=== PATIENT | male | born 1965 | race Caucasian/White ===

== ENCOUNTER → 2017-05-22 11:40 | Outpatient (CLI) | payer OTHER, SELFPAY ==
[2017-05-22 13:34] LABS: Albumin, Serum 3.9 g/dL (3.2-5.0); BUN 11 mg/dL (7-18); BUN/Creat Ratio 10.7 RATIO (10-20); Calcium,Total 9.1 mg/dL (8.5-10.1); Chloride 103 mmol/L (98-107); Creatinine, Serum 1.03 mg/dL (0.70-1.30); EST Glomerular Filtration Rate 81 mL/min (>60); Est Glom Filt Rate - Afr Amer 98 mL/min (>60); Glucose 98 mg/dL (74-106); Phosphorus 2.7 mg/dL (2.5-4.9); Potassium 4.3 mmol/L (3.5-5.1); Sodium Level 139 mmol/L (136-145)
== END ==
PROVIDERS: Family Provider Family Medicine; PCP Family Medicine; Visit Provider Internal Medicine Nephrology
DX: R80.9 Proteinuria, unspecified (principal)
CPT/HCPCS: 36415; 80069

== ENCOUNTER → 2017-05-28 09:01 | Outpatient (CLI) | payer OTHER, SELFPAY ==
--- NOTE | 2017-05-28 09:26 | US_ITS ---
STUDY: RENAL ULTRASOUND - COMPLETE REASON FOR EXAM: Male, 51 years old. Proteinuria. TECHNIQUE: Ultrasound evaluation of the kidneys was performed with real-time and static mays-scale imaging. COMPARISON: None. FINDINGS: RIGHT KIDNEY: Normal location of the right kidney, which is normal in size. The right kidney measures 11.4 x 5.6 x 6.0 cm. There is a normal cortex of the right kidney. The renal cortex measures 1.8 cm. There is no right renal mass or cyst. There are no right renal calculi. There is no right hydronephrosis. DISTAL RIGHT URETER: There is non-visualization of the distal right ureter. There is no demonstrated right ureterovesical junction calculus. There is no demonstrated right ureteral jet. LEFT KIDNEY: Normal location of the left kidney, which is normal in size. The left kidney measures 12.4 x 5.2 x 6.2 cm. There is a normal cortex of the left kidney. The renal cortex measures 1.9 cm. There is no left renal mass or cyst. There are no left renal calculi. There is no left hydronephrosis. DISTAL LEFT URETER: There is non-visualization of the distal left ureter. There is no demonstrated left ureterovesical junction calculus. There is no demonstrated left ureteral jet. BLADDER: The urinary bladder is incompletely distended, measuring 5.7 x 3.6 x 3.3 cm (35 mL). There is a 7.35 mm wall thickness of the distended urinary bladder. There is no demonstrated mass within the urinary bladder. There are no demonstrated bladder calculi. US/Kidney and Bladder IMPRESSION: 1. Normal ultrasound of the kidneys. No hydronephrosis. 2. Incomplete distention of the urinary bladder, which limits evaluation. No urinary bladder mass or stone. Electronically Signed: Jono Pereira MD at 18:04 EST , Service support ,
== END ==
PROVIDERS: Family Provider Family Medicine; PCP Family Medicine; Visit Provider Internal Medicine Nephrology
DX: R80.9 Proteinuria, unspecified (principal)
CPT/HCPCS: 76770

== ENCOUNTER 2017-06-18 07:30 | Outpatient (RCR) | payer OTHER, SELFPAY ==
--- NOTE | 2017-05-09 15:58 | HP.PTEVAL ---
Patient's Visit Information DINORAH SANTOS is a 51 year old M referred to Physical Therapy by DO MERVAT Monge with a diagnosis of Straiin of muscle and tendon of the RTC. Date of Evaluation: 05/09/17 Physical Therapist: Dhiraj Lopez PT, - Visit Plan Frequency: 2x /Week Duration: 2 Months Plan: * SEE PROTOCAL* FOR PROGRESSION WITH ROM AND STRENGTH. PATIENT HAD FULL THICKNESSTEAR OF INFRASPISNATOUS/SUPRASPINATOUS 3-5 CM. S/P RTC REPAIR 01/08/17. INTIALLY STARTED ON PROM INSTRUCTED TO SPOUSE AND SUPINE AAROM CANE - Subjective Subjective: This 51 y/o male presents to physical therapy with shoulder strain of muscles and tendon. of left side. Patient RTC repair 01/08/17 patient has sling until Mar 2017.Then In Mar recommended PT but patient waited . Patient intially injuried shoulders tractor fell onto patient causing shoulders pain last in October 01 2016. Tried conservative treatment.Then had MRI showed full thickness tear. Patient has pain and limited with all ADL'S and housework tasks ,self hygine. Difficulty sleeping at night . C/O parathesia/tingling left hand. Patient had [place] last year had stent [facility].Patient was to start PT in Mar but thought it would get better on own. From the injury he also has right shoulder pain.Patient also had [place] lat year thus had stent. SOCIAL: . VOCATION: unemployed - Pain Left Shoulder Pain Intensity (Out of 10): 9 Pain Intensity Range: 10 - Objective POSTURE: mild foward posture. PALAPTION: tender grossly shoulder. NEURO: inact reflexes C5-6-7 2/3,c/o parathesia hand. PROM: flexion shoulder flexion 85 degrees,abduction 80 degrees ,ER 45 degrres. MMT: infraspinatous 4-/5,subs 4/5,supraspinatous 3+/5,bicep/tricep 4/5,wrist 4/5. SKIN : inact - Goals Goal 1:: Independant with HEP Goal Time Frame: 8-12 Weeks Goal 2:: Decrease pain in left shoulder by 50 % or greater to improve function. Goal Time Frame: 8-12 Weeks Goal 3:: Patient increase AROM shoulder flexion 140 degrees,abduction 130 in scapation,ER 80 degrees to improve function and ADLS' above 90 degrees. Goal Time Frame: 8-12 Weeks Goal 4:: Patient to increase strength of RTC 4/5 AND DELTOID 4-/5 to improve function with ADL'S and activities above 90 degrees. Goal Time Frame: 8-12 Weeks Goal 5:: Patient able to perform ADL'S,self hygine and housework tasks with min limiations Goal Time Frame: 8-12 Weeks - Rehabilitation Potential Physical Therapy Diagnosis: This 51 y/o male presents with left supraspinatous /infraspinatousfull thickness tear thus underwent s/p RTC repair on 01/08/17 with impairs ROM,STRENGTH ,pain which impairs ADLS' and function. Patient had sling on until seen DR in Mar Rehabilitation Potential: Good - Anticipated Interventions Patient/Client Instruction: Educate patient on: Condition, Plan of Care For the Purpose of:: To decrease pain, To increase ROM, To improve muscle performance and motor function, To improve ability to perform ADL's, To increase tolerance to activity/condition/position, To improve performance and independence with ADL's, To improve ability of physical actions for home/community/work/leisure, To improve health of tissue, To decrease soft tissue restriction, To increase flexibility/ROM, To improve ability to perform tasks related to life management Therapeutic Exercise to Include: Strength training, Postural training, Passive ROM, Active ROM Comment: SEE PROTOCAL FOR PROGRESSION For the Purpose of:: To decrease pain, To increase ROM, To improve muscle performance and motor function, To improve ability to perform ADL's, To increase tolerance to activity/condition/position, To improve performance and independence with ADL's, To improve ability of physical actions for home/community/work/leisure, To improve health of tissue, To decrease soft tissue restriction, To increase flexibility/ROM, To assume or resume ADL's, To improve health and function, To improve ability to perform tasks related to life management Manual Therapy Techniques to Include: Passive ROM For the Purpose of:: To decrease pain, To increase ROM, To improve health of tissue, To decrease soft tissue restriction, To increase flexibility/ROM Cryotherapy (ice pack, ice massage): Yes Thermo therapy (hot pack): Yes For the Purpose of:: To decrease pain, To increase ROM, To increase oxygenation perfusion, To improve health of tissue, To decrease soft tissue restriction Thank you for the opportunity to evaluate your patient. For Medicare and Medicare HMO plans, please review the plan of care and approve it. It will need to be FAXED BACK to us at [phone] for Medicare purposes. Please let me know if there are questions or concerns regarding this plan of care. Physician Signature: Date:
--- NOTE | 2017-06-18 08:14 | HP.PTEVAL ---
Patient's Visit Information DINORAH SANTOS is a 52 year old M referred to Physical Therapy by DO MERVAT Monge with a diagnosis of Strain of muscle and tendon of the RTC. Date of Evaluation: 05/09/17 Physical Therapist: Dhiraj Lopez PT, - Visit Plan Frequency: 2x /Week Duration: 2 Months Plan: DC/ TO HEP - Subjective Subjective: This 51 y/o male presents to physical therapy with shoulder strain of muscles and tendon. of left side. Patient RTC repair 01/08/17 patient has sling until Mar 2017.Then In Mar recommended PT but patient waited . Patient intially injuried shoulders tractor fell onto patient causing shoulders pain last in October 01 2016. Tried conservative treatment.Then had MRI showed full thickness tear. Patient has pain and limited with all ADL'S and housework tasks ,self hygine. Difficulty sleeping at night . C/O parathesia/tingling left hand. Patient had [place] last year had stent [facility].Patient was to start PT in Mar but thought it would get better on own. From the injury he also has right shoulder pain.Patient also had [place] lat year thus had stent. SOCIAL: . VOCATION: unemployed - Pain Left Shoulder Pain Intensity (Out of 10): 0 Pain Intensity Range: 10 - Objective POSTURE: mild foward posture. PALAPTION: tender grossly shoulder. NEURO: inact reflexes C5-6-7 2/3,c/o parathesia hand. PROM: flexion shoulder flexion 85 degrees,abduction 80 degrees ,ER 45 degrres. MMT: infraspinatous 4-/5,subs 4/5,supraspinatous 3+/5,bicep/tricep 4/5,wrist 4/5. SKIN : inact - Goals Goal 1:: Independant with HEP Goal Time Frame: 8-12 Weeks Goal 2:: Decrease pain in left shoulder by 50 % or greater to improve function. Goal Time Frame: 8-12 Weeks Goal 3:: Patient increase AROM shoulder flexion 140 degrees,abduction 130 in scapation,ER 80 degrees to improve function and ADLS' above 90 degrees. Goal Time Frame: 8-12 Weeks Goal 4:: Patient to increase strength of RTC 4/5 AND DELTOID 4-/5 to improve function with ADL'S and activities above 90 degrees. Goal Time Frame: 8-12 Weeks Goal 5:: Patient able to perform ADL'S,self hygine and housework tasks with min limiations Goal Time Frame: 8-12 Weeks - Rehabilitation Potential Physical Therapy Diagnosis: This 51 y/o male presents with left supraspinatous /infraspinatousfull thickness tear thus underwent s/p RTC repair on 01/08/17 with impairs ROM,STRENGTH ,pain which impairs ADLS' and function. Patient had sling on until seen in [place] Rehabilitation Potential: Good - Anticipated Interventions Patient/Client Instruction: Educate patient on: Condition, Plan of Care For the Purpose of:: To decrease pain, To increase ROM, To improve muscle performance and motor function, To improve ability to perform ADL's, To increase tolerance to activity/condition/position, To improve performance and independence with ADL's, To improve ability of physical actions for home/community/work/leisure, To improve health of tissue, To decrease soft tissue restriction, To increase flexibility/ROM, To improve ability to perform tasks related to life management Therapeutic Exercise to Include: Strength training, Postural training, Passive ROM, Active ROM Comment: SEE PROTOCAL FOR PROGRESSION For the Purpose of:: To decrease pain, To increase ROM, To improve muscle performance and motor function, To improve ability to perform ADL's, To increase tolerance to activity/condition/position, To improve performance and independence with ADL's, To improve ability of physical actions for home/community/work/leisure, To improve health of tissue, To decrease soft tissue restriction, To increase flexibility/ROM, To assume or resume ADL's, To improve health and function, To improve ability to perform tasks related to life management Manual Therapy Techniques to Include: Passive ROM For the Purpose of:: To decrease pain, To increase ROM, To improve health of tissue, To decrease soft tissue restriction, To increase flexibility/ROM Cryotherapy (ice pack, ice massage): Yes Thermo therapy (hot pack): Yes For the Purpose of:: To decrease pain, To increase ROM, To increase oxygenation perfusion, To improve health of tissue, To decrease soft tissue restriction Thank you for the opportunity to evaluate your patient. For Medicare and Medicare HMO plans, please review the plan of care and approve it. It will need to be FAXED BACK to us at [phone] for Medicare purposes. Please let me know if there are questions or concerns regarding this plan of care. Physician Signature: Date:
--- NOTE | 2017-06-18 08:14 | HP.PTDCSUM ---
HP - PT D/C Summary It has been my pleasure to treat DINORAH SANTOS under orders from Edward Coburn DO, for the diagnosis of Strain of muscle and tendon of the RTC for a total of 9 visit(s). Discharge Date: 06/18/17 Please see the following information for a summary of their discharge status. - Subjective Subjective: Doing well.feeling good. Able to do ADL's and housework tasks. job demands - Pain Left Shoulder Pain Intensity (Out of 10): 0 - Overall Improvement % Improvement: 90 - Objective Objective/Function: AROM: flexion /abb 150 degrees,ER 75degress,L2 IR. MMT: RTC 4/5 DELTOID 4-/5. FUNCTION: WNL - Goals Goal 1:: Independant with HEP Goal Progress: Goal Met Goal 2:: Decrease pain in left shoulder by 50 % or greater to improve function. Goal Progress: Goal Met Goal 3:: Patient increase AROM shoulder flexion 140 degrees,abduction 130 in scapation,ER 80 degrees to improve function and ADLS' above 90 degrees. Goal Progress: Goal Met Goal 4:: Patient to increase strength of RTC 4/5 AND DELTOID 4-/5 to improve function with ADL'S and activities above 90 degrees. Goal Progress: Goal Met Goal 5:: Patient able to perform ADL'S,self hygine and housework tasks with min limiations Goal Progress: Goal Met - Plan Plan: DC/ TO HEP - D/C Information Discharge Comments: HEP If there are questions or concerns regarding this patient's physical therapy, please feel free to call me at [phone]. Thank you for the referral of this patient. Sincerely, Dhiraj Lopez, PT,
== END 2017-06-18 19:00 | disposition home or self-care (01) ==
LOC: PT 07:30
PROVIDERS: Family Provider Family Medicine; PCP Family Medicine; Visit Provider Orthopaedic Surgery
DX: S46.012D Strain of muscle(s) and tendon(s) of the rotator cuff of left shoulder, subsequent encounter (principal)
CPT/HCPCS: 97110; 97140; 97162

== ENCOUNTER → 2017-06-19 09:49 | Outpatient (CLI) | payer OTHER, SELFPAY ==
[2017-06-19 12:41] LABS: Protein, Urine (Random) 6.8 mg/dL (<11.9); Protein:Creat Ratio 145 mg/g CRE (0-200)
[2017-06-19 12:44] LABS: Albumin, Serum 3.9 g/dL (3.2-5.0); BUN 13 mg/dL (7-18); BUN/Creat Ratio 12.4 RATIO (10-20); Chloride 104 mmol/L (98-107); Creatinine, Serum 1.05 mg/dL (0.70-1.30); EST Glomerular Filtration Rate 79 mL/min (>60); Est Glom Filt Rate - Afr Amer 95 mL/min (>60); Glucose 105 mg/dL (74-106); Phosphorus 2.8 mg/dL (2.5-4.9); Potassium 4.3 mmol/L (3.5-5.1); Sodium Level 137 mmol/L (136-145)
== END ==
PROVIDERS: Family Provider Family Medicine; PCP Family Medicine; Visit Provider Internal Medicine Nephrology
DX: R80.9 Proteinuria, unspecified (principal)
CPT/HCPCS: 36415; 80069; 82570; 84156

== ENCOUNTER → 2017-09-16 10:52 | Outpatient (CLI) | payer OTHER, SELFPAY ==
[2017-09-16 11:38] LABS: BNP,B-Type NATRIURETIC PEPTIDE 3.2 pg/mL (0-100)
== END ==
PROVIDERS: Family Provider Family Medicine; PCP Family Medicine; Visit Provider Nurse Practitioner Family
DX: R06.09 Other forms of dyspnea (principal); R42 Dizziness and giddiness; Z72.0 Tobacco use; I25.118 Atherosclerotic heart disease of native coronary artery with other forms of angina pectoris; R60.1 Generalized edema
CPT/HCPCS: 36415; 83880

== ENCOUNTER → 2017-09-23 08:37 | Outpatient (CLI) | payer OTHER, SELFPAY ==
--- NOTE | 2017-09-23 08:39 | CDU_ITS ---
Reason For Study: dizziness, chronic Rt. Velocities/BP Lt. Velocities/BP Prox CCA 90.9/19.9 cm/sec. Prox CCA 99.1/24.6 cm/sec. Mid CCA 79.2/15.2 cm/sec. Mid CCA 82.1/28.7 cm/sec. Dist CCA 92.6/26.4 cm/sec. Dist CCA 101.0/28.7 cm/sec. Prox ICA 91.9/17.3 cm/sec. Prox ICA 88.5/34.0 cm/sec. Mid ICA 67.4/25.2 cm/sec. Mid ICA 90.7/40.9 cm/sec. Dist ICA 82.7/36.9 cm/sec. Dist ICA 142.0/46.2 cm/sec. Rt. ICA/CCA = 91.9/79.2=1.2. Lt. ICA/CCA = 142.0/82.1=1.7. Prox ECA 137.0/33.0 cm/sec. Prox ECA 119.0/20.4 cm/sec. Rt. Vert. 49.9/21.6 cm/sec. Lt. Vert. 32.2/11.0 cm/sec. Right Extracranial There is no significant atherosclerotic plaque noted in the right common carotid artery. There is homogeneous, smooth atherosclerotic plaque noted in the right internal carotid artery. There is no significant atherosclerotic plaque noted in the right external carotid artery. Antegrade flow is noted in the right vertebral artery. Left Extracranial There is intimal thickening but no significant atherosclerotic plaque noted in the left common carotid artery. There is heterogeneous, smooth atherosclerotic plaque noted in the left internal carotid artery. The tortuous nature of the left internal carotid artery may result in flow velocities overestimating the degree of stenosis. There is intimal thickening but no significant atherosclerotic plaque noted in the left external carotid artery. Antegrade flow is noted in the left vertebral artery. Interpretation Summary Minimal smooth plague within the right internal carotid with <50% stenosis. Normal flow right external carotid Minimal smooth plague within the proximal left internal carotid with tortuosity noted distally. Velocities correlate with 50-69% stenosis but likely closer to the lower limits of this range and artificially elevated secondary to tortuous vessel. Normal flow left external carotid Patent and antegrade vertebrals bilaterally Ordering Physician: Amor Peters Referring Physician: Amor Honeycutt Performed By: Denita Ahumada RDCS, RVT
== END ==
PROVIDERS: Family Provider Family Medicine; PCP Family Medicine; Visit Provider Nurse Practitioner Family
DX: R06.09 Other forms of dyspnea (principal); R42 Dizziness and giddiness; Z72.0 Tobacco use; I25.118 Atherosclerotic heart disease of native coronary artery with other forms of angina pectoris; R60.1 Generalized edema
CPT/HCPCS: 93880

== ENCOUNTER → 2017-12-17 14:01 | Outpatient (CLI) | payer OTHER, SELFPAY ==
[2017-12-17 15:20] LABS: Protein, Urine (Random) 16.1 mg/dL (<11.9); Protein:Creat Ratio 69 mg/g CRE (0-200)
[2017-12-17 15:32] LABS: Albumin, Serum 3.7 g/dL (3.2-5.0); BUN 14 mg/dL (7-18); BUN/Creat Ratio 12.8 RATIO (10-20); Calcium,Total 8.6 mg/dL (8.5-10.1); Chloride 104 mmol/L (98-107); Creatinine, Serum 1.09 mg/dL (0.70-1.30); EST Glomerular Filtration Rate 75 mL/min (>60); Est Glom Filt Rate - Afr Amer 91 mL/min (>60); Glucose 124 mg/dL (74-106); Phosphorus 2.3 mg/dL (2.5-4.9); Potassium 3.8 mmol/L (3.5-5.1); Sodium Level 138 mmol/L (136-145)
== END ==
PROVIDERS: Family Provider Family Medicine; PCP Family Medicine; Referring Provider Internal Medicine Nephrology; Visit Provider Internal Medicine Nephrology
DX: R80.9 Proteinuria, unspecified (principal); I10 Essential (primary) hypertension
CPT/HCPCS: 36415; 80069; 82570; 84156

== ENCOUNTER → 2017-12-18 15:13 | Outpatient (CLI) | payer OTHER, SELFPAY ==
--- NOTE | 2017-12-18 15:15 | RAD_ITS ---
STUDY: X-RAY CHEST REASON FOR EXAM: Male, 52 years old. Short of breath. COPD. TECHNIQUE: Frontal and lateral views of the chest. COMPARISON: 01/12/2017. FINDINGS: The lungs are clear and expanded. There is no demonstrated pleural abnormality. Normal size heart. Normal mediastinum and jesu. Normal visualized pulmonary arteries. Normal visualized aortic arch and descending thoracic aorta. Normal visualized thoracic spine. Normal visualized ribs, clavicles, and shoulders. There is no demonstrated abnormality of the visualized soft tissue structures of the upper abdomen. RAD/Chest PA and Lateral IMPRESSION: Normal x-ray examination of the chest. Electronically Signed: Henry Gamble MD at 17:56 EDT , Service support ,
[2017-12-18 17:06] LABS: Anion Gap 9 (5-15); BUN 16 mg/dL (7-18); BUN/Creat Ratio 13.2 RATIO (10-20); Calcium,Total 9.3 mg/dL (8.5-10.1); Chloride 106 mmol/L (98-107); Creatinine, Serum 1.21 mg/dL (0.70-1.30); EST Glomerular Filtration Rate 67 mL/min (>60); Est Glom Filt Rate - Afr Amer 81 mL/min (>60); Glucose 115 mg/dL (74-106); Potassium 3.8 mmol/L (3.5-5.1); Sodium Level 141 mmol/L (136-145)
[2017-12-18 17:09] LABS: BNP,B-Type NATRIURETIC PEPTIDE 8.1 pg/mL (0-100)
== END ==
PROVIDERS: Family Provider Family Medicine; PCP Family Medicine; Referring Provider Nurse Practitioner Acute Care; Visit Provider Nurse Practitioner Acute Care
DX: J44.9 Chronic obstructive pulmonary disease, unspecified (principal); R06.02 Shortness of breath
CPT/HCPCS: 36415; 71046; 80048; 83880

== ENCOUNTER → 2017-12-30 09:02 | Outpatient (CLI) | payer OTHER, SELFPAY ==
[2017-12-30 09:35] VITALS: PULSE 102; PULSE 105; PULSE 78; PULSE 90; PULSE 96; PULSE 98; O2SAT 95; O2SAT 96; O2SAT 97; O2SAT 98
--- NOTE | 2017-12-30 13:39 | PCM.PSN.6M ---
PSN 6 Minute Walk Test - 6 Minute Walk Test 6 Minute Walk Test: 6 Minute Walk Test PSN:6-Minute Walk Test Start: 12/30/17 09:35 Freq: Status: Active Protocol: RESP.6MINW Document 12/30/17 09:35 RONNY (Rec: 12/30/17 09:38 RONNY [id number]) 6 Minute Walk Test Date Performed 12/30/17 Time Performed 09:00 Height 5 ft 8 in Weight: 255 lb Weight in Pounds 255.[address]: Rafi Berumen Assistive device used: None Pre-test Oxygen Delivery Method Room Air Pulse Ox (%) 97 Pulse Rate (60-100 beats/min) 78 Dyspnea Belkys Scale (0-10) 1 Exertion Belkys Scale (6-20) 6 1st minute Oxygen Delivery Method Room Air Pulse Ox (%) 95 Pulse Rate (60-100 beats/min) 90 2nd minute Oxygen Delivery Method Room Air Pulse Ox (%) 97 Pulse Rate (60-100 beats/min) 102 H 3rd minute Oxygen Delivery Method Room Air Pulse Ox (%) 95 Pulse Rate (60-100 beats/min) 96 4th minute Oxygen Delivery Method Room Air Pulse Ox (%) 96 Pulse Rate (60-100 beats/min) 105 H 5th minute Oxygen Delivery Method Room Air Pulse Ox (%) 97 Pulse Rate (60-100 beats/min) 98 6th minute Oxygen Delivery Method Room Air Pulse Ox (%) 98 Pulse Rate (60-100 beats/min) 98 Dyspnea Belkys Scale (0-10) 5 Exertion Belkys Scale (6-20) 13 Post-test Oxygen Delivery Method Room Air Pulse Ox (%) 95 Pulse Rate (60-100 beats/min) 78 Full Laps Walked 19 Partial Lap, Number of Tiles Walked 32 Total Distance Walked (ft) 1153 - Interpretation Interpretation: The patient ambulated 1153 feet over the course of 6 minutes beginning on room air without assistive devices or breaks. Pretesting oxygen saturation was noted to be 97% on room air. With ambulation, the lior oxygen saturation was 95%. There was no significant exertional oxygen desaturation. - Recommendations Recommendations: There is no indication for the use of supplemental oxygen at this time.
== END ==
PROVIDERS: Family Provider Family Medicine; PCP Family Medicine; Referring Provider Nurse Practitioner Acute Care; Visit Provider Nurse Practitioner Acute Care
DX: J44.9 Chronic obstructive pulmonary disease, unspecified (principal)
CPT/HCPCS: 94618

== ENCOUNTER → 2018-01-02 08:08 | Outpatient (CLI) | payer OTHER, SELFPAY ==
--- NOTE | 2018-01-02 13:11 | PFT ---
INTRODUCTION: The patient is a 52-year-old male that presents for pulmonary function studies secondary to a diagnosis of COPD. Respiratory therapy reports good patient effort. Bronchodilators were used during testing. INTERPRETATION: Forced expiration spirometry demonstrates the presence of a very severe large airways obstructive ventilatory defect. There was a significant response to aerosolized bronchodilators noted. Spirograms are of good quality and do not plateau indicating slow emptying of the lungs. Body plethysmography was performed and reveals a decreased TLC to 4.16 L, 66% of predicted, indicative of a moderate restrictive ventilatory defect. The remainder of the lung volumes are symmetrically reduced. Diffusing capacity by single breath CO is mildly reduced at 62% of predicted. When compared to previous pulmonary function studies dated December 2015, there has been significant reductions in the patient's FEV1 and TLC. IMPRESSION: These pulmonary function studies demonstrate the presence of a reversible very severe mixed ventilatory defect with an associated mild reduction in diffusing capacity. There has been worsening in the patient's PFTs since they were last completed in 2015, as noted above.
== END ==
PROVIDERS: Family Provider Family Medicine; PCP Family Medicine; Referring Provider Nurse Practitioner Acute Care; Visit Provider Nurse Practitioner Acute Care
DX: J44.9 Chronic obstructive pulmonary disease, unspecified (principal)
CPT/HCPCS: 94060; 94726; 94729

== ENCOUNTER → 2018-01-15 07:40 | Outpatient (CLI) | payer OTHER, SELFPAY ==
--- NOTE | 2018-01-15 07:41 | CT_ITS ---
STUDY: CT CHEST WITHOUT CONTRAST REASON FOR EXAM: Male, 52 years old. COPD. Heart disease. RADIATION DOSAGE (If Supplied By Facility): CTDIvol = ( 20.14 ) mGy, DLP = ( 749.89 ) mGycm TECHNIQUE: Transaxial imaging was performed without the administration of intravenous contrast material. Individualized dose optimization techniques were used for this CT. COMPARISON: None. FINDINGS: The lungs are normal. There is no demonstrated pleural abnormality. Normal heart and pericardium. Normal mediastinum. Normal hilar regions. Normal unenhanced pulmonary arteries. Normal aorta arch and descending thoracic aorta. There are multi-level degenerative changes of the thoracic spine. There is no demonstrated acute abnormality of the visualized upper abdomen. There is fatty liver. CT/Chest without Contrast IMPRESSION: No definite abnormality. Electronically Signed: Henry Gamble MD at 16:57 EDT , Service support ,
== END ==
PROVIDERS: Family Provider Family Medicine; PCP Family Medicine; Referring Provider Internal Medicine Critical Care Medicine; Visit Provider Internal Medicine Critical Care Medicine
DX: J98.4 Other disorders of lung (principal)
CPT/HCPCS: 71250

== ENCOUNTER → 2018-05-26 06:34 | Outpatient (CLI) | payer OTHER, SELFPAY ==
[2018-04-24 09:15] VITALS: BMI 41.3
--- NOTE | 2018-05-26 06:44 | MRI_ITS ---
STUDY: MRI LUMBAR SPINE WITHOUT CONTRAST REASON FOR EXAM: Male, 52 years old. Chronic low back pain and upper legs TECHNIQUE: Standardized fat and water weighted pulse sequences were obtained in the sagittal and axial planes. COMPARISON: None FINDINGS: T12-L1: Normal endplates. Normal disc height, hydration and morphology. Normal bilateral facet joints. Normal central canal and bilateral lateral recesses. Normal bilateral intervertebral neural foramina. Normal lumbar lordosis. There is no substantial scoliosis. Normal conus medullaris that terminates at L1 L1-2: Minor endplate spurring. Normal disc height, hydration and morphology. Normal bilateral facet joints. Normal central canal and bilateral lateral recesses. Normal bilateral intervertebral neural foramina. L2-3: Normal endplates. Normal disc height, hydration and morphology. Normal bilateral facet joints. Normal central canal and bilateral lateral recesses. Normal bilateral intervertebral neural foramina. L3-4: Minor endplate spurring.. Normal disc height, desiccation and minor bulging disc osteophyte complex. Mild facet arthropathy. Normal central canal and bilateral lateral recesses. Mild to moderate bilateral neuroforaminal stenosis L4-5: Normal endplates. Normal disc height, desiccation and minimal bulging disc osteophyte complex.. Bilateral facet arthropathy and mild thickening of ligamenta flava.. Normal central canal and bilateral lateral recesses. Moderate bilateral neuroforaminal stenosis exaggerated by shortened pedicles. L5-S1: Degenerative endplate changes.. Normal disc height, desiccation and bulging disc osteophyte complex. Bilateral facet arthropathy.. Normal central canal and mild bilateral recess stenosis. Severe neural foraminal stenosis.. Normal visualized sacral ala. Normal visualized paraspinous soft tissue structures. MRI/Spine Lumbar (Routine) IMPRESSION: No evidence for acute fracture or other significant bony pathology. Spinal stenosis at L3-4, L4-5 and most severe at L5-S1 secondary to disc disease and bony hypertrophy Findings as above Electronically Signed: Morales Umanzor MD at 17:46 EST , Service support ,
== END ==
PROVIDERS: Family Provider Family Medicine; PCP Family Medicine; Referring Provider Family Medicine; Visit Provider Family Medicine
DX: M54.5 Low back pain (principal)
CPT/HCPCS: 72148

== ENCOUNTER → 2018-12-01 11:05 | Outpatient (CLI) | payer OTHER, SELFPAY ==
[2018-04-24 09:15] VITALS: BMI 41.3
[2018-12-01 12:25] LABS: Absolute Lymphocyte Count 2.82 X10^3/uL (0.83-4.51); Basophil# 0.06 X10^3/uL; Basophil% 0.7 % (0-1); Eosinophil# 0.21 X10^3/uL; Eosinophils% 2.4 % (0-5); Hematocrit 46.2 % (40-54); Hemoglobin 14.7 g/dL (13.0-16.5); Lymphocyte # 2.82 X10^3/ul (4.0); Lymphocyte % 31.6 % (19-41); Mean Corp Hgb Conc 31.8 g/dL (32-36); Mean Corpuscular Hgb 29.1 pg (27.0-32.0); Mean Corpuscular Volume 91.3 fL (80-94); Mean Platelet Vol. 9.7 fl (6.2-12.0); Monocyte# 0.78 X10^3/uL; Monocyte% 8.7 % (0-10); NRBC Flagged by Analyzer 0 % (0-5); Neutrophil # 4.98 X10^3/uL (2.7-7.7); Neutrophil % 55.8 % (47-70); Platelet Count 345 K/mm3 (150-450); RBC Distribution Width CV 14.6 % (11.6-14.6); Red Blood Count 5.06 M/mm3 (4.6-6.2); White Blood Count 8.9 K/mm3 (4.4-11.0)
[2018-12-01 13:34] LABS: Anion Gap 8 (5-15); BUN 14 mg/dL (7-18); BUN/Creat Ratio 13.1 RATIO (10-20); Calcium,Total 9.2 mg/dL (8.5-10.1); Chloride 104 mmol/L (98-107); Cholesterol 180 mg/dL (200); Creatinine, Serum 1.07 mg/dL (0.70-1.30); EST Glomerular Filtration Rate 77 mL/min (>60); Est Glom Filt Rate - Afr Amer 93 mL/min (>60); Glucose 114 mg/dL (74-106); High Density Lipoprotein 41 mg/dL; PSA,Total - Annual Screen 0.48 ng/mL (0.00-4.00); Sodium Level 137 mmol/L (136-145); Triglycerides 380 mg/dL; Very Low Density Lipoprotein 76 mg/dL (5-40)
== END ==
PROVIDERS: Family Provider Family Medicine; PCP Family Medicine; Referring Provider Family Medicine; Visit Provider Family Medicine
DX: I25.10 Atherosclerotic heart disease of native coronary artery without angina pectoris (principal); Z12.5 Encounter for screening for malignant neoplasm of prostate; I10 Essential (primary) hypertension
CPT/HCPCS: 36415; 80048; 80061; 84153; 85025; G0103

== ENCOUNTER → 2019-02-02 11:57 | Outpatient (CLI) | payer OTHER, SELFPAY ==
[2018-04-24 09:15] VITALS: BMI 41.3
--- NOTE | 2019-02-02 12:01 | RAD_ITS ---
STUDY: X-RAY - RIGHT KNEE REASON FOR EXAM: Male, 53 years old. Pain TECHNIQUE: 2 view(s) of the knee. COMPARISON: None. FINDINGS: Normal visualized distal femur. Normal visualized proximal tibia and fibula. Normal proximal tibiofibular articulation. Normal medial femorotibial compartment. Normal lateral femorotibial compartment. Normal patellofemoral articulation. The soft tissue structures are unremarkable. RAD/Knee 1 or 2 Views IMPRESSION: Normal x-ray examination of the knee. Electronically Signed: Abram Britton, at 18:35 EST Tel , Service support ,
--- NOTE | 2019-02-02 12:02 | RAD_ITS ---
STUDY: X-RAY - LEFT KNEE REASON FOR EXAM: Male, 53 years old. Knee pain TECHNIQUE: 2 view(s) of the knee. COMPARISON: None. FINDINGS: Normal visualized distal femur. Normal visualized proximal tibia and fibula. Normal proximal tibiofibular articulation. Normal medial femorotibial compartment. Normal lateral femorotibial compartment. Normal patellofemoral articulation. The soft tissue structures are unremarkable. RAD/Knee 1 or 2 Views IMPRESSION: Normal x-ray examination of the knee. Electronically Signed: Abram Britton, at 19:59 EST Tel , Service support ,
== END ==
PROVIDERS: Family Provider Family Medicine; PCP Family Medicine; Referring Provider Anesthesiology Pain Medicine; Visit Provider Anesthesiology Pain Medicine
DX: M25.561 Pain in right knee (principal); M25.562 Pain in left knee
CPT/HCPCS: 73560

== ENCOUNTER → 2019-04-07 09:09 | Outpatient (CLI) | payer OTHER, SELFPAY ==
[2019-03-30 09:04] VITALS: BMI 44.1
[2019-04-07 10:31] LABS: Absolute Lymphocyte Count 2.82 X10^3/uL (0.83-4.51); Absolute Neutrophil Count 5.7 X10^3/uL (2.0-7.7); Basophil# 0.05 X10^3/uL; Basophil% 0.5 % (0-1); Eosinophil# 0.21 X10^3/uL; Eosinophils% 2.1 % (0-5); Hematocrit 47.4 % (40-54); Hemoglobin 14.9 g/dL (13.0-16.5); Lymphocyte # 2.82 X10^3/ul (4.0); Lymphocyte % 28.8 % (19-41); Mean Corp Hgb Conc 31.4 g/dL (32-36); Mean Corpuscular Hgb 28.4 pg (27.0-32.0); Mean Corpuscular Volume 90.5 fL (80-94); Mean Platelet Vol. 9.8 fl (6.2-12.0); Monocyte# 0.95 X10^3/uL; Monocyte% 9.7 % (0-10); NRBC Flagged by Analyzer 0 % (0-5); Neutrophil # 5.69 X10^3/uL (2.7-7.7); Neutrophil % 58.1 % (47-70); Platelet Count 363 K/mm3 (150-450); RBC Distribution Width CV 14.3 % (11.6-14.6); RBC Distribution Width SD 47.5 fl (35.1-43.9); Red Blood Count 5.24 M/mm3 (4.6-6.2); White Blood Count 9.8 K/mm3 (4.4-11.0)
[2019-04-07 11:02] LABS: ALB/GLOB Ratio 0.9 RATIO (0.9-2.4); AST(SGOT) 25 U/L (15-37); Alanine Aminotransfer ALT/SGPT 51 U/L (16-61); Albumin, Serum 3.7 g/dL (3.2-5.0); Alkaline Phosphatase 124 U/L (45-117); Anion Gap 6 (5-15); BUN 13 mg/dL (7-18); BUN/Creat Ratio 12.5 RATIO (10-20); Calcium,Total 9.3 mg/dL (8.5-10.1); Chloride 101 mmol/L (98-107); Cholesterol 190 mg/dL (200); Creatinine, Serum 1.04 mg/dL (0.70-1.30); EST Glomerular Filtration Rate 79 mL/min (>60); Est Glom Filt Rate - Afr Amer 96 mL/min (>60); Globulin 4.1 g/dL (2.2-4.2); Glucose 142 mg/dL (74-106); Hemoglobin A1c 7.2 % (4.2-6.3); High Density Lipoprotein 37 mg/dL; Magnesium 2.1 mg/dL (1.6-2.6); Protein, Total 7.8 g/dL (6.4-8.2); Sodium Level 135 mmol/L (136-145); Thyroid Stim Hormone (TSH) 2.51 uIU/mL (0.358-3.74); Triglycerides 377 mg/dL; Very Low Density Lipoprotein 75 mg/dL (5-40)
== END ==
PROVIDERS: Family Provider Family Medicine; PCP Family Medicine; Referring Provider Family Medicine; Visit Provider Family Medicine
DX: I10 Essential (primary) hypertension (principal); R73.09 Other abnormal glucose; E78.00 Pure hypercholesterolemia, unspecified
CPT/HCPCS: 36415; 80053; 80061; 83036; 83735; 84443; 85025

== ENCOUNTER → 2019-05-11 10:14 | Outpatient (CLI) | payer OTHER, SELFPAY ==
[2019-04-28 09:24] VITALS: BMI 42.0
[2019-05-11 12:45] LABS: Anion Gap 6 (5-15); BUN 16 mg/dL (7-18); BUN/Creat Ratio 14.3 RATIO (10-20); Calcium,Total 9.3 mg/dL (8.5-10.1); Chloride 106 mmol/L (98-107); Creatinine, Serum 1.12 mg/dL (0.70-1.30); EST Glomerular Filtration Rate 73 mL/min (>60); Est Glom Filt Rate - Afr Amer 88 mL/min (>60); Glucose 221 mg/dL (74-106); Sodium Level 137 mmol/L (136-145)
[2019-05-11 16:00] LABS: Microalbumin:Creatinine Ratio 82.2 mg/g CRE (<30 mg/g CRE)
== END ==
PROVIDERS: PCP Family Medicine; Referring Provider Family Medicine; Visit Provider Family Medicine
DX: I10 Essential (primary) hypertension (principal); E11.9 Type 2 diabetes mellitus without complications
CPT/HCPCS: 36415; 80048; 82043; 82570

== ENCOUNTER → 2019-05-28 08:27 | Outpatient (CLI) | payer OTHER, SELFPAY ==
[2019-04-28 09:24] VITALS: BMI 42.0
[2019-05-28 08:53] LABS: Amphetamine Urine VISTA NEGATIVE (<1000 ng/mL); Barbiturate Urine VISTA NEGATIVE (< 200 ng/mL); Benzodiazepine Urine VISTA NEGATIVE (< 200 ng/mL); Cocaine Urine VISTA NEGATIVE (< 300 ng/mL); Ecstacy Urine VISTA NEGATIVE (< 500 ng/mL); Methadone Urine VISTA NEGATIVE (< 300 ng/mL); PCP Urine VISTA NEGATIVE (< 25 ng/mL); THC Urine VISTA NEGATIVE (< 50 ng/mL); Vista UDS pH Range 7
== END ==
PROVIDERS: PCP Family Medicine; Referring Provider Anesthesiology Pain Medicine; Visit Provider Anesthesiology Pain Medicine
DX: F11.20 Opioid dependence, uncomplicated (principal)
CPT/HCPCS: 80307

== ENCOUNTER → 2019-09-02 09:26 | Outpatient (CLI) | payer OTHER, SELFPAY ==
[2019-04-28 09:24] VITALS: BMI 42.0
[2019-09-02 10:18] LABS: Absolute Lymphocyte Count 1.33 X10^3/uL (0.83-4.51); Absolute Neutrophil Count 21.5 X10^3/uL (2.0-7.7); Basophil# 0.03 X10^3/uL; Basophil% 0.1 % (0-1); Hematocrit 45.9 % (40-54); Hemoglobin 14.6 g/dL (13.0-16.5); Lymphocyte # 1.33 X10^3/ul (4.0); Lymphocyte % 5.5 % (19-41); Mean Corp Hgb Conc 31.8 g/dL (32-36); Mean Corpuscular Hgb 29.3 pg (27.0-32.0); Mean Platelet Vol. 9.6 fl (6.2-12.0); Monocyte# 1.05 X10^3/uL; Monocyte% 4.4 % (0-10); NRBC Flagged by Analyzer 0 % (0-5); Neutrophil % 89.1 % (47-70); POSITIVE DIFFERENTIAL YES; POSITIVE MORPHOLOGY YES; Platelet Count 404 K/mm3 (150-450); RBC Distribution Width CV 14.8 % (11.6-14.6); RBC Distribution Width SD 50.1 fl (35.1-43.9); Red Blood Count 4.99 M/mm3 (4.6-6.2); White Blood Count 24.1 K/mm3 (4.4-11.0)
[2019-09-02 10:50] LABS: Differential Indicated SCAN CRITERIA MET; Hemoglobin A1c 6.4 % (3.8-5.6)
[2019-09-02 11:05] LABS: AST(SGOT) 30 U/L (15-37); Alanine Aminotransfer ALT/SGPT 54 U/L (16-61); Albumin, Serum 3.9 g/dL (3.2-5.0); Alkaline Phosphatase 108 U/L (45-117); Anion Gap 10 (5-15); BUN 19 mg/dL (7-18); BUN/Creat Ratio 16.1 RATIO (10-20); Calcium,Total 9.4 mg/dL (8.5-10.1); Chloride 104 mmol/L (98-107); Cholesterol 197 mg/dL (200); Creatinine, Serum 1.18 mg/dL (0.70-1.30); EST Glomerular Filtration Rate 68 mL/min (>60); Est Glom Filt Rate - Afr Amer 83 mL/min (>60); Glucose 242 mg/dL (74-106); High Density Lipoprotein 51 mg/dL; Potassium 4.6 mmol/L (3.5-5.1); Protein, Total 7.9 g/dL (6.4-8.2); Sodium Level 137 mmol/L (136-145); Triglycerides 159 mg/dL; Very Low Density Lipoprotein 32 mg/dL (5-40)
[2019-09-02 12:13] LABS: Microalbumin:Creatinine Ratio 166.2 mg/g CRE (<30 mg/g CRE)
== END ==
PROVIDERS: PCP Family Medicine; Referring Provider Family Medicine; Visit Provider Family Medicine
DX: I10 Essential (primary) hypertension (principal); E11.9 Type 2 diabetes mellitus without complications
CPT/HCPCS: 36415; 80053; 80061; 82043; 82570; 83036; 85025

== ENCOUNTER → 2019-09-14 12:17 | Outpatient (CLI) | payer OTHER, SELFPAY ==
[2019-04-28 09:24] VITALS: BMI 42.0
[2019-09-14 13:38] LABS: Absolute Lymphocyte Count 3.62 X10^3/uL (0.83-4.51); Absolute Neutrophil Count 9.2 X10^3/uL (2.0-7.7); Basophil# 0.06 X10^3/uL; Basophil% 0.4 % (0-1); Eosinophil# 0.12 X10^3/uL; Eosinophils% 0.8 % (0-5); Hematocrit 45.8 % (40-54); Hemoglobin 14.6 g/dL (13.0-16.5); Lymphocyte # 3.62 X10^3/ul (4.0); Lymphocyte % 25.2 % (19-41); Mean Corp Hgb Conc 31.9 g/dL (32-36); Mean Corpuscular Hgb 29.5 pg (27.0-32.0); Mean Corpuscular Volume 92.5 fL (80-94); Mean Platelet Vol. 9.1 fl (6.2-12.0); Monocyte% 8.4 % (0-10); NRBC Flagged by Analyzer 0 % (0-5); Neutrophil # 9.23 X10^3/uL (2.7-7.7); Neutrophil % 64.4 % (47-70); Platelet Count 318 K/mm3 (150-450); RBC Distribution Width CV 14.9 % (11.6-14.6); RBC Distribution Width SD 50.4 fl (35.1-43.9); Red Blood Count 4.95 M/mm3 (4.6-6.2); White Blood Count 14.3 K/mm3 (4.4-11.0)
[2019-09-14 13:47] LABS: Amphetamine Urine VISTA NEGATIVE (<1000 ng/mL); Barbiturate Urine VISTA NEGATIVE (< 200 ng/mL); Benzodiazepine Urine VISTA NEGATIVE (< 200 ng/mL); Cocaine Urine VISTA NEGATIVE (< 300 ng/mL); Ecstacy Urine VISTA NEGATIVE (< 500 ng/mL); Methadone Urine VISTA NEGATIVE (< 300 ng/mL); OXY Internal Control LINE = VALID (VALID); Oxycodone Drug Screen Positive (<100 ng/mL); PCP Urine VISTA NEGATIVE (< 25 ng/mL); THC Urine VISTA NEGATIVE (< 50 ng/mL); Vista UDS pH Range 5
== END ==
PROVIDERS: Anesthesiology Pain Medicine; PCP Family Medicine; Referring Provider Family Medicine; Visit Provider Family Medicine
DX: D72.829 Elevated white blood cell count, unspecified (principal); F11.20 Opioid dependence, uncomplicated
CPT/HCPCS: 36415; 80307; 80365; 85025; G0480

== ENCOUNTER → 2019-10-19 11:28 | Outpatient (CLI) | payer OTHER, SELFPAY ==
[2019-04-28 09:24] VITALS: BMI 42.0
--- NOTE | 2019-10-19 11:03 | RAD_ITS ---
STUDY: X-RAY - LEFT KNEE REASON FOR EXAM: Male, 54 years old. left knee pain TECHNIQUE: 4 view(s) of the knee. COMPARISON: 02-02-19 FINDINGS: Normal visualized distal femur. Normal visualized proximal tibia and fibula. Normal proximal tibiofibular articulation. Normal medial femorotibial compartment. Normal lateral femorotibial compartment. Normal patellofemoral articulation. Prepatellar soft tissue swelling. RAD/Knee 4 or More Views IMPRESSION: Possible prepatellar bursitis Electronically Signed: Imtiaz Moreno MD at 21:25 EDT , Service support ,
--- NOTE | 2019-10-19 11:29 | VDLE_ITS ---
Reason For Study: LLE pain Procedure LEFT Exam performed in department. GSV is normal. The exam was diagnostic. CFV is compressible, spontaneous, phasic, A preliminary report was called and/or faxed competent, and demonstrates normal to Dr. Serrano @ [phone] @ 12:05 pm. augmentation. FV is compressible, spontaneous, phasic, competent and demonstrates normal augmentation. POP V is compressible, spontaneous, phasic, competent and demonstrates normal augmentation. T/P Trunk is compressible. PTV is compressible. LT PerV is compressible. NON-vascular structure noted in the left pop fossa area measuring 3.99cm x 1.54cm. Interpretation Summary Deep veins of the left lower extremity are patent and compressible segmentally. There is no evidence of left lower extremity deep vein thrombosis. Valvular competence appears intact within the proximal deep venous system on the left . The left great saphenous vein appears patent and compressible segmentally. A non-vascular, hypoechoic structure is noted in the left popliteal space, measuring 3.99 cm x 1.54 cm. This probably represents a popliteal cyst. Clinical correlation is advised. Ordering Physician: Italia Serrano Referring Physician: Amor Bishop Performed By: Denita Ahumada RVT, RDCS and Student
== END ==
PROVIDERS: PCP Family Medicine; Referring Provider Family Medicine; Visit Provider Family Medicine
DX: M79.605 Pain in left leg (principal); M25.562 Pain in left knee
CPT/HCPCS: 73564; 93971

== ENCOUNTER → 2019-12-17 16:57 | Outpatient (CLI) | payer OTHER, SELFPAY ==
[2019-10-29 08:11] VITALS: BMI 45.6
--- NOTE | 2019-12-17 16:59 | CT_ITS ---
STUDY: LOW DOSE CT LUNG CANCER SCREENING REASON FOR EXAM: Male, 54 years old. 72 pack-year history. 3 years ago. RADIATION DOSAGE (If Supplied By Facility): CTDIvol = ( 4.02 ) mGy, DLP = ( 135.92 ) mGycm TECHNIQUE: No contrast was administered. Low dose technique was utilized (average mAS-38 and kVp 120). 1.25 mm axial source images with a slice interval of 1.25-mm were reconstructed in lung windows. 2.5 mm axial source images with a slice interval of 2.5-mm were reconstructed in lung windows. 5.0 mm axial source images with a slice interval of 5.0-mm were reconstructed in soft tissue windows. Nodule measured using lung windows on PACS and/or independent workstation with automated measurement of minimum and maximum diameter. Nodule measurement reported as average diameter rounded to the nearest whole number. Growth is defined as an increase ins size of greater than 1.5 mm. COMPARISON: CT of the chest, 01/15/2018. NODULES: Total lung nodules (excluding granulomas): 0 Emphysema: None Endobronchial lesion: None Aorta: Coronary arteries: Minimal coronary artery calcifications. Heart: Normal in size Pulmonary artery: Normal Mediastinal nodes: None Other chest and abdominal findings: Degenerative changes of the thoracic spine. Splenomegaly. CT/Low Dose CT Lung Screening IMPRESSION: Lung-RADS category 1 - Continue annual screening with LDCT in 12 months. IMPORTANT NOTES FOR USE: ACR Lung-RADS Version 1.0 Assessment Categories Release Date: July 20, 2013 Category: Coded 0-4 bases on nodule(s) with highest degree of suspicion. Negative screen is defined as categories 1 and 2; a positive screen is defined as categories 3 and 4. Category 3 and 4A nodules that are unchanged on interval CT should be coded as category 2, and individuals returned to screening in 12 months. Category 4X: Category 3 or 4 nodules with additional imaging findings that increase the suspicion of lung cancer, such as spiculation, GGN that doubles in size in 1 year, enlarged lymph notes, etc. Category Modifiers: S (significant finding unrelated to lung cancer) and C (prior history of treated lung cancer) may be added to the 0-4 Lung-RADS Electronically Signed: Robb Masterson DO at 23:29 EDT Tel [phone], Service support ,
== END ==
PROVIDERS: PCP Family Medicine; Referring Provider Family Medicine; Visit Provider Family Medicine
DX: Z12.2 Encounter for screening for malignant neoplasm of respiratory organs (principal)
CPT/HCPCS: G0297

== ENCOUNTER 2020-01-22 07:37 | Day surgery (SDC) | payer OTHER, SELFPAY ==
[2019-12-31 08:55] VITALS: BMI 45.6
[2020-01-22 07:50] VITALS: BP 137/97; PULSE 90; RESP 16; TEMP 36.3; O2SAT 95; BMI 44.6
--- NOTE | 2020-01-22 07:50 | PCM.HP.BLA ---
Problem List (1) Screening for malignant neoplasm of intestine Status: Acute History and Physical Date of Admission: 01/22/20 Intake Visit Reasons: CSCOPE Chief Complaint: c-scope Mixer And Scaler Required: No Is patient in pain?: No Allergies atorvastatin Allergy (Mild, Verified 12/31/19 08:54) itching lisinopril Allergy (Verified 12/31/19 08:54) Other Medications Aspirin E.C. [Ecotrin] 81 mg PO DAILY@0800 12/02/15 [History Confirmed 12/31/19] Furosemide [Lasix] 40 mg PO BID #60 tab 01/15/17 [Rx Confirmed 12/31/19] albuterol sulfate 90 mcg/actuation aerosol inhaler 2 puff INHALATION Q4H g 03/13/17 [History Confirmed 12/31/19] montelukast 10 mg tablet 10 mg PO QHS #30 tab 03/21/17 [Rx Confirmed 12/31/19] omeprazole 40 mg capsule,delayed release 40 mg PO QDAY 09/16/17 [History Confirmed 12/31/19] umeclidinium 62.5 mcg/actuation blister powder for inhalation 1 inh INHALATION Q24H #30 ea 09/30/17 [Rx Confirmed 12/31/19] pitavastatin calcium 2 mg tablet 2 mg PO DAILY #30 tab 12/04/17 [Rx Confirmed 12/31/19] diltiazem HCl 180 mg capsule,extended release 24 hr 180 mg PO QDAY #90 cap 02/15/18 [Rx Confirmed 12/31/19] albuterol sulfate 90 mcg/actuation aerosol inhaler 1 puff INHALATION Q6H PRN 04/24/18 [History Confirmed 12/31/19] clopidogrel 75 mg tablet 75 mg PO DAILY #90 tab 04/15/19 [Rx Confirmed 12/31/19] losartan 50 mg tablet 50 mg PO DAILY #90 tab 04/28/19 [Rx Confirmed 12/31/19] oxycodone-acetaminophen 5 mg-325 mg tablet 1 tab PO Q8H PRN 04/28/19 [History Confirmed 12/31/19] fluticasone furoate 200 mcg-vilanterol 25 mcg/dose inhalation powder 1 inh INHALATION Q24H #60 ea 06/12/19 [Rx Confirmed 12/31/19] metformin 500 mg tablet 500 mg PO BID 10/29/19 [History Confirmed 12/31/19] prednisone 20 mg tablet 20 mg PO DAILY 10/29/19 [History Confirmed 12/31/19] [facility] Medical History 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 (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) Essential (primary) hypertension (Chronic) Hyperlipidemia (Chronic) COPD (chronic obstructive pulmonary disease) (Chronic) HAWA (obstructive sleep apnea) (Chronic) Body mass index (BMI) of 40.0-44.9 in adult (Chronic) Impingement syndrome of left shoulder (Chronic) Strain of muscle(s) and tendon(s) of the rotator cuff of left shoulder, subsequent encounter (Chronic) Tobacco abuse (Chronic) Acute respiratory failure, unspecified whether with hypoxia or hypercapnia (Resolved) Allergic rhinitis (Resolved) Proteinuria (Resolved) intermediate designer use of antihyperlipidemic (Resolved) Breathing-related sleep disorder (Inactive) Surgical History History of coronary artery stent placement (Resolved 11/06/15) History of repair of rotator cuff (Resolved) S/P left rotator cuff repair (Inactive) Family History (Updated 12/31/19 @ 08:53 by Paloma Hearn) Grandmother CAD (coronary artery disease) Hypertension Father Hypertension CAD (coronary artery disease) Hyperlipidemia Heart disease Myocardial infarction Brother CAD (coronary artery disease) Heart disease Myocardial infarction Social History (Updated 12/31/19 @ 09:[address] Albert Barnes MD) Smoking Status: Former smoker how long ago did patient quit smokin11/06/15 second hand exposure: Yes alcohol intake: never substance use type: does not use caffeine: No what type of physical activity do you participate in: none HPI HPI HPI: DINORAH SANTOS, is a 54 M who presents to the office today for surgical consultation regarding a screening colonoscopy. He presents with his Roselyn. He has never had a screening colonoscopy. He is 54 years of age. There is no personal or family history of colon polyps or colon cancer. He does have medical comorbidities. He had had an acute myocardial infarction. Since that time he is gained 80 pounds in weight. He is still active but not as active. He states that from a cardiac standpoint however he feels like he is stable. HPI HPI HPI: DINORAH SANTOS, is a 54 M who presents to the office today for ROS General General: Yes weight change and fatigue; no appetite, colon cancer, breast cancer or weakness HEENT HEENT: No difficulty swallowing, eye injury, eye surgery, swollen glands or hoarseness Endo Endocrine: Yes diabetes mellitus; no thyroid disease, thyroid cancer, Hair loss, heat intolerance or cold intolerance Musc Musculoskeletal: Yes back problems and arthritis; no rheumatoid arthritis, gout or joint pain Cardio Cardiovascular: Yes heart disease, high blood pressure, heart attack and heart stent; no murmur, pacemaker, atrial fibrillation, palpitations, shortness of breat with exertion or chest pain Psych Psychiatric: Yes anxiety; no depression or hearing voices Resp Respiratory: Yes shortness of breath, Yes sleep apnea, No cough, Yes COPD, No asthma, Yes emphysema, No wheezing Gastro Gastrointestinal: No abdominal pain, No nausea or vomiting, No diarrhea, No constipation, No blood in stool, Yes acid reflux, No hemorrhoids, No ulcers, No gallbladder problem, No black,tarry stools Thomas Hematologic: Yes blood thinners, No blood disorders, No bleeding, No anemia, No blood clots Neuro Neurologic: No weakness Exam Const General: cooperative, comfortable, no acute distress Nutritional Appearance: obese morbidly obese [facility] Head: normal to inspection Chest Other: Increased anterior posterior diameter Resp Effort & Inspection: normal respiratory effort Auscultation: clear to auscultation bilaterally Cardio Rate: regular rate Rhythm: regular rhythm Heart Sounds: no murmurs GI Other: Notably overweight, I am not able detect any internal organs. Normal bowel sounds. Skin Other: Diffuse punctate self excoriated rashes bilateral upper extremities. Neuro Cognition: normal cognition Extrem General: no calf tenderness Other: Thick calves mild nonpitting edema Psych Affect: normal affect Assessment & Plan Problems 1. Screening for malignant neoplasm of intestine Z12.10 Plan The patient is on aspirin and Plavix. Intermittently he will have some blood on the tissue but relates that to his anticoagulation. He has been newly diagnosed with diabetes which might explain the slight skin sores bilateral upper extremities. I propose for him a colonoscopy with possible biopsy or polypectomy as indicated. He is aware of the technique, benefit, risk and alternatives. Because of his increased risk secondary to BMI of 45.6 and cardiac history we will proceed with monitored anesthesia care. He has had an opportunity ask and have questions answered and we will schedule and proceed as noted. Copy: Dr mAor Barnes M.D., F.A.C.S. Orders Orders: Colonoscopy Today Coding Level of Care Code Off vis,new,level 2 Diagnoses Screening for malignant neoplasm of intestine Z12.10 I have re-examined the patient. There are no clinical changes since date of exam. Procedure Criteria Procedure Type: Elective COVID Risk Discussion: The surgeon/proceduralist and patient have discussed in detail the risk of exposure to and/or potential harm posed by the COVID-19 virus with having a surgery/procedure at this time versus the risk of delaying the surgery/procedure. It is not possible to know either the risk of delaying the surgery or procedure or chance of getting an infection with perfect accuracy, but a joint decision was made between the patient and the surgeon/proceduralist to proceed at this time with the scheduled surgery/procedure as indicated on the consent form.
[2020-01-22 08:16] LABS: Bedside Glucose 122 mg/dL (70-110)
[2020-01-22] MEDS: Lactated Ringers 1,000 ML 100 ML IV (08:26)
[2020-01-22 09:15] VITALS: BP 137/97; BP 146/98; PULSE 85; RESP 20; TEMP 36.2; O2SAT 96
--- NOTE | 2020-01-22 09:16 | OP.CCLET_ITS ---
01/22/2020 Amor Bishop [address] [place] [address] Re : Colonoscopy procedure for Mitchel Paz Dear Dr. Bishop This procedure was performed on Wednesday, January 22, 2020. My impressions and recommendations are as follows: Impressions : - Non-thrombosed external hemorrhoids, non-thrombosed internal hemorrhoids and internal hemorrhoids that prolapse with straining, but spontaneously regress to the resting position (Grade II) found on digital rectal exam. - Diverticulosis in the entire examined colon. - The examination was otherwise normal. - No specimens collected. Recommendations : - Discharge patient to home. - Resume previous diet. - Continue present medications. - Repeat colonoscopy in 10 years for screening purposes. Over the counter suppositories or cream as needed for local irritation. If bleeding continues then consider anoscopy to re-examine the anus. Mild irriation today but felt to be inpart secondary to the bowel prep My findings are described in the full procedure note, which is enclosed. If I can be of further assistance, please feel free to contact me at Doctor phone number(s): Work: . Sincerely, Albert Barnes MD 01/22/2020 9:15:55 AM This report has been signed electronically.
--- NOTE | 2020-01-22 09:16 | OP.COLON_ITS ---
Patient Name: Mitchel Paz Procedure Date: 01/22/2020 8:50 AM Date of : 1965 Age: 54 Procedure: Colonoscopy Indications: Screening for colorectal malignant neoplasm Providers: Albert Barnes MD Referring MD: Amor Bishop Medicines: See the Anesthesia note for documentation of the administered medications Patient Profile: Last Colonoscopy: none. The patient's first colonoscopy is today. Complications: No immediate complications. Procedure: Pre-Anesthesia Assessment: - Prior to the procedure, a History and Physical was performed, and patient medications and allergies were reviewed. The patient's tolerance of previous anesthesia was also reviewed. The risks and benefits of the procedure and the sedation options and risks were discussed with the patient. All questions were answered, and informed consent was obtained. Prior Anticoagulants: The patient has taken no previous anticoagulant or antiplatelet agents. ASA Grade Assessment: II - A patient with mild systemic disease. After reviewing the risks and benefits, the patient was deemed in satisfactory condition to undergo the procedure. After I obtained informed consent, the scope was passed under direct vision. Throughout the procedure, the patient's blood pressure, pulse, and oxygen saturations were monitored continuously. The adult colonoscope was introduced through the anus and advanced to the cecum, identified by appendiceal orifice and ileocecal valve. The colonoscopy was performed without difficulty. The patient tolerated the procedure well. The quality of the bowel preparation was good. The ileocecal valve and the appendiceal orifice were photographed. Scope In: 8:58:46 AM Scope Withdrawal Time 0 hours 6 minutes 55 seconds Scope Out: 9:09:46 AM Total Procedure Duration Time 0 hours 11 minutes 0 seconds Findings: The digital rectal exam findings include non-thrombosed external hemorrhoids, non-thrombosed internal hemorrhoids and internal hemorrhoids that prolapse with straining, but spontaneously regress to the resting position (Grade II). Pertinent negatives include normal prostate (size, shape, and consistency). Multiple diverticula were found in the entire colon. The exam was otherwise without abnormality. Impression: - Non-thrombosed external hemorrhoids, non-thrombosed internal hemorrhoids and internal hemorrhoids that prolapse with straining, but spontaneously regress to the resting position (Grade II) found on digital rectal exam. - Diverticulosis in the entire examined colon. - The examination was otherwise normal. - No specimens collected. Recommendation: - Discharge patient to home. - Resume previous diet. - Continue present medications. - Repeat colonoscopy in 10 years for screening purposes. Over the counter suppositories or cream as needed for local irritation. If bleeding continues then consider anoscopy to re-examine the anus. Mild irriation today but felt to be inpart secondary to the bowel prep Procedure Code(s): --- Professional --- 03800, Colonoscopy, flexible; diagnostic, including collection of specimen(s) by brushing or washing, when performed (separate procedure) Diagnosis Code(s): --- Professional --- Z12.11, Encounter for screening for malignant neoplasm of colon K64.1, Second degree hemorrhoids K64.4, Residual hemorrhoidal skin tags K57.30, Diverticulosis of large intestine without perforation or abscess without bleeding CPT copyright 2017 [employer]. All rights reserved. The codes documented in this report are preliminary and upon employment agency manager review may be revised to meet current compliance requirements. Albert Barnes MD 01/22/2020 9:15:55 AM This report has been signed electronically. Number of Addenda: 0 Note Initiated On: 01/22/2020 8:50 AM
[2020-01-22 09:20] VITALS: BP 137/97; BP 189/92; PULSE 83; RESP 20; O2SAT 97
[2020-01-22 09:25] VITALS: BP 137/97; BP 146/97; PULSE 76; RESP 20; O2SAT 97
[2020-01-22 09:30] VITALS: BP 135/89; BP 137/97; PULSE 68; RESP 18; TEMP 36.3; O2SAT 95
[2020-01-22 09:50] VITALS: BP 137/97
== END 2020-01-22 09:58 | disposition home or self-care (01) ==
LOC: EN 07:38 → AC 07:38
PROVIDERS: Anesthesiology; PCP Family Medicine; Referring Provider Family Medicine; Visit Provider Surgery
PROC: 0DJD8ZZ Inspection of Lower Intestinal Tract, Via Natural or Artificial Opening Endoscopic (ICD-10-PCS; CPT 45378; principal; 2020-01-22 08:25)
DX: Z12.11 Encounter for screening for malignant neoplasm of colon (principal); K64.1 Second degree hemorrhoids; K64.4 Residual hemorrhoidal skin tags; K57.30 Diverticulosis of large intestine without perforation or abscess without bleeding; Z11.59 Encounter for screening for other viral diseases; I25.2 Old myocardial infarction; E11.9 Type 2 diabetes mellitus without complications; J44.9 Chronic obstructive pulmonary disease, unspecified; G47.33 Obstructive sleep apnea (adult) (pediatric); K21.9 Gastro-esophageal reflux disease without esophagitis; E78.00 Pure hypercholesterolemia, unspecified; G25.81 Restless legs syndrome; I25.118 Atherosclerotic heart disease of native coronary artery with other forms of angina pectoris; Z87.09 Personal history of other diseases of the respiratory system; Z79.82 Long term (current) use of aspirin; Z79.84 Long term (current) use of oral hypoglycemic drugs; Z79.02 Long term (current) use of antithrombotics/antiplatelets; Z79.899 Other long term (current) drug therapy; Z87.891 Personal history of nicotine dependence
CPT/HCPCS: 45378; 82962; 87635; C9803; J7120; J2405; U0003

== ENCOUNTER → 2020-03-29 08:09 | Outpatient (CLI) | payer OTHER, SELFPAY ==
[2019-04-28 09:24] VITALS: BMI 42.0
[2020-03-29 08:15] VITALS: PULSE 101; PULSE 108; PULSE 109; PULSE 111; PULSE 97; O2SAT 90; O2SAT 91; O2SAT 92; O2SAT 93
--- NOTE | 2020-03-29 16:19 | PCM.PSN.6M ---
PSN 6 Minute Walk Test - 6 Minute Walk Test 6 Minute Walk Test: 6 Minute Walk Test PSN:6-Minute Walk Test Start: 03/29/20 08:32 Freq: Status: Active Protocol: [id number].6MINW Document 03/29/20 08:15 [facility] (Rec: 03/29/20 08:39 [facility] [id number]) 6 Minute Walk Test Date Performed 03/29/20 Time Performed 08:15 Height 5 ft 8 in Weight: 127.006 kg Weight in Pounds 280.[address]: MAIRA Assistive device used: None Pre-test Oxygen Delivery Method Room Air Pulse Ox (%) 93 Pulse Rate (60-100 beats/min) 97 Dyspnea Belkys Scale (0-10) 2 Exertion Belkys Scale (6-20) 6 1st minute Oxygen Delivery Method Room Air Pulse Ox (%) 90 Pulse Rate (60-100 beats/min) 108 H 2nd minute Oxygen Delivery Method Room Air Pulse Ox (%) 92 Pulse Rate (60-100 beats/min) 108 H 3rd minute Oxygen Delivery Method Room Air Pulse Ox (%) 91 Pulse Rate (60-100 beats/min) 109 H 4th minute Oxygen Delivery Method Room Air Pulse Ox (%) 90 Pulse Rate (60-100 beats/min) 109 H 5th minute Oxygen Delivery Method Room Air Pulse Ox (%) 91 Pulse Rate (60-100 beats/min) 111 H 6th minute Oxygen Delivery Method Room Air Pulse Ox (%) 90 Pulse Rate (60-100 beats/min) 111 H Dyspnea Belkys Scale (0-10) 3 Exertion Belkys Scale (6-20) 14 Post-test Oxygen Delivery Method Room Air Pulse Ox (%) 93 Pulse Rate (60-100 beats/min) 101 H Full Laps Walked 17 Partial Lap, Number of Tiles Walked 19 Total Distance Walked (ft) 1022 - Interpretation Interpretation: The patient was able to ambulate 1022 feet over the course of 6 minutes on room air with no assistive devices or breaks. The patient did have significant desaturation as low as 90% with a peak heart rate of 111 bpm. These findings are consistent with a respiratory limitation exercise tolerance. - Recommendations Recommendations: No supplemental oxygen is indicated at this time. However, patient will need to be followed closely given level of desaturation.
== END ==
PROVIDERS: PCP Family Medicine; Referring Provider Nurse Practitioner Acute Care; Visit Provider Nurse Practitioner Acute Care
DX: J44.9 Chronic obstructive pulmonary disease, unspecified (principal)
CPT/HCPCS: 94618

== ENCOUNTER → 2020-04-01 09:40 | Outpatient (CLI) | payer OTHER, SELFPAY ==
[2019-04-28 09:24] VITALS: BMI 42.0
--- NOTE | 2020-04-02 05:53 | PFTCOMP_ITS ---
COMPLETE PULMONARY FUNCTION TEST INTERPRETATION Brief HPI: Patient is a 54 year old male, currently under the care of Dr. Berumen, who presents to [facility] for complete pulmonary function tests secondary to diagnosis of COPD. Respiratory therapist reports good effort and reproducible results. Interpretation: Forced expiration spirometry shows a mild large airways obstructive ventilatory defect with an FEV1 of 73% predicted. There is a significant bronchodilator response in FVC and FEV1 by strict ATS criteria. Spirograms are of good quality and plateau slowly, indicating slowly emptying areas of the lungs. The respiratory flow volume loop shows decreased expiratory flow rates at all lung volumes consistent with airway obstruction. Lung volumes by body plethysmography show a decreased total lung capacity at 4.36 L, 69% predicted. All other lung volumes are reduced symmetrically. Diffusion capacity by carbon monoxide is decreased at 70% predicted. The airway resistance is normal. Compared to previous pulmonary function tests from 01/02/2018, there has been a significant improvement. Impression: Partially reversible mild mixed ventilatory defect with some improvement compared to previous testing.
== END ==
PROVIDERS: PCP Family Medicine; Referring Provider Nurse Practitioner Acute Care; Visit Provider Nurse Practitioner Acute Care
DX: J44.9 Chronic obstructive pulmonary disease, unspecified (principal)
CPT/HCPCS: 94060; 94726; 94729

== ENCOUNTER → 2020-04-14 09:00 | Outpatient (CLI) | payer OTHER, SELFPAY ==
[2020-04-05 10:49] VITALS: BMI 44.2
[2020-04-14 10:14] LABS: Absolute Lymphocyte Count 3.11 X10^3/uL (0.83-4.51); Basophil# 0.06 X10^3/uL; Basophil% 0.5 % (0-1); Eosinophils% 0.8 % (0-5); Hematocrit 47.4 % (40-54); Hemoglobin 15.5 g/dL (13.0-16.5); Lymphocyte # 3.11 X10^3/ul (4.0); Lymphocyte % 25.1 % (19-41); Mean Corp Hgb Conc 32.7 g/dL (32-36); Mean Corpuscular Hgb 29.9 pg (27.0-32.0); Mean Corpuscular Volume 91.3 fL (80-94); Mean Platelet Vol. 9.4 fl (6.2-12.0); Monocyte# 0.97 X10^3/uL; Monocyte% 7.8 % (0-10); NRBC Flagged by Analyzer 0 % (0-5); Neutrophil # 8.03 X10^3/uL (2.7-7.7); Neutrophil % 64.9 % (47-70); Platelet Count 397 K/mm3 (150-450); RBC Distribution Width CV 13.9 % (11.6-14.6); Red Blood Count 5.19 M/mm3 (4.6-6.2); White Blood Count 12.4 K/mm3 (4.4-11.0)
[2020-04-14 10:41] LABS: Hemoglobin A1c 7.9 % (3.8-5.6)
[2020-04-14 10:55] LABS: ALB/GLOB Ratio 0.9 RATIO (0.9-2.4); AST(SGOT) 38 U/L (15-37); Alanine Aminotransfer ALT/SGPT 53 U/L (16-61); Albumin, Serum 3.9 g/dL (3.2-5.0); Alkaline Phosphatase 123 U/L (45-117); Anion Gap 5 (5-15); BUN 18 mg/dL (7-18); BUN/Creat Ratio 17.8 RATIO (10-20); Calcium,Total 9.1 mg/dL (8.5-10.1); Chloride 105 mmol/L (98-107); Cholesterol 163 mg/dL (200); Creatinine, Serum 1.01 mg/dL (0.70-1.30); EST Glomerular Filtration Rate 82 mL/min (>60); Est Glom Filt Rate - Afr Amer 99 mL/min (>60); Globulin 4.2 g/dL (2.2-4.2); Glucose 148 mg/dL (74-106); High Density Lipoprotein 50 mg/dL; Protein, Total 8.1 g/dL (6.4-8.2); Sodium Level 137 mmol/L (136-145); Triglycerides 174 mg/dL; Very Low Density Lipoprotein 35 mg/dL (5-40)
[2020-04-14 11:02] LABS: Microalbumin:Creatinine Ratio 143.7 mg/g CRE (<30 mg/g CRE)
== END ==
PROVIDERS: PCP Family Medicine; Referring Provider Family Medicine; Visit Provider Family Medicine
DX: E11.9 Type 2 diabetes mellitus without complications (principal); G47.33 Obstructive sleep apnea (adult) (pediatric); E78.00 Pure hypercholesterolemia, unspecified
CPT/HCPCS: 36415; 80053; 80061; 82043; 82570; 83036; 85025

== ENCOUNTER → 2020-04-27 09:28 | Outpatient (CLI) | payer OTHER, SELFPAY ==
[2020-04-05 10:49] VITALS: BMI 44.2
[2020-04-27 11:44] LABS: Amphetamine Urine VISTA NEGATIVE (<1000 ng/mL); Barbiturate Urine VISTA NEGATIVE (< 200 ng/mL); Benzodiazepine Urine VISTA NEGATIVE (< 200 ng/mL); Cocaine Urine VISTA NEGATIVE (< 300 ng/mL); Ecstacy Urine VISTA NEGATIVE (< 500 ng/mL); Methadone Urine VISTA NEGATIVE (< 300 ng/mL); PCP Urine VISTA NEGATIVE (< 25 ng/mL); THC Urine VISTA NEGATIVE (< 50 ng/mL); Vista UDS pH Range 5
== END ==
PROVIDERS: PCP Family Medicine; Referring Provider Anesthesiology Pain Medicine; Visit Provider Anesthesiology Pain Medicine
DX: F11.20 Opioid dependence, uncomplicated (principal)
CPT/HCPCS: 80307

== ENCOUNTER → 2020-07-14 10:09 | Outpatient (CLI) | payer OTHER, SELFPAY ==
[2020-04-05 10:49] VITALS: BMI 44.2
[2020-07-14 10:19] LABS: Bacteria 0 SEEN /hpf (None Seen); Red Blood Cells-Urine 0 SEEN /hpf (0-5); Squamous Epithelial Cells - UA 0 SEEN /hpf (0-5)
[2020-07-14 12:58] LABS: Absolute Lymphocyte Count 3.01 X10^3/uL (0.83-4.51); Absolute Neutrophil Count 7.5 X10^3/uL (2.0-7.7); Basophil# 0.07 X10^3/uL; Basophil% 0.6 % (0-1); Eosinophil# 0.13 X10^3/uL; Eosinophils% 1.1 % (0-5); Hemoglobin 15.5 g/dL (13.0-16.5); Lymphocyte # 3.01 X10^3/ul (0.83-4.51); Lymphocyte % 25.7 % (19-41); Mean Corp Hgb Conc 31.6 g/dL (32-36); Mean Corpuscular Hgb 29.5 pg (27.0-32.0); Mean Corpuscular Volume 93.3 fL (80-94); Mean Platelet Vol. 9.5 fl (6.2-12.0); Monocyte# 0.91 X10^3/uL; Monocyte% 7.8 % (0-10); NRBC Flagged by Analyzer 0 % (0-5); Neutrophil # 7.54 X10^3/uL (2.7-7.7); Neutrophil % 64.2 % (47-70); Platelet Count 382 K/mm3 (150-450); RBC Distribution Width CV 14.5 % (11.6-14.6); Red Blood Count 5.25 M/mm3 (4.6-6.2); White Blood Count 11.7 K/mm3 (4.4-11.0)
[2020-07-14 12:59] LABS: Color, Urine Yellow (Yellow); Glucose, Dipstick Normal (Normal); Ketone-Dipstick Negative (Negative); Leukocyte Esterase-Dipstick Negative /ul (Negative); Nitrite-Dipstick Negative (Negative); Occult Blood-Urine Negative /ul (Negative); Protein-Dipstick 30 mg/dl (Negative); Specific Gravity, Urine 1.015 (1.002-1.030); Urine Bilirubin Dipstick Negative (Negative); Urine Clarity Clear (Clear); Urine Urobilinogen Normal (Normal)
[2020-07-14 13:17] LABS: Hemoglobin A1c 6.9 % (3.8-5.6)
[2020-07-14 13:20] LABS: Microalbumin:Creatinine Ratio 78.9 mg/g CRE (<30 mg/g CRE)
[2020-07-14 13:26] LABS: AST(SGOT) 44 U/L (15-37); Alanine Aminotransfer ALT/SGPT 63 U/L (16-61); Albumin, Serum 3.9 g/dL (3.2-5.0); Alkaline Phosphatase 103 U/L (45-117); Anion Gap 5 (5-15); BUN 18 mg/dL (7-18); BUN/Creat Ratio 16.1 RATIO (10-20); Chloride 103 mmol/L (98-107); Creatinine, Serum 1.12 mg/dL (0.70-1.30); EST Glomerular Filtration Rate 72 mL/min (>60); Est Glom Filt Rate - Afr Amer 88 mL/min (>60); Globulin 4.1 g/dL (2.2-4.2); Glucose 122 mg/dL (74-106); Potassium 4.1 mmol/L (3.5-5.1); Sodium Level 136 mmol/L (136-145); Thyroid Stim Hormone (TSH) 2.66 uIU/mL (0.358-3.74)
[2020-07-14 13:28] LABS: AST(SGOT) 47 U/L (15-37); Alanine Aminotransfer ALT/SGPT 62 U/L (16-61); Alkaline Phosphatase 107 U/L (45-117); Cholesterol 172 mg/dL (200); Globulin 3.6 g/dL (2.2-4.2); High Density Lipoprotein 55 mg/dL; Protein, Total 7.6 g/dL (6.4-8.2); Triglycerides 175 mg/dL; Very Low Density Lipoprotein 35 mg/dL (5-40)
[2020-07-14 13:39] LABS: Mucous, Urine 1+ /hpf (<or=2+); White Blood Cells 0-5 SEEN /hpf (0-5)
== END ==
PROVIDERS: Internal Medicine Cardiovascular Disease; PCP Family Medicine; Visit Provider Family Medicine
DX: I10 Essential (primary) hypertension (principal); E78.00 Pure hypercholesterolemia, unspecified; E11.9 Type 2 diabetes mellitus without complications
CPT/HCPCS: 36415; 80053; 80061; 80076; 81001; 82043; 82570; 83036; 84443; 85025

== ENCOUNTER → 2020-09-09 09:41 | Outpatient (CLI) | payer OTHER, SELFPAY ==
[2020-09-09 08:22] VITALS: BMI 44.4
--- NOTE | 2020-09-09 09:45 | RAD_ITS ---
STUDY: X-RAY CHEST REASON FOR EXAM: Male, 55 years old. Coronary artery disease. TECHNIQUE: PA and lateral views of the chest. COMPARISON: Comparison is made with prior study dated 12/18/2017. FINDINGS: Hyperinflation. The lungs are clear. There is no demonstrated pleural abnormality. Normal size heart. Normal mediastinum and jesu. There is prominence of the pulmonary hilar arteries without peripheral pulmonary vascular congestion, suggesting pulmonary hypertension. Normal visualized aortic arch and descending thoracic aorta. There are diffuse degenerative changes of the visualized thoracic spine. Minimal loss of height of the lower dorsal vertebrae. Normal visualized ribs, clavicles, and shoulders. There is no demonstrated abnormality of the visualized soft tissue structures of the upper abdomen. RAD/Chest PA and Lateral IMPRESSION: Hyperinflation. No acute abnormality is seen. Electronically Signed: Yasir Caceres MD at 12:43 EDT , Service support ,
[2020-09-09 11:15] LABS: Absolute Lymphocyte Count 2.99 X10^3/uL (0.83-4.51); Absolute Neutrophil Count 6.5 X10^3/uL (2.0-7.7); Basophil# 0.05 X10^3/uL; Basophil% 0.5 % (0-1); Eosinophil# 0.14 X10^3/uL; Eosinophils% 1.3 % (0-5); Hematocrit 46.7 % (40-54); Hemoglobin 14.8 g/dL (13.0-16.5); Lymphocyte # 2.99 X10^3/ul (0.83-4.51); Lymphocyte % 27.7 % (19-41); Mean Corp Hgb Conc 31.7 g/dL (32-36); Mean Corpuscular Volume 91.6 fL (80-94); Mean Platelet Vol. 9.6 fl (6.2-12.0); Monocyte# 1.08 X10^3/uL; NRBC Flagged by Analyzer 0 % (0-5); Neutrophil # 6.47 X10^3/uL (2.7-7.7); Neutrophil % 59.9 % (47-70); Platelet Count 379 K/mm3 (150-450); RBC Distribution Width CV 14.6 % (11.6-14.6); RBC Distribution Width SD 49.4 fl (35.1-43.9); White Blood Count 10.8 K/mm3 (4.4-11.0)
[2020-09-09 11:59] LABS: Anion Gap 6 (5-15); BUN 14 mg/dL (7-18); BUN/Creat Ratio 14.5 RATIO (10-20); Chloride 105 mmol/L (98-107); Creatinine, Serum 0.97 mg/dL (0.70-1.30); EST Glomerular Filtration Rate 86 mL/min (>60); Est Glom Filt Rate - Afr Amer 104 mL/min (>60); Glucose 101 mg/dL (74-106); Potassium 4.4 mmol/L (3.5-5.1); Sodium Level 138 mmol/L (136-145)
== END ==
PROVIDERS: PCP Family Medicine; Referring Provider Internal Medicine Cardiovascular Disease; Visit Provider Internal Medicine Cardiovascular Disease
DX: I25.2 Old myocardial infarction (principal); Z95.5 Presence of coronary angioplasty implant and graft
CPT/HCPCS: 36415; 71046; 80048; 85025

== ENCOUNTER 2020-09-13 07:09 | Day surgery (SDC) | payer OTHER, SELFPAY ==
[2020-09-09 08:22] VITALS: BMI 44.4
[2020-09-12 08:34] VITALS: BMI 44.9
--- NOTE | 2020-09-15 12:31 | CL.D_ITS ---
Patient Name: DINORAH SANTOS Study Date: 09/13/2020 Performing: Ascencion Devlin MD Ht: 66.92 inches 170 cm : 1965 Wt: 286.6 lbs 130 kg Age: 55 Gender: male BSA: 2.35 PROCEDURE(S) PERFORMED [id number]/LV CLINICAL PROFILE AND INDICATIONS Indications: Worsening Angina Heart Failure: None Stress/Imaging Stress/Image Study Performed: No CAD Presentations: Unstable angina. CONCLUSIONS Non obstructive coronary arteries Previously placed stent in the right coronary artery is patent with preserved ejection fraction. RECOMMENDATIONS Medical therapy DESCRIPTION OF PROCEDURE The patient arrived to the procedure lab. The risks and benefits of the procedure as well as a full d escription of our services here and current unavailability of surgical backup were fully explained to the patient and/or their significant other prior to the catheterization. The Timeout was completed, verifying the correct patient and procedure. The patient's procedural site was prepped and draped in the usual fashion. Local anesthetic was given subcutaneously to right radial region with Lidocaine 2% . Using a modified Seldinger technique, arterial access was obtained via the right radial artery, a 6 Fr sheath was inserted. Left Coronary Artery selective angiography was performed in multiple views u sing a 5 Fr. 4.0 Amenia catheter. Right Coronary Artery selective angiography was then performed in mu ltiple views using a 5 Fr. JR 5 catheter. Left Ventriculography was performed in GÓMEZ projection using a 5 Fr. Pigtail catheter. LV to AO pullback pressures were then recorded.The arterial sheath was pulled and a TR Band was applied for hemostasis CORONARY ANGIOGRAPHY DOMINANCE: Right Dominant LEFT HEART ASSESSMENT Left Ventricular Ejection Fraction: by LV Gram 60 % Normal LV wall motion Normal Left Ventricular systolic function LEFT MAIN: 20 distal % Stenosis LEFT ANTERIOR DESCENDING ARTERY: Mild luminal irregularities CIRCUMFLEX ARTERY: Mild luminal irregularities RIGHT CORONARY ARTERY: MID RCA: Previously placed stent is patent COMPLICATIONS No Complications PROCEDURE MEDICATIONS Fentanyl 50 mcg IV Versed 1 mg IV Versed 1 mg IV Oxygen: 2 L/min via nasal cannula Heparin given IA 09/13/2020 07:59:56 Verapamil 2.5mg, Ntg 100mcgs, 3000 units of Heparin given IA 09/13/2020 07:59:56 SUMMARY OF HEMODYNAMIC DATA Time AIR REST ECG 07:29:41 AO 137/90 (107) SA 08:01:41 LV 110/12, 17 08:12:01 LV 114/9, 13 08:12:06 LV 119/15, 22 08:12:41 LVp 123/18, 25 08:12:45 Signed By Ascencion Devlin MD On 09/13/2020 8:17:45 AM Ascencion Devlin MD
== END 2020-09-13 09:45 | disposition home or self-care (01) ==
LOC: CLSP 07:10
PROVIDERS: PCP Family Medicine; Referring Provider Internal Medicine Cardiovascular Disease; Visit Provider Internal Medicine Cardiovascular Disease
DX: I25.118 Atherosclerotic heart disease of native coronary artery with other forms of angina pectoris (principal); I25.2 Old myocardial infarction; I10 Essential (primary) hypertension; E66.9 Obesity, unspecified; Z68.41 Body mass index [BMI] 40.0-44.9, adult; E11.9 Type 2 diabetes mellitus without complications; G47.33 Obstructive sleep apnea (adult) (pediatric); E78.5 Hyperlipidemia, unspecified; J44.9 Chronic obstructive pulmonary disease, unspecified; Z95.5 Presence of coronary angioplasty implant and graft; Z79.82 Long term (current) use of aspirin; Z79.899 Other long term (current) drug therapy; Z87.891 Personal history of nicotine dependence
CPT/HCPCS: 93458; 99152; 99153; J7040; Q9967; C1769; C1894

== ENCOUNTER → 2020-10-18 08:47 | Outpatient (CLI) | payer OTHER, SELFPAY ==
[2020-10-04 07:50] VITALS: BMI 44.3
[2020-10-18 10:20] LABS: Basophil# 0.06 X10^3/uL; Basophil% 0.5 % (0-1); Eosinophil# 0.23 X10^3/uL; Eosinophils% 1.9 % (0-5); Hematocrit 47.6 % (40-54); Hemoglobin 15.4 g/dL (13.0-16.5); Lymphocyte % 21.2 % (19-41); Mean Corp Hgb Conc 32.4 g/dL (32-36); Mean Corpuscular Hgb 29.7 pg (27.0-32.0); Mean Corpuscular Volume 91.9 fL (80-94); Mean Platelet Vol. 9.2 fl (6.2-12.0); Monocyte# 0.96 X10^3/uL; Monocyte% 8.1 % (0-10); NRBC Flagged by Analyzer 0 % (0-5); Neutrophil # 7.97 X10^3/uL (2.7-7.7); Neutrophil % 67.6 % (47-70); Platelet Count 372 K/mm3 (150-450); RBC Distribution Width CV 14.5 % (11.6-14.6); RBC Distribution Width SD 48.9 fl (35.1-43.9); Red Blood Count 5.18 M/mm3 (4.6-6.2); White Blood Count 11.8 K/mm3 (4.4-11.0)
[2020-10-18 10:42] LABS: Hemoglobin A1c 6.3 % (3.8-5.6)
[2020-10-18 10:51] LABS: ALB/GLOB Ratio 0.9 RATIO (0.9-2.4); AST(SGOT) 39 U/L (15-37); Alanine Aminotransfer ALT/SGPT 57 U/L (16-61); Albumin, Serum 3.7 g/dL (3.2-5.0); Alkaline Phosphatase 94 U/L (45-117); Anion Gap 6 (5-15); BUN 20 mg/dL (7-18); BUN/Creat Ratio 19.8 RATIO (10-20); Calcium,Total 8.9 mg/dL (8.5-10.1); Chloride 102 mmol/L (98-107); Cholesterol 157 mg/dL (200); Creatinine, Serum 1.01 mg/dL (0.70-1.30); EST Glomerular Filtration Rate 81 mL/min (>60); Est Glom Filt Rate - Afr Amer 99 mL/min (>60); Glucose 131 mg/dL (74-106); High Density Lipoprotein 45 mg/dL; Potassium 4.3 mmol/L (3.5-5.1); Protein, Total 7.7 g/dL (6.4-8.2); Sodium Level 135 mmol/L (136-145); Triglycerides 258 mg/dL; Very Low Density Lipoprotein 52 mg/dL (5-40)
[2020-10-18 15:37] LABS: Microalbumin:Creatinine Ratio 80.1 mg/g CRE (<30 mg/g CRE)
== END ==
PROVIDERS: PCP Family Medicine; Visit Provider Family Medicine
DX: E11.69 Type 2 diabetes mellitus with other specified complication (principal); E11.29 Type 2 diabetes mellitus with other diabetic kidney complication
CPT/HCPCS: 36415; 80053; 80061; 82043; 82570; 83036; 85025

== ENCOUNTER → 2020-10-28 09:54 | Outpatient (CLI) | payer OTHER, SELFPAY ==
[2020-10-04 07:50] VITALS: BMI 44.3
--- NOTE | 2020-10-28 09:56 | CDU_ITS ---
Reason For Study: Carotid Stenosis Rt. Velocities/BP Lt. Velocities/BP Prox CCA 84/20 cm/sec. Prox CCA 134/29 cm/sec. Mid CCA 78/23 cm/sec. Mid CCA 97/23 cm/sec. Dist CCA 79/23 cm/sec. Dist CCA 81/20 cm/sec. Prox ICA 106/24 cm/sec. Prox ICA 81/20 cm/sec. Mid ICA 67/24 cm/sec. Mid ICA 66/23 cm/sec. Dist ICA 95/41 cm/sec. Dist ICA 75/26 cm/sec. Rt. ICA/CCA = 1.4. Lt. ICA/CCA = 0.8. Prox ECA 192/23 cm/sec. Prox ECA 122/18 cm/sec. Rt. Vert. 93/30 cm/sec. Lt. Vert. 88/17 cm/sec. Right Extracranial There is intimal thickening but no significant atherosclerotic plaque noted in the right common carotid artery. There is heterogeneous, smooth atherosclerotic plaque noted in the right internal carotid artery. There is intimal thickening but no significant atherosclerotic plaque noted in the right external carotid artery. Antegrade flow is noted in the right vertebral artery. Left Extracranial There is intimal thickening but no significant atherosclerotic plaque noted in the left common carotid artery. There is heterogeneous, smooth atherosclerotic plaque noted in the left internal carotid artery. There is intimal thickening but no significant atherosclerotic plaque noted in the left external carotid artery. Antegrade flow is noted in the left vertebral artery. Procedure Carotid Duplex 44351. This is a Carotid Duplex examination using B-mode, color flow and specral Doppler. Exam performed in department. VL/Carotid Duplex Ultrasound Interpretation Summary Smooth plaque at the proximal right internal carotid artery with less than 50% stenosis Less than 50% stenosis right external carotid artery Smooth plaque at the proximal left internal carotid artery with less than 50% s tenosis Less than 50% stenosis left external carotid artery Patent and antegrade vertebral arteries bilaterally Findings from the previous examination of January 14, 2017 suggesting some incr eased velocity in the distal left internal carotid artery the site of tortuosity are not duplicated t mae. Ordering Physician: Amor Bishop Referring Physician: Amor Bishop Performed By: Airam Peters RDCS, RVT
[2020-10-28 16:35] VITALS: PULSE 96; RESP 20
== END ==
PROVIDERS: PCP Family Medicine; Referring Provider Family Medicine; Visit Provider Family Medicine
DX: I65.23 Occlusion and stenosis of bilateral carotid arteries (principal)
CPT/HCPCS: 93880; 94640

== ENCOUNTER → 2020-11-25 09:23 | Outpatient (CLI) | payer OTHER, SELFPAY ==
--- NOTE | 2020-11-25 09:25 | RAD_ITS ---
STUDY: X-RAY - RIGHT KNEE REASON FOR EXAM: Male, 55 years old. Knee pain. TECHNIQUE: 4 view(s) of the knee. COMPARISON: 02/02/2019. FINDINGS: Normal visualized distal femur. Normal visualized proximal tibia and fibula. Normal proximal tibiofibular articulation. Normal medial femorotibial compartment. Normal lateral femorotibial compartment. Mild arthrosis of the patellofemoral compartment. The soft tissue structures are unremarkable. RAD/Knee 4 or More Views IMPRESSION: Mild arthrosis of the patellofemoral compartment. No acute abnormality, erosive changes or periostitis. Electronically Signed: Rigo Galvan MD at 9:55 EDT , Service support ,
== END ==
PROVIDERS: PCP Family Medicine; Referring Provider Family Medicine; Visit Provider Family Medicine
DX: M25.561 Pain in right knee (principal)
CPT/HCPCS: 73564

== ENCOUNTER 2020-12-10 03:50 | Emergency (ER) | payer OTHER, SELFPAY ==
[2020-12-10 03:51] VITALS: BP 157/94; PULSE 85; RESP 18; TEMP 36.3; O2SAT 94; BMI 43.3
--- NOTE | 2020-12-10 04:41 | RAD_ITS ---
STUDY: X-RAY - RIGHT KNEE REASON FOR EXAM: Male, 55 years old. Injury/Pain TECHNIQUE: 2 view(s) of the knee. COMPARISON: None. FINDINGS: Normal visualized distal femur. Normal visualized proximal tibia and fibula. Normal proximal tibiofibular articulation. Normal medial femorotibial compartment. Normal lateral femorotibial compartment. There is mild degenerative arthrosis of the patellofemoral articulation. The soft tissue structures are unremarkable. RAD/Knee 1 or 2 Views IMPRESSION: Degenerative arthrosis. Electronically Signed: Sher Mckeon MD at 5:41 EDT Tel , Service support ,
[2020-12-10] MEDS: HYDROmorphone 0.5 MG/0.5 ML SYRINGE IM (04:46)
--- NOTE | 2020-12-10 05:08 | RAD_ITS ---
STUDY: X-RAY - PELVIS AND RIGHT HIP REASON FOR EXAM: Male, 55 years old. Injury/Pain TECHNIQUE: 3 views of the pelvis and hip. COMPARISON: None. FINDINGS: There is a non-specific bowel gas pattern. Normal visualized soft tissue structures. Normal bilateral iliac wings, sacroiliac joints and visualized sacrum. Normal bilateral superior and inferior pubic rami. Normal pubic symphysis. Normal bilateral ischial tuberosities. There are osteoarthritic changes of the femoral head with marginal osteophyte formation. Normal acetabulum. Normal hip joint. There is bony bump at the lateral aspect of the junction femoral heads suggesting CAM impingement. RAD/HIP, UNI W/ Pelvis 2-3 Views IMPRESSION: There is no acute traumatic injury of the pelvis and hip. Electronically Signed: Sher Mckeon MD at 5:44 EDT Tel , Service support ,
--- NOTE | 2020-12-10 06:29 | CT_ITS ---
EXAM: CT ANGIOGRAPHY ABDOMEN AND PELVIS WITH RUNOFF TO THE LOWER EXTREMITIES WITH INTRAVENOUS CONTRAST : 1965 CLINICAL INDICATION: Back and leg pain -- Rule out dissection TECHNIQUE: Helically acquired angiography images were obtained of the abdomen, pelvis and lower extremities with intravenous contrast using CTA runoff protocol. This CT exam was performed using one or more of the following dose reduction techniques: automated exposure control, adjustment of the mA and/or kV according to patient size, and/or use of iterative reconstruction technique. This report was created using [employer] report generation technology. MIP reconstructed images were created and reviewed. CONTRAST: IV 100mL Isovue-370 COMPARISON: None. FINDINGS: VASCULATURE: AORTA: No acute findings. Normal caliber abdominal aorta. No occlusion or significant stenosis. No dissection. CELIAC TRUNK AND MESENTERIC ARTERIES: No acute findings. No occlusion or significant stenosis. No dissection. RENAL ARTERIES: 2 left renal arteries are noted. No occlusion or significant stenosis. No dissection. RIGHT ILIAC ARTERIES: No acute findings. No occlusion or significant stenosis. No dissection. RIGHT FEMORAL/POPLITEAL ARTERIES: No acute findings. No occlusion or significant stenosis. No dissection. RIGHT CALF/FOOT ARTERIES: No acute findings. No occlusion or significant stenosis. LEFT ILIAC ARTERIES: No acute findings. No occlusion or significant stenosis. No dissection. LEFT FEMORAL/POPLITEAL ARTERIES: No acute findings. No occlusion or significant stenosis. No dissection. LEFT CALF/FOOT ARTERIES: No acute findings. No occlusion or significant stenosis. LOWER THORAX: Unremarkable. Lung bases are clear. No cardiomegaly. No significant pericardial effusion. ABDOMEN: LIVER: Mild to moderate hepatic steatosis. GALLBLADDER AND BILE DUCTS: Unremarkable. No calcified gallstones. No gallbladder distention or wall edema. No intra- or extrahepatic biliary ductal dilation. PANCREAS: Unremarkable. No focal cystic or solid mass. SPLEEN: Unremarkable. Normal size without focal cystic or solid mass. ADRENALS: Unremarkable. No nodules. KIDNEYS AND URETERS: Unremarkable. Normal renal size and position. No hydronephrosis. STOMACH AND BOWEL: Colon diverticulosis noted without evidence of acute diverticulitis. No stomach or bowel distention. PELVIS: APPENDIX: Appendix is visualised and normal in appearance. BLADDER: Unremarkable. REPRODUCTIVE: Unremarkable as visualized. No mass. ABDOMEN, PELVIS and LOWER EXTREMITIES: INTRAPERITONEAL SPACE: Unremarkable. No ascites or other fluid collection. No free air. BONES/JOINTS: Unremarkable. No suspicious lytic or blastic abnormality. SOFT TISSUES: Small bilateral fat-containing inguinal hernias are noted. LYMPH NODES: Unremarkable. No enlarged lymph nodes. CT/CTA Abd w/Runoff W/WO Contrast IMPRESSION: 1. No evidence of aortic aneurysm or dissection. 2. Satisfactory distal runoff. 3. Hepatic steatosis. 4. Diverticulosis coli. Individualized dose optimization techniques were used for this CT. at 0920 Reported and signed by: Iggy Smith MD Electronically Signed: Iggy Smith MD at 9:19 EDT Tel , Service support ,
[2020-12-10] MEDS: Morphine 4 MG/ML Syringe IV (06:35)
[2020-12-10 06:46] LABS: Absolute Lymphocyte Count 0.96 X10^3/uL (0.83-4.51); Absolute Neutrophil Count 25.3 X10^3/uL (2.0-7.7); Basophil# 0.04 X10^3/uL; Basophil% 0.1 % (0-1); Hematocrit 43.5 % (40-54); Hemoglobin 14.3 g/dL (13.0-16.5); Lymphocyte # 0.96 X10^3/ul (0.83-4.51); Lymphocyte % 3.4 % (19-41); Mean Corp Hgb Conc 32.9 g/dL (32-36); Mean Corpuscular Hgb 29.8 pg (27.0-32.0); Mean Corpuscular Volume 90.6 fL (80-94); Monocyte# 1.98 X10^3/uL; Monocyte% 6.9 % (0-10); NRBC Flagged by Analyzer 0 % (0-5); Neutrophil # 25.27 X10^3/uL (2.7-7.7); Neutrophil % 88.7 % (47-70); POSITIVE DIFFERENTIAL YES; Platelet Count 339 K/mm3 (150-450); RBC Distribution Width CV 14.6 % (11.6-14.6); RBC Distribution Width SD 48.8 fl (35.1-43.9); White Blood Count 28.5 K/mm3 (4.4-11.0)
[2020-12-10 06:49] LABS: Differential Indicated SCAN CRITERIA MET
[2020-12-10 06:56] LABS: Anion Gap 8 (5-15); BUN 28 mg/dL (7-18); BUN/Creat Ratio 21.2 RATIO (10-20); Calcium,Total 9.4 mg/dL (8.5-10.1); Chloride 98 mmol/L (98-107); Creatinine, Serum 1.32 mg/dL (0.70-1.30); EST Glomerular Filtration Rate 60 mL/min (>60); Est Glom Filt Rate - Afr Amer 72 mL/min (>60); Estimated Creatinine Clearance 61.17 ml/min; Glucose 259 mg/dL (74-106); Potassium 4.5 mmol/L (3.5-5.1); Sodium Level 131 mmol/L (136-145)
[2020-12-10 07:07] LABS: Differential Comment SCANNED; Platelet Estimate ADEQUATE (ADEQ)
--- NOTE | 2020-12-10 07:41 | EDS_ITS ---
HPI History of Present Illness HPI Narrative: Patient presents with right leg pain that began today. Patient states it is gradually getting worse. Patient describes the pain as sharp and stabbing. Patient states the pain is been constant. Patient denies any paresthesias or weakness. Patient states nothing makes the pain worse and nothing makes it better. Patient states it feels like his hip is out of place were there is something wrong with his knee. Patient also admits to some low back pain. Patient denies any fevers or chills. Chief Complaint: Lower Extremity Injury Informant: patient Onset/Context/Timing Onset: Today Context: Gradual Onset Timing: Continuous Quality of Pain: Stabbing Location: Right hip and right knee Worsened by: Nothing Relieved by: Nothing Associated Symptoms Associated Symptoms: Negative for Parasthesia, Weakness and Loss of Funtion PFSH [facility] Medical History Acute respiratory failure, unspecified whether with hypoxia or hypercapnia Allergic rhinitis Atherosclerotic heart disease of [place] coronary artery with other forms of angina pectoris Body mass index (BMI) of 40.0-44.9 in adult Breathing-related sleep disorder COPD (chronic obstructive pulmonary disease) Essential (primary) hypertension History of ST elevation myocardial infarction (STEMI) (11/06/15) Hyperlipidemia Impingement syndrome of left shoulder 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) HAWA (obstructive sleep apnea) Proteinuria Screening for malignant neoplasm of intestine Strain of muscle(s) and tendon(s) of the rotator cuff of left shoulder, subsequent encounter Tobacco abuse Home Medications aspirin 81 mg PO DAILY@0800 12/02/15 [History Last Taken 09/13/20] oxycodone-acetaminophen 5 mg-325 mg tablet 1 tab PO Q8H PRN 04/28/19 [History Last Taken Unknown] albuterol sulfate 1 puff INHALATION DAILY 01/14/20 [History Last Taken Unknown] clopidogrel 75 mg tablet 75 mg PO DAILY #90 tab 09/09/20 [Rx Last Taken 09/13/20] diltiazem HCl 180 mg capsule,extended release 24 hr 180 mg PO QDAY #90 cap 09/09/20 [Rx Last Taken 09/13/20] fluticasone furoate 200 mcg-vilanterol 25 mcg/dose inhalation powder 1 inh INHALATION DAILY ea 09/09/20 [History Last Taken Unknown] furosemide 40 mg tablet 40 mg PO DAILY #90 tab 09/09/20 [Rx Last Taken Unknown] gabapentin 300 mg capsule 300 mg PO BID 09/09/20 [History Last Taken Unknown] losartan 100 mg tablet 100 mg PO DAILY #90 tab 09/09/20 [Rx Last Taken 09/13/20] omeprazole 40 mg capsule,delayed release 40 mg PO QHS #90 cap 09/09/20 [Rx Last Taken Unknown] rosuvastatin 40 mg tablet 40 mg PO DAILY #90 tab 09/09/20 [Rx Last Taken Unknown] semaglutide 0.5 mg SUBCUT QWEEK 09/09/20 [History Last Taken Unknown] cyclobenzaprine 10 mg PO TID PRN #20 tablet 12/10/20 [Rx Last Taken Unknown] Allergy/AdvReac Type Severity Reaction Status Date / Time atorvastatin Allergy Mild itching Verified 12/10/20 03:54 lisinopril Allergy Other Verified 12/10/20 03:54 Family History (Reviewed 10/04/20 @ 09:02 by Christiana Morelos OUTER DIAMETER GRINDER TOOL, OUTER DIAMETER GRINDER TOOL-C) Grandmother CAD (coronary artery disease) Hypertension Father Hypertension CAD (coronary artery disease) Hyperlipidemia Heart disease Myocardial infarction Brother CAD (coronary artery disease) Heart disease Myocardial infarction Surgical History History of coronary artery stent placement (11/06/15) History of left heart catheterization (09/15/20) History of repair of rotator cuff Social History Smoking Status: Former smoker how long ago did patient quit smokin11/06/15 second hand exposure: Yes alcohol intake: never substance use type: does not use caffeine: No what type of physical activity do you participate in: none ROS ROS ED Constitutional Constitutional ED: Denies chills or fever(s) Eyes Eyes: Denies blurry vision or change in vision ENT ENT ED: Denies rhinorrhea or sore throat Cardiovascular Cardiovascular: Denies chest pain or palpitations Respiratory/Chest Respiratory/Chest: Denies cough or dyspnea Gastrointestinal Gastrointestinal: Denies nausea or vomiting Genitourinary Genitourinary ED: Denies dysuria or hematuria Musculoskeletal Musculoskeletal: Reports back pain; Denies neck pain Integumentary Denies abscess or rash Neurologic Neurologic: Denies headache(s) or weakness Allergic/Immunologic Allergic/Immunologic ED: Denies mouth swelling or urticaria EXAM Physical Exam Const Vital Signs: 12/10/20 03:51 12/10/20 09:13 Temperature 97.4 F L Temperature Source Temporal Pulse Rate 85 Respiratory Rate 18 18 Blood Pressure 157/94 H Blood Pressure Mean 115 Pulse Ox 94 Oxygen Delivery Method Room Air Room Air Positive well nourished, well developed and obese General Appearance ED: well developed Nutritional Appearance: obese HEENT Reports moist mucous membranes Neck supple and no JVD Resp normal respiratory effort and clear to auscultation bilaterally Cardio regular rate, regular rhythm and no murmurs GI normal to inspection, nondistended, normoactive bowel sounds and non-tender Auscultation: normoactive bowel sounds Palpation: soft Extremity normal to inspection Extremity Narrative: There is no deformity noted of the right lower extremity. There is pain with internal and external rotation of the right hip and with flexion of the right knee. There is no edema or ecchymosis. There is no bony crepitance or step-off. General Extremety ED: Negative for edema or tenderness General Extremity: Negative for edema Neuro oriented x3, CN's II-XII intact bilaterally, moves all extremities and no sensory deficits noted Sensorium / Orientation: alert Motor Exam: strength 5/5 throughout Psych mental status grossly normal Skin no rashes or lesions noted MDM MDM MDM Narrative Medical decision making narrative: X-rays of the right hip were obtained. There are 3 views. On my interpretation, there are some degenerative changes noted. There is no acute process noted. Radiologist also interpreted the x-rays and agrees. X-rays of the right knee were obtained. There are 2 views. On my interpretation, there is no acute fracture. There is no dislocation. There is mild soft tissue swelling. Radiologist also interpreted these x-rays and agrees. Patient was having persistent pain. Patient states that he was told at one time he may have something vascular causing his pain into his back and leg. Because of this, CTA of the abdomen with with runoff to lower extremity was ordered. There is diverticulosis but no diverticulitis. There is no aortic dissection or aneurysm noted. There is satisfactory distal runoff noted. This was interpreted by the radiologist and reviewed by myself. CBC shows a leukocytosis of 28.5. However, patient recently completed a course of prednisone. Patient was restarted on another course of prednisone yesterday. Basic metabolic profile showed a slightly elevated creatinine of 1.32. Patient was given a repeat dose of Dilaudid. Patient was given a prescription for Flexeril. Patient was instructed to follow-up with Dr. Mckeon in 3 to 5 days. Patient was instructed return if worse in any way. Patient understood and was agreeable with the plan. All questions were answered. Lab Data Attestation: I reviewed the patient's lab results. Labs: Laboratory Results - last 24 hr 12/10/20 12/10/20 06:36 06:40 WBC 28.5 H RBC 4.80 Hgb 14.3 Hct 43.5 MCV 90.6 MCH 29.8 MCHC 32.9 RDW Std Deviation 48.8 H RDW Coeff of Sophy 14.6 Plt Count 339 MPV 9.0 Immature Gran % (Auto) 0.900 Neut % (Auto) 88.7 H Lymph % (Auto) 3.4 L [place] % (Auto) 6.9 Eos % (Auto) 0.0 Baso % (Auto) 0.1 Absolute Neuts (auto) 25.3 H Absolute Lymphs (auto) 0.96 Nucleated RBC % 0 Differential Comment SCANNED Diff Path Review May foll Platelet Estimate ADEQUATE Sodium 131 L Potassium 4.5 Chloride 98 Carbon Dioxide 25.0 Anion Gap 8 BUN 28 H Creatinine 1.32 H Estim Creat Clear Calc 61.17 Est GFR (MDRD) Af Amer 72 Est GFR (MDRD) Non-Af 60 BUN/Creatinine Ratio 21.2 H Glucose 259 H Calcium 9.4 Radiography Diagnostic Testing: Radiology Impression Knee X-Ray 12/10/20 04:41 IMPRESSION: Degenerative arthrosis. Electronically Signed: Sher Mckeon MD at 5:41 EDT Tel , Service support , Hip/Pelvis X-Ray 12/10/20 05:08 IMPRESSION: There is no acute traumatic injury of the pelvis and hip. Electronically Signed: Sher Mckeon MD at 5:44 EDT Tel , Service support , Abdomen/Pelvis CTA 12/10/20 06:29 IMPRESSION: 1. No evidence of aortic aneurysm or dissection. 2. Satisfactory distal runoff. 3. Hepatic steatosis. 4. Diverticulosis coli. Individualized dose optimization techniques were used for this CT. at 0920 Reported and signed by: Iggy Smith MD Electronically Signed: Iggy Smith MD at 9:19 EDT Tel , Service support , Discharge Plan Triage Chief Complaint: Lower Extremity Injury ED Provider: Bebeto Arita Dx/Rx/DC Orders Clinical Impression: Acute exacerbation of chronic low back pain, Sciatica of right side Instructions: ED Sciatica Prescriptions: New cyclobenzaprine [cyclobenzaprine] 10 MG tablet 10 mg PO TID PRN (Reason: Muscle Spasm) Qty: 20 RF: 0 No Action oxycodone-acetaminophen [Percocet] 5-325 mg tablet 1 tab PO Q8H PRN (Reason: Pain 1-10 Or Fever) RF: 0 fluticasone furoate-vilanterol 200-25 mcg/dose blister with device 1 inh inhalation DAILY RF: 0 gabapentin 300 mg capsule 300 mg PO BID RF: 0 Ozempic 0.25 mg or 0.5 mg(2 mg/1.5 mL) pen injector 0.5 mg subcut QWEEK RF: 0 clopidogrel 75 mg tablet 75 mg PO DAILY Qty: 90 RF: 3 diltiazem HCl 180 mg capsule,extended release 24hr 180 mg PO QDAY Qty: 90 RF: 3 furosemide 40 mg tablet 40 mg PO DAILY Qty: 90 RF: 3 losartan 100 mg tablet 100 mg PO DAILY Qty: 90 RF: 3 rosuvastatin 40 mg tablet 40 mg PO DAILY Qty: 90 RF: 3 omeprazole 40 mg capsule,delayed release(DR/EC) 40 mg PO QHS Qty: 90 RF: 3 aspirin 81 MG tablet 81 mg PO DAILY@0800 RF: 0 albuterol sulfate 1 PUFF inhaler 1 puff INHALATION DAILY RF: 0 Primary Care Provider: Amor Bishop Referrals: Kannan Mckeon MD [STAFF PHYSICIAN] - 3-5 Days Amor Bishop MD [Primary Care Provider] - 3-5 Days Disposition Disposition: Home, Self Care
--- NOTE | 2020-12-10 09:12 | ED.RN ---
called radiology about ct results.
[2020-12-10 09:13] VITALS: RESP 18
[2020-12-10] MEDS: HYDROmorphone 1 MG/ML Syringe 0.5 MG IV (09:59)
[2020-12-10 10:03] VITALS: RESP 19
[2020-12-12 12:47] LABS: Pathologist Review Reviewed
== END 2020-12-10 10:52 | disposition home or self-care (01) ==
PROVIDERS: Emergency Provider Emergency Medicine; PCP Family Medicine
DX: M54.41 Lumbago with sciatica, right side (principal); G89.29 Other chronic pain; K57.30 Diverticulosis of large intestine without perforation or abscess without bleeding; E66.9 Obesity, unspecified; Z68.41 Body mass index [BMI] 40.0-44.9, adult; I10 Essential (primary) hypertension; J44.9 Chronic obstructive pulmonary disease, unspecified; I25.2 Old myocardial infarction; E78.5 Hyperlipidemia, unspecified; G47.33 Obstructive sleep apnea (adult) (pediatric); Z95.5 Presence of coronary angioplasty implant and graft; Z79.82 Long term (current) use of aspirin; Z79.899 Other long term (current) drug therapy; Z87.891 Personal history of nicotine dependence
CPT/HCPCS: 73502; 73560; 75635; 80048; 85025; 96372; 96374; 96375; 99285; Q9967; A4216

== ENCOUNTER → 2020-12-16 16:59 | Outpatient (CLI) | payer OTHER, SELFPAY ==
[2020-12-16 17:32] LABS: Absolute Lymphocyte Count 2.29 X10^3/uL (0.83-4.51); Absolute Neutrophil Count 16.3 X10^3/uL (2.0-7.7); Basophil# 0.06 X10^3/uL; Basophil% 0.3 % (0-1); Eosinophils% 0.5 % (0-5); Hematocrit 44.3 % (40-54); Hemoglobin 14.1 g/dL (13.0-16.5); Lymphocyte # 2.29 X10^3/ul (0.83-4.51); Lymphocyte % 11.3 % (19-41); Mean Corp Hgb Conc 31.8 g/dL (32-36); Mean Corpuscular Hgb 29.2 pg (27.0-32.0); Mean Corpuscular Volume 91.7 fL (80-94); Mean Platelet Vol. 8.9 fl (6.2-12.0); Monocyte# 1.19 X10^3/uL; Monocyte% 5.9 % (0-10); NRBC Flagged by Analyzer 0 % (0-5); Neutrophil # 16.32 X10^3/uL (2.7-7.7); Neutrophil % 80.4 % (47-70); Platelet Count 505 K/mm3 (150-450); RBC Distribution Width CV 14.6 % (11.6-14.6); RBC Distribution Width SD 49.2 fl (35.1-43.9); Red Blood Count 4.83 M/mm3 (4.6-6.2); White Blood Count 20.3 K/mm3 (4.4-11.0)
[2020-12-16 17:44] LABS: Erythrocyte Sedimentation Rate 129 mm/hr (0-20)
[2020-12-16 18:55] LABS: ALB/GLOB Ratio 0.5 RATIO (0.9-2.4); AST(SGOT) 30 U/L (15-37); Alanine Aminotransfer ALT/SGPT 59 U/L (16-61); Albumin, Serum 2.8 g/dL (3.2-5.0); Alkaline Phosphatase 90 U/L (45-117); Anion Gap 7 (5-15); BUN 22 mg/dL (7-18); BUN/Creat Ratio 21.2 RATIO (10-20); Calcium,Total 9.4 mg/dL (8.5-10.1); Chloride 101 mmol/L (98-107); Creatinine, Serum 1.04 mg/dL (0.70-1.30); EST Glomerular Filtration Rate 79 mL/min (>60); Est Glom Filt Rate - Afr Amer 95 mL/min (>60); Globulin 5.3 g/dL (2.2-4.2); Glucose 209 mg/dL (74-106); Protein, Total 8.1 g/dL (6.4-8.2); Sodium Level 133 mmol/L (136-145)
[2020-12-19 18:46] LABS: ANTINUCLEAR ANTIBODIES DIRECT Negative (Negative)
== END ==
PROVIDERS: PCP Family Medicine; Referring Provider Family Medicine; Visit Provider Registered Nurse
DX: M19.90 Unspecified osteoarthritis, unspecified site (principal)
CPT/HCPCS: 36415; 80053; 85025; 85652; 86038; 86141

== ENCOUNTER 2020-12-18 22:01 | Inpatient (IN) | payer OTHER, SELFPAY ==
[2020-12-18 22:03] VITALS: BP 156/102; PULSE 112; RESP 18; TEMP 36.1; O2SAT 96; BMI 41.5
--- NOTE | 2020-12-18 23:03 | RAD_ITS ---
EXAM: XR Right Foot Complete, 3 or More Views CLINICAL INDICATION: 55 years old, Male; INFECTION TECHNIQUE: Frontal, lateral and oblique views of the right foot. This report was created using [employer] report generation technology. COMPARISON: None. FINDINGS: Bones/joints: Heel spurs. No acute fracture. No subluxation. Normal alignment. Preservation of the joint space. No sclerotic or destructive changes observed. Soft tissues: Unremarkable. No soft tissue swelling or gas. No radiopaque foreign body. RAD/Foot min 3 Views IMPRESSION: No acute findings in the right foot. ASSESSMENT: INCIDENTAL report - The findings in this report are either known or are not significant. Electronically Signed: Amor Eason MD at 5:10 EDT Tel , Service support ,
--- NOTE | 2020-12-18 23:05 | EDS_ITS ---
HPI History of Present Illness Chief Complaint: Edema Informant: patient and spouse/S.O. Narrative Narrative: 55-year-old male presents to the emergency department after being referred here by primary care. Patient states that last [place] he [place] the [place] when he came home he is having pain in his right hip. He went to the emergency room and then later to Dr. Mckeon's office. While in the emergency department he underwent a CT scan to see if there is a vascular cause for his hip pain and had basic blood work performed. There is a white blood cell count noted of 28,000. He had previously been on prednisone. At 's office he states he was given a shot and it made the pain better but he continues to have migratory pain in most of his joints. He states that his hands have been swollen for the past 3 days to the point where he is having pain with any type of movement. He has been taking prednisone for about a week. Today he noticed some redness on the bottom of his foot with increased warmth. He is a diabetic. He called the on-call physician and they reviewed some blood work from the office which showed a CRP that was elevated at 45 and a sed rate of 129. 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 Body mass index (BMI) of 40.0-44.9 in adult Breathing-related sleep disorder COPD (chronic obstructive pulmonary disease) Essential (primary) hypertension History of ST elevation myocardial infarction (STEMI) (11/06/15) Hyperlipidemia Impingement syndrome of left shoulder 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) HAWA (obstructive sleep apnea) Proteinuria Screening for malignant neoplasm of intestine Strain of muscle(s) and tendon(s) of the rotator cuff of left shoulder, subsequent encounter Tobacco abuse Home Medications aspirin 81 mg PO DAILY@0800 12/02/15 [History Last Taken 09/13/20] oxycodone-acetaminophen 5 mg-325 mg tablet 1 tab PO Q8H PRN 04/28/19 [History Last Taken Unknown] albuterol sulfate 1 puff INHALATION DAILY PRN 01/14/20 [History Last Taken Unknown] clopidogrel 75 mg tablet 75 mg PO DAILY #90 tab 09/09/20 [Rx Last Taken 09/13/20] diltiazem HCl 180 mg capsule,extended release 24 hr 180 mg PO QDAY #90 cap 09/09/20 [Rx Last Taken 09/13/20] fluticasone furoate 200 mcg-vilanterol 25 mcg/dose inhalation powder 1 inh INHALATION DAILY ea 09/09/20 [History Last Taken Unknown] furosemide 40 mg tablet 40 mg PO DAILY #90 tab 09/09/20 [Rx Last Taken Unknown] losartan 100 mg tablet 100 mg PO DAILY #90 tab 09/09/20 [Rx Last Taken 09/13/20] omeprazole 40 mg capsule,delayed release 40 mg PO QHS #90 cap 09/09/20 [Rx Last Taken Unknown] rosuvastatin 40 mg tablet 40 mg PO DAILY #90 tab 09/09/20 [Rx Last Taken Unknown] semaglutide 0.5 mg SUBCUT QWEEK 09/09/20 [History Last Taken Unknown] cyclobenzaprine 10 mg PO TID PRN #20 tablet 12/10/20 [Rx Last Taken Unknown] prednisone 40 mg PO DAILY 12/18/20 [History Last Taken Unknown] Allergy/AdvReac Type Severity Reaction Status Date / Time atorvastatin Allergy Mild itching Verified 12/10/20 03:54 lisinopril Allergy Other Verified 12/10/20 03:54 Family History Grandmother CAD (coronary artery disease) Hypertension Father Hypertension CAD (coronary artery disease) Hyperlipidemia Heart disease Myocardial infarction Brother CAD (coronary artery disease) Heart disease Myocardial infarction Surgical History History of coronary artery stent placement (11/06/15) History of left heart catheterization (09/15/20) History of repair of rotator cuff Social History Smoking Status: Former smoker how long ago did patient quit smokin11/06/15 second hand exposure: Yes alcohol intake: never substance use type: does not use caffeine: No what type of physical activity do you participate in: none ROS ROS ED Constitutional Constitutional ED: Denies chills or weight loss Eyes Eyes: Denies change in vision or diplopia ENT ENT ED: Denies ear pain, rhinorrhea or sore throat Cardiovascular Cardiovascular: Denies chest pain, orthopnea, palpitations or racing heartbeat Respiratory/Chest Respiratory/Chest: Denies cough, dyspnea or orthopnea Gastrointestinal Gastrointestinal: Denies abdominal pain, diarrhea, nausea or vomiting Genitourinary Genitourinary ED: Denies dysuria, hematuria or urinary frequency Musculoskeletal Musculoskeletal: Reports arthralgias and other Details: Bilateral hand swelling and pain right plantar foot pain ; Denies myalgias Integumentary Reports rash; Denies abscess Neurologic Neurologic: Denies headache(s) or weakness Psychiatric Psychiatric: Denies anxiety, depression, suicidal ideation or suicidal thoughts Endocrine Endocrinology: Denies polydipsia, polyphagia or polyuria Allergic/Immunologic Allergic/Immunologic ED: Denies mouth swelling, tongue swelling or urticaria EXAM Physical Exam Const Vital Signs: 12/18/20 22:03 12/18/20 22:54 12/19/20 00:36 Temperature 97 F L Temperature Source Temporal Pulse Rate 112 H 88 Respiratory Rate 18 18 Respiratory Effort Normal Respiratory Pattern Normal Blood Pressure 156/102 H 151/90 H Blood Pressure Mean 120 110 Pulse Ox 96 94 Oxygen Delivery Method Room Air Positive well nourished and well developed General Appearance ED: well developed HEENT Reports normocephalic, head/scalp atraumatic and moist mucous membranes Eyes PERRL and EOMs intact bilaterally Neck no lymphadenopathy, supple and no JVD Resp normal respiratory effort and clear to auscultation bilaterally Cardio regular rate, regular rhythm and no murmurs GI normal to inspection, nondistended, normoactive bowel sounds and non-tender Palpation: soft Back/Spine no CVA tenderness and normal ROM Extremity normal to inspection General Extremety ED: Negative for edema General Extremity: Negative for edema Neuro oriented x3 and CN's II-XII intact bilaterally Sensorium / Orientation: alert Motor Exam: strength 5/5 throughout Psych mental status grossly normal Mood & Affect: Negative for depressed or tearful Skin no wounds Skin Narrative: There is an area of erythema and increased warmth on the plantar surface of the right foot in the arch region. There is a small streak extending over the medial aspect of the foot. There is no lymphangitic streaking of the leg. MDM MDM MDM Narrative Medical decision making narrative: Patient's white count is 24.7. He has been on prednisone several courses recently. Low it does seem a bit higher than expected for just prednisone. His CRP is 72.7 today. Sed rate is 120. Lactic acid is normal at 1.6. He has evidence of cellulitis on the plantar surface of the right foot. The hand swelling could be from the prednisone could be from a rheumatologic condition that has not yet been identified. Lab Data Attestation: I reviewed the patient's lab results. Labs: Laboratory Results - last 24 hr 12/18/20 12/18/20 12/18/20 23:25 23:25 23:25 WBC 24.7 H RBC 4.68 Hgb 13.8 Hct 42.1 MCV 90.0 MCH 29.5 MCHC 32.8 RDW Std Deviation 46.9 H RDW Coeff of Sophy 14.2 Plt Count 547 H MPV 8.7 Immature Gran % (Auto) 3.800 H Neut % (Auto) 77.2 H Lymph % (Auto) 11.3 L Bowie % (Auto) 7.2 Eos % (Auto) 0.1 Baso % (Auto) 0.4 Absolute Neuts (auto) 19.0 H Absolute Lymphs (auto) 2.80 Nucleated RBC % 0 Diff Path Review July foll ESR 120 H PT 13.3 INR 1.1 APTT 36.0 Sodium 133 L Potassium 4.3 Chloride 99 Carbon Dioxide 28.0 Anion Gap 6 BUN 26 H Creatinine 0.93 Estim Creat Clear Calc 86.83 Est GFR (MDRD) Af Amer 109 Est GFR (MDRD) Non-Af 90 BUN/Creatinine Ratio 28.1 H Glucose 137 H Lactic Acid Calcium 9.6 Total Bilirubin 0.50 AST 33 ALT 55 Alkaline Phosphatase 87 C-React Prot Ext Range 72.70 H Total Protein 8.0 Albumin 2.7 L Globulin 5.3 H Albumin/Globulin Ratio 0.5 L Urine Color Urine Clarity Urine pH Ur Specific [place] Urine Protein Urine Glucose (UA) Urine Ketones Urine Occult Blood Urine Nitrite Urine Bilirubin Urine Urobilinogen Ur Leukocyte Esterase Urine RBC Urine WBC Ur Squamous Epith Cells Urine Bacteria Hyaline Casts Urine Mucus 12/18/20 12/18/20 23:25 23:56 WBC RBC Hgb Hct MCV MCH MCHC RDW Std Deviation RDW Coeff of Sophy Plt Count MPV Immature Gran % (Auto) Neut % (Auto) Lymph % (Auto) [place] % (Auto) Eos % (Auto) Baso % (Auto) Absolute Neuts (auto) Absolute Lymphs (auto) Nucleated RBC % Diff Path Review ESR PT INR APTT Sodium Potassium Chloride Carbon Dioxide Anion Gap BUN Creatinine Estim Creat Clear Calc Est GFR (MDRD) Af Amer Est GFR (MDRD) Non-Af BUN/Creatinine Ratio Glucose Lactic Acid 1.6 Calcium Total Bilirubin AST ALT Alkaline Phosphatase C-React Prot Ext Range Total Protein Albumin Globulin Albumin/Globulin Ratio Urine Color Yellow Urine Clarity Clear Urine pH 5.0 Ur Specific [place] 1.020 Urine Protein 30 H Urine Glucose (UA) Normal Urine Ketones Negative Urine Occult Blood Negative Urine Nitrite Negative Urine Bilirubin Negative Urine Urobilinogen Normal Ur Leukocyte Esterase Negative Urine RBC 0 SEEN Urine WBC 0 SEEN Ur Squamous Epith Cells 0 SEEN Urine Bacteria 1+ Hyaline Casts 5-10 SEEN Urine Mucus RARE Discharge Plan Dx/Rx/DC Orders Clinical Impression: Diabetic foot infection, Bilateral hand swelling, Sepsis Disposition Disposition: Acute Care Hospital [facility]
[2020-12-18] MEDS: Ketorolac 30 MG/ML Syringe IV (23:40)
[2020-12-18 23:41] LABS: Erythrocyte Sedimentation Rate 120 mm/hr (0-20)
[2020-12-18 23:43] LABS: Basophil# 0.09 X10^3/uL; Basophil% 0.4 % (0-1); Eosinophil# 0.03 X10^3/uL; Eosinophils% 0.1 % (0-5); Hematocrit 42.1 % (40-54); Hemoglobin 13.8 g/dL (13.0-16.5); Lymphocyte % 11.3 % (19-41); Mean Corp Hgb Conc 32.8 g/dL (32-36); Mean Corpuscular Hgb 29.5 pg (27.0-32.0); Mean Platelet Vol. 8.7 fl (6.2-12.0); Monocyte# 1.79 X10^3/uL; Monocyte% 7.2 % (0-10); NRBC Flagged by Analyzer 0 % (0-5); Neutrophil # 19.03 X10^3/uL (2.7-7.7); Neutrophil % 77.2 % (47-70); POSITIVE DIFFERENTIAL YES; Platelet Count 547 K/mm3 (150-450); RBC Distribution Width CV 14.2 % (11.6-14.6); RBC Distribution Width SD 46.9 fl (35.1-43.9); Red Blood Count 4.68 M/mm3 (4.6-6.2); White Blood Count 24.7 K/mm3 (4.4-11.0)
[2020-12-18 23:49] LABS: International Normalized Ratio 1.1; Prothrombin Time (Protime)PT. 13.3 SECONDS (11.7-14.9)
[2020-12-18 23:52] LABS: Differential Indicated SCAN CRITERIA MET
[2020-12-18 23:58] LABS: ALB/GLOB Ratio 0.5 RATIO (0.9-2.4); AST(SGOT) 33 U/L (15-37); Alanine Aminotransfer ALT/SGPT 55 U/L (16-61); Albumin, Serum 2.7 g/dL (3.2-5.0); Alkaline Phosphatase 87 U/L (45-117); Anion Gap 6 (5-15); BUN 26 mg/dL (7-18); BUN/Creat Ratio 28.1 RATIO (10-20); Calcium,Total 9.6 mg/dL (8.5-10.1); Chloride 99 mmol/L (98-107); Creatinine, Serum 0.93 mg/dL (0.70-1.30); EST Glomerular Filtration Rate 90 mL/min (>60); Est Glom Filt Rate - Afr Amer 109 mL/min (>60); Estimated Creatinine Clearance 86.83 ml/min; Globulin 5.3 g/dL (2.2-4.2); Glucose 137 mg/dL (74-106); Potassium 4.3 mmol/L (3.5-5.1); Sodium Level 133 mmol/L (136-145)
[2020-12-19] VITALS (10 sets, daily range): BP systolic 134–166; BP diastolic 90–99; PULSE 78–116; RESP 18–20; TEMP 36.1–36.8; O2SAT 93–98; BMI 40.6
[2020-12-19 00:04] LABS: Red Blood Cells-Urine 0 SEEN /hpf (0-5); Squamous Epithelial Cells - UA 0 SEEN /hpf (0-5); White Blood Cells 0 SEEN /hpf (0-5)
[2020-12-19 00:09] LABS: Lactic Acid 1.6 mmol/L (0.4-1.9)
[2020-12-19 00:13] LABS: Color, Urine Yellow (Yellow); Glucose, Dipstick Normal (Normal); Ketone-Dipstick Negative (Negative); Leukocyte Esterase-Dipstick Negative /ul (Negative); Nitrite-Dipstick Negative (Negative); Occult Blood-Urine Negative /ul (Negative); Protein-Dipstick 30 mg/dl (Negative); Urine Bilirubin Dipstick Negative (Negative); Urine Clarity Clear (Clear); Urine Urobilinogen Normal (Normal)
[2020-12-19 00:25] LABS: Bacteria 1+ /hpf (None Seen); Hyaline Cast 5-10 SEEN /lpf (0-5); Mucous, Urine RARE /hpf (<or=2+)
[2020-12-19] MEDS: Ceftriaxone 1 GM/50 ML BAG IV (00:49)
--- NOTE | 2020-12-19 01:07 | HP.PCM.HOS_ITS ---
HPI - General General Date of Admission: 12/19/20 Date of Service: 12/19/20 Chief Complaint: R foot redness/pain, migratory joint pain, BL Hand edema/pain. HPI Narrative The patient is a 55 y/o M w/ PMHx: Morbid Obesity, CAD s/p PCI w/ Hx STEMI, HTN, HLD, HAWA not using CPAP, Former Tobacco use, Chronic COPD, Allergic Rhinitis, GERD who presents to the [facility] ED on 12/19/20 with history of recent significant right hip pain with the ED evaluation as well as follow-up with patient PCP and Dr. Mckeon with CT with no acute traumatic and unremarkable CTA of the abdomen pelvis; however patient did have elevated WBC 28.5 with left shift at that time however patient had been on prednisone therapy with improvement of his discomfort with injection however he continued to have diffuse migratory pain to several of his joints and noted recent bilateral hand swelling x3 days with associated discomfort, worse with movement in addition to recent right plantar foot redness with streaks up the sides toward his ankle with no recent injury but cracked feel with increased warmth prompting ED evaluation. Patient's PCP had obtain CRP and ESR both noted to be elevated. Patient of note has been on prednisone over the last 3 weeks. Work-up in the ED included T 97, heart rate 112, BP 156/102, respiratory rate 18, 94 to 97% on room air, CBC with WBC 24.7, hemoglobin 13.8, platelets 547 with left shift, ESR 120, unremarkable coags, CMP with sodium 133, BUN/creatinine 26/0.93, glucose 137, lactic acid 1.6, CRP 72.7, urinalysis not marked appearing, blood culture x2 pending per ED, plain film of the right foot with no obvious acute abnormalities with final read pending. In the ED patient ministered vancomycin, Rocephin and Toradol. [facility] Medical History Acute respiratory failure, unspecified whether with hypoxia or hypercapnia Allergic rhinitis Atherosclerotic heart disease of [place] coronary artery with other forms of angina pectoris Body mass index (BMI) of 40.0-44.9 in adult Breathing-related sleep disorder COPD (chronic obstructive pulmonary disease) Essential (primary) hypertension History of ST elevation myocardial infarction (STEMI) (11/06/15) Hyperlipidemia Impingement syndrome of left shoulder 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) HAWA (obstructive sleep apnea) Proteinuria Screening for malignant neoplasm of intestine Strain of muscle(s) and tendon(s) of the rotator cuff of left shoulder, subsequent encounter Tobacco abuse Home Medications aspirin 81 mg PO DAILY@0800 12/02/15 [History Last Taken 09/13/20] oxycodone-acetaminophen 5 mg-325 mg tablet 1 tab PO Q8H PRN 04/28/19 [History Last Taken Unknown] albuterol sulfate 1 puff INHALATION DAILY PRN 01/14/20 [History Last Taken Unknown] clopidogrel 75 mg tablet 75 mg PO DAILY #90 tab 09/09/20 [Rx Last Taken 09/13/20] diltiazem HCl 180 mg capsule,extended release 24 hr 180 mg PO QDAY #90 cap 08/23 11/12 [Rx Last Taken 09/13/20] fluticasone furoate 200 mcg-vilanterol 25 mcg/dose inhalation powder 1 inh INHALATION DAILY ea 09/09/20 [History Last Taken Unknown] furosemide 40 mg tablet 40 mg PO DAILY #90 tab 09/09/20 [Rx Last Taken Unknown] losartan 100 mg tablet 100 mg PO DAILY #90 tab 09/09/20 [Rx Last Taken 09/13/20] omeprazole 40 mg capsule,delayed release 40 mg PO QHS #90 cap 09/09/20 [Rx Last Taken Unknown] rosuvastatin 40 mg tablet 40 mg PO DAILY #90 tab 09/09/20 [Rx Last Taken Unknown ] semaglutide 0.5 mg SUBCUT QWEEK 09/09/20 [History Last Taken Unknown] cyclobenzaprine 10 mg PO TID PRN #20 tablet 12/10/20 [Rx Last Taken Unknown] prednisone 40 mg PO DAILY 12/18/20 [History Last Taken Unknown] Allergy/AdvReac Type Severity Reaction Status Date / Time atorvastatin Allergy Mild itching Verified 12/10/20 03:54 lisinopril Allergy Other Verified 12/10/20 03:54 Family History Grandmother CAD (coronary artery disease) Hypertension Father Hypertension CAD (coronary artery disease) Hyperlipidemia Heart disease Myocardial infarction Brother CAD (coronary artery disease) Heart disease Myocardial infarction other (No marked maternal family history including HD, DM, CA.) Surgical History History of coronary artery stent placement (11/06/15) History of left heart catheterization (09/15/20) History of repair of rotator cuff Social History (Updated 12/19/20 @ 02:[address] Kavitha Zeng MD) household members: spouse Smoking Status: Former smoker how long ago did patient quit smokin11/06/15 second hand exposure: Yes alcohol intake: never substance use type: does not use caffeine: No what type of physical activity do you participate in: none ROS ROS Narrative Physical Examination: General: Awake, alert, oriented x 3 and cooperative, laying in the ED bed, notes diffuse generalized joint pain, bilateral hand pain and swelling. Skin: Normal color, normal turgor, no icterus, no cyanosis except noted right plantar foot erythema, warmth, extending in the midfoot region with streaking up the sides, extremely painful to palpation. HEENT: AT/NC, EOMI, PERRLA, MMM, no carotid bruits or JVD noted; however, thickened neck makes examination difficult. Lungs: CTA bilaterally, moderate effort, mild decrease BL bases, no rales, ronchi or wheezing. Heart: Regular rate and rhythm; no gallop, rub audible. Abdomen: Soft, morbidly obese, NTTP, ND, distant normal BS, no obvious evidence of HSM; however, habitus makes examination difficult. Extremities: No cyanosis, no clubbing, see skin with right foot plantar erythema is noted, significant discomfort to bilateral hands, right greater than left, swelling to the digits with difficulty opening his hands fully secondary to pain elicited. Neurological: Patient awake, alert, oriented as noted, cognitive function intact; pupils equally reactive to light and accommodation, cranial nerves II- XII grossly normal, moving all 4 extremities, no focal deficits, strength severely global decreased secondary to generalized discomfort complaints. Psychiatric: Affect appears mildly fatigued, mildly uncomfortable otherwise normal, no acute evidence of depressive or anxiety feelings. Vital Signs Vital Signs Vital Signs: 12/18/20 22:03 12/18/20 22:54 12/19/20 00:36 Temperature 97 F L Temperature Source Temporal Pulse Rate 112 H 88 Respiratory Rate 18 18 Respiratory Effort Normal Respiratory Pattern Normal Blood Pressure 156/102 H 151/90 H Blood Pressure Mean 120 110 Pulse Ox 96 94 Oxygen Delivery Method Room Air 12/19/20 00:50 12/19/20 00:52 Temperature 97.0 F L 97.0 F L Temperature Source Temporal Temporal Pulse Rate 80 80 Respiratory Rate 18 18 Respiratory Effort Respiratory Pattern Blood Pressure 151/90 H 151/90 H Blood Pressure Mean 110 110 Pulse Ox 97 97 Oxygen Delivery Method Room Air Room Air Weight Weight: 273 lb Body Mass Index (BMI) 41.5 Results Lab / Micro Data Result Diagrams: 12/18/20 23:25 12/18/20 23:25 Labs: Laboratory Results - last 24 hr 12/18/20 23:25: WBC 24.7 H, RBC 4.68, Hgb 13.8, Hct 42.1, MCV 90.0, MCH 29.5, MCHC 32.8, RDW Std Deviation 46.9 H, RDW Coeff of Sophy 14.2, Plt Count 547 H, MPV 8.7, Immature Gran % (Auto) 3.800 H, Neut % (Auto) 77.2 H, Lymph % (Auto) 11.3 L , [place] % (Auto) 7.2, Eos % (Auto) 0.1, Baso % (Auto) 0.4, Absolute Neuts (auto) 19.0 H, Absolute Lymphs (auto) 2.80, Nucleated RBC % 0, Diff Path Review July, ESR 120 H 12/18/20 23:25: PT 13.3, INR 1.1, APTT 36.0 12/18/20 23:25: Sodium 133 L, Potassium 4.3, Chloride 99, Carbon Dioxide 28.0, Anion Gap 6, BUN 26 H, Creatinine 0.93, Estim Creat Clear Calc 86.83, Est GFR (MDRD) Af Amer 109, Est GFR (MDRD) Non-Af 90, BUN/Creatinine Ratio 28.1 H, Glucose 137 H, Calcium 9.6, Total Bilirubin 0.50, AST 33, ALT 55, Alkaline Phosphatase 87, C-React Prot Ext Range 72.70 H, Total Protein 8.0, Albumin 2.7 L , Globulin 5.3 H, Albumin/Globulin Ratio 0.5 L 12/18/20 23:25: Lactic Acid 1.6 12/18/20 23:56: Urine Color Yellow, Urine Clarity Clear, Urine pH 5.0, Ur Specific [place] 1.020, Urine Protein 30 H, Urine Glucose (UA) Normal, Urine Ketones Negative, Urine Occult Blood Negative, Urine Nitrite Negative, Urine Bilirubin Negative, Urine Urobilinogen Normal, Ur Leukocyte Esterase Negative, Urine RBC 0 SEEN, Urine WBC 0 SEEN, Ur Squamous Epith Cells 0 SEEN, Urine Bacteria 1+, Hyaline Casts 5-10 SEEN, Urine Mucus RARE Assessment & Plan Assessment/Plan (1) Diabetic foot infection: PLAN: The patient is a 55 y/o M w/ PMHx: Morbid Obesity, CAD s/p PCI w/ Hx STEMI, HTN, HLD, HAWA not using CPAP, Former Tobacco use, Chronic COPD, Allergic Rhinitis, GERD who presents to the [facility] ED on 12/19/20 with history of recent significant initially R hip pain with CT with no acute traumatic and unremarkable CTA of the abdomen pelvis; however patient did have elevated WBC 28.5 with left shift at that time with improvement with injection and oral steroids; however, he then had onset migratory joint pain and notable BL hand swelling w/ concurrently noted onset right plantar foot redness with streaks up the sides toward his ankle. 1. RLE Diabetic Foot Infection, Plantar Cellulitis: Will admit to [facility], maintain on IV vanc and zosyn, plan repeat CBC in AM, continue affected extremity elevation above heart when seated and in bed, monitor erythema outline with VS checks, ESR and CRP elevated, may consider Podiatric involvement. 2. Generalized Join Pain, BL Hand Pain/Edema, Unclear Specific etiology: Patient with elevated inflammatory markers in the setting of #1, unclear specifi c etiology, maintained on steroids recently for a prolonged period without marked benefit to his migratory joint pain, now discontinued, will continue to monitor given treatment #1 planned, may trend inflammatory markers and if ongoing join concerns likely will need rheumatological work-up. 3. Hyperglycemia: Admission glucose 137, likely stress response and steroids recently, will obtain hemoglobin A1c to be cautious. 4. Chronic COPD: Patient not on routine inhalers, will maintain on PRN alb uterol, HOB, IS parameters. 5. CAD: Status post PCI with history of STEMI, continue aspirin, Plavix, statin, losartan, not on beta-claudia therapy as a patient on diltiazem. 6. Hypertension: Continue home regimen including diltiazem, Lasix, losartan with hold parameters, PRN hydralazine. 7. Hyperlipidemia: Continue home statin regimen. 8. Morbid Obesity: Weight loss and lifestyle changes encouraged. 9. HAWA: Patient reports no longer using CPAP, stating that since he had shoulder surgery and is unable to lay on his side he sleeps on his back and has not had gasping for air although he has not seen a paid search marketing strategist or had any follow-up sleep studies to assure that it is no longer needed. 10. Chronic back pain: Patient reports that with recent prolonged steroid usage he does not have any back pain which is abnormal baseline for him 11. Former tobacco use: Encourage continued tobacco cessation. 12. DVT prophylaxis: SCDs, Lovenox. Charges/Coding Visit Charges Inpatient E&M: 29484 Init Hosp L3
[2020-12-19] MEDS: Morphine 2 MG/ML Syringe IV ×3 (03:19→12:56)
--- NOTE | 2020-12-19 03:34 | PCM.RX.CS ---
Consult Pharmacy has been consulted to manage selected antiobiotic: Vancomycin Type of Consult: New start Labs: Sodium 133 mmol/L (136-145) L 12/18/20 23:25 Potassium 4.3 mmol/L (3.5-5.1) 12/18/20 23:25 Chloride 99 mmol/L (98-107) 12/18/20 23:25 Carbon Dioxide 28.0 mmol/L (21.0-32.0) 12/18/20 23:25 Anion Gap 6 (5-15) 12/18/20 23:25 BUN 26 mg/dL (7-18) H 12/18/20 23:25 Creatinine 0.93 mg/dL (0.70-1.30) 12/18/20 23:25 Est GFR (MDRD) Af Amer 109 mL/min (>60) 12/18/20 23:25 Est GFR (MDRD) Non-Af 90 mL/min (>60) 12/18/20 23:25 BUN/Creatinine Ratio 28.1 RATIO (10-20) H 12/18/20 23:25 Glucose 137 mg/dL (74-106) H 12/18/20 23:25 Goal Trough: 15-20 mcg/mL Pharmacy Plan for Drug Dosing: Pharmacy Service will continue to monitor and adjust dosing as required. Medications Vancomycin HCl 1,500 mg/ (Sodium Chloride) 530 mls @ 250 mls/hr IV Q8H SREEDHAR Discontinued Medications Vancomycin HCl 2,000 mg/ (Sodium Chloride) 540 mls @ 250 mls/hr IV X1 ONE Stop: 12/19/20 02:26 Last Admin: 12/19/20 01:28 Dose: 250 mls/hr Documented by: Follow-Up Labs: Trough Vancomycin Labs to be done on [date and time ordered]: 12/20 @ 0100
[2020-12-19] MEDS: 0.9% Normal Saline 1,000 ML 100 ML IV ×2 (04:17→15:28)
[2020-12-19 07:10] LABS: Erythrocyte Sedimentation Rate 105 mm/hr (0-20)
[2020-12-19 07:11] LABS: Absolute Lymphocyte Count 3.32 X10^3/uL (0.83-4.51); Absolute Neutrophil Count 14.3 X10^3/uL (2.0-7.7); Basophil# 0.08 X10^3/uL; Basophil% 0.4 % (0-1); Eosinophil# 0.06 X10^3/uL; Eosinophils% 0.3 % (0-5); Hematocrit 40.8 % (40-54); Hemoglobin 13.1 g/dL (13.0-16.5); Lymphocyte # 3.32 X10^3/ul (0.83-4.51); Lymphocyte % 16.9 % (19-41); Mean Corp Hgb Conc 32.1 g/dL (32-36); Mean Corpuscular Hgb 29.4 pg (27.0-32.0); Mean Corpuscular Volume 91.5 fL (80-94); Mean Platelet Vol. 8.7 fl (6.2-12.0); Monocyte# 1.42 X10^3/uL; Monocyte% 7.2 % (0-10); NRBC Flagged by Analyzer 0 % (0-5); Neutrophil # 14.34 X10^3/uL (2.7-7.7); Neutrophil % 73.3 % (47-70); Platelet Count 504 K/mm3 (150-450); RBC Distribution Width CV 14.3 % (11.6-14.6); Red Blood Count 4.46 M/mm3 (4.6-6.2); White Blood Count 19.6 K/mm3 (4.4-11.0)
[2020-12-19] MEDS: 0.9% Saline Lock 10 ML Syringe IV ×2 (07:48→12:56)
[2020-12-19 08:01] LABS: ALB/GLOB Ratio 0.5 RATIO (0.9-2.4); AST(SGOT) 19 U/L (15-37); Alanine Aminotransfer ALT/SGPT 45 U/L (16-61); Albumin, Serum 2.3 g/dL (3.2-5.0); Alkaline Phosphatase 79 U/L (45-117); Anion Gap 8 (5-15); BUN 27 mg/dL (7-18); BUN/Creat Ratio 30.5 RATIO (10-20); Chloride 100 mmol/L (98-107); Creatinine, Serum 0.88 mg/dL (0.70-1.30); EST Glomerular Filtration Rate 95 mL/min (>60); Est Glom Filt Rate - Afr Amer 115 mL/min (>60); Estimated Creatinine Clearance 91.76 ml/min; Globulin 4.9 g/dL (2.2-4.2); Glucose 127 mg/dL (74-106); Protein, Total 7.2 g/dL (6.4-8.2); Sodium Level 135 mmol/L (136-145)
[2020-12-19] MEDS: Aspirin E.C. 81 MG Tablet PO (08:37)
[2020-12-19] MEDS: Acetaminophen 325 MG Tablet 650 MG PO ×2 (08:37→19:36)
[2020-12-19] MEDS: oxyCODONE 5 MG Tablet PO (08:37)
[2020-12-19] MEDS: Glucerna Shake 120 ML LIQUID PO ×2 (08:37→12:51)
[2020-12-19 08:43] LABS: Hemoglobin A1c 6.9 % (3.8-5.6)
[2020-12-19] MEDS: dilTIAZem CD 180 MG Capsule PO (10:22)
[2020-12-19] MEDS: Clopidogrel Bisulfate 75 MG Tablet PO (10:22)
[2020-12-19] MEDS: Enoxaparin 40 MG/0.4 ML Syringe SC ×2 (10:22→22:35)
[2020-12-19] MEDS: Furosemide 40 MG Tablet PO (10:22)
--- NOTE | 2020-12-19 10:38 | CASEMGMT ---
MACKENZIE PATEL Assessment: Face to Face with pt for initial transition planning/care coordination assessment. MACKENZIE PATEL introduced self and role at [facility], pt voices understanding and consents to assessment. Pt is A/O x4 and answers all questions appropriately at this time. Pt sitting up in chair with in room in no distress. Care providers, pharmacy, and demographics verified/updated. Admitting Dx: Diabetic R foot infection/cellulitis PCP:Edna Specialists:Claus, cardio; Ata, pulm; Mike, pain mgmt Preferred Pharmacy: [facility] Retail Insurance: [facility] Prescription Benefit: yes LW/HPOA: Pt reports having a LW/DPOA and states his DPOA is his Roselyn Paz. LNOK: Roselyn Paz, Living Arrangements: Pt lives with , two kids (one is 18 and the other is over 18) in a single story house with 4 steps to enter with a rail. Pt states he is mostly I in ADL's but his has been needing to help. Pt reports having locked hands with pain in them. Transportation: Pt drives self and denies concerns with transportation. DME/HHC/SNF: Pt has a cane but does not normally use. He has a BGM. Denies hx of HHC or SNF stays. Pt is disabled. Denies use of alcohol, cigarettes, street drugs or illegal drug use. Pt reports checking his blood sugars on Mondays and as needed for symptoms. He receives his supplies through [employer]. Pt denies having any open wound at this time. Denies need for HHC or further education regarding diabetes. Pt states no concerns with going home at time of dc. Pt states no further concerns/needs. CM to follow. Advised pt to ask CM if any further question/concerns/needs arise, voices understanding. Pt Goal: Home with support Plan: Home with support
[2020-12-19] MEDS: oxyCODONE 5 MG Tablet 10 MG PO ×3 (11:19→19:29)
[2020-12-19] MEDS: Losartan Potassium 50 MG Tablet PO (11:19)
[2020-12-19 12:29] LABS: Lyme Ab Screen Interpretation REF LAB
--- NOTE | 2020-12-19 13:20 | PCM.HOSP.N ---
Hospitalist Note Mr. Paz is a 55-year-old male who was admitted early this morning secondary to bilateral hand swelling that started approximately 3 days prior to presentation. The patient indicates that he started having migratory joint pain that started a few weeks back. He reports that he had pain that started in his knee that has since resolved and progressed to bilateral shoulder pain that resolved and progressed to bilateral arm pain which has resolved and approximately 3 days ago he started having hand pain that started predominantly in his left hand and his right third digit and has progressed to both of his hands which are now swollen and sore with decreased mobility. He was placed on prednisone previously for his knee pain. He had been seeing Dr. Mckeon for his chronic low back pain and was treated with a steroid injection into his sacrum which has resolved pain that was attributed to this. On presentation he had right midfoot erythema with no lesion noted and this has since resolved. He has received only 1 dose of IV antibiotics. I highly doubt that this was an infectious lesion. After extensive discussion with the patient he does note that he does feed the deer in his backyard but denies any known tick bites or rashes. He has no family history of autoimmune disease. His foot erythema has since resolved but his hand symptoms remain his dominant complaint at this time. Autoimmune studies were ordered. Lyme titers were ordered. Patient was placed on Solu-Medrol IV push twice daily and I discussed with him the plan will be to control his pain and have him follow-up as an outpatient unless his Lyme titers are positive. He is currently on ceftriaxone and I will continue this at this time. Consider ID consult if Lyme titers positive,
[2020-12-19 14:21] LABS: Pathologist Review Reviewed
[2020-12-19] MEDS: Pantoprazole Sodium 40 MG Tablet PO (22:35)
[2020-12-19] MEDS: ROSUVASTATIN CALCIUM 40 MG TABLET PO (22:35)
[2020-12-19 22:51] LABS: Bedside Glucose 320 mg/dL (70-110)
[2020-12-20 02:35] VITALS: BP 152/96; PULSE 80; RESP 18; TEMP 36.3; O2SAT 96
[2020-12-20] MEDS: 0.9% Normal Saline 1,000 ML 100 ML IV (04:49)
[2020-12-20 06:38] LABS: Absolute Lymphocyte Count 0.96 X10^3/uL (0.83-4.51); Absolute Neutrophil Count 20.1 X10^3/uL (2.0-7.7); Basophil# 0.03 X10^3/uL; Basophil% 0.1 % (0-1); Hematocrit 40.2 % (40-54); Hemoglobin 13.1 g/dL (13.0-16.5); Lymphocyte # 0.96 X10^3/ul (0.83-4.51); Lymphocyte % 4.3 % (19-41); Mean Corp Hgb Conc 32.6 g/dL (32-36); Mean Corpuscular Hgb 29.7 pg (27.0-32.0); Mean Corpuscular Volume 91.2 fL (80-94); Mean Platelet Vol. 8.6 fl (6.2-12.0); Monocyte# 0.64 X10^3/uL; Monocyte% 2.9 % (0-10); NRBC Flagged by Analyzer 0 % (0-5); Neutrophil # 20.09 X10^3/uL (2.7-7.7); Neutrophil % 90.9 % (47-70); POSITIVE DIFFERENTIAL YES; Platelet Count 509 K/mm3 (150-450); RBC Distribution Width CV 14.2 % (11.6-14.6); RBC Distribution Width SD 47.8 fl (35.1-43.9); Red Blood Count 4.41 M/mm3 (4.6-6.2); White Blood Count 22.1 K/mm3 (4.4-11.0)
[2020-12-20] MEDS: oxyCODONE 5 MG Tablet 10 MG PO ×2 (06:41→11:49)
[2020-12-20] MEDS: Acetaminophen 325 MG Tablet 650 MG PO (06:41)
[2020-12-20 06:50] VITALS: PULSE 77; RESP 18; O2SAT 96
[2020-12-20 06:50] LABS: Bedside Glucose 221 mg/dL (70-110)
[2020-12-20] MEDS: Ipratropium/Albuterol Sulfate 3 ML AMPUL.NEB INHALATION (06:50)
[2020-12-20 06:59] LABS: Differential Indicated SCAN CRITERIA MET
[2020-12-20 07:02] LABS: Anion Gap 8 (5-15); BUN 18 mg/dL (7-18); BUN/Creat Ratio 22.1 RATIO (10-20); Calcium,Total 9.1 mg/dL (8.5-10.1); Chloride 102 mmol/L (98-107); Creatinine, Serum 0.82 mg/dL (0.70-1.30); EST Glomerular Filtration Rate 104 mL/min (>60); Est Glom Filt Rate - Afr Amer 126 mL/min (>60); Estimated Creatinine Clearance 98.48 ml/min; Glucose 239 mg/dL (74-106); Potassium 4.3 mmol/L (3.5-5.1); Sodium Level 136 mmol/L (136-145)
[2020-12-20 07:25] VITALS: BP 149/88; PULSE 82; RESP 18; TEMP 36.6; O2SAT 94
[2020-12-20 07:40] LABS: Differential Comment SCANNED; Platelet Estimate MOD INC (ADEQ)
[2020-12-20] MEDS: dilTIAZem CD 180 MG Capsule PO (07:41)
[2020-12-20] MEDS: Losartan Potassium 50 MG Tablet PO (07:41)
[2020-12-20] MEDS: Clopidogrel Bisulfate 75 MG Tablet PO (07:41)
[2020-12-20] MEDS: Aspirin E.C. 81 MG Tablet PO (07:41)
[2020-12-20] MEDS: Furosemide 40 MG Tablet PO (07:41)
[2020-12-20] MEDS: Glucerna Shake 120 ML LIQUID PO (07:42)
[2020-12-20] MEDS: Enoxaparin 40 MG/0.4 ML Syringe SC (07:42)
--- NOTE | 2020-12-20 07:59 | PCS.PANDOC ---
PANDEMIC DOCUMENTATION INITIATED: Date: 12/18/20 Time: 2200
--- NOTE | 2020-12-20 08:58 | PCM.RX.CS ---
Consult Pharmacy has been consulted to manage selected antiobiotic: Vancomycin Type of Consult: Follow-up Labs: Sodium 136 mmol/L (136-145) 12/20/20 Unknown Potassium 4.3 mmol/L (3.5-5.1) 12/20/20 Unknown Chloride 102 mmol/L (98-107) 12/20/20 Unknown Carbon Dioxide 26.0 mmol/L (21.0-32.0) 12/20/20 Unknown Anion Gap 8 (5-15) 12/20/20 Unknown BUN 18 mg/dL (7-18) 12/20/20 Unknown Creatinine 0.82 mg/dL (0.70-1.30) 12/20/20 Unknown Est GFR (MDRD) Af Amer 126 mL/min (>60) 12/20/20 Unknown Est GFR (MDRD) Non-Af 104 mL/min (>60) 12/20/20 Unknown BUN/Creatinine Ratio 22.1 RATIO (10-20) H 12/20/20 Unknown Glucose 239 mg/dL (74-106) H 12/20/20 Unknown Goal Trough: 15-20 mcg/mL Pharmacy Plan for Drug Dosing: VANCOMYCIN LEVEL RECEIVED Current Vancomycin Dose: 1500mg q8h (0130,0930,1730) Number of Doses Received: Vancomycin Level: 14.2 Hours Since Last Dose: 8 Renal Function: SrCr 0.82 Renal Function Trend: currently improving Lab/Micro: Vancomycin Plan/Comments: 8 hour trough level is slightly below ordered goal trough level of 15-20. pt may not be at steady state yet. recommend continuing current dose of 1500mg q8h and checking trough in 4 more doses. Pending Level: 12/21/20 at 0900 Pharmacy Service will continue to monitor and adjust dosing as required. Follow-Up Labs: Trough Vancomycin - 12/21/20 at 0900
[2020-12-20 09:02] LABS: Vancomycin, Trough Level 14.2 ug/mL (5.0-15.0)
--- NOTE | 2020-12-20 11:14 | DS.PCM_ITS ---
Providers Date of Admission: 12/19/20 Primary Care Physician: Dr. Amor Bishop MD Reason For Visit: DIABETIC R FOOT INFECTION/CELLULITIS Diagnosis Discharge Diagnosis (1) Diabetic foot infection: Status: Acute Code(s): E11.628 - Type 2 diabetes mellitus with other skin complications; L08.9 - Local infection of the skin and subcutaneous tissue, unspecified Medications at Discharge Home Medications aspirin 81 mg PO DAILY@0800 12/02/15 oxycodone-acetaminophen 5 mg-325 mg tablet 1 tab PO Q8H PRN 04/28/19 albuterol sulfate 1 puff INHALATION DAILY PRN 01/14/20 clopidogrel 75 mg tablet 75 mg PO DAILY #90 tab 09/09/20 diltiazem HCl 180 mg capsule,extended release 24 hr 180 mg PO QDAY #90 cap 09/09/20 fluticasone furoate 200 mcg-vilanterol 25 mcg/dose inhalation powder 1 inh INHALATION DAILY ea 09/09/20 furosemide 40 mg tablet 40 mg PO DAILY #90 tab 09/09/20 omeprazole 40 mg capsule,delayed release 40 mg PO QHS #90 cap 09/09/20 rosuvastatin 40 mg tablet 40 mg PO DAILY #90 tab 09/09/20 semaglutide 0.5 mg SUBCUT QWEEK 09/09/20 cyclobenzaprine 10 mg PO TID PRN #20 tablet 12/10/20 prednisone 40 mg PO DAILY 12/18/20 losartan 50 mg PO DAILY 12/19/20 cephalexin [Keflex] 750 mg PO BID #8 cap 12/20/20 prednisone 10 mg PO DAILY #30 tab 12/20/20 Hospital Course Operations None Procedures None Summary of Care Provided Minutes Spent on Discharge: 40 Hospital Course: Mr. Paz is a 55-year-old white male who presented to emergency department at [facility] on 12/18/2020 in the evening complaining of right foot redness and pain, migratory joint pain, and bilateral hand edema and pain. On admission he had a significant leukocytosis of 28.5 with a left shift and complained of migratory joint pain that had been occurring for approximately 1 to 2 weeks. The patient indicated that he started having migratory joint pain that started a few weeks back. He reported that he had pain that started in his knee that has since resolved and progressed to bilateral shoulder pain that resolved and progressed to bilateral arm pain which has resolved and approximately 3 days ago he started having hand pain that started predominantly in his left hand and his right third digit and has progressed to both of his hands which were swollen and sore with decreased mobility. He was placed on prednisone previously for his knee pain. He had been seeing Dr. Mckeno for his chronic low back pain and was treated with a steroid injection into his sacrum which has resolved pain that was attributed to this. On presentation he had right midfoot erythema with no lesion noted and this has since resolved. He had received only 1 dose of IV antibiotics prior to resolution so therefore I highly doubt that this was an infectious process. The patient was found however to have markedly elevated inflammatory markers. After extensive discussion with the patient he did note that he does feed the deer in his backyard regularly but denied any known tick bites or rashes consistent with erythema migrans. He has no family history of autoimmune disease. Autoimmune studies were ordered and pending upon discharge. Lyme titers were ordered as well and were pending upon discharge. Patient was placed on Solu-Medrol IV push twice daily and antibiotics were continued. As noted above with the rapidity of his symptom resolution I doubt that this was diabetic foot infection and suspect either autoimmune disease or potentially Lyme's disease. He was discharged on a prednisone taper given his pending lab work and improvement in his symptoms and was continued on Keflex for his foot in case this was infectious to complete a course of antibiotics. I have instructed him to follow-up diligently with his primary care physician. I did discuss the case with infectious disease and if his Lyme titers are positive he recommended starting doxycycline as an outpatient. He did say he would be happy to see the patient in outpatient follow-up as well. The patient was discharged in stable condition however I did discuss with the patient that we are unclear at this time what his exact etiology was and that outpatient follow-up was extremely important. Discharge diagnosis: Migratory arthralgias Bilateral hand pain and swelling Markedly elevated inflammatory markers CAD Hypertension Asthma GERD Hyperlipidemia DM-2 Physical Exam Narrative Patient states that his hands are feeling much better today. He indicates his left hand is almost back to baseline and his right hand is much improved. He states that the medications we gave him helped. He had 2 sweating episodes overnight with no documented fever and reports this morning he feels great. Const alert, oriented x3 and no apparent distress Constitutional Narrative: Morbidly obese white male lying in bed, appears comfortable, nontoxic, nursing at bedside General Appearance: cooperative, comfortable, well kempt and well developed Orientation / Consciousness: awake Exam Limitations: no limitations Nutritional Appearance: morbidly obese HEENT normocephalic, head/scalp atraumatic, hearing grossly normal bilaterally and moist oral mucous membranes Eyes PERRL, EOMs intact bilaterally and conjunctivae normal Neck no lymphadenopathy, supple and no JVD Neck Narrative: Mallampati 3-4 Resp normal respiratory effort, no retractions, no use of accessory muscles and clear to auscultation bilaterally Auscultation: Negative for crackles, rales, rhonchi or wheezes Cardio regular rate, regular rhythm, S1 normal heart sound, S2 normal heart sound, no murmurs, no rub, no gallops, no clicks and no JVD GI normal to inspection, nondistended, normoactive bowel sounds, soft to palpation, non-tender and non-distended Extremity Extremity Narrative: Bilateral hands with mild swelling, slight decreased range of motion with extension and complete flexion on the left, right hand with index finger swelling more notable than all other fingers and decreased range of motion in that digit but the rest of the digits move normally at this point Skin no rashes or lesions noted, no wounds, skin turgor normal and no jaundice Skin Narrative: Erythema on the plantar surface of the right foot has resolved Neuro oriented x3, CN's II-XII intact bilaterally, moves all extremities, no focal mot or deficits and no sensory deficits noted Sensorium / Orientation: awake, alert, oriented to person, oriented to place and oriented to time Speech: speech normal Psych affect normal Weight / BMI Weight Weight: 122 kg Body Mass Index (BMI) 40.6 ABG / Lab / Microbiology Data Result Diagrams: 12/20/20 Unknown 12/20/20 Unknown Laboratory: Laboratory Results - last 24 hr 12/18/20 23:25: Diff Path Review Reviewed 12/19/20 22:39: POC Glucose 320 H 12/20/20 01:00: Vancomycin Trough 14.2 12/20/20 06:40: POC Glucose 221 H 12/20/20 : WBC 22.1 H, RBC 4.41 L, Hgb 13.1, Hct 40.2, MCV 91.2, MCH 29.7, MCHC 32.6, RDW Std Deviation 47.8 H, RDW Coeff of Sophy 14.2, Plt Count 509 H, MPV 8.6, Immature Gran % (Auto) 1.800 H, Neut % (Auto) 90.9 H, Lymph % (Auto) 4.3 L, [place] % (Auto) 2.9, Eos % (Auto) 0.0, Baso % (Auto) 0.1, Absolute Neuts (auto) 20.1 H, Absolute Lymphs (auto) 0.96, Nucleated RBC % 0, Differential Comment SCANNED, Platelet Estimate MOD INC 12/20/20 : Sodium 136, Potassium 4.3, Chloride 102, Carbon Dioxide 26.0, Anion Gap 8, BUN 18, Creatinine 0.82, Estim Creat Clear Calc 98.48, Est GFR (MDRD) Af Amer 126, Est GFR (MDRD) Non-Af 104, BUN/Creatinine Ratio 22.1 H, Glucose 239 H, Calcium 9.1 D/C Instructions Discharge Diet: Low fat / Low cholesterol and 1800 Calorie Control Diet Return to work on: 12/22/20 May resume sexual activity in: No Restrictions Meaningful Use Info Meaningful Use Diagnoses (Choose all that apply): None applicable Discharge Plan Admission Admit Date/Time: 12/19/20 01:19 Primary Reason for Your Visit: Migratory Arthralgias/B Hand pain and swelling/Foot erythema Attending Provider: Kinjal Fisher Primary Care Provider: Amor Bishop Discharge Orders/Prescriptions Prescriptions: New cephalexin [Keflex] 750 mg capsule 750 mg PO BID Qty: 8 RF: 0 prednisone 10 mg tablet 10 mg PO DAILY Qty: 30 RF: 0 Continued oxycodone-acetaminophen [Percocet] 5-325 mg tablet 1 tab PO Q8H PRN (Reason: Pain 1-10 Or Fever) RF: 0 fluticasone furoate-vilanterol 200-25 mcg/dose blister with device 1 inh inhalation DAILY RF: 0 Ozempic 0.25 mg or 0.5 mg(2 mg/1.5 mL) pen injector 0.5 mg subcut QWEEK RF: 0 clopidogrel 75 mg tablet 75 mg PO DAILY Qty: 90 RF: 3 diltiazem HCl 180 mg capsule,extended release 24hr 180 mg PO QDAY Qty: 90 RF: 3 furosemide 40 mg tablet 40 mg PO DAILY Qty: 90 RF: 3 rosuvastatin 40 mg tablet 40 mg PO DAILY Qty: 90 RF: 3 omeprazole 40 mg capsule,delayed release(DR/EC) 40 mg PO QHS Qty: 90 RF: 3 aspirin 81 MG tablet 81 mg PO DAILY@0800 RF: 0 albuterol sulfate 1 PUFF inhaler 1 puff INHALATION DAILY PRN (Reason: Wheezing) RF: 0 cyclobenzaprine 10 MG tablet 10 mg PO TID PRN (Reason: Muscle Spasm) Qty: 20 RF: 0 prednisone 20 mg Tablet 40 mg PO DAILY RF: 0 losartan 50 mg Tablet 50 mg PO DAILY RF: 0 Referrals / Follow Up: Amor Bishop MD [Primary Care Provider] - In 1 Week (will need inpatient labs followed up) Disposition Disposition (needs filled in before D/C Order can be placed): Home, Self Care Charges/Coding Visit Charges Inpatient E&M: 48268 Disch Hosp
--- NOTE | 2020-12-20 11:36 | PCM.DC ---
Discharge Instructions Diet Discharge Diet: Low fat / Low cholesterol and 1800 Calorie Control Diet Activity Return to work on:: 12/22/20 May resume sexual activity in: No Restrictions Follow Up Care Test Results: Test results from this visit will be discussed in further detail at your follow-up appointment, if applicable. Discharge Plan Admission Admit Date/Time: 12/19/20 01:19 Primary Reason for Your Visit: Migratory Arthralgias/B Hand pain and swelling/Foot erythema Attending Provider: Kinjal Fisher Primary Care Provider: Amor Bishop Discharge Orders/Prescriptions Prescriptions: New cephalexin [Keflex] 750 mg capsule 750 mg PO BID Qty: 8 RF: 0 prednisone 10 mg tablet 10 mg PO DAILY Qty: 30 RF: 0 Continued oxycodone-acetaminophen [Percocet] 5-325 mg tablet 1 tab PO Q8H PRN (Reason: Pain 1-10 Or Fever) RF: 0 fluticasone furoate-vilanterol 200-25 mcg/dose blister with device 1 inh inhalation DAILY RF: 0 Ozempic 0.25 mg or 0.5 mg(2 mg/1.5 mL) pen injector 0.5 mg subcut QWEEK RF: 0 clopidogrel 75 mg tablet 75 mg PO DAILY Qty: 90 RF: 3 diltiazem HCl 180 mg capsule,extended release 24hr 180 mg PO QDAY Qty: 90 RF: 3 furosemide 40 mg tablet 40 mg PO DAILY Qty: 90 RF: 3 rosuvastatin 40 mg tablet 40 mg PO DAILY Qty: 90 RF: 3 omeprazole 40 mg capsule,delayed release(DR/EC) 40 mg PO QHS Qty: 90 RF: 3 aspirin 81 MG tablet 81 mg PO DAILY@0800 RF: 0 albuterol sulfate 1 PUFF inhaler 1 puff INHALATION DAILY PRN (Reason: Wheezing) RF: 0 cyclobenzaprine 10 MG tablet 10 mg PO TID PRN (Reason: Muscle Spasm) Qty: 20 RF: 0 prednisone 20 mg Tablet 40 mg PO DAILY RF: 0 losartan 50 mg Tablet 50 mg PO DAILY RF: 0 Referrals / Follow Up: Amor Bishop MD [Primary Care Provider] - In 1 Week (will need inpatient labs followed up) Disposition Disposition (needs filled in before D/C Order can be placed): Home, Self Care
[2020-12-20 11:52] VITALS: BP 142/80; PULSE 68; RESP 18; TEMP 36.6; O2SAT 97
[2020-12-20 14:36] LABS: ANTINUCLEAR ANTIBODIES DIRECT Negative (Negative)
[2020-12-20 16:20] LABS: Lyme Scn Total Ab w/Rflx <0.91 ISR (0.00-0.90)
--- NOTE | 2020-12-21 16:47 | CASEMGMT ---
MACKENZIE PATEL Discharge Follow Up Phone Call: DEONTEAnmol: Catherine Strata:3 Call Date: 12/21/20 Discharge Date: 12/20/20 Time of Call:1647 Duration:4 min Admitting Dx:diabetic foot infection/cellulitis MACKENZIE PATEL completed follow up phone call after recent hospitalization. Pt answered phone and states pt woke up with a swollen face and it was painful. She states she has made his PCP follow up appt for Saturday. She did also let them know about the swelling. She is aware if this worsens to notify PCP again. She states pt has all of his medications and she denies questions regarding his medications or dc instructions.
== END 2020-12-20 14:04 | disposition home or self-care (01) | DRG 638 ==
LOC: ED 12-19 00:43 → MS3 12-19 02:20
PROVIDERS: Admitting Provider Family Medicine; Emergency Provider Emergency Medicine; PCP Family Medicine; Visit Provider Internal Medicine
DX: E11.628 Type 2 diabetes mellitus with other skin complications (principal); Z68.41 Body mass index [BMI] 40.0-44.9, adult; L03.115 Cellulitis of right lower limb; M79.641 Pain in right hand; M79.642 Pain in left hand; R79.82 Elevated C-reactive protein (CRP); M79.89 Other specified soft tissue disorders; E11.65 Type 2 diabetes mellitus with hyperglycemia; T38.0X5A Adverse effect of glucocorticoids and synthetic analogues, initial encounter; Y92.9 Unspecified place or not applicable; E78.5 Hyperlipidemia, unspecified; I10 Essential (primary) hypertension; I25.2 Old myocardial infarction; E66.01 Morbid (severe) obesity due to excess calories; J44.9 Chronic obstructive pulmonary disease, unspecified; G47.33 Obstructive sleep apnea (adult) (pediatric); I25.10 Atherosclerotic heart disease of native coronary artery without angina pectoris; G89.29 Other chronic pain; M54.5 Low back pain; K21.9 Gastro-esophageal reflux disease without esophagitis; Z95.5 Presence of coronary angioplasty implant and graft; Z79.82 Long term (current) use of aspirin; Z79.02 Long term (current) use of antithrombotics/antiplatelets; Z79.899 Other long term (current) drug therapy; Z87.891 Personal history of nicotine dependence
CPT/HCPCS: 36415; 73630; 80048; 80053; 80202; 81001; 82962; 83036; 83605; 85025; 85610; 85652; 85730; 86038; 86140; 86225; 86235; 86618; 87040; 94640; 97802; 99251; 99284; J7030; J7040; J7050; A4216; G0463

== ENCOUNTER 2020-12-26 09:24 | Observation (INO) | payer OTHER, SELFPAY ==
[2020-12-26] VITALS (7 sets, daily range): BP systolic 115–170; BP diastolic 86–95; PULSE 78–110; RESP 16–20; TEMP 36.2–36.7; O2SAT 91–98; BMI 40.7; BMI 41.1
--- NOTE | 2020-12-26 09:58 | RAD_ITS ---
EXAM: XR CHEST, 1 VIEW : 1965 CLINICAL INDICATION: Weakness TECHNIQUE: Frontal view of the chest. This report was created using [employer] report generation technology. COMPARISON: 09/09/2020 FINDINGS: LUNGS AND PLEURAL SPACES: Unremarkable. No consolidation or edema. No pneumothorax. No effusion. HEART: Unremarkable. Cardiac silhouette not enlarged. MEDIASTINUM: Central airways and mediastinal contour are unremarkable. BONES/JOINTS: Unremarkable. SOFT TISSUES: Unremarkable. RAD/Chest 1 View (Portable) IMPRESSION: No radiographic evidence of acute cardiopulmonary disease. at 1111 Reported and signed by: Gregory Walden MD Electronically Signed: Gregory Walden MD at 11:10 EDT Tel , Service support ,
--- NOTE | 2020-12-26 09:59 | EKG12_ITS ---
Test Reason : WEAKNESS Blood Pressure : / mmHG Vent. Rate : 083 BPM Atrial Rate : 083 BPM P-R Int : 146 ms QRS Dur : 082 ms QT Int : 342 ms P-R-T Axes : 037 010 044 degrees QTc Int : 401 ms Normal sinus rhythm Normal ECG Confirmed by CELESTINA WEBB, RAHUL ([id number]), society editor ELI JIMENEZ ([id number]) on 12/27/2020 7:39:07 AM Referred By: YULIANA Confirmed By:RAHUL OSCAR MD
--- NOTE | 2020-12-26 10:03 | EX.ED.DYSGE1 ---
HPI History of Present Illness Chief Complaint: Other, Pain/Inj Informant: patient Onset/Context/Timing Onset: Yesterday Context: Gradual Onset Timing: Continuous Quality: Sharp, stabbing Location: Hands, elbows, shoulders, knees, ankles, and feet Current Severity: Severe Maximum Severity: Severe Worsened by: Movement Relieved by: Nothing Narrative Narrative: Patient presents with increasing pain and weakness since yesterday. Patient states he has pain in all of his joints. Patient states this has gotten worse. Patient states he was hospitalized for something similar recently. Patient states he was placed on steroids and antibiotics at that time. Patient states he has completed the steroids and antibiotics. Patient states he has trouble moving and standing due to the weakness and pain. Patient describes his pain as sharp and stabbing. Patient states his pain is worse with any movement. Patient states he was at his pain management physician's office this morning for this. Patient states that he was referred to the emergency department because his blood pressure was 115 systolic which is low for him. Patient states he feels like he may be dehydrated. 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) HAWA (obstructive sleep apnea) Proteinuria Screening for malignant neoplasm of intestine Sleep apnea Strain of muscle(s) and tendon(s) of the rotator cuff of left shoulder, subsequent encounter Tobacco abuse Home Medications aspirin 81 mg PO DAILY@0800 12/02/15 [History Last Taken 12/25/20 09:00] oxycodone-acetaminophen 5 mg-325 mg tablet 1 tab PO Q8H PRN 04/28/19 [History Last Taken 12/26/20 05:30] albuterol sulfate 1 puff INHALATION DAILY PRN 01/14/20 [History Last Taken 12/22/20] clopidogrel 75 mg tablet 75 mg PO DAILY #90 tab 09/09/20 [Rx Last Taken 12/25/20 09:00] diltiazem HCl 180 mg capsule,extended release 24 hr 180 mg PO QDAY #90 cap 09/09/20 [Rx Last Taken 12/25/20 09:00] fluticasone furoate 200 mcg-vilanterol 25 mcg/dose inhalation powder 1 inh INHALATION DAILY ea 09/09/20 [History Last Taken Unknown] furosemide 40 mg tablet 40 mg PO DAILY #90 tab 09/09/20 [Rx Last Taken 12/25/20 09:00] omeprazole 40 mg capsule,delayed release 40 mg PO QHS #90 cap 09/09/20 [Rx Last Taken 12/25/20 20:00] rosuvastatin 40 mg tablet 40 mg PO DAILY #90 tab 09/09/20 [Rx Last Taken 12/25/20 09:00] semaglutide 0.5 mg SUBCUT QWEEK 09/09/20 [History Last Taken 12/20/20] prednisone 40 mg PO DAILY 12/18/20 [History Last Taken Unknown] losartan 50 mg PO DAILY 12/19/20 [History Last Taken 12/25/20 09:00] prednisone 10 mg PO DAILY #30 tab 12/20/20 [Rx Last Taken 12/25/20 3 tabs] cyclobenzaprine 5 mg PO TID PRN PRN 12/26/20 [History Last Taken 12/26/20] Allergy/AdvReac Type Severity Reaction Status Date / Time atorvastatin Allergy Mild itching Verified 12/26/20 13:57 lisinopril Allergy Other Verified 12/26/20 13:57 Family History Grandmother CAD (coronary artery disease) Hypertension Father Hypertension CAD (coronary artery disease) Hyperlipidemia Heart disease Myocardial infarction Brother CAD (coronary artery disease) Heart disease Myocardial infarction Surgical History History of coronary artery stent placement (11/06/15) History of left heart catheterization (09/15/20) History of repair of rotator cuff Social History household members: spouse Smoking Status: Former smoker how long ago did patient quit smokin11/06/15 second hand exposure: Yes alcohol intake: never substance use type: does not use caffeine: No what type of physical activity do you participate in: none ROS ROS ED Constitutional Constitutional ED: Reports sweats; Denies chills or fever(s) Eyes Eyes: Denies blurry vision or change in vision ENT ENT ED: Reports sore throat; Denies rhinorrhea Cardiovascular Cardiovascular: Denies chest pain or palpitations Respiratory/Chest Respiratory/Chest: Denies cough or dyspnea Gastrointestinal Gastrointestinal: Denies nausea or vomiting Genitourinary Genitourinary ED: Denies dysuria or hematuria Musculoskeletal Musculoskeletal: Reports arthralgias and back pain; Denies neck pain Integumentary Denies abscess or rash Neurologic Neurologic: Reports paresthesias and weakness; Denies headache(s) Allergic/Immunologic Allergic/Immunologic ED: Denies mouth swelling or urticaria EXAM Physical Exam Const Vital Signs: 12/26/20 09:25 Temperature 97.2 F L Temperature Source Temporal Pulse Rate 97 Respiratory Rate 16 Blood Pressure 115/86 H Blood Pressure Mean 95 Pulse Ox 97 Oxygen Delivery Method Room Air Positive well nourished and well developed General Appearance ED: well developed HEENT Reports moist mucous membranes Neck supple and no JVD Resp normal respiratory effort and clear to auscultation bilaterally Cardio regular rate, regular rhythm and no murmurs GI normal to inspection, nondistended, normoactive bowel sounds and non-tender Palpation: soft Extremity normal to inspection Extremity Narrative: There is tenderness over the hands, elbows, shoulders, knees (right greater than left), ankles (left greater than right). There is no deformity noted. There is no bony crepitance or step-off. Range of motion was limited secondary to pain. General Extremety ED: Yes tenderness Neuro oriented x3, CN's II-XII intact bilaterally and no sensory deficits noted Sensorium / Orientation: alert Motor Exam: strength 5/5 throughout Psych mental status grossly normal Skin no rashes or lesions noted MDM MDM MDM Narrative Medical decision making narrative: Patient on IV fluids and morphine here. Patient was given a dose of Solu-Medrol here. EKG was obtained. On my interpretation, it showed a normal sinus rhythm with a rate of 83. [place] interval, QRS interval, and QTc intervals were all normal. [place] was normal. There are no acute ST or T wave changes. CBC shows a leukocytosis of 22.0. There is a left shift with 81.9% neutrophils and 1.7% immature granulocytes. Platelets were elevated at 518. Sed rate was greater than 130. CRP was 418. Comprehensive metabolic profile showed a sodium of 130 and chloride of 95. Creatinine was 1.58 and BUN was 29. Lactate was normal at 1.7. Portable 1 view chest x-ray was obtained. On my interpretation, lung phipps are clear. There is normal cardiac silhouette. Bony thorax is normal. There is no acute process noted. Radiologist also interpreted the x-ray and agrees. Patient was still having significant pain and difficulty ambulating. Case was discussed with the hospitalist. He recommended obtaining a Covid rapid antigen. This was ordered. He will admit the patient to his service. Patient understood and was agreeable with the plan. All questions were answered. Lab Data Attestation: I reviewed the patient's lab results. Labs: Laboratory Results - last 24 hr 12/26/20 12/26/20 12/26/20 10:15 10:15 10:15 WBC 22.0 H RBC 4.36 L Hgb 12.8 L Hct 39.9 L MCV 91.5 MCH 29.4 MCHC 32.1 RDW Std Deviation 49.4 H RDW Coeff of Sophy 14.6 Plt Count 518 H MPV 8.6 Immature Gran % (Auto) 1.700 H Neut % (Auto) 81.9 H Lymph % (Auto) 10.3 L [place] % (Auto) 5.7 Eos % (Auto) 0.0 Baso % (Auto) 0.4 Absolute Neuts (auto) 18.0 H Absolute Lymphs (auto) 2.27 Nucleated RBC % 0 ESR > 130 H Sodium 130 L Potassium 4.8 Chloride 95 L Carbon Dioxide 27.0 Anion Gap 8 BUN 29 H Creatinine 1.58 H Estim Creat Clear Calc 49.39 Est GFR (MDRD) Af Amer 59 L Est GFR (MDRD) Non-Af 49 L BUN/Creatinine Ratio 18.4 Glucose 242 H Lactic Acid 1.7 Calcium 9.7 Total Bilirubin 0.40 AST 18 ALT 29 Alkaline Phosphatase 92 Troponin I High Sens 10 C-React Prot Ext Range 418.00 H Total Protein 8.3 H Albumin 1.8 L Globulin 6.5 H Albumin/Globulin Ratio 0.3 L Radiography Chest X-Ray - ED: 1 View, Read by ED Physician, Read by Radiologist and Normal Diagnostic Testing: Radiology Impression Chest X-Ray 12/26/20 09:58 IMPRESSION: No radiographic evidence of acute cardiopulmonary disease. at 1111 Reported and signed by: Gregory Walden MD Electronically Signed: Gregory Walden MD at 11:10 EDT Tel , Service support , EKG Initial EKG: Attestation: I personally reviewed and interpreted this EKG as follows: Interpretation: Sinus Rhythm (83) and No Acute Injury Pattern Treatment and Re-Evaluation Vital Sign Attestation:: Vital signs were reviewed prior to admission. They are stable. Discharge Plan Dx/Rx/DC Orders Clinical Impression: Arthralgia, Inability to walk, Acute kidney injury Disposition Disposition: Acute Care Hospital [facility] Discharge Date/Time: 12/26/20 13:18
[2020-12-26] MEDS: MethylPREDNISolone 125 MG/2 ML Vial 60 MG IV ×3 (10:14→22:58)
[2020-12-26] MEDS: 0.9% Normal Saline 1,000 ML 1000 ML IV (10:14)
[2020-12-26] MEDS: Morphine 4 MG/ML Syringe IV ×2 (10:14→11:29)
[2020-12-26 10:29] LABS: Absolute Lymphocyte Count 2.27 X10^3/uL (0.83-4.51); Basophil# 0.08 X10^3/uL; Basophil% 0.4 % (0-1); Eosinophil# 0.01 X10^3/uL; Hematocrit 39.9 % (40-54); Hemoglobin 12.8 g/dL (13.0-16.5); Lymphocyte # 2.27 X10^3/ul (0.83-4.51); Lymphocyte % 10.3 % (19-41); Mean Corp Hgb Conc 32.1 g/dL (32-36); Mean Corpuscular Hgb 29.4 pg (27.0-32.0); Mean Corpuscular Volume 91.5 fL (80-94); Mean Platelet Vol. 8.6 fl (6.2-12.0); Monocyte# 1.26 X10^3/uL; Monocyte% 5.7 % (0-10); NRBC Flagged by Analyzer 0 % (0-5); Neutrophil % 81.9 % (47-70); Platelet Count 518 K/mm3 (150-450); RBC Distribution Width CV 14.6 % (11.6-14.6); RBC Distribution Width SD 49.4 fl (35.1-43.9); Red Blood Count 4.36 M/mm3 (4.6-6.2)
[2020-12-26 10:34] LABS: Erythrocyte Sedimentation Rate > 130 mm/hr (0-20)
[2020-12-26 11:05] LABS: Lactic Acid 1.7 mmol/L (0.4-1.9)
[2020-12-26 11:14] LABS: ALB/GLOB Ratio 0.3 RATIO (0.9-2.4); AST(SGOT) 18 U/L (15-37); Alanine Aminotransfer ALT/SGPT 29 U/L (16-61); Albumin, Serum 1.8 g/dL (3.2-5.0); Alkaline Phosphatase 92 U/L (45-117); Anion Gap 8 (5-15); BUN 29 mg/dL (7-18); BUN/Creat Ratio 18.4 RATIO (10-20); Calcium,Total 9.7 mg/dL (8.5-10.1); Chloride 95 mmol/L (98-107); Creatinine, Serum 1.58 mg/dL (0.70-1.30); EST Glomerular Filtration Rate 49 mL/min (>60); Est Glom Filt Rate - Afr Amer 59 mL/min (>60); Estimated Creatinine Clearance 49.39 ml/min; Globulin 6.5 g/dL (2.2-4.2); Glucose 242 mg/dL (74-106); Potassium 4.8 mmol/L (3.5-5.1); Protein, Total 8.3 g/dL (6.4-8.2); Sodium Level 130 mmol/L (136-145); Troponin-I HS 10 pg/mL (3.0-78.0)
--- NOTE | 2020-12-26 12:29 | PCM.HP.STD ---
HPI - General General Date of Admission: 12/26/20 Date of Service: 12/26/20 Chief Complaint: Generalized aches HPI Narrative DINORAH SANTOS, is a 55 M who presents with generalized muscle and joint aches. Patient had been seen in the hospital and discharged home almost a week prior to his readmission with similar complaints. He underwent extensive rheumatological work-up which was nondiagnostic. He was discharged home on tapering dose of steroid his symptoms initially improved however once he completed his steroids symptoms recurred. Patient as stated above complains of pain in most joints including ankles knees and shoulders. Also has difficulty making a fist. Was seen at his pain specialist office patient was found to be relatively hypotensive sent to the ED from where patient was admitted to regular nursing floor for further manner [facility] Medical History Acute respiratory failure, unspecified whether with hypoxia or hypercapnia Allergic rhinitis Atherosclerotic heart disease of [place] coronary artery with other forms of angina pectoris Body mass index (BMI) of 40.0-44.9 in adult Breathing-related sleep disorder Chronic pain COPD (chronic obstructive pulmonary disease) Diabetes Essential (primary) hypertension Former smoker History of ST elevation myocardial infarction (STEMI) (11/06/15) History of stress test Hyperlipidemia Impingement syndrome of left shoulder 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) HAWA (obstructive sleep apnea) Proteinuria Screening for malignant neoplasm of intestine Sleep apnea Strain of muscle(s) and tendon(s) of the rotator cuff of left shoulder, subsequent encounter Tobacco abuse Home Medications aspirin 81 mg PO DAILY@0800 12/02/15 [History Last Taken 12/18/20 09:00] oxycodone-acetaminophen 5 mg-325 mg tablet 1 tab PO Q8H PRN 04/28/19 [History Last Taken Unknown] albuterol sulfate 1 puff INHALATION DAILY PRN 01/14/20 [History Last Taken Unknown] clopidogrel 75 mg tablet 75 mg PO DAILY #90 tab 09/09/20 [Rx Last Taken 12/18/20 09:00] diltiazem HCl 180 mg capsule,extended release 24 hr 180 mg PO QDAY #90 cap 09/09/20 [Rx Last Taken 12/18/20 09:00] fluticasone furoate 200 mcg-vilanterol 25 mcg/dose inhalation powder 1 inh INHALATION DAILY ea 09/09/20 [History Last Taken Unknown] furosemide 40 mg tablet 40 mg PO DAILY #90 tab 09/09/20 [Rx Last Taken Unknown] omeprazole 40 mg capsule,delayed release 40 mg PO QHS #90 cap 09/09/20 [Rx Last Taken Unknown] rosuvastatin 40 mg tablet 40 mg PO DAILY #90 tab 09/09/20 [Rx Last Taken 12/18/20 09:00] semaglutide 0.5 mg SUBCUT QWEEK 09/09/20 [History Last Taken Unknown] prednisone 40 mg PO DAILY 12/18/20 [History Last Taken Unknown] losartan 50 mg PO DAILY 12/19/20 [History Last Taken 12/18/20 09:00] prednisone 10 mg PO DAILY #30 tab 12/20/20 [Rx Last Taken Unknown] cyclobenzaprine 5 mg PO TID PRN PRN 12/26/20 [History Last Taken 12/26/20] Allergy/AdvReac Type Severity Reaction Status Date / Time atorvastatin Allergy Mild itching Verified 12/26/20 13:57 lisinopril Allergy Other Verified 12/26/20 13:57 Family History Grandmother CAD (coronary artery disease) Hypertension Father Hypertension CAD (coronary artery disease) Hyperlipidemia Heart disease Myocardial infarction Brother CAD (coronary artery disease) Heart disease Myocardial infarction Surgical History History of coronary artery stent placement (11/06/15) History of left heart catheterization (09/15/20) History of repair of rotator cuff Social History household members: spouse Smoking Status: Former smoker how long ago did patient quit smokin11/06/15 second hand exposure: Yes alcohol intake: never substance use type: does not use caffeine: No what type of physical activity do you participate in: none ROS ROS Narrative GENERAL: denies fever, chills, night sweats, weight loss, anorexia HEENT: denies headache, sinus congestion, or drainage, dysphagia RESPIRATORY: denies cough, sputum production, CARDIAC: denies chest pain, palpitations, orthopnea, PND GASTROINTESTINAL: denies abdominal pain, nausea, vomiting, melena, GENITOURINARY: denies dysuria, urgency, frequency, heamaturia EXTREMITY: denies swelling MUSCULOSKELETAL: Neurolysed muscle and joint aches NEUROLOGIC: denies focal numbness, weakness, tingling HEMATOLOGIC: denies easy bruising and/or hemorrhage INTEGUMENT: denies rashes PSYCHIATRIC: denies suicidal or homicidal ideation Vital Signs Vital Signs Vital Signs: 12/26/20 09:25 Temperature 97.2 F L Temperature Source Temporal Pulse Rate 97 Respiratory Rate 16 Blood Pressure 115/86 H Blood Pressure Mean 95 Pulse Ox 97 Oxygen Delivery Method Room Air Weight Weight: 117.934 kg Body Mass Index (BMI) 40.7 Physical Exam Narrative GENERAL: Appears to be in some discomfort HEENT: Atraumatic; EYES; Anicteric, Normal Conjunctiva NECK; supple, normal thyroid, RESPIRATORY: Diminished to auscultation CARDIOVASCULAR: Regular S1 S2, GI: soft, normoactive bowel sounds, : No Renal angle tenderness; EXTREMITIES: No edema, no clubbing, MUSCULOSKELETAL: Tenderness in most joints with swelling in the right knee NEURO: Awake; no lateralizing signs. SKIN: No Rash PSYCH; Flat affect Results Lab / Micro Data Result Diagrams: 12/26/20 10:15 12/26/20 10:15 Labs: Laboratory Results - last 24 hr 12/26/20 10:15: WBC 22.0 H, RBC 4.36 L, Hgb 12.8 L, Hct 39.9 L, MCV 91.5, MCH 29.4, MCHC 32.1, RDW Std Deviation 49.4 H, RDW Coeff of [place]ophy 14.6, Plt Count 518 H, MPV 8.6, Immature Gran % (Auto) 1.700 H, Neut % (Auto) 81.9 H, Lymph % (Auto) 10.3 L, [place] % (Auto) 5.7, Eos % (Auto) 0.0, Baso % (Auto) 0.4, Absolute Neuts (auto) 18.0 H, Absolute Lymphs (auto) 2.27, Nucleated RBC % 0, ESR > 130 H 12/26/20 10:15: Sodium 130 L, Potassium 4.8, Chloride 95 L, Carbon Dioxide 27.0, Anion Gap 8, BUN 29 H, Creatinine 1.58 H, Estim Creat Clear Calc 49.39, Est GFR (MDRD) Af Amer 59 L, Est GFR (MDRD) Non-Af 49 L, BUN/Creatinine Ratio 18.4, Glucose 242 H, Calcium 9.7, Total Bilirubin 0.40, AST 18, ALT 29, Alkaline Phosphatase 92, Troponin I High Sens 10, C-React Prot Ext Range 418.00 H, Total Protein 8.3 H, Albumin 1.8 L, Globulin 6.5 H, Albumin/Globulin Ratio 0.3 L 12/26/20 10:15: Lactic Acid 1.7 Radiology Impression Chest X-Ray 12/26/20 09:58 IMPRESSION: No radiographic evidence of acute cardiopulmonary disease. at 1111 Reported and signed by: Gregory Walden MD Electronically Signed: Gregory Walden MD at 11:10 EDT Tel , Service support , Assessment & Plan Assessment/Plan (1) Arthralgia: PLAN: Patient is a 55-year-old gentleman presenting with generalized muscle and joint aches Polyarticular arthritis ?Etiology so far not clear. Patient has undergone extensive rheumatological work-up without any identifiable cause. Do suspect patient symptoms may be side effect of his medications. He is on rosuvastatin this has been held. Had also recently been started on semaglutide this was also held. Patient started on steroid for symptomatic treatment 2. Dyslipidemia ?Patient is on rosuvastatin this is being held in view of above symptoms 3. Diabetes mellitus type 2 ?Patient is on semaglutide which is being held. Placed on Accu-Cheks before meals and at bedtime with sliding scale coverage. Patient was also started on long-acting insulin in view of patient receiving high-dose steroids 4. Obesity with BMI of 41.2 ?Weight loss advised 5. GERD ?Patient is on PPI did continue 6. Coronary artery disease ?With previous [place] and subsequent stent placement. Patient is on recommended medications did continue except for rosuvastatin in view of his symptoms 7. COPD ?Currently not in exacerbation aerosol treatment as needed 8. Obstructive sleep apnea ?CPAP at night 9. Remote history of tobacco use ?Patient has greater than [id number] history of smoking currently remains in remission 10. DVT prophylaxis ?Lovenox Charges/Coding Visit Charges OBSV E&M: 43931 Initial observation care L3
[2020-12-26] MEDS: Albuterol 2.5 MG/3 ML VIAL.NEB. INHALATION ×2 (14:16→20:45)
--- NOTE | 2020-12-26 14:16 | CPS ---
Pt is noncompliant with CPAP at home per self & . pt is not interested in wearing a [facility] PAP machine.
[2020-12-26] MEDS: 0.9% Normal Saline 1,000 ML 125 ML IV ×2 (14:58→22:58)
[2020-12-26] MEDS: Acetaminophen 325 MG Tablet 650 MG PO (14:58)
[2020-12-26] MEDS: 0.9% Saline Lock 10 ML Syringe IV (14:58)
[2020-12-26] MEDS: oxyCODONE 5 MG Tablet 10 MG PO ×2 (14:59→20:14)
[2020-12-26] MEDS: cycloBENZAPRine HCl 10 MG Tablet PO (16:19)
[2020-12-26] MEDS: Pantoprazole Sodium 40 MG Tablet PO (20:13)
[2020-12-26] MEDS: Budesonide Respules 0.5 MG/2 ML AMPUL.NEB. INHALATION (20:46)
[2020-12-27] MEDS: oxyCODONE 5 MG Tablet 10 MG PO ×4 (01:04→20:15)
[2020-12-27 02:00] VITALS: BP 130/115; PULSE 106; RESP 18; TEMP 36.6; O2SAT 95
[2020-12-27 05:45] LABS: Absolute Lymphocyte Count 0.71 X10^3/uL (0.83-4.51); Absolute Neutrophil Count 21.2 X10^3/uL (2.0-7.7); Basophil# 0.05 X10^3/uL; Basophil% 0.2 % (0-1); Hematocrit 37.3 % (40-54); Hemoglobin 11.9 g/dL (13.0-16.5); Lymphocyte # 0.71 X10^3/ul (0.83-4.51); Lymphocyte % 3.1 % (19-41); Mean Corp Hgb Conc 31.9 g/dL (32-36); Mean Corpuscular Volume 90.8 fL (80-94); Mean Platelet Vol. 8.6 fl (6.2-12.0); Monocyte# 0.68 X10^3/uL; NRBC Flagged by Analyzer 0 % (0-5); Neutrophil # 21.21 X10^3/uL (2.7-7.7); Neutrophil % 92.2 % (47-70); POSITIVE DIFFERENTIAL YES; Platelet Count 447 K/mm3 (150-450); RBC Distribution Width CV 14.6 % (11.6-14.6); RBC Distribution Width SD 48.7 fl (35.1-43.9); Red Blood Count 4.11 M/mm3 (4.6-6.2)
[2020-12-27 06:10] LABS: Differential Indicated SCAN CRITERIA MET
[2020-12-27] MEDS: Insulin Lispro 100 UNIT/ML INSULN.PEN SC ×4 (06:13→21:36)
[2020-12-27] MEDS: 0.9% Saline Lock 10 ML Syringe IV (06:14)
[2020-12-27 06:15] LABS: Anion Gap 7 (5-15); BUN 20 mg/dL (7-18); BUN/Creat Ratio 22.4 RATIO (10-20); Calcium,Total 9.2 mg/dL (8.5-10.1); Chloride 101 mmol/L (98-107); Creatinine, Serum 0.89 mg/dL (0.70-1.30); EST Glomerular Filtration Rate 94 mL/min (>60); Est Glom Filt Rate - Afr Amer 114 mL/min (>60); Estimated Creatinine Clearance 87.68 ml/min; Glucose 315 mg/dL (74-106); Magnesium 2.3 mg/dL (1.6-2.6); Potassium 4.7 mmol/L (3.5-5.1); Sodium Level 133 mmol/L (136-145); Thyroid Stim Hormone (TSH) 0.22 uIU/mL (0.358-3.74)
[2020-12-27] MEDS: MethylPREDNISolone 125 MG/2 ML Vial 60 MG IV (06:16)
[2020-12-27] MEDS: 0.9% Normal Saline 1,000 ML 125 ML IV ×3 (06:21→21:40)
[2020-12-27 06:31] LABS: Differential Comment SCANNED
[2020-12-27 06:40] LABS: Bedside Glucose 283 mg/dL (70-110)
[2020-12-27 07:21] VITALS: BP 155/87; PULSE 96; RESP 18; TEMP 36.6; O2SAT 93
--- NOTE | 2020-12-27 07:25 | PN.HOSP_ITS ---
Subjective Subjective Patient seen still complains of generalized joint aches however is able to move fingers Objective Data Objective Data Vital Signs: Vital Signs Temp Pulse Resp BP Pulse Ox 97.8 F 106 H 18 130/115 H 95 12/27/20 02:00 12/27/20 02:00 12/27/20 02:00 12/27/20 02:00 12/27/20 02:00 Oxygen Delivery Method Room Air Weight: 119.2 kg Body Mass Index (BMI) 41.1 Intake & Output: Intake and Output for Last 24 Hours 12/25/20 12/26/20 12/27/20 23:59 23:59 23:59 Intake Total 2200 / 2200 922.92 / 922.92 Balance 2200 / 0 922.92 / 922.92 Medical Nutrition Assessment Dietitian: Malnutrition Criteria Met Start: 12/26/20 16:22 Freq: Status: Active Protocol: Document 12/26/20 16:25 RMA (Rec: 12/26/20 16:26 RMA [id number]) Nutrition Malnutrition Evidence of Malnutrition Exists Yes Malnutrition (severe): Acute Illness/Injury,Chronic Evidenced By Suboptimal Energy Intake ( Severe),Weight Loss (Severe) Clinical Problem Acute Disease or Injury Related Malnutrition Etiology Severe protein/calorie malnutrition in the context of acute on chronic conditions related to ongoing decreased appetite and failure to thrive Signs/Symptoms as evidenced by ~8% wt loss x past 3-4 weeks and oral intake meeting less than 50% estimated nutriiton needs x past 1 month or so. Status Active Problem Recommendation Dietitian Recommendations/Changes Will change diet to 2000 calorie; consistent carbohydrate; cardiac. D/C glucerna shake w/ medpass and will offer TID w/ meals instead. D/C ONS if PO established adequate at meals. Trend weights closely given recent unintentional wt loss in past month. Lab / Micro Data Result Diagrams: 12/27/20 05:28 12/27/20 05:28 Labs: Laboratory Results - last 24 hr 12/26/20 10:15: WBC 22.0 H, RBC 4.36 L, Hgb 12.8 L, Hct 39.9 L, MCV 91.5, MCH 29.4, MCHC 32.1, RDW Std Deviation 49.4 H, RDW Coeff of [place] 14.6, Plt Count 518 H, MPV 8.6, Immature Gran % (Auto) 1.700 H, Neut % (Auto) 81.9 H, Lymph % (Auto) 10.3 L, [place] % (Auto) 5.7, Eos % (Auto) 0.0, Baso % (Auto) 0.4, Absolute Neuts (auto) 18.0 H, Absolute Lymphs (auto) 2.27, Nucleated RBC % 0, ESR > 130 H 12/26/20 10:15: Sodium 130 L, Potassium 4.8, Chloride 95 L, Carbon Dioxide 27.0, Anion Gap 8, BUN 29 H, Creatinine 1.58 H, Estim Creat Clear Calc 49.39, Est GFR (MDRD) Af Amer 59 L, Est GFR (MDRD) Non-Af 49 L, BUN/Creatinine Ratio 18.4, Glucose 242 H, Calcium 9.7, Total Bilirubin 0.40, AST 18, ALT 29, Alkaline Phosphatase 92, Troponin I High Sens 10, C-React Prot Ext Range 418.00 H, Total Protein 8.3 H, Albumin 1.8 L, Globulin 6.5 H, Albumin/Globulin Ratio 0.3 L 12/26/20 10:15: Lactic Acid 1.7 12/27/20 05:28: WBC 23.0 H, RBC 4.11 L, Hgb 11.9 L, Hct 37.3 L, MCV 90.8, MCH 29.0, MCHC 31.9 L, RDW Std Deviation 48.7 H, RDW Coeff of [place] 14.6, Plt Count 447, MPV 8.6, Immature Gran % (Auto) 1.500 H, Neut % (Auto) 92.2 H, Lymph % (Auto) 3.1 L, [place] % (Auto) 3.0, Eos % (Auto) 0.0, Baso % (Auto) 0.2, Absolute Neuts (auto) 21.2 H, Absolute Lymphs (auto) 0.71 L, Nucleated RBC % 0, Differential Comment SCANNED 12/27/20 05:28: Sodium 133 L, Potassium 4.7, Chloride 101, Carbon Dioxide 25.0, Anion Gap 7, BUN 20 H, Creatinine 0.89, Estim Creat Clear Calc 87.68, Est GFR (MDRD) Af Amer 114, Est GFR (MDRD) Non-Af 94, BUN/Creatinine Ratio 22.4 H, Glucose 315 H, Calcium 9.2, Magnesium 2.3, TSH 0.22 L 12/27/20 06:13: POC Glucose 283 H Micro: Microbiology 12/26/20 12:35 Nasal Secretion SARS-CoV-2 Antigen (Rapid) - Final Radiography Diagnostic Testing: Radiology Impression Chest X-Ray 12/26/20 09:58 IMPRESSION: No radiographic evidence of acute cardiopulmonary disease. at 1111 Reported and signed by: Gregory Walden MD Electronically Signed: Gregory Walden MD at 11:10 EDT Tel , Service support , Physical Exam Narrative GENERAL: Appears to be in some discomfort HEENT: Atraumatic; EYES; Anicteric, Normal Conjunctiva NECK; supple, normal thyroid, RESPIRATORY: Diminished to auscultation CARDIOVASCULAR: Regular S1 S2, GI: soft, normoactive bowel sounds, : No Renal angle tenderness; EXTREMITIES: No edema, no clubbing, MUSCULOSKELETAL: Tenderness in most joints with swelling in the right knee NEURO: Awake; no lateralizing signs. SKIN: No Rash PSYCH; Flat affect Assessment & Plan Assessment/Plan (1) Arthralgia: PLAN: Patient is a 55-year-old gentleman presenting with generalized muscle and joint aches Polyarticular arthritis ?Etiology so far not clear. Patient has undergone extensive rheumatological work-up without any identifiable cause. Do suspect patient symptoms may be side effect of his medications. He is on rosuvastatin this has been held. Had also recently been started on semaglutide this was also held. Patient started on steroid for symptomatic treatment -12/27/2020atient seen still complains of generalized joint aches however is able to move fingers. Did discuss with patient on the need to follow-up with rheumatology following discharge 2. Dyslipidemia ?Patient is on rosuvastatin this is being held in view of above symptoms 3. Diabetes mellitus type 2 ?Patient is on semaglutide which is being held. Placed on Accu-Cheks before meals and at bedtime with sliding scale coverage. Patient was also started on long-acting insulin in view of patient receiving high-dose steroids 4. Obesity with BMI of 41.2 ?Weight loss advised 5. GERD ?Patient is on PPI did continue 6. Coronary artery disease ?With previous [place] and subsequent stent placement. Patient is on recommended medications did continue except for rosuvastatin in view of his symptoms 7. COPD ?Currently not in exacerbation aerosol treatment as needed 8. Obstructive sleep apnea ?CPAP at night 9. Remote history of tobacco use ?Patient has greater than [id number] history of smoking currently remains in remission 10. DVT prophylaxis ?Lovenox Charges/Coding Visit Charges OBSV E&M: 99113 Subsequent observation care L3
[2020-12-27] MEDS: Aspirin E.C. 81 MG Tablet PO (07:51)
[2020-12-27] MEDS: Acetaminophen 325 MG Tablet 650 MG PO ×3 (07:51→21:35)
[2020-12-27] MEDS: Losartan Potassium 50 MG Tablet PO (10:13)
[2020-12-27] MEDS: dilTIAZem CD 180 MG Capsule PO (10:13)
[2020-12-27] MEDS: Enoxaparin 40 MG/0.4 ML Syringe SC (10:13)
[2020-12-27] MEDS: Clopidogrel Bisulfate 75 MG Tablet PO (10:13)
[2020-12-27 11:10] LABS: Bedside Glucose 455 mg/dL (70-110)
[2020-12-27 12:22] LABS: Glucose 456 mg/dL (74-106)
[2020-12-27 14:32] VITALS: BP 158/88; PULSE 92; RESP 16; TEMP 36.6; O2SAT 97
[2020-12-27] MEDS: Insulin Lispro 100 UNIT/ML INSULN.PEN 10 UNIT SC (16:57)
[2020-12-27 17:15] LABS: Bedside Glucose 352 mg/dL (70-110)
[2020-12-27 20:40] VITALS: BP 160/92; PULSE 79; RESP 18; TEMP 36.5; O2SAT 95
[2020-12-27] MEDS: Pantoprazole Sodium 40 MG Tablet PO (21:34)
[2020-12-27] MEDS: cycloBENZAPRine HCl 10 MG Tablet PO (21:35)
[2020-12-27 21:46] LABS: Bedside Glucose 291 mg/dL (70-110)
[2020-12-28 02:20] VITALS: BP 157/93; PULSE 62; RESP 16; TEMP 36.5; O2SAT 94
[2020-12-28] MEDS: 0.9% Normal Saline 1,000 ML 125 ML IV (05:48)
--- NOTE | 2020-12-28 07:39 | PCM.DC.SUM ---
Providers Date of Admission: 12/26/20 Primary Care Physician: Dr. Amor Bishop MD Reason For Visit: FAILURE TO THRIVE Diagnosis Discharge Diagnosis (1) Arthralgia: Status: Acute Code(s): M25.50 - Pain in unspecified joint Medications at Discharge Home Medications aspirin 81 mg PO DAILY@0800 12/02/15 oxycodone-acetaminophen 5 mg-325 mg tablet 1 tab PO Q8H PRN 04/28/19 albuterol sulfate 1 puff INHALATION DAILY PRN 01/14/20 clopidogrel 75 mg tablet 75 mg PO DAILY #90 tab 09/09/20 diltiazem HCl 180 mg capsule,extended release 24 hr 180 mg PO QDAY #90 cap 09/09/20 fluticasone furoate 200 mcg-vilanterol 25 mcg/dose inhalation powder 1 inh INHALATION DAILY ea 09/09/20 furosemide 40 mg tablet 40 mg PO DAILY #90 tab 09/09/20 omeprazole 40 mg capsule,delayed release 40 mg PO QHS #90 cap 09/09/20 losartan 50 mg PO DAILY 12/19/20 prednisone 10 mg PO DAILY #30 tab 12/20/20 cyclobenzaprine 5 mg PO TID PRN PRN 12/26/20 insulin glargine [Lantus Solostar U-100 Insulin] 15 unit SUBCUT BID #15 ml 12/28/20 Hospital Course Summary of Care Provided Minutes Spent on Discharge: 35 Hospital Course: patient is a 55-year-old gentleman presenting with generalized muscle and joint aches Polyarticular arthritis ?Etiology so far not clear. Patient has undergone extensive rheumatological work-up without any identifiable cause. Do suspect patient symptoms may be side effect of his medications. He is on rosuvastatin this has been held. Had also recently been started on semaglutide this was also held. Patient started on steroid for symptomatic treatment -1Patient seen still complains of generalized joint aches however is able to move fingers. Did discuss with patient on the need to follow-up with rheumatology following discharge 2. Dyslipidemia ?Patient is on rosuvastatin this is being held in view of above symptoms 3. Diabetes mellitus type 2 ?Patient is on semaglutide which is being held. Placed on Accu-Cheks before meals and at bedtime with sliding scale coverage. Patient was also started on long-acting insulin in view of patient receiving high-dose steroids 4. Obesity with BMI of 41.2 ?Weight loss advised 5. GERD ?Patient is on PPI did continue 6. Coronary artery disease ?With previous IL and subsequent stent placement. Patient is on recommended medications did continue except for rosuvastatin in view of his symptoms 7. COPD ?Currently not in exacerbation aerosol treatment as needed 8. Obstructive sleep apnea ?CPAP at night 9. Remote history of tobacco use ?Patient has greater than [id number] history of smoking currently remains in remission 10. DVT prophylaxis ?Lovenox 11. Severe protein calorie malnutrition -in the context of acute on chronic disease related to ongoing decreased appetite and failure to thrive as evidenced by 8% weight loss for the past 4 weeks and decreased oral intake less than 50%. Plan is to consult dietitian for treatment Physical Exam Narrative GENERAL: Cooperative HEENT: Atraumatic; EYES; Anicteric, Normal Conjunctiva NECK; supple, normal thyroid, RESPIRATORY: Diminished to auscultation CARDIOVASCULAR: Regular S1 S2, GI: soft, normoactive bowel sounds, : No Renal angle tenderness; EXTREMITIES: No edema, no clubbing, NEURO: Awake; no lateralizing signs. SKIN: No Rash PSYCH; Flat affect Medical Records Data Medical Nutrition Assessment Dietitian: Malnutrition Criteria Met Start: 12/26/20 16:22 Freq: Status: Active Protocol: Document 12/26/20 16:25 RMA (Rec: 12/26/20 16:26 RMA [id number]) Nutrition Malnutrition Evidence of Malnutrition Exists Yes Malnutrition (severe): Acute Illness/Injury,Chronic Evidenced By Suboptimal Energy Intake ( Severe),Weight Loss (Severe) Clinical Problem Acute Disease or Injury Related Malnutrition Etiology Severe protein/calorie malnutrition in the context of acute on chronic conditions related to ongoing decreased appetite and failure to thrive Signs/Symptoms as evidenced by ~8% wt loss x past 3-4 weeks and oral intake meeting less than 50% estimated nutriiton needs x past 1 month or so. Status Active Problem Recommendation Dietitian Recommendations/Changes Will change diet to 2000 calorie; consistent carbohydrate; cardiac. D/C glucerna shake w/ medpass and will offer TID w/ meals instead. D/C ONS if PO established adequate at meals. Trend weights closely given recent unintentional wt loss in past month. Weight / BMI Weight Weight: 118.7 kg Body Mass Index (BMI) 41.1 ABG / Lab / Microbiology Data Result Diagrams: 12/27/20 05:28 12/27/20 11:57 Laboratory: Laboratory Results - last 24 hr 12/27/20 11:01: POC Glucose 455 H* 12/27/20 11:57: Glucose 456 H* 12/27/20 16:50: POC Glucose 352 H 12/27/20 21:33: POC Glucose 291 H Microbiology: Microbiology 12/26/20 12:35 Nasal Secretion SARS-CoV-2 Antigen (Rapid) - Final D/C Instructions Discharge Diet: No restrictions Discharge Activity: Return to Normal Activity Call your doctor if you observe: Fever of 101 or Higher, Shortness of breath, Fainting spells and Chest pain Meaningful Use Info Meaningful Use Diagnoses (Choose all that apply): None applicable Discharge Plan Admission Admit Date/Time: 12/26/20 12:23 Attending Provider: Ángel Bianchi Primary Care Provider: Amor Bishop Discharge Orders/Prescriptions Prescriptions: New Lantus Solostar U-100 Insulin 100 unit/mL (3 mL) Insulin Pen 15 unit subcut BID Qty: 15 RF: 0 Continued oxycodone-acetaminophen [Percocet] 5-325 mg tablet 1 tab PO Q8H PRN (Reason: Pain 1-10 Or Fever) RF: 0 fluticasone furoate-vilanterol 200-25 mcg/dose blister with device 1 inh inhalation DAILY RF: 0 clopidogrel 75 mg tablet 75 mg PO DAILY Qty: 90 RF: 3 diltiazem HCl 180 mg capsule,extended release 24hr 180 mg PO QDAY Qty: 90 RF: 3 furosemide 40 mg tablet 40 mg PO DAILY Qty: 90 RF: 3 omeprazole 40 mg capsule,delayed release(DR/EC) 40 mg PO QHS Qty: 90 RF: 3 aspirin 81 MG tablet 81 mg PO DAILY@0800 RF: 0 albuterol sulfate 1 PUFF inhaler 1 puff INHALATION DAILY PRN (Reason: Wheezing) RF: 0 losartan 50 mg Tablet 50 mg PO DAILY RF: 0 prednisone 10 mg tablet 10 mg PO DAILY Qty: 30 RF: 0 cyclobenzaprine 5 mg Tablet 5 mg PO TID PRN PRN (Reason: muscle spasms ) RF: 0 Discontinued Ozempic 0.25 mg or 0.5 mg(2 mg/1.5 mL) pen injector 0.5 mg subcut QWEEK RF: 0 rosuvastatin 40 mg tablet 40 mg PO DAILY Qty: 90 RF: 3 prednisone 20 mg Tablet 40 mg PO DAILY RF: 0 Referrals / Follow Up: Amor Bishop MD [Primary Care Provider] - Amber Whitney MD [STAFF PHYSICIAN] - Disposition Disposition (needs filled in before D/C Order can be placed): Home, Self Care Charges/Coding Visit Charges OBSV E&M: 39766 Observation care discharge
[2020-12-28 07:46] VITALS: BP 158/88; PULSE 66; RESP 20; TEMP 36.6; O2SAT 97
[2020-12-28 07:49] VITALS: RESP 20
[2020-12-28 08:25] VITALS: O2SAT 94
[2020-12-28] MEDS: dilTIAZem CD 180 MG Capsule PO (08:47)
[2020-12-28] MEDS: Clopidogrel Bisulfate 75 MG Tablet PO (08:47)
[2020-12-28] MEDS: predniSONE 20 MG Tablet 40 MG PO (08:47)
[2020-12-28] MEDS: Losartan Potassium 50 MG Tablet PO (08:48)
[2020-12-28] MEDS: Aspirin E.C. 81 MG Tablet PO (08:48)
[2020-12-28] MEDS: Insulin Lispro 100 UNIT/ML INSULN.PEN 10 UNIT SC ×2 (08:48→11:56)
[2020-12-28] MEDS: Insulin Lispro 100 UNIT/ML INSULN.PEN SC ×2 (08:50→11:55)
[2020-12-28] MEDS: Enoxaparin 40 MG/0.4 ML Syringe SC (08:51)
[2020-12-28] MEDS: oxyCODONE 5 MG Tablet 10 MG PO (09:04)
[2020-12-28] MEDS: Acetaminophen 325 MG Tablet 650 MG PO (11:02)
[2020-12-28] MEDS: cycloBENZAPRine HCl 10 MG Tablet PO (11:02)
[2020-12-28 11:10] LABS: Bedside Glucose 214 mg/dL (70-110)
[2020-12-28 11:25] LABS: Bedside Glucose 267 mg/dL (70-110)
[2020-12-28 14:02] VITALS: BP 179/92; PULSE 81; RESP 18; TEMP 36.4; O2SAT 96
--- NOTE | 2020-12-28 14:35 | CASEMGMT ---
MACKENZIE PATEL called 's office as litigation secretary states that a referral needs sent for pt to be seen. Left message with animal cytologist to return call.
--- NOTE | 2020-12-29 14:14 | CASEMGMT ---
Received vm from Pat at 's office who requests the last two visit notes, labs, radiology reports, demos faxed to [phone] for referral. Faxed all of this info at this time.
== END 2020-12-28 14:40 | disposition home or self-care (01) ==
LOC: ED 10:02 → MS3 12:38
PROVIDERS: Admitting Provider Internal Medicine; Emergency Provider Emergency Medicine; PCP Family Medicine; Visit Provider Internal Medicine
DX: M25.50 Pain in unspecified joint (principal); J44.9 Chronic obstructive pulmonary disease, unspecified; G47.33 Obstructive sleep apnea (adult) (pediatric); I25.2 Old myocardial infarction; I10 Essential (primary) hypertension; E78.5 Hyperlipidemia, unspecified; E11.9 Type 2 diabetes mellitus without complications; E66.9 Obesity, unspecified; Z68.41 Body mass index [BMI] 40.0-44.9, adult; K21.9 Gastro-esophageal reflux disease without esophagitis; M13.89 Other specified arthritis, multiple sites; I25.10 Atherosclerotic heart disease of native coronary artery without angina pectoris; G89.29 Other chronic pain; Z79.899 Other long term (current) drug therapy; Z87.891 Personal history of nicotine dependence; Z79.52 Long term (current) use of systemic steroids; Z79.82 Long term (current) use of aspirin; Z79.02 Long term (current) use of antithrombotics/antiplatelets; E43 Unspecified severe protein-calorie malnutrition
CPT/HCPCS: 36415; 71045; 80048; 80053; 82947; 82962; 83605; 83735; 84443; 84484; 85025; 85652; 86140; 87426; 93005; 94640; 96361; 96372; 96374; 96375; 96376; 97162; 97166; 97802; 99218; 99251; 99284; 99406; J7030; A4216; G0378; G0463

== ENCOUNTER 2021-01-03 14:20 | Inpatient (IN) | payer OTHER, SELFPAY ==
[2021-01-03] VITALS (15 sets, daily range): BP systolic 104–161; BP diastolic 77–110; PULSE 104–140; RESP 16–23; TEMP 35.8–39.2; O2SAT 93–97; BMI 40.4; BMI 39.4
--- NOTE | 2021-01-03 15:32 | RAD_ITS ---
STUDY: X-RAY CHEST REASON FOR EXAM: Male, 55 years old. Fevers TECHNIQUE: Single AP portable view of the chest. COMPARISON: December 26, 2020 FINDINGS: There are monitoring devices. There is right upper lung linear opacity with atelectasis or early infiltrate. There is no demonstrated pleural abnormality. Normal size heart. Normal mediastinum and jesu. Normal visualized pulmonary arteries. Normal visualized aortic arch and descending thoracic aorta. Normal visualized thoracic spine. Normal visualized ribs, clavicles, and shoulders. There is no demonstrated abnormality of the visualized soft tissue structures of the upper abdomen. RAD/Chest 1 View (Portable) IMPRESSION: Right upper lung atelectasis or early infiltrate. Electronically Signed: Kip Mata MD at 17:01 EDT , Service support ,
--- NOTE | 2021-01-03 15:32 | EKG12_ITS ---
Test Reason : GEN ILL Blood Pressure : / mmHG Vent. Rate : 109 BPM Atrial Rate : 109 BPM P-R Int : 138 ms QRS Dur : 076 ms QT Int : 310 ms P-R-T Axes : 036 -05 039 degrees QTc Int : 417 ms Sinus tachycardia Otherwise normal ECG Confirmed by CELESTINA WEBB, RAHUL ([id number]), movie editor ELI JIMENEZ ([id number]) on 01/04/2021 9:10:14 AM Referred By: Confirmed By:RAHUL OSCAR MD
--- NOTE | 2021-01-03 15:33 | EDS_ITS ---
HPI History of Present Illness Chief Complaint: Other, Pain/Inj Informant: patient and spouse/S.O. Onset/Context/Timing Onset: Weeks (4) Context: Gradual Onset Timing: Intermittent Quality: see below Location: mult joints and sometimes muscles - yest and today L knee Current Severity: Severe Maximum Severity: Severe Worsened by: movement Relieved by: remaining still Associated Symptoms Associated Symptoms: fevers/chills, gen weakness/malaise Narrative Narrative: Patient states he has been having these symptoms for the last month. He has been in and out of this hospital, and he is sent back again because the symptoms persist and something is wrong. He is basically having severe fatigue, anorexia, fevers and chills off-and-on with temps up to about 100 when he has measured it, and migrating arthralgias and sometimes pain in muscles. Also pain in his jaw; yesterday it was in his chin, but off and on in the last month it has been in TMJ bilaterally. Patient states 2 days ago his upper extremities were paralyzed and since that has resolved. This is happened one other time in the past month as well while he was at the hospital. His upper and lower extremities have been affected with regards to the arthralgias. He has had very high white blood counts, ESR, CRP, he had a negative OZIEL, negative Lyme antibody titer, multiple other testing that have not resulted in an obvious diagnosis. [facility] Medical History Acute respiratory failure, unspecified whether with hypoxia or hypercapnia Allergic rhinitis Atherosclerotic heart disease of [place] coronary artery with other forms of angina pectoris Bilateral hand swelling Body mass index (BMI) of 40.0-44.9 in adult Breathing-related sleep disorder Chronic pain COPD (chronic obstructive pulmonary disease) Diabetes Essential (primary) hypertension Former smoker History of ST elevation myocardial infarction (STEMI) (11/06/15) History of stress test Hyperlipidemia Impingement syndrome of left shoulder 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) HAWA (obstructive sleep apnea) Proteinuria Screening for malignant neoplasm of intestine Sleep apnea Strain of muscle(s) and tendon(s) of the rotator cuff of left shoulder, subsequent encounter Tobacco abuse Home Medications aspirin 81 mg PO DAILY@0800 12/02/15 [History Last Taken 01/03/21] oxycodone-acetaminophen 5 mg-325 mg tablet 1 tab PO Q8H PRN 04/28/19 [History Last Taken 12/26/20 05:30] albuterol sulfate 1 puff INHALATION DAILY PRN 01/14/20 [History Last Taken 12/22/20] clopidogrel 75 mg tablet 75 mg PO DAILY #90 tab 09/09/20 [Rx Last Taken 01/03/21] diltiazem HCl 180 mg capsule,extended release 24 hr 180 mg PO QDAY #90 cap 09/09/20 [Rx Last Taken 01/03/21] fluticasone furoate 200 mcg-vilanterol 25 mcg/dose inhalation powder 1 inh INHALATION DAILY ea 09/09/20 [History Last Taken 01/03/21] furosemide 40 mg tablet 40 mg PO DAILY #90 tab 09/09/20 [Rx Last Taken 01/03/21] omeprazole 40 mg capsule,delayed release 40 mg PO QHS #90 cap 09/09/20 [Rx Last Taken 01/02/21] losartan 50 mg PO DAILY 12/19/20 [History Last Taken 01/03/21] cyclobenzaprine 5 mg PO TID PRN PRN 12/26/20 [History Last Taken 12/26/20] insulin glargine [Lantus Solostar U-100 Insulin] 15 unit SUBCUT BID #15 ml 12/28/20 [Rx Last Taken 01/03/21] Allergy/AdvReac Type Severity Reaction Status Date / Time atorvastatin Allergy Mild itching Verified 12/26/20 13:57 lisinopril Allergy Other Verified 12/26/20 13:57 Family History Grandmother CAD (coronary artery disease) Hypertension Father Hypertension CAD (coronary artery disease) Hyperlipidemia Heart disease Myocardial infarction Brother CAD (coronary artery disease) Heart disease Myocardial infarction Surgical History History of coronary artery stent placement (11/06/15) History of left heart catheterization (09/15/20) History of repair of rotator cuff Social History household members: spouse Smoking Status: Former smoker how long ago did patient quit smokin11/06/15 second hand exposure: Yes alcohol intake: never substance use type: does not use caffeine: No what type of physical activity do you participate in: none ROS ROS ED Constitutional Constitutional ED: Reports anorexia, body ache(s), chills and fever(s) Eyes Eyes: Denies change in vision or diplopia ENT ENT ED: Denies rhinorrhea or sore throat Cardiovascular Cardiovascular: Denies chest pain or palpitations Respiratory/Chest Respiratory/Chest: Denies cough or dyspnea Gastrointestinal Gastrointestinal: Denies abdominal pain, diarrhea, nausea or vomiting Genitourinary Genitourinary ED: Denies dysuria or hematuria Musculoskeletal Musculoskeletal: Reports as per HPI, arthralgias, extremity pain and other Details: Denies neck stiffness. Denies having back pain although I have a history of spinal stenosis. ; Denies back pain, neck pain or stiffness Integumentary Denies abscess or rash Neurologic Neurologic: Denies headache(s), paresthesias or weakness Psychiatric Psychiatric: Denies anxiety or suicidal thoughts EXAM Physical Exam Const Vital Signs: 01/03/21 14:21 01/03/21 14:47 01/03/21 15:50 Temperature 96.5 F L 96.5 F L 97 F L Temperature Source Temporal Temporal Temporal Pulse Rate 140 H 140 H Respiratory Rate 16 16 Blood Pressure 138/110 H 138/110 H Blood Pressure Mean 119 119 Pulse Ox 95 95 Oxygen Delivery Method Room Air Room Air 01/03/21 15:58 01/03/21 15:59 01/03/21 16:38 Temperature 97 F L Temperature Source Temporal Pulse Rate 108 H 108 H 105 H Respiratory Rate 16 21 H Blood Pressure 123/77 H 123/77 H 141/90 H Blood Pressure Mean 92 92 107 Pulse Ox 95 95 94 Oxygen Delivery Method Room Air Room Air Room Air 01/03/21 17:19 01/03/21 17:23 01/03/21 18:31 Temperature 99.3 F H 99.3 F H 99.5 F H Temperature Source Oral Oral Oral Pulse Rate 112 H 128 H Respiratory Rate 23 H 23 H Blood Pressure 161/99 H 145/82 H Blood Pressure Mean 119 103 Pulse Ox 94 95 Oxygen Delivery Method Room Air Room Air 01/03/21 19:25 01/03/21 20:00 01/03/21 20:28 Temperature 98 F 102.5 F H Temperature Source Temporal Oral Pulse Rate 127 H Respiratory Rate 16 Blood Pressure 146/80 H Blood Pressure Mean 102 Pulse Ox 94 Oxygen Delivery Method Room Air 01/03/21 21:15 Temperature 98.0 F Temperature Source Temporal Pulse Rate 114 H Respiratory Rate 16 Blood Pressure 128/77 H Blood Pressure Mean 94 Pulse Ox 97 Oxygen Delivery Method Room Air Positive well nourished, well developed and obese Constitutional Narrative: Conversing in full sentences well-appearing General Appearance ED: well developed and NAD Nutritional Appearance: obese HEENT Reports moist mucous membranes normocephalic and atraumatic Eyes PERRL and EOMs intact bilaterally Neck full ROM and supple Resp normal respiratory effort and clear to auscultation bilaterally Cardio regular rate, regular rhythm and no murmurs Jugular Venous Distention: Negative for JVD Rate: tachycardic GI non-tender and non-distended Auscultation: normoactive bowel sounds Palpation: soft Back/Spine no CVA tenderness General Back: other FROM Extremity normal to inspection Extremity Narrative: Mild tenderness around the left knee without bony tenderness, with mild swelling present no erythema or excessive warmth, very limited range of motion due to pain. Otherwise, extremities benign with full range of motion. No erythema, no rashes. General Extremety ED: Yes tenderness; Negative for edema or pulses abnormal General Extremity: Negative for edema or pulses abnormal Neuro oriented x3, CN's II-XII intact bilaterally and no sensory deficits noted Neuro Narrative: Normal reflexes all 4 extremities. Left knee not tested due to patient's request. Toes downgoing bilaterally, no clonus. Sensorium / Orientation: awake and alert Meningeal Signs: no meningeal signs Motor Exam: strength 5/5 throughout Skin no rashes or lesions noted and no wounds MDM MDM MDM Narrative Medical decision making narrative: Certainly white blood count & CRP are significantly abnormal, but both improved compared with his prior labs. He was having rigors here as if he was having high fevers, we rechecked him and he was not febrile. Since his knee is painful and swollen with limited range of motion he was amenable to an arthrocentesis, which was performed after informed consent was provided by the patient and we discussed risks. It was uncomplicated see the procedure note. The chest x-ray showed possibility of pneumonia, I performed a CT scan that shows this is NOT acute infection/pneumonia and rather scarring/atelectasis. Patient presented quite tachycardic although he has been much less tachycardic during his observation period in emergency department. His EKG is normal, his other labs are unremarkable including troponin. He had a negative OZIEL here in the hospital and at discharge last week was advised to follow-up with rheumatology which he has not had a chance to do yet before being sent back here. I am not able to get approval for a stat MRI of his back since he has no back pain, nor neurologic symptoms except for the intermittent paralysis of his arms that is no longer the case. He does not have any signs or symptoms of meningitis. He agrees he has not been having any headaches or neck stiffness although he has had a couple episodes of pain in the right paraspinal musculature/trapezius which again is not there presently either. Clearly something is going on but it is not evident with what has been studied so far. Unknown if this is simply an inflammatory problem or an infectious problem. He states his jaw has been affected in the last couple weeks, he has never been bitten by a tick that he knows of but he states he gets scrapes and cuts all the time. I believe tetanus is in the differential here but certainly this is not classic for that and unfortunately it is a clinical diagnosis. He denies a known history of gonorrhea and denies high risk sexual practices in which he could contract gonorrhea, which can cause a migrating monoarthralgia. He has no specific risk for malaria he has not traveled out of the country or area rec [facility] nor in the month prior to the onset of symptoms, although here in the emergency department I am not able to rule out other zoonoses. At this time is cell count in his left knee synovial fluid is about 5000, arguing against acute septic arthritis. Other studies including culture, crystals, still pending. Patient's temperature was remeasured and it was 102.5, which we treated him with Tylenol for. Discussed with hospitalist to admit this patient however they declined due to the patient needing a higher level of care since we do not have inpatient rheumatology here if he needs to be an inpatient which I believe he does. Patient prefers to go to [facility]. They do not have any beds right now. They put him on a waiting list and accepted him after discussing to Dr. Pond ([facility]), we will admit the patient locally while he is waiting on a bed. He is pancultured. Hospitalists here had him on antibiotics while he was here last week but discontinued everything before they sent him home, I will leave it to them as far as whether he needs antibiotics now or not since currently we have no source. [facility] did request another rapid Covid, which we did and was negative, and they did also request a PCR be sent, which is done. Discussed w/ hospitalist for inpatient stay while awaiting transfer. Lab Data Attestation: I reviewed the patient's lab results. Labs: Laboratory Results - last 24 hr 01/03/21 01/03/21 01/03/21 15:45 15:45 15:45 WBC 14.0 H RBC 4.47 L Hgb 12.9 L Hct 40.1 MCV 89.7 MCH 28.9 MCHC 32.2 RDW Std Deviation 48.0 H RDW Coeff of Sophy 14.6 Plt Count 493 H MPV 8.7 Immature Gran % (Auto) 2.200 H Neut % (Auto) 83.0 H Lymph % (Auto) 10.9 L [place] % (Auto) 3.4 Eos % (Auto) 0.1 Baso % (Auto) 0.4 Absolute Neuts (auto) 11.6 H Absolute Lymphs (auto) 1.53 Nucleated RBC % 0 PT 14.1 INR 1.2 APTT 45.6 H Sodium 132 L Potassium 4.0 Chloride 97 L Carbon Dioxide 26.0 Anion Gap 9 BUN 17 Creatinine 1.29 Estim Creat Clear Calc 60.49 Est GFR (MDRD) Af Amer 74 Est GFR (MDRD) Non-Af 61 BUN/Creatinine Ratio 13.2 Glucose 157 H Lactic Acid Calcium 9.2 Total Bilirubin 0.40 AST 15 ALT 36 Alkaline Phosphatase 102 Troponin I High Sens 12 C-React Prot Ext Range 169.00 H Total Protein 8.1 Albumin 2.2 L Globulin 5.9 H Albumin/Globulin Ratio 0.4 L Fluid Crystals Fluid Crystal Source Fl Crystal Path Review Synovial Source Synovial Color Synovial Appearance Synovial WBC Synovial RBC Synovial Tot Cell Ct Synov Polynuclear WBCs Synov Mononuclear WBCs Synovial Neutrophils Synovial Monocytes Synovial Polynuclear % Synovial Mononuclear % Synovial Path Comment 01/03/21 01/03/21 15:45 18:26 WBC RBC Hgb Hct MCV MCH MCHC RDW Std Deviation RDW Coeff of Sophy Plt Count MPV Immature Gran % (Auto) Neut % (Auto) Lymph % (Auto) [place] % (Auto) Eos % (Auto) Baso % (Auto) Absolute Neuts (auto) Absolute Lymphs (auto) Nucleated RBC % PT INR APTT Sodium Potassium Chloride Carbon Dioxide Anion Gap BUN Creatinine Estim Creat Clear Calc Est GFR (MDRD) Af Amer Est GFR (MDRD) Non-Af BUN/Creatinine Ratio Glucose Lactic Acid 1.3 Calcium Total Bilirubin AST ALT Alkaline Phosphatase Troponin I High Sens C-React Prot Ext Range Total Protein Albumin Globulin Albumin/Globulin Ratio Fluid Crystals SEE PATH REV Fluid Crystal Source SYNOVIAL Fl Crystal Path Review Will follow Synovial Source UNK Synovial Color Red Synovial Appearance Cloudy Synovial WBC 5.1310 H Synovial RBC 0.022 H Synovial Tot Cell Ct 5.1430 H Synov Polynuclear WBCs 3.155 Synov Mononuclear WBCs 1.976 Synovial Neutrophils 63 H Synovial Monocytes 37 Synovial Polynuclear % 61.4 Synovial Mononuclear % 38.6 Synovial [address] Comment May follow Radiography Diagnostic Testing: Clinical Impression(s) from Imaging Studies Chest X-Ray 01/03/21 15:32 IMPRESSION: Right upper lung atelectasis or early infiltrate. Electronically Signed: Kip Mata MD at 17:01 EDT , Service support , Chest CT 01/03/21 17:17 IMPRESSION: Right upper lung scarring or atelectasis. Electronically Signed: Kip Mata MD at 17:58 EDT , Service support , EKG Initial EKG: Attestation: I personally reviewed and interpreted this EKG as follows: Interpretation: No Acute Injury Pattern and Sinus Tachycardia Comments: Normal intervals and axis Procedures Other Procedures Procedure(s): Left knee arthrocentesis: After informed consent, I prepped and draped in sterile fashion with Betadine after locally anesthetizing with 2 cc of plain 1% lidocaine from a medial subpatellar approach, 18-gauge needle was inserted, 4 cc of straw-colored nonpurulent fluid with a positive string sign was withdrawn from the knee cavity, as I redirected there was a small amount of blood. Tolerated well, no complications. Discharge Plan Dx/Rx/DC Orders Clinical Impression: SIRS (systemic inflammatory response syndrome), Intermittent fever, Polyarthralgia Disposition Disposition: Acute Care Hospital [facility]
[2021-01-03] MEDS: 0.9% Normal Saline 1,000 ML 150 ML IV (15:57)
[2021-01-03] MEDS: Lidocaine 1% (30 ml sdv) 30 ML Vial INFILT (15:58)
[2021-01-03 16:22] LABS: Absolute Lymphocyte Count 1.53 X10^3/uL (0.83-4.51); Absolute Neutrophil Count 11.6 X10^3/uL (2.0-7.7); Basophil# 0.06 X10^3/uL; Basophil% 0.4 % (0-1); Eosinophil# 0.02 X10^3/uL; Eosinophils% 0.1 % (0-5); Hematocrit 40.1 % (40-54); Hemoglobin 12.9 g/dL (13.0-16.5); Lymphocyte # 1.53 X10^3/ul (0.83-4.51); Lymphocyte % 10.9 % (19-41); Mean Corp Hgb Conc 32.2 g/dL (32-36); Mean Corpuscular Hgb 28.9 pg (27.0-32.0); Mean Corpuscular Volume 89.7 fL (80-94); Mean Platelet Vol. 8.7 fl (6.2-12.0); Monocyte# 0.48 X10^3/uL; Monocyte% 3.4 % (0-10); NRBC Flagged by Analyzer 0 % (0-5); Neutrophil # 11.64 X10^3/uL (2.7-7.7); Platelet Count 493 K/mm3 (150-450); RBC Distribution Width CV 14.6 % (11.6-14.6); Red Blood Count 4.47 M/mm3 (4.6-6.2)
[2021-01-03 16:31] LABS: International Normalized Ratio 1.2; Prothrombin Time (Protime)PT. 14.1 SECONDS (11.7-14.9)
[2021-01-03 16:32] LABS: Partial Thromboplast Time 45.6 Seconds (24.1-36.2)
[2021-01-03 16:42] LABS: ALB/GLOB Ratio 0.4 RATIO (0.9-2.4); AST(SGOT) 15 U/L (15-37); Alanine Aminotransfer ALT/SGPT 36 U/L (16-61); Albumin, Serum 2.2 g/dL (3.2-5.0); Alkaline Phosphatase 102 U/L (45-117); Anion Gap 9 (5-15); BUN 17 mg/dL (7-18); BUN/Creat Ratio 13.2 RATIO (10-20); Calcium,Total 9.2 mg/dL (8.5-10.1); Chloride 97 mmol/L (98-107); Creatinine, Serum 1.29 mg/dL (0.70-1.30); EST Glomerular Filtration Rate 61 mL/min (>60); Est Glom Filt Rate - Afr Amer 74 mL/min (>60); Estimated Creatinine Clearance 60.49 ml/min; Globulin 5.9 g/dL (2.2-4.2); Glucose 157 mg/dL (74-106); Protein, Total 8.1 g/dL (6.4-8.2); Sodium Level 132 mmol/L (136-145); Troponin-I HS 12 pg/mL (3.0-78.0)
[2021-01-03 17:03] LABS: Lactic Acid 1.3 mmol/L (0.4-1.9)
--- NOTE | 2021-01-03 17:17 | CT_ITS ---
STUDY: CT CHEST WITHOUT CONTRAST REASON FOR EXAM: Male, 55 years old. Abnormal CXR, rigors, inc WBC RADIATION DOSAGE (If Supplied By Facility): CTDIvol = ( 19.17 ) mGy, DLP = ( 766.45 ) mGycm TECHNIQUE: Transaxial imaging was performed without the administration of intravenous contrast material. Multiplanar coronal and sagittal images were reformatted. Individualized dose optimization techniques were used for this CT. COMPARISON: Chest x-ray FINDINGS: There is mild right upper lung linear opacities suggesting scarring or atelectasis. There is no demonstrated pleural abnormality. There are calcifications of the coronary arteries. There are stable small paratracheal and anterior mediastinal lymph nodes measuring up to 1.0 cm. Normal hilar regions. Normal unenhanced pulmonary arteries. Normal aorta arch and descending thoracic aorta. There are multi-level degenerative changes of the thoracic spine. There is no demonstrated abnormality of the visualized upper abdomen. CT/Chest without Contrast IMPRESSION: Right upper lung scarring or atelectasis. Electronically Signed: Kip Mata MD at 17:58 EDT , Service support ,
[2021-01-03 18:30] LABS: Pathologist Comment May follow
[2021-01-03 19:47] LABS: RBC /Synovial Fluid 0.022 10^6/uL (0); Synovial Fld Mononuclear WBC % 38.6 %; Synovial Fld Polynuclear WBC # 3.155 10^3/uL; Synovial Fld Polynuclear WBC % 61.4 %
[2021-01-03] MEDS: Ketorolac 30 MG/ML Syringe IV (19:55)
[2021-01-03] MEDS: Acetaminophen 500 MG Tablet 1000 MG PO (20:34)
[2021-01-03 21:08] LABS: Monocyte /Synovial Fluid 37 %; Neutrophil 63 % (0-25)
[2021-01-03 21:11] LABS: AUTO B FLUID DILUENT BKGD CT WBC <0.1 RBC <0.01 (W<.1,R<.01)
[2021-01-03 21:12] LABS: Appearance /Synovial Fluid Cloudy (CLEAR); Body Fluid QC Type(s) BF2Q,BF3Q; Color / Synovial Fluid Red (Pale Yellow); Source- Body Fluid SYNOVIAL; Synovial Fld Mononuclear WBC # 1.976 10^3/ul
[2021-01-03 23:07] LABS: Squamous Epithelial Cells - UA 0 SEEN /hpf (0-5); White Blood Cells 0 SEEN /hpf (0-5)
[2021-01-03] MEDS: 0.9% Normal Saline 1,000 ML 999 ML IV (23:16)
--- NOTE | 2021-01-03 23:17 | HP.PCM.HOS_ITS ---
[facility] - General General Date of Admission: 01/03/21 Date of Service: 01/03/21 Chief Complaint: Inability to get up from bed. HPI Narrative DINORAH SANTOS, is a 55 M with a significant history of chronic low back pain; CAD status post stents; hypertension who presents to the emergency department because he was unable to move in his bed on the day of presentation. Patient called his PCP and was advised to come to the emergency department. In the course of the past 3 weeks patient had a migratory arthralgia and myalgia. He reports episodes where his bilateral hands were paralyzed. He reports episodes where he could not move his leg. He report that he has been so weak he went to use a walker to walk. He reports migratory pain in his chin and jaws. P this is a tetanus patient has been at the hospital for the same symptoms. On his first hospital visit (12/19/2020 to 12/20/2020) he also had right foot infection. During the course of these symptoms patient has had multiple tests including ESR;CRP; and Lyme test. He received steroids with previous admission. Because the patient routinely receives shots in his back his PCP thought that may be an MRI may be warranted. Patient denies traveling out of the country. He denied being intimate in the past one year except with his . At the emergent department nurse reported loose stools that smelled like C. difficile. On his last hospital visit patient was given design consultant referral. However he has not been unable to see the design consultant. Emergent department doctor discussed the case with [facility]. Reportedly [facility] is interested in the case and has accepted patient but there are no beds so patient may have to wait days to weeks. [facility] Medical History Acute respiratory failure, unspecified whether with hypoxia or hypercapnia Allergic rhinitis Atherosclerotic heart disease of [place] coronary artery with other forms of angina pectoris Bilateral hand swelling Body mass index (BMI) of 40.0-44.9 in adult Breathing-related sleep disorder Chest pain Chronic pain COPD (chronic obstructive pulmonary disease) Coronary artery disease Diabetes Essential (primary) hypertension Former smoker GERD (gastroesophageal reflux disease) High cholesterol History of ST elevation myocardial infarction (STEMI) (11/06/15) History of stress test Hyperlipidemia Hypertension Impingement syndrome of left shoulder Myocardial infarct 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) HAWA (obstructive sleep apnea) Proteinuria Screening for malignant neoplasm of intestine Sleep apnea Strain of muscle(s) and tendon(s) of the rotator cuff of left shoulder, subsequent encounter Tobacco abuse Home Medications aspirin 81 mg PO DAILY@0800 12/02/15 [History Last Taken 01/03/21] oxycodone-acetaminophen 5 mg-325 mg tablet 1 tab PO Q8H PRN 04/28/19 [History Last Taken 12/26/20 05:30] albuterol sulfate 1 puff INHALATION DAILY PRN 01/14/20 [History Last Taken 12/22/20] clopidogrel 75 mg tablet 75 mg PO DAILY #90 tab 09/09/20 [Rx Last Taken 01/03/21] diltiazem HCl 180 mg capsule,extended release 24 hr 180 mg PO QDAY #90 cap 09/09/20 [Rx Last Taken 01/03/21] fluticasone furoate 200 mcg-vilanterol 25 mcg/dose inhalation powder 1 inh INHALATION DAILY ea 09/09/20 [History Last Taken 01/03/21] furosemide 40 mg tablet 40 mg PO DAILY #90 tab 09/09/20 [Rx Last Taken 01/03/21] omeprazole 40 mg capsule,delayed release 40 mg PO QHS #90 cap 09/09/20 [Rx Last Taken 01/02/21] losartan 50 mg PO DAILY 12/19/20 [History Last Taken 01/03/21] cyclobenzaprine 5 mg PO TID PRN PRN 12/26/20 [History Last Taken 12/26/20] insulin glargine [Lantus Solostar U-100 Insulin] 15 unit SUBCUT BID #15 ml 12/28/20 [Rx Last Taken 01/03/21] Allergy/AdvReac Type Severity Reaction Status Date / Time atorvastatin Allergy Mild itching Verified 12/26/20 13:57 lisinopril Allergy Other Verified 12/26/20 13:57 Family History Grandmother CAD (coronary artery disease) Hypertension Father Hypertension CAD (coronary artery disease) Hyperlipidemia Heart disease Myocardial infarction Brother CAD (coronary artery disease) Heart disease Myocardial infarction Surgical History History of coronary artery stent placement (11/06/15) History of left heart catheterization (09/15/20) History of repair of rotator cuff Social History household members: spouse Smoking Status: Former smoker how long ago did patient quit smokin11/06/15 second hand exposure: Yes alcohol intake: never substance use type: does not use caffeine: No what type of physical activity do you participate in: none ROS ROS Narrative Constitutional: Reports fever, chills, fatigue, diaphoresis. He reports loss of 30 pounds in about 3 weeks. Eyes: Denies blurry vision, change in eye color, change in vision, discharge from eye(s), double vision, erythema, eye pain, loss of vision or other HEENT: Denies abnormal hearing, dysphagia, ear pain, epistaxis, headache(s), hearing loss, nasal congestion, nasal discharge, post nasal drip, sinus pressure, sore throat or other Cardiovascular: Denies chest pain or palpitations. Denies dyspnea on exertion, orthopnea and paroxysmal nocturnal dyspnea Respiratory/Chest: Denies cough, excessive phlegm production, shortness of breath with exertion and wheezing Gastrointestinal: Patient has loose stools. Denies abdominal pain, coffee ground emesis,dyspepsia, hematemesis, hematochezia, melena, nausea, vomiting or other Genitourinary: Denies burning urination, difficulty urinating, dysuria, hematuria, nocturia, urinary frequency, urinary hesitancy, urinary incontinence, urinary urgency or other Musculoskeletal: Migratory arthralgia and myalgia. Neurologic: Reports transient paralysis of extremities. Denies abnormal speech, confusion, disequilibrium, dizziness, numbness, paresthesias, seizure-like activity, seizures, syncope, tingling, tremor(s) or other Psychiatric: Denies anxiety, depression, homicidal ideation, suicidal ideation or other Endocrinology: Reports diaphoresis. Denies change in body appearance, polydipsia, polyuria or other Hematologic/Lymphatic: Denies anemia, easy bleeding, easy bruising, lymphadenopathy or other Integumentary: Denies rashes Allergic/Immunologic: Denies rhinitis, hives, eczema, asthma or other Vital Signs Vital Signs Vital Signs: 01/03/21 14:21 01/03/21 14:47 01/03/21 15:50 Temperature 96.5 F L 96.5 F L 97 F L Temperature Source Temporal Temporal Temporal Pulse Rate 140 H 140 H Respiratory Rate 16 16 Blood Pressure 138/110 H 138/110 H Blood Pressure Mean 119 119 Pulse Ox 95 95 Oxygen Delivery Method Room Air Room Air 01/03/21 15:58 01/03/21 15:59 01/03/21 16:38 Temperature 97 F L Temperature Source Temporal Pulse Rate 108 H 108 H 105 H Respiratory Rate 16 21 H Blood Pressure 123/77 H 123/77 H 141/90 H Blood Pressure Mean 92 92 107 Pulse Ox 95 95 94 Oxygen Delivery Method Room Air Room Air Room Air 01/03/21 17:19 01/03/21 17:23 01/03/21 18:31 Temperature 99.3 F H 99.3 F H 99.5 F H Temperature Source Oral Oral Oral Pulse Rate 112 H 128 H Respiratory Rate 23 H 23 H Blood Pressure 161/99 H 145/82 H Blood Pressure Mean 119 103 Pulse Ox 94 95 Oxygen Delivery Method Room Air Room Air 01/03/21 19:25 01/03/21 20:00 01/03/21 20:28 Temperature 98 F 102.5 F H Temperature Source Temporal Oral Pulse Rate 127 H Respiratory Rate 16 Blood Pressure 146/80 H Blood Pressure Mean 102 Pulse Ox 94 Oxygen Delivery Method Room Air 01/03/21 21:15 Temperature 98.0 F Temperature Source Temporal Pulse Rate 114 H Respiratory Rate 16 Blood Pressure 128/77 H Blood Pressure Mean 94 Pulse Ox 97 Oxygen Delivery Method Room Air Weight Weight: 117.027 kg Body Mass Index (BMI) 40.4 Physical Exam Narrative Physical exam: General: Well-nourished, well-developed. Head: Normocephalic, atraumatic, no tenderness Eyes: PERRLA, EOMI ENT, no trauma, moist mucous membranes, no rhinorrhea Neck: Nontender, full range of motion, no spinal tenderness, deformities, step- off CVS: Regular rate and rhythm. S1-S2 present. No murmur, gallop or rub. Respiratory : clear to auscultation bilaterally, chest wall nontender, no wheezing Abdomen: Soft, nontender, nondistended, normal bowel sounds, no masses : Deferred Back: Nontender, no CVA tenderness, no midline spinal tenderness, deformities, step-offs Extremities: Strength in bilateral upper extremities 3 out of 5. Strength in right upper extremity 5 out of 5. Unable to raise left lower extremity. Plantarflexion strength in right lower extremity 5 out of 5. Plantar flexion strength in left lower extremity 2 out of 5 Skin: Normal color, no trauma, abrasions Neuro: Alert, oriented, cranial nerves II through XII grossly intact. Psychiatry: Normal mood. Normal affect. Not depressed. Not anxious. Results Lab / Micro Data Result Diagrams: 01/03/21 15:45 01/03/21 15:45 Labs: Laboratory Results - last 24 hr 01/03/21 15:45: WBC 14.0 H, RBC 4.47 L, Hgb 12.9 L, Hct 40.1, MCV 89.7, MCH 28.9, MCHC 32.2, RDW Std Deviation 48.0 H, RDW Coeff of Sophy 14.6, Plt Count 493 H, MPV 8.7, Immature Gran % (Auto) 2.200 H, Neut % (Auto) 83.0 H, Lymph % (Auto) 10.9 L, [place] % (Auto) 3.4, Eos % (Auto) 0.1, Baso % (Auto) 0.4, Absolute Neuts (auto) 11.6 H, Absolute Lymphs (auto) 1.53, Nucleated RBC % 0 01/03/21 15:45: PT 14.1, INR 1.2, APTT 45.6 H 01/03/21 15:45: Sodium 132 L, Potassium 4.0, Chloride 97 L, Carbon Dioxide 26.0, Anion Gap 9, BUN 17, Creatinine 1.29, Estim Creat Clear Calc 60.49, Est GFR (MDRD) Af Amer 74, Est GFR (MDRD) Non-Af 61, BUN/Creatinine Ratio 13.2, Glucose 157 H, Calcium 9.2, Total Bilirubin 0.40, AST 15, ALT 36, Alkaline Phosphatase 1 02, Troponin I High Sens 12, C-React Prot Ext Range 169.00 H, Total Protein 8.1, Albumin 2.2 L, Globulin 5.9 H, Albumin/Globulin Ratio 0.4 L 01/03/21 15:45: Lactic Acid 1.3 01/03/21 18:26: Fluid Crystals SEE PATH REV, Fluid Crystal Source SYNOVIAL, Fl Crystal Path Review Will follow, Synovial Source UNK, Synovial Color Red, Synovial Appearance Cloudy, Synovial WBC 5.1310 H, Synovial RBC 0.022 H, Synov ial Tot Cell Ct 5.1430 H, Synov Polynuclear WBCs 3.155, Synov Mononuclear WBCs 1.976, Synovial Neutrophils 63 H, Synovial Monocytes 37, Synovial Polynuclear % 61.4, Synovial Mononuclear % 38.6, Synovial Path Comment May follow Micro: Microbiology 01/03/21 21:14 Nasal Secretion SARS-CoV-2 Antigen (Rapid) - Final Radiology Impression Chest X-Ray 01/03/21 15:32 IMPRESSION: Right upper lung atelectasis or early infiltrate. Electronically Signed: Kip Mata MD at 17:01 EDT , Service support , Chest CT 01/03/21 17:17 IMPRESSION: Right upper lung scarring or atelectasis. Electronically Signed: Kip Mata MD at 17:58 EDT , Service support , Assessment & Plan Assessment/Plan (1) Arthralgia: QUALIFIERS: Joint pain location: unspecified Qualified Code(s): M25.50 - Pain in unspecified joint (2) Inability to walk: (3) SIRS (systemic inflammatory response syndrome): (4) Intermittent fever: (5) Polyarthralgia: PLAN: Inability to walk/polyarthralgia/intermittent fever/SIRS Chest CT on 01/03/2021 and abdomen/pelvis CT on 12/10/2020 did not show any focus of lymphoma/cancer. Major labs reviewed showed white count of 14. Patient with bandemia of 2.2%. A week before presentation white count was 23. Arthrocentesis of left knee done at the emergent department was unrevealing. Malaria parasite was ordered at the emergency department; follow. Initially COVID-19 antigen negative. Emergency Doctor discussed the case with [facility] who also requested COVID-19 PCR. COVID-19 PCR negative. Chlamydia and gonococcus PCR ordered. Antistreptolysin O antibody titer ordered. ID consult Awaiting patient to be transferred to [facility]. Trend CBC and BMP. Diabetes mellitus Patient with hyperglycemia on presentation Basal insulin adjusted Accu-Chek QA [facility] with correction scale insulin ordered. Hypertension Blood pressure is not within goal Losartan; Cardizem and Lasix continued continued. Trend blood pressure and adjust blood pressure medications. CAD status post stent Aspirin and Plavix continued. Chronic back pain Flexeril and physical continued. DVT prophylaxis: Subcutaneous Lovenox ordered. Charges/Coding Visit Charges Inpatient E&M: 18774 Init Hosp L3
[2021-01-03 23:24] LABS: Color, Urine Yellow (Yellow); Glucose, Dipstick 50 mg/dl (Normal); Ketone-Dipstick 5 mg/dl (Negative); Leukocyte Esterase-Dipstick Negative /ul (Negative); Nitrite-Dipstick Negative (Negative); Occult Blood-Urine 10 /ul (Negative); Protein-Dipstick 30 mg/dl (Negative); Urine Clarity Sl. Cloudy (Clear); Urine Urobilinogen Normal (Normal)
[2021-01-03 23:43] LABS: Urine Bilirubin Dipstick 1 mg/dL (Negative)
[2021-01-04 00:06] LABS: Amorphous Sediment 2+; Bacteria 1+ /hpf (None Seen); Mucous, Urine 2+ /hpf (<or=2+); Red Blood Cells-Urine 0-5 SEEN /hpf (0-5)
[2021-01-04 00:10] VITALS: BP 141/88; PULSE 107; RESP 18; TEMP 37.1; O2SAT 92
[2021-01-04 00:36] LABS: Bedside Glucose 170 mg/dL (70-110)
[2021-01-04 04:36] LABS: Chlamydia Trachomatis by PCR Negative (Negative); Neisserai gonorrhoeae by PCR Negative (Negative); Probe Check PASS; Sample Adequacy Control PASS; Specimen Processing Control PASS
[2021-01-04 06:40] VITALS: BP 147/95; PULSE 108; RESP 20; TEMP 37.1; O2SAT 94
[2021-01-04] MEDS: Acetaminophen 325 MG Tablet 650 MG PO ×2 (06:48→20:06)
[2021-01-04] MEDS: Insulin Lispro 100 UNIT/ML INSULN.PEN SC ×3 (06:48→22:15)
[2021-01-04 07:00] VITALS: O2SAT 93
[2021-01-04 07:01] LABS: Bedside Glucose 154 mg/dL (70-110)
[2021-01-04 07:10] LABS: Absolute Lymphocyte Count 1.33 X10^3/uL (0.83-4.51); Absolute Neutrophil Count 11.3 X10^3/uL (2.0-7.7); Basophil# 0.05 X10^3/uL; Basophil% 0.4 % (0-1); Eosinophil# 0.02 X10^3/uL; Eosinophils% 0.1 % (0-5); Hematocrit 39.9 % (40-54); Hemoglobin 12.5 g/dL (13.0-16.5); Lymphocyte # 1.33 X10^3/ul (0.83-4.51); Lymphocyte % 9.9 % (19-41); Mean Corp Hgb Conc 31.3 g/dL (32-36); Mean Corpuscular Volume 92.6 fL (80-94); Mean Platelet Vol. 8.8 fl (6.2-12.0); Monocyte# 0.54 X10^3/uL; NRBC Flagged by Analyzer 0 % (0-5); Neutrophil # 11.28 X10^3/uL (2.7-7.7); Neutrophil % 84.1 % (47-70); Platelet Count 463 K/mm3 (150-450); RBC Distribution Width CV 14.9 % (11.6-14.6); RBC Distribution Width SD 51.3 fl (35.1-43.9); Red Blood Count 4.31 M/mm3 (4.6-6.2); White Blood Count 13.4 K/mm3 (4.4-11.0)
[2021-01-04 07:30] LABS: Anion Gap 7 (5-15); BUN 16 mg/dL (7-18); BUN/Creat Ratio 16.4 RATIO (10-20); Calcium,Total 9.3 mg/dL (8.5-10.1); Chloride 98 mmol/L (98-107); Creatinine, Serum 0.97 mg/dL (0.70-1.30); EST Glomerular Filtration Rate 85 mL/min (>60); Est Glom Filt Rate - Afr Amer 103 mL/min (>60); Estimated Creatinine Clearance 80.45 ml/min; Glucose 165 mg/dL (74-106); Potassium 3.9 mmol/L (3.5-5.1); Sodium Level 128 mmol/L (136-145)
--- NOTE | 2021-01-04 07:51 | PCS.PANDOC ---
PANDEMIC DOCUMENTATION INITIATED: Date: 01/04/2021 Time: 0000
[2021-01-04] MEDS: Aspirin E.C. 81 MG Tablet PO (09:51)
[2021-01-04] MEDS: Clopidogrel Bisulfate 75 MG Tablet PO (09:51)
[2021-01-04] MEDS: dilTIAZem CD 180 MG Capsule PO (09:51)
[2021-01-04] MEDS: Losartan Potassium 50 MG Tablet PO (09:51)
[2021-01-04 10:00] VITALS: BP 135/85; PULSE 101; RESP 18; TEMP 37.1; O2SAT 95
[2021-01-04] MEDS: oxyCODONE 5 MG Tablet PO ×2 (10:06→20:05)
--- NOTE | 2021-01-04 11:35 | CASEMGMT ---
RN CM Face to Face with patient for initial transition planning/care coordination assessment. RN CM introduced self and role at [facility]. Patient lying in bed, alert and oriented, at bedside. Patient willing to participate in assessment and is able to answer all questions appropriately. Care providers, pharmacy, and demographics verified. Patient wishes to discharge home, denies need for home health at this time. Patient states he has no further needs or concerns at this time. CM to follow for discharge planning needs that may arise. PCP: Edna Specialists: Claus, certified pest control technician; Mike, pain; Ata pulmonogoloigst Preferred Pharmacy: [facility] retail Insurance: [facility] [employer] Prescription Benefit: yes Living Will/HPOA: yes, Roselyn Paz LNOK: Living Arrangements: Patient lives with in a single story home with 3 steps to enter. Patient states he is independent at home. Transportation: self/ DME/HHC: Patient states he has cane, walker, and cpap at home. Patient states he does not wear his cpap. Patient denies previous HHC. Disposition Plan: Awaiting transfer to [facility]. Luly SUAREZ, RN, CM
[2021-01-04 12:05] LABS: Bedside Glucose 273 mg/dL (70-110)
--- NOTE | 2021-01-04 12:25 | PN.HOSP_ITS ---
Documented by User: Estrellita Head NP, [employer] 01/04/21 12:43 Subjective Subjective Patient seen and examined. Reports explosive diarrhea for the past 2 days. Reports fever, chills. States he woke up in the middle of the night drenched. Denies nausea, vomiting. Denies other symptoms or complaints. Objective Data Objective Data Vital Signs: Vital Signs Temp Pulse Resp BP Pulse Ox 98.8 F 108 H 20 H 147/95 H 93 01/04/21 06:40 01/04/21 06:40 01/04/21 06:40 01/04/21 06:40 01/04/21 07:00 Oxygen Delivery Method Room Air Weight: 252 lb 3.341 oz Body Mass Index (BMI) 39.4 Intake & Output: Intake and Output for Last 24 Hours 01/02/21 01/03/21 01/04/21 23:59 23:59 23:59 Intake Total 1649.35 / 1649.35 Output Total 300 / 300 Balance 1649.35 / 1649.35 -300 / -300 Lab / Micro Data Result Diagrams: 01/04/21 06:26 01/04/21 06:26 Labs: Laboratory Results - last 24 hr 01/03/21 15:45: WBC 14.0 H, RBC 4.47 L, Hgb 12.9 L, Hct 40.1, MCV 89.7, MCH 28.9, MCHC 32.2, RDW Std Deviation 48.0 H, RDW Coeff of Sophy 14.6, Plt Count 493 H, MPV 8.7, Immature Gran % (Auto) 2.200 H, Neut % (Auto) 83.0 H, Lymph % (Auto) 10.9 L, [place] % (Auto) 3.4, Eos % (Auto) 0.1, Baso % (Auto) 0.4, Absolute Neuts (auto) 11.6 H, Absolute Lymphs (auto) 1.53, Nucleated RBC % 0 01/03/21 15:45: PT 14.1, INR 1.2, APTT 45.6 H 01/03/21 15:45: Sodium 132 L, Potassium 4.0, Chloride 97 L, Carbon Dioxide 26.0, Anion Gap 9, BUN 17, Creatinine 1.29, Estim Creat Clear Calc 60.49, Est GFR (MDRD) Af Amer 74, Est GFR (MDRD) Non-Af 61, BUN/Creatinine Ratio 13.2, Glucose 157 H, Calcium 9.2, Total Bilirubin 0.40, AST 15, ALT 36, Alkaline Phosphatase 102, Troponin I High Sens 12, C-React Prot Ext Range 169.00 H, Total Protein 8.1, Albumin 2.2 L, Globulin 5.9 H, Albumin/Globulin Ratio 0.4 L 01/03/21 15:45: Lactic Acid 1.3 01/03/21 18:26: Fluid Crystals SEE PATH REV, Fluid Crystal Source SYNOVIAL, Fl Crystal Path Review Will follow, Synovial Source UNK, Synovial Color Red, Synovial Appearance Cloudy, Synovial WBC 5.1310 H, Synovial RBC 0.022 H, Synovial Tot Cell Ct 5.1430 H, Synov Polynuclear WBCs 3.155, Synov Mononuclear WBCs 1.976, Synovial Neutrophils 63 H, Synovial Monocytes 37, Synovial Polynuclear % 61.4, Synovial Mononuclear % 38.6, Synovial Path Comment Maria G smith w 01/03/21 22:57: Urine Color Yellow, Urine Clarity Sl. Cloudy, Urine pH 5.0, Ur Specific [place] 1.020, Urine Protein 30 H, Urine Glucose (UA) 50 H, Urine Ketones 5 H, Urine Occult Blood 10 H, Urine Nitrite Negative, Urine Bilirubin 1 H, Urine Urobilinogen Normal, Ur Leukocyte Esterase Negative, Urine RBC 0-5 SEEN, Urine WBC 0 SEEN, Ur Squamous Epith Cells 0 SEEN, Amorphous Sediment 2+, Urine Bacteria 1+, Urine Mucus 2+ 01/03/21 23:17: COVID-19 (DEIDRA) Not Detected 01/04/21 00:30: POC Glucose 170 H 01/04/21 02:25: Chlam trachomat DNA PCR Negative, N.gonorrhoeae DNA (PCR) Negative 01/04/21 06:26: WBC 13.4 H, RBC 4.31 L, Hgb 12.5 L, Hct 39.9 L, MCV 92.6, MCH 29.0, MCHC 31.3 L, RDW Std Deviation 51.3 H, RDW Coeff of Sophy 14.9 H, Plt Count 463 H, MPV 8.8, Immature Gran % (Auto) 1.500 H, Neut % (Auto) 84.1 H, Lymph % (Auto) 9.9 L, [place] % (Auto) 4.0, Eos % (Auto) 0.1, Baso % (Auto) 0.4, Absolute Neuts (auto) 11.3 H, Absolute Lymphs (auto) 1.33, Nucleated RBC % 0 01/04/21 06:26: Sodium 128 L, Potassium 3.9, Chloride 98, Carbon Dioxide 23.0, Anion Gap 7, BUN 16, Creatinine 0.97, Estim Creat Clear Calc 80.45, Est GFR ( MDRD) Af Amer 103, Est GFR (MDRD) Non-Af 85, BUN/Creatinine Ratio 16.4, Glucose 165 H, Calcium 9.3 01/04/21 06:39: POC Glucose 154 H 01/04/21 11:59: POC Glucose 273 H Micro: Microbiology 01/03/21 18:26 Fluid - Other Gram Stain - Final 01/03/21 18:26 Fluid - Other Body Fluid Culture - Preliminary No growth-Final to follow 01/03/21 22:57 Urine, Random Urine Culture - Preliminary Culture exhibits no growth. 01/03/21 22:57 Stool C. difficile DNA Amplification - Final 01/03/21 21:14 Nasal Secretion SARS-CoV-2 Antigen (Rapid) - Final Radiography Diagnostic Testing: Radiology Impression Chest X-Ray 01/03/21 15:32 IMPRESSION: Right upper lung atelectasis or early infiltrate. Electronically Signed: Kip Mata MD at 17:01 EDT , Service support , Chest CT 01/03/21 17:17 IMPRESSION: Right upper lung scarring or atelectasis. Electronically Signed: Kip Mata MD at 17:58 EDT , Service support , Physical Exam Const alert, oriented x3 and no apparent distress Orientation / Consciousness: awake, oriented to person, oriented to place and oriented to time HEENT normocephalic and moist oral mucous membranes Eyes PERRL, EOMs intact bilaterally and conjunctivae normal Neck no lymphadenopathy Resp normal respiratory effort and clear to auscultation bilaterally Cardio regular rate, regular rhythm and no murmurs Peripheral Pulses: pulses 2+ throughout GI normal to inspection, nondistended, normoactive bowel sounds, non-tender and non-distended Extremity normal to inspection Skin no rashes or lesions noted Lesions: no lesions Rashes: no rashes Trauma: no lacerations or abrasions Neuro CN's II-XII intact bilaterally, no focal motor deficits, no sensory deficits noted and deep tendon reflexes 2+ bilaterally Psych mental status grossly normal and affect normal Assessment & Plan Assessment/Plan (1) SIRS (systemic inflammatory response syndrome): PLAN: 1. Fever of unknown origin-recent admission with rheumatologic work-up without any identifiable cause. Patient was reported to be unable to move in his bed. Upon exam 01/04/2021, patient ambulating to restroom without any assistive devices. He reports 3 weeks of arthralgias/myalgias, intermittent fever, and intractable diarrhea for the past [address] 01/03/[address] of abdomen and pelvis 12/10/2020 without lymphoma or other acute process. Covid PCR negative. ID consulted. Patient accepted at [facility], awaiting transfer for further ongoing evaluation and management. Urine culture with no growth. C. difficile negative. Blood culture pending. 2. Diarrhea-patient reports x2 days. C. difficile negative. As needed Imodium. 3. Type 2 diabetes [id number] with sliding scale insulin. Continue home insulin regimen. 4. CAD with history of stent-on aspirin, Plavix. Statin recently discontinued. 5. Hypertension-stable, continue Cardizem, losartan. 6. Hyperlipidemia-previously on statin however this was discontinued due to myalgias. 7. Chronic back pain-on as needed cyclobenzaprine and PRN Toney. 8. GERD-continue PPI. 9. Chronic COPD-no exacerbation. As needed aerosol 10. HAWA-continue CPAP nightly. 11. Obesity-encouraged diet and lifestyle modifications. DVT prophylaxis- Lovenox sc This patient was seen by ANGE De La Rosa under the supervision of Dr. Busby. Documented by User: Dr. Smooth Busby DO 01/04/21 17:09 Objective Data Lab / Micro Data Result Diagrams: 01/04/21 06:26 01/04/21 06:26 Charges/Coding Addendum Addendum: Patient was seen and examined today independently of Estrellita Head, he states he is still having diarrhea today, patient C. difficile toxin was negative in his stool today, the enteric bacteriology on the stool is pending. Patient was seen by infectious diseases today who is going to treat the patient for Lyme's disease. Patient was able to walk to the bathroom today with minimal assistance. On examination he appeared his stated. Vital signs as documented. Skin warm and dry and without overt rashes. Neck without JVD, neck was supple, trachea midline, thyroid was normal. Lungs clear bilaterally, normal air movement was noted. Heart exam notable for regular rhythm, normal sounds and absence of murmurs, rubs or gallops. Abdomen unremarkable and without evidence of organ omegaly, masses, or abdominal aortic enlargement. Bowel sounds are present, abdomen is not distended. Extremities nonedematous, no cyanosis was noted, no clubbing was noted. Neuro: Cranial nerves II through XII are grossly intact, no focal motor deficits were noted, sensation to light touch and pinprick intact, motor exam 5/5 throughout. Psych: Patient is alert and oriented x3, he does not appear anxious or depressed, he does not appear agitated. Patient will be treated for Lyme's disease under the direction of infectious diseases. Patient will be seen by PT and OT. I have reviewed Estrellita Head's progress note including her medical assessment and plan of care and endorse it. Visit Charges Inpatient E&M: 61332 Subs Hosp L2
[2021-01-04] MEDS: Loperamide 2 MG Capsule PO ×3 (12:52→22:19)
[2021-01-04] MEDS: Glucerna Shake 120 ML LIQUID PO (12:52)
[2021-01-04] MEDS: Ondansetron 4 MG/2 ML Vial IV (14:47)
[2021-01-04] MEDS: 0.9% Saline Lock 10 ML Syringe IV ×2 (14:47→20:06)
[2021-01-04 16:00] VITALS: BP 130/80; PULSE 103; RESP 18; TEMP 36.4; O2SAT 94
[2021-01-04 16:16] LABS: Bedside Glucose 121 mg/dL (70-110)
[2021-01-04] MEDS: Doxycycline 100 MG CAPSULE PO (16:24)
[2021-01-04] MEDS: Pantoprazole Sodium 40 MG Tablet PO (20:11)
--- NOTE | 2021-01-04 20:24 | CON.PCM.ID_ITS ---
Assessment & Plan Assessment/Plan (1) Acute kidney injury: (2) Polyarthralgia: PLAN: Now with acute onset fever, diarrhea, rigors. Ordered stool pcr panel, (+) camplobacter. Will start azithro. With bullseye rash and tick exposure, will recheck Lyme Ab and gave dose of doxy. Now one bcx with gram pos diplococci, will change to ceftriaxone. Will follow, thank you, d/w Dr. Busby HPI Consult Data Date of Consult: 01/04/21 HPI Narrative HPI Narrative: DINORAH SANTOS, is a 55 M who presented with sx starting early November. 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 [place] a bug crawling on his head. Never saw a tick. A week later developed severe BLE muscle/joint aches, swelling. Went to ED 12/10. Admitted here 12/19- and 12/26-. Treated for foot cellulitis. Given steroids without improvement. 12/25 noticed bullseye rash on RUE. Pain moved from legs to arms to shoulders to hips to his jaw. Over past 3 days, new fever, shakes, chills, drenching sweats, and diarrhea. is feeling fine. No blood in stool. No travel. Came back to ED, knee aspiration done. Covid vaccinated. Full ROS performed and neg except as noted above. [facility] Medical History Acute respiratory failure, unspecified whether with hypoxia or hypercapnia Allergic rhinitis Atherosclerotic heart disease of [place] coronary artery with other forms of angina pectoris Bilateral hand swelling Body mass index (BMI) of 40.0-44.9 in adult Breathing-related sleep disorder Chest pain Chronic pain COPD (chronic obstructive pulmonary disease) Coronary artery disease Diabetes Essential (primary) hypertension Former smoker GERD (gastroesophageal reflux disease) High cholesterol History of ST elevation myocardial infarction (STEMI) (11/06/15) History of stress test Hyperlipidemia Hypertension Impingement syndrome of left shoulder Myocardial infarct 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) HAWA (obstructive sleep apnea) Proteinuria Screening for malignant neoplasm of intestine Sleep apnea Strain of muscle(s) and tendon(s) of the rotator cuff of left shoulder, subsequent encounter Tobacco abuse Home Medications aspirin 81 mg PO DAILY@0800 12/02/15 [History Last Taken 01/03/21] oxycodone-acetaminophen 5 mg-325 mg tablet 1 tab PO Q8H PRN 04/28/19 [History Last Taken 12/26/20 05:30] albuterol sulfate 1 puff INHALATION DAILY PRN 01/14/20 [History Last Taken 12/22/20] clopidogrel 75 mg tablet 75 mg PO DAILY #90 tab 09/09/20 [Rx Last Taken 01/03/21] diltiazem HCl 180 mg capsule,extended release 24 hr 180 mg PO QDAY #90 cap 09/09/20 [Rx Last Taken 01/03/21] fluticasone furoate 200 mcg-vilanterol 25 mcg/dose inhalation powder 1 inh INHALATION DAILY ea 09/09/20 [History Last Taken 01/03/21] furosemide 40 mg tablet 40 mg PO DAILY #90 tab 09/09/20 [Rx Last Taken 01/03/21] omeprazole 40 mg capsule,delayed release 40 mg PO QHS #90 cap 09/09/20 [Rx Last Taken 01/02/21] losartan 50 mg PO DAILY 12/19/20 [History Last Taken 01/03/21] cyclobenzaprine 5 mg PO TID PRN PRN 12/26/20 [History Last Taken 12/26/20] insulin glargine [Lantus Solostar U-100 Insulin] 15 unit SUBCUT BID #15 ml 12/28/20 [Rx Last Taken 01/03/21] Allergy/AdvReac Type Severity Reaction Status Date / Time atorvastatin Allergy Mild itching Verified 12/26/20 13:57 lisinopril Allergy Other Verified 12/26/20 13:57 Family History Grandmother CAD (coronary artery disease) Hypertension Father Hypertension CAD (coronary artery disease) Hyperlipidemia Heart disease Myocardial infarction Brother CAD (coronary artery disease) Heart disease Myocardial infarction Surgical History History of coronary artery stent placement (11/06/15) History of left heart catheterization (09/15/20) History of repair of rotator cuff Social History household members: spouse Smoking Status: Former smoker how long ago did patient quit smokin11/06/15 second hand exposure: Yes alcohol intake: never substance use type: does not use caffeine: No what type of physical activity do you participate in: none Physical Exam Const alert and oriented x3 Constitutional Narrative: uncomfortable General Appearance: cooperative Exam Limitations: no limitations HEENT normocephalic and head/scalp atraumatic Eyes PERRL and EOMs intact bilaterally Neck supple and No nodes Resp normal air movement and clear to auscultation bilaterally Cardio regular rate and regular rhythm GI normal to inspection, nondistended, normoactive bowel sounds Extremity no clubbing, cyanosis or edema Skin no rashes or lesions noted Neuro CN's II-XII intact bilaterally Medical Records Data Medical Nutrition Assessment Dietitian: Malnutrition Criteria Met Start: 01/04/21 16:27 Freq: Status: Active Protocol: Document 01/04/21 16:27 RMA (Rec: 01/04/21 16:27 RMA [id number]) Nutrition Malnutrition Evidence of Malnutrition Exists Yes Malnutrition (severe): Acute Illness/Injury Evidenced By Suboptimal Energy Intake ( Severe),Weight Loss (Severe) Intake Problem Inadequate Oral Intake Etiology related to altered GI function Signs/Symptoms as evidenced by PO meeting less than 50% estimated nutrition needs; wt loss~6% x 2-3 weeks Status Active Problem Clinical Problem Acute Disease or Injury Related Malnutrition Etiology related to inadequate oral intake/altered GI function Signs/Symptoms as evidenced by ~6% unintended wt loss x past 2-3 weeks and oral intake meeting less than 50% estimated nutrition needs Status Active Problem Recommendation Dietitian Recommendations/Changes Will adjust diet to 1600 calorie/consistent carbohydrate/cardiac; decreased calories to account for ONS. Will d/c glucerna shake w/ medpass. Will offer 120ml manuel glucerna shake TID and 120ml apple ensure clear TID w/ meals for tolerance. D/C ONS as intake improves at meals. Lab / Micro Data Result Diagrams: 01/04/21 06:26 01/04/21 06:26 Labs: Laboratory Results - last 24 hr 01/03/21 18:26: Fluid Crystals SEE PATH REV, Fluid Crystal Source SYNOVIAL, Fl Crystal Path Review Will follow, Synovial Source UNK, Synovial Color Red, Synovial Appearance Cloudy, Synov Mononuclear WBCs 1.976, Synovial Neutrophils 63 H, Synovial Monocytes 37, Synovial Path Comment May follow 01/03/21 22:57: Urine Color Yellow, Urine Clarity Sl. Cloudy, Urine pH 5.0, Ur Specific [place] 1.020, Urine Protein 30 H, Urine Glucose (UA) 50 H, Urine Ketones 5 H, Urine Occult Blood 10 H, Urine Nitrite Negative, Urine Bilirubin 1 H, Urine Urobilinogen Normal, Ur Leukocyte Esterase Negative, Urine RBC 0-5 SEEN, Urine WBC 0 SEEN, Ur Squamous Epith Cells 0 SEEN, Amorphous Sediment 2+, Urine Bacteria 1+, Urine Mucus 2+ 01/03/21 23:17: COVID-19 (DEIDRA) Not Detected 01/04/21 00:30: POC Glucose 170 H 01/04/21 02:25: Chlam trachomat DNA PCR Negative, N.gonorrhoeae DNA (PCR) Negative 01/04/21 06:26: WBC 13.4 H, RBC 4.31 L, Hgb 12.5 L, Hct 39.9 L, MCV 92.6, MCH 29.0, MCHC 31.3 L, RDW Std Deviation 51.3 H, RDW Coeff of Sophy 14.9 H, Plt Count 463 H, MPV 8.8, Immature Gran % (Auto) 1.500 H, Neut % (Auto) 84.1 H, Lymph % (Auto) 9.9 L, [place] % (Auto) 4.0, Eos % (Auto) 0.1, Baso % (Auto) 0.4, Absolute Neuts (auto) 11.3 H, Absolute Lymphs (auto) 1.33, Nucleated RBC % 0 01/04/21 06:26: Sodium 128 L, Potassium 3.9, Chloride 98, Carbon Dioxide 23.0, Anion Gap 7, BUN 16, Creatinine 0.97, Estim Creat Clear Calc 80.45, Est GFR ( MDRD) Af Amer 103, Est GFR (MDRD) Non-Af 85, BUN/Creatinine Ratio 16.4, Glucose 165 H, Calcium 9.3 01/04/21 06:39: POC Glucose 154 H 01/04/21 11:59: POC Glucose 273 H 01/04/21 16:03: POC Glucose 121 H Micro: Microbiology 01/03/21 15:45 Blood Culture (Wb) - Anticubital Left Blood Culture - Preliminary 01/03/21 22:51 Stool Enteric Bacteriology - Preliminary Campylobacter species 01/03/21 18:26 Fluid - Other Gram Stain - Final 01/03/21 18:26 Fluid - Other Body Fluid Culture - Preliminary No growth-Final to follow 01/03/21 22:57 Urine, Random Urine Culture - Preliminary Culture exhibits no growth. 01/03/21 22:57 Stool C. difficile DNA Amplification - Final 01/03/21 21:14 Nasal Secretion SARS-CoV-2 Antigen (Rapid) - Final
[2021-01-04] MEDS: Azithromycin 250 MG Tablet 500 MG PO (20:59)
[2021-01-04 22:08] VITALS: BP 128/78; PULSE 91; RESP 18; TEMP 36.7; O2SAT 93
[2021-01-04 22:40] LABS: Bedside Glucose 177 mg/dL (70-110)
[2021-01-04] MEDS: NYSTATIN 500,000 UNIT/5 ML UDC 500000 UNIT PO (22:55)
[2021-01-05 06:11] VITALS: BP 135/84; PULSE 97; RESP 16; TEMP 36.9; O2SAT 96
[2021-01-05] MEDS: Acetaminophen 325 MG Tablet 650 MG PO ×3 (06:16→20:20)
[2021-01-05] MEDS: oxyCODONE 5 MG Tablet PO ×3 (06:17→22:33)
[2021-01-05 06:56] LABS: Bedside Glucose 132 mg/dL (70-110)
[2021-01-05 07:10] VITALS: O2SAT 95
[2021-01-05 07:16] LABS: Absolute Lymphocyte Count 1.46 X10^3/uL (0.83-4.51); Basophil# 0.04 X10^3/uL; Basophil% 0.4 % (0-1); Eosinophil# 0.08 X10^3/uL; Eosinophils% 0.8 % (0-5); Hemoglobin 12.4 g/dL (13.0-16.5); Lymphocyte # 1.46 X10^3/ul (0.83-4.51); Lymphocyte % 14.2 % (19-41); Mean Corp Hgb Conc 32.6 g/dL (32-36); Mean Corpuscular Volume 88.8 fL (80-94); Mean Platelet Vol. 8.8 fl (6.2-12.0); Monocyte# 0.62 X10^3/uL; NRBC Flagged by Analyzer 0 % (0-5); Neutrophil # 7.97 X10^3/uL (2.7-7.7); Neutrophil % 77.4 % (47-70); Platelet Count 465 K/mm3 (150-450); RBC Distribution Width CV 14.8 % (11.6-14.6); RBC Distribution Width SD 48.3 fl (35.1-43.9); Red Blood Count 4.28 M/mm3 (4.6-6.2); White Blood Count 10.3 K/mm3 (4.4-11.0)
[2021-01-05 07:52] LABS: ALB/GLOB Ratio 0.4 RATIO (0.9-2.4); AST(SGOT) 29 U/L (15-37); Alanine Aminotransfer ALT/SGPT 47 U/L (16-61); Alkaline Phosphatase 94 U/L (45-117); Anion Gap 9 (5-15); BUN 16 mg/dL (7-18); BUN/Creat Ratio 17.2 RATIO (10-20); Calcium,Total 9.2 mg/dL (8.5-10.1); Chloride 100 mmol/L (98-107); Creatinine, Serum 0.93 mg/dL (0.70-1.30); EST Glomerular Filtration Rate 89 mL/min (>60); Est Glom Filt Rate - Afr Amer 108 mL/min (>60); Estimated Creatinine Clearance 83.91 ml/min; Globulin 5.4 g/dL (2.2-4.2); Glucose 119 mg/dL (74-106); Potassium 3.6 mmol/L (3.5-5.1); Protein, Total 7.4 g/dL (6.4-8.2); Sodium Level 133 mmol/L (136-145)
[2021-01-05 07:58] LABS: ASO Titer 72.9 IU/mL (0.0-200.0)
--- NOTE | 2021-01-05 08:36 | NURSING ---
pt in bed this am c/o stomach ache and upset. stated, i think its all the diarrhea and all and its just moved up student rn to get immodium for pt. pt made aware that wbc is better today. pt reports that if i have lyme disease ill be the happiest man on the planet cause at least ill know what is wrong with me and that i wont no other needs noted. agree with student burn nurse this am
[2021-01-05 09:03] LABS: Malaria Blood Parasite Interp Negative (Negative)
[2021-01-05 09:19] LABS: Pathologist Review Reviewed
[2021-01-05] MEDS: Doxycycline 100 MG CAPSULE PO ×2 (09:54→20:55)
[2021-01-05] MEDS: Losartan Potassium 50 MG Tablet PO (09:54)
[2021-01-05] MEDS: dilTIAZem CD 180 MG Capsule PO (09:55)
[2021-01-05] MEDS: Clopidogrel Bisulfate 75 MG Tablet PO (09:55)
[2021-01-05] MEDS: Aspirin E.C. 81 MG Tablet PO (09:55)
[2021-01-05] MEDS: Azithromycin 250 MG Tablet PO (09:55)
--- NOTE | 2021-01-05 10:57 | PCM.PN.ID ---
Physical Exam Narrative Feeling better, aches improved, still diarrhea. No fever/shakes overnight. Const alert and no apparent distress General Appearance: cooperative Resp normal air movement and clear to auscultation bilaterally Cardio regular rate and regular rhythm GI normal to inspection, nondistended, normoactive bowel sounds Skin no rashes or lesions noted ID ID: Route of nutrition/ use of supplements: [] Nutritional Intake: [] IV Site: [] Padron Catheter: [] Assessment & Plan Assessment/Plan (1) Acute kidney injury: (2) Polyarthralgia: PLAN: Now with acute onset fever, diarrhea, rigors. Ordered stool pcr panel, (+) camplobacter. Cont azithro. With bullseye rash and tick exposure, will recheck Lyme Ab and gave dose of doxy. Now one bcx with CoNS. Stop ceftriaxone, restart doxy. Feeling better. Campylobacter can cause a reactive arthritis, but diarrhea came weeks after the aches/pains. Will follow, d/w Dr. Busby
[2021-01-05 12:21] LABS: Bedside Glucose 100 mg/dL (70-110)
--- NOTE | 2021-01-05 12:34 | PCM.PN.HOSP ---
Documented by User: Uzma Aguilar NP-C 01/05/21 12:48 Subjective Subjective Patient seen and examined. Patient states that he is feeling much better than he was yesterday but continues to have arthralgias in his hands and knees. Patient states pain is tolerable right now. Patient denies other needs at this time. Objective Data Objective Data Vital Signs: Vital Signs Temp Pulse Resp BP Pulse Ox 98.4 F 97 16 135/84 H 95 01/05/21 06:11 01/05/21 06:11 01/05/21 06:11 01/05/21 06:11 01/05/21 07:10 Oxygen Delivery Method Room Air Weight: 252 lb 3.341 oz Body Mass Index (BMI) 39.4 Intake & Output: Intake and Output for Last 24 Hours 01/03/21 01/04/21 01/05/21 23:59 23:59 23:59 Intake Total 1649.35 / 1649.35 93.5 / 93.5 360 / 360 Output Total 300 / 300 Balance 1649.35 / 1649.35 -206.5 / -206.5 360 / 360 Medical Nutrition Assessment Dietitian: Malnutrition Criteria Met Start: 01/04/21 16:27 Freq: Status: Active Protocol: Document 01/04/21 16:27 RMA (Rec: 01/04/21 16:27 RMA [id number]) Nutrition Malnutrition Evidence of Malnutrition Exists Yes Malnutrition (severe): Acute Illness/Injury Evidenced By Suboptimal Energy Intake ( Severe),Weight Loss (Severe) Intake Problem Inadequate Oral Intake Etiology related to altered GI function Signs/Symptoms as evidenced by PO meeting less than 50% estimated nutrition needs; wt loss~6% x 2-3 weeks Status Active Problem Clinical Problem Acute Disease or Injury Related Malnutrition Etiology related to inadequate oral intake/altered GI function Signs/Symptoms as evidenced by ~6% unintended wt loss x past 2-3 weeks and oral intake meeting less than 50% estimated nutrition needs Status Active Problem Recommendation Dietitian Recommendations/Changes Will adjust diet to 1600 calorie/consistent carbohydrate/cardiac; decreased calories to account for ONS. Will d/c glucerna shake w/ medpass. Will offer 120ml manuel glucerna shake TID and 120ml apple ensure clear TID w/ meals for tolerance. D/C ONS as intake improves at meals. Lab / Micro Data Result Diagrams: 01/05/21 06:45 01/05/21 06:45 Labs: Laboratory Results - last 24 hr 01/03/21 15:45: ESR 01/03/21 18:26: Fl Crystal Path Review Reviewed 01/03/21 23:30: Malaria Smear Interp Negative, Malaria % Parasitism 0.00 01/04/21 06:26: Anti-Streptolysin Titr 72.9 01/04/21 16:03: POC Glucose 121 H 01/04/21 22:14: POC Glucose 177 H 01/05/21 06:39: POC Glucose 132 H 01/05/21 06:45: WBC 10.3, RBC 4.28 L, Hgb 12.4 L, Hct 38.0 L, MCV 88.8, MCH 29.0, MCHC 32.6, RDW Std Deviation 48.3 H, RDW Coeff of [place] 14.8 H, Plt Count 465 H, MPV 8.8, Immature Gran % (Auto) 1.200 H, Neut % (Auto) 77.4 H, Lymph % (Auto) 14.2 L, [place] % (Auto) 6.0, Eos % (Auto) 0.8, Baso % (Auto) 0.4, Absolute Neuts (auto) 8.0 H, Absolute Lymphs (auto) 1.46, Nucleated RBC % 0 01/05/21 06:45: Sodium 133 L, Potassium 3.6, Chloride 100, Carbon Dioxide 24.0, Anion Gap 9, BUN 16, Creatinine 0.93, Estim Creat Clear Calc 83.91, Est GFR (MDRD) Af Amer 108, Est GFR (MDRD) Non-Af 89, BUN/Creatinine Ratio 17.2, Glucose 119 H, Calcium 9.2, Total Bilirubin 0.20, AST 29, ALT 47, Alkaline Phosphatase 94, Total Protein 7.4, Albumin 2.0 L, Globulin 5.4 H, Albumin/Globulin Ratio 0.4 L 01/05/21 11:51: POC Glucose 100 Micro: Microbiology 01/03/21 15:45 Blood Culture (Wb) - Anticubital Left Bacteria Detection (PCR) - Final Coag Negative Staph 01/03/21 15:45 Blood Culture (Wb) - Anticubital Left Blood Culture - Preliminary Coag Negative Staph 01/03/21 22:51 Stool Enteric Bacteriology - Final Campylobacter species 01/03/21 18:26 Fluid - Other Gram Stain - Final 01/03/21 18:26 Fluid - Other Body Fluid Culture - Preliminary No growth-Final to follow 01/03/21 22:57 Urine, Random Urine Culture - Preliminary Culture exhibits no growth. 01/03/21 22:57 Stool C. difficile DNA Amplification - Final 01/03/21 21:14 Nasal Secretion SARS-CoV-2 Antigen (Rapid) - Final Physical Exam Const alert, oriented x3 and no apparent distress HEENT head/scalp atraumatic Head and Scalp: normocephalic Eyes conjunctivae normal and no scleral icterus Neck full ROM and supple General: trachea midline Resp normal respiratory effort, normal air movement and clear to auscultation bilaterally Effort and Inspection: able to speak in complete sentences and symmetric chest movement Cardio regular rate, regular rhythm, S1 normal heart sound and S2 normal heart sound GI normal to inspection, nondistended, normoactive bowel sounds, soft to palpation and non-tender Extremity normal to inspection, full ROM and no clubbing, cyanosis or edema Peripheral Pulses: Yes pulses 2+ throughout Skin no rashes or lesions noted, no wounds and skin turgor normal Neuro oriented x3, moves all extremities, no focal motor deficits and no sensory deficits noted Sensorium / Orientation: awake and alert Speech: speech normal Psych affect normal Assessment & Plan Assessment/Plan (1) Polyarthralgia: (2) SIRS (systemic inflammatory response syndrome): PLAN: 1. Fever of unknown origin -Patient positive for Campylobacter in stool as well as Staphylococcus species in blood. Repeat blood culture pending -Continue azithromycin, restart Doxy -Chest CT and CT of abdomen pelvis negative for acute processes -ID following -Patient has been accepted at [facility] awaiting bed placement for further ongoing evaluation and treatment -Urine culture negative -Leukocytosis resolved -Lyme antibody test pending -Chlamydia, gonorrhea, malaria negative 2. Diarrhea -Negative C. difficile -Positive Campylobacter -Continue azithromycin and doxycycline Will continue all home medications related to chronic diseases. DVT prophylaxis-SCDs This patient was seen by ANGE Sandoval under the supervision of Dr. Busby. Documented by User: Dr. Smooth Busby DO 01/05/21 17:09 Objective Data Lab / Micro Data Result Diagrams: 01/05/21 06:45 01/05/21 06:45 Charges/Coding Addendum Addendum: Patient was seen and examined today independently of Uzma Espinosa, he states he feels better today, he is still having loose stools however. Patient's positive blood cultures were probably contaminant according to infectious diseases. On examination he appeared in good health and spirits. Vital signs as documented. Skin warm and dry and without overt rashes. Neck without JVD, neck was supple, trachea midline, thyroid was normal. Lungs clear bilaterally, normal air movement was noted. Heart exam notable for regular rhythm, normal sounds and absence of murmurs, rubs or gallops. Abdomen unremarkable and without evidence of organomegaly, masses, or abdominal aortic enlargement. Bowel sounds are present, abdomen is not distended. Extremities nonedematous, no cyanosis was noted, no clubbing was noted. Neuro: Cranial nerves II through XII are grossly intact, no focal motor deficits were noted, sensation to light touch and pinprick intact, motor exam 5/5 throughout. Psych: Patient is alert and oriented x3, he does not appear anxious or depressed, he does not appear agitated. Patient's Lyme disease studies are currently pending, I have reviewed Richy Espinosa's progress note including her medical assessment and plan of care and endorse it. Visit Charges Inpatient E&M: 94295 Subs Hosp L2
[2021-01-05 15:27] VITALS: BP 151/88; PULSE 87; RESP 16; TEMP 36.9; O2SAT 94
[2021-01-05] MEDS: Insulin Lispro 100 UNIT/ML INSULN.PEN SC (18:04)
[2021-01-05 18:10] LABS: Bedside Glucose 171 mg/dL (70-110)
[2021-01-05] MEDS: Pantoprazole Sodium 40 MG Tablet PO (20:20)
[2021-01-05 20:53] VITALS: BP 155/95; PULSE 95; RESP 16; TEMP 36.7; O2SAT 99
[2021-01-05] MEDS: NYSTATIN 500,000 UNIT/5 ML UDC 500000 UNIT PO (20:56)
[2021-01-05 22:40] LABS: Bedside Glucose 115 mg/dL (70-110)
[2021-01-06 03:51] VITALS: BP 152/84; PULSE 87; RESP 18; TEMP 36.7; O2SAT 98
[2021-01-06] MEDS: Acetaminophen 325 MG Tablet 650 MG PO ×3 (06:12→21:48)
[2021-01-06] MEDS: oxyCODONE 5 MG Tablet PO ×3 (06:36→22:55)
[2021-01-06 07:01] LABS: Bedside Glucose 103 mg/dL (70-110)
[2021-01-06 07:30] VITALS: O2SAT 94
[2021-01-06 08:02] VITALS: BP 136/102; PULSE 86; RESP 18; TEMP 36.6; O2SAT 96
[2021-01-06] MEDS: Aspirin E.C. 81 MG Tablet PO (09:59)
[2021-01-06] MEDS: Doxycycline 100 MG CAPSULE PO ×2 (09:59→21:48)
[2021-01-06] MEDS: dilTIAZem CD 180 MG Capsule PO (09:59)
[2021-01-06] MEDS: Losartan Potassium 50 MG Tablet PO (10:00)
[2021-01-06] MEDS: Furosemide 40 MG Tablet PO (10:00)
[2021-01-06] MEDS: Azithromycin 250 MG Tablet PO (10:00)
[2021-01-06] MEDS: Clopidogrel Bisulfate 75 MG Tablet PO (10:00)
--- NOTE | 2021-01-06 10:51 | PCM.PN.HOSP ---
Documented by User: Uzma Aguilar NP-C 01/06/21 10:59 Subjective Subjective Patient seen and examined patient states he is feeling improved however he complaints that he had increased hand pain this morning. Patient states the pain is improved following administration of pain medication per regimen. Patient denies other needs at this time Objective Data Objective Data Vital Signs: Vital Signs Temp Pulse Resp BP Pulse Ox 97.8 F 86 18 136/102 H 96 01/06/21 08:02 01/06/21 08:02 01/06/21 08:02 01/06/21 08:02 01/06/21 08:02 Oxygen Delivery Method Room Air Weight: 252 lb 3.341 oz Body Mass Index (BMI) 39.4 Intake & Output: Intake and Output for Last 24 Hours 01/04/21 01/05/21 01/06/21 23:59 23:59 23:59 Intake Total 93.5 / 93.5 880 / 880 150 / 150 Output Total 300 / 300 Balance -206.5 / -206.5 880 / 880 150 / 150 Medical Nutrition Assessment Dietitian: Malnutrition Criteria Met Start: 01/04/21 16:27 Freq: Status: Active Protocol: Document 01/04/21 16:27 RMA (Rec: 01/04/21 16:27 RMA [id number]) Nutrition Malnutrition Evidence of Malnutrition Exists Yes Malnutrition (severe): Acute Illness/Injury Evidenced By Suboptimal Energy Intake ( Severe),Weight Loss (Severe) Intake Problem Inadequate Oral Intake Etiology related to altered GI function Signs/Symptoms as evidenced by PO meeting less than 50% estimated nutrition needs; wt loss~6% x 2-3 weeks Status Active Problem Clinical Problem Acute Disease or Injury Related Malnutrition Etiology related to inadequate oral intake/altered GI function Signs/Symptoms as evidenced by ~6% unintended wt loss x past 2-3 weeks and oral intake meeting less than 50% estimated nutrition needs Status Active Problem Recommendation Dietitian Recommendations/Changes Will adjust diet to 1600 calorie/consistent carbohydrate/cardiac; decreased calories to account for ONS. Will d/c glucerna shake w/ medpass. Will offer 120ml manuel glucerna shake TID and 120ml apple ensure clear TID w/ meals for tolerance. D/C ONS as intake improves at meals. Lab / Micro Data Result Diagrams: 01/06/21 11:45 01/06/21 11:45 Labs: Laboratory Results - last 24 hr 01/03/21 15:45: ESR 01/05/21 11:51: POC Glucose 100 01/05/21 18:02: POC Glucose 171 H 01/05/21 22:30: POC Glucose 115 H 01/06/21 06:56: POC Glucose 103 Micro: Microbiology 01/03/21 22:57 Urine, Random Urine Culture - Final Culture exhibits no growth. 01/03/21 15:45 Blood Culture (Wb) - Anticubital Right Blood Culture - Preliminary No growth in 48 hours. 01/03/21 18:26 Fluid - Other Gram Stain - Final 01/03/21 18:26 Fluid - Other Body Fluid Culture - Preliminary No growth-Final to follow 01/03/21 18:26 Fluid - Other Anaerobic Culture - Preliminary No growth in 48 hours. 01/03/21 15:45 Blood Culture (Wb) - Anticubital Left Bacteria Detection (PCR) - Final Coag Negative Staph 01/03/21 15:45 Blood Culture (Wb) - Anticubital Left Blood Culture - Preliminary Coag Negative Staph 01/03/21 22:51 Stool Enteric Bacteriology - Final Campylobacter species 01/03/21 22:57 Stool C. difficile DNA Amplification - Final 01/03/21 21:14 Nasal Secretion SARS-CoV-2 Antigen (Rapid) - Final Physical Exam Const alert, oriented x3 and no apparent distress Orientation / Consciousness: awake HEENT normocephalic, head/scalp atraumatic and moist oral mucous membranes Eyes conjunctivae normal and no scleral icterus Neck full ROM and supple General: trachea midline Resp normal respiratory effort, normal air movement and clear to auscultation bilaterally Effort and Inspection: able to speak in complete sentences and symmetric chest movement Cardio regular rate, regular rhythm, S1 normal heart sound, S2 normal heart sound and peripheral pulses 2+ throughout GI normal to inspection, nondistended, normoactive bowel sounds, soft to palpation, non-tender and non-distended Extremity normal to inspection, full ROM and no clubbing, cyanosis or edema Skin no rashes or lesions noted, no wounds and skin turgor normal Lesions: no lesions Rashes: no rashes Trauma: no lacerations or abrasions Neuro oriented x3, moves all extremities, no focal motor deficits, no sensory deficits noted and deep tendon reflexes 2+ bilaterally Sensorium / Orientation: awake and alert Speech: speech normal Psych mental status grossly normal and affect normal Assessment & Plan Assessment/Plan (1) Polyarthralgia: (2) SIRS (systemic inflammatory response syndrome): PLAN: 1. Fever of unknown origin -Patient positive for Campylobacter in stool as well as Staphylococcus species in blood. Repeat blood culture pending -Continue azithromycin, Doxycycline -Chest CT and CT of abdomen pelvis negative for acute processes -ID following -Patient has been accepted at [facility] awaiting bed placement for further ongoing evaluation and treatment -Urine culture negative -Leukocytosis resolved -Lyme antibody test pending -Chlamydia, gonorrhea, malaria negative 2. Diarrhea -Negative C. difficile -Positive Campylobacter -Continue azithromycin and doxycycline 3. Obesity BMI 35.0-39.9 -Lifestyle modifications encourage Will continue all home medications related to chronic diseases. DVT prophylaxis-SCDs This patient was seen by Uzma Aguilar NP-Lupe under the supervision of Dr. Busby. Documented by User: Dr. Smooth Busby DO 01/06/21 14:11 Objective Data Lab / Micro Data Result Diagrams: 01/06/21 11:45 01/06/21 11:45 Charges/Coding Addendum Addendum: Patient was seen and examined today independently of Uzma Aguilar, patient complained of some difficulty making a fist today with his hands and some pain in his hands, he did get medicated for pain today with a narcotic and he states it is better. Patient has been afebrile. On examination he appeared in good health and spirits. Vital signs as documented. Skin warm and dry and without overt rashes. Neck without JVD, neck was supple, trachea midline, thyroid was normal. Lungs clear bilaterally, normal air movement was noted. Heart exam notable for regular rhythm, normal sounds and absence of murmurs, rubs or gallops. Abdomen unremarkable and without evidence of organomegaly, masses, or abdominal aortic enlargement. Bowel sounds are present, abdomen is not distended. Extremities nonedematous, no cyanosis was noted, no clubbing was noted. Neuro: Cranial nerves II through XII are grossly intact, no focal motor deficits were noted, sensation to light touch and pinprick intact, motor exam 5/5 throughout. Psych: Patient is alert and oriented x3, he does not appear anxious or depressed, he does not appear agitated. Currently we are awaiting a bed for transfer to the [facility], patient is currently on ceftriaxone for presumed Lyme's disease. Patient's results of his Lyme's antibody tests are not available yet. I have reviewed Ruth Aguilar's progress note including her medical assessment and plan of care and endorse it. Visit Charges Inpatient E&M: 84363 Subs Hosp L2
[2021-01-06 11:40] LABS: Bedside Glucose 151 mg/dL (70-110)
[2021-01-06 12:09] LABS: Absolute Lymphocyte Count 1.43 X10^3/uL (0.83-4.51); Absolute Neutrophil Count 9.9 X10^3/uL (2.0-7.7); Basophil# 0.03 X10^3/uL; Basophil% 0.2 % (0-1); Eosinophil# 0.08 X10^3/uL; Eosinophils% 0.7 % (0-5); Hematocrit 39.4 % (40-54); Hemoglobin 12.9 g/dL (13.0-16.5); Lymphocyte # 1.43 X10^3/ul (0.83-4.51); Lymphocyte % 11.7 % (19-41); Mean Corp Hgb Conc 32.7 g/dL (32-36); Mean Corpuscular Hgb 29.1 pg (27.0-32.0); Mean Corpuscular Volume 88.9 fL (80-94); Mean Platelet Vol. 8.8 fl (6.2-12.0); Monocyte# 0.67 X10^3/uL; Monocyte% 5.5 % (0-10); NRBC Flagged by Analyzer 0 % (0-5); Neutrophil # 9.94 X10^3/uL (2.7-7.7); Neutrophil % 80.9 % (47-70); Platelet Count 541 K/mm3 (150-450); RBC Distribution Width CV 14.6 % (11.6-14.6); RBC Distribution Width SD 47.1 fl (35.1-43.9); Red Blood Count 4.43 M/mm3 (4.6-6.2); White Blood Count 12.3 K/mm3 (4.4-11.0)
[2021-01-06 12:39] LABS: Anion Gap 7 (5-15); BUN 13 mg/dL (7-18); BUN/Creat Ratio 13.6 RATIO (10-20); Calcium,Total 9.3 mg/dL (8.5-10.1); Chloride 102 mmol/L (98-107); Creatinine, Serum 0.96 mg/dL (0.70-1.30); EST Glomerular Filtration Rate 87 mL/min (>60); Est Glom Filt Rate - Afr Amer 105 mL/min (>60); Estimated Creatinine Clearance 81.29 ml/min; Glucose 121 mg/dL (74-106); Potassium 3.7 mmol/L (3.5-5.1); Sodium Level 135 mmol/L (136-145)
[2021-01-06 14:00] VITALS: BP 125/87; PULSE 91; RESP 20; TEMP 36.3; O2SAT 96
--- NOTE | 2021-01-06 14:56 | PCM.PN.ID ---
Physical Exam Narrative Feeling better, but c/o worsened stiffness/pain in bilateral hands, also with new circumoral paresthesias. Diarrhea is becoming more firm. Const alert General Appearance: cooperative Resp normal air movement and clear to auscultation bilaterally Cardio regular rate and regular rhythm GI normal to inspection, nondistended, normoactive bowel sounds Extremity no clubbing, cyanosis or edema Skin no rashes or lesions noted ID ID: Route of nutrition/ use of supplements: [] Nutritional Intake: [] IV Site: [] Padron Catheter: [] Assessment & Plan Assessment/Plan (1) Acute kidney injury: (2) Polyarthralgia: PLAN: Now with acute onset fever, diarrhea, rigors. Ordered stool pcr panel, (+) camplobacter. Cont azithro. With bullseye rash and tick exposure, pending repeat Lyme Ab and started doxy. Now one bcx with CoNS, consistent with contaminant. Feeling better. Campylobacter can cause a reactive arthritis, but diarrhea came weeks after the aches/pains. Now hands feel worse and new perioral paresthesia. Ca level was normal this AM. Recommend rheum work-up. Had neg OZIEL 12/19. Will follow
[2021-01-06 16:50] LABS: Rheumatoid Factor < 10.0 IU/mL (<15); Uric Acid 4.4 mg/dL (3.5-7.2)
[2021-01-06 17:01] LABS: Bedside Glucose 132 mg/dL (70-110)
[2021-01-06] MEDS: Pantoprazole Sodium 40 MG Tablet PO (21:48)
[2021-01-06] MEDS: Insulin Lispro 100 UNIT/ML INSULN.PEN SC (21:50)
[2021-01-06 22:01] LABS: Bedside Glucose 177 mg/dL (70-110)
[2021-01-06 22:19] VITALS: BP 136/95; PULSE 105; RESP 18; TEMP 37.4; O2SAT 94
[2021-01-06] MEDS: cycloBENZAPRine HCl 5 MG TABLET PO (22:55)
--- NOTE | 2021-01-06 23:01 | NURSING ---
[facility] called for update on pt. pt still on waitlist for a bed
[2021-01-07 04:15] VITALS: BP 131/81; PULSE 91; RESP 18; TEMP 36.7; O2SAT 95
[2021-01-07 06:20] LABS: Bedside Glucose 119 mg/dL (70-110)
[2021-01-07 06:28] LABS: Absolute Lymphocyte Count 1.81 X10^3/uL (0.83-4.51); Absolute Neutrophil Count 11.3 X10^3/uL (2.0-7.7); Basophil# 0.05 X10^3/uL; Basophil% 0.4 % (0-1); Eosinophil# 0.06 X10^3/uL; Eosinophils% 0.4 % (0-5); Hematocrit 37.4 % (40-54); Hemoglobin 12.1 g/dL (13.0-16.5); Lymphocyte # 1.81 X10^3/ul (0.83-4.51); Lymphocyte % 12.7 % (19-41); Mean Corp Hgb Conc 32.4 g/dL (32-36); Mean Corpuscular Hgb 28.5 pg (27.0-32.0); Mean Platelet Vol. 8.7 fl (6.2-12.0); Monocyte# 0.76 X10^3/uL; Monocyte% 5.3 % (0-10); NRBC Flagged by Analyzer 0 % (0-5); Neutrophil # 11.34 X10^3/uL (2.7-7.7); Neutrophil % 79.4 % (47-70); Platelet Count 553 K/mm3 (150-450); RBC Distribution Width CV 14.6 % (11.6-14.6); RBC Distribution Width SD 46.5 fl (35.1-43.9); Red Blood Count 4.25 M/mm3 (4.6-6.2); White Blood Count 14.3 K/mm3 (4.4-11.0)
[2021-01-07 06:52] LABS: Anion Gap 8 (5-15); BUN 9 mg/dL (7-18); BUN/Creat Ratio 11.6 RATIO (10-20); Chloride 100 mmol/L (98-107); Creatinine, Serum 0.78 mg/dL (0.70-1.30); EST Glomerular Filtration Rate 110 mL/min (>60); Est Glom Filt Rate - Afr Amer 133 mL/min (>60); Estimated Creatinine Clearance 100.04 ml/min; Glucose 111 mg/dL (74-106); Potassium 3.5 mmol/L (3.5-5.1); Sodium Level 134 mmol/L (136-145)
[2021-01-07 07:57] VITALS: BP 148/101; PULSE 138; RESP 20; TEMP 36.7; O2SAT 95
[2021-01-07] MEDS: Aspirin E.C. 81 MG Tablet PO (08:02)
[2021-01-07] MEDS: Doxycycline 100 MG CAPSULE PO ×2 (08:02→21:25)
[2021-01-07] MEDS: Furosemide 40 MG Tablet PO (08:02)
[2021-01-07] MEDS: Azithromycin 250 MG Tablet PO (08:02)
[2021-01-07] MEDS: Clopidogrel Bisulfate 75 MG Tablet PO ×2 (08:02)
[2021-01-07] MEDS: oxyCODONE 5 MG Tablet PO ×2 (08:03→16:32)
[2021-01-07] MEDS: Losartan Potassium 50 MG Tablet PO (08:03)
[2021-01-07] MEDS: dilTIAZem CD 180 MG Capsule PO (08:03)
[2021-01-07] MEDS: Acetaminophen 325 MG Tablet 650 MG PO ×2 (08:03→14:47)
[2021-01-07] MEDS: cycloBENZAPRine HCl 5 MG TABLET PO ×2 (08:03→21:25)
--- NOTE | 2021-01-07 09:42 | PN.HOSP_ITS ---
Documented by User: Uzma Aguilar FLIGHT ENGINEER-C 01/07/21 09:56 Subjective Subjective Patient seen and examined. Patient states that his hands and arms are much more stiff and sore today than they have been in the past few days. Patient otherwise states that he has no complaints at this time Objective Data Objective Data Vital Signs: Vital Signs Temp Pulse Resp BP Pulse Ox 98.0 F 138 H 20 H 148/101 H 95 01/07/21 07:57 01/07/21 07:57 01/07/21 07:57 01/07/21 07:57 01/07/21 07:57 Oxygen Delivery Method Room Air Weight: 252 lb 3.341 oz Body Mass Index (BMI) 39.4 Intake & Output: Intake and Output for Last 24 Hours 01/05/21 01/06/21 01/07/21 23:59 23:59 23:59 Intake Total 880 / 880 150 / 150 Balance 880 / 880 150 / 150 Medical Nutrition Assessment Dietitian: Malnutrition Criteria Met Start: 01/04/21 16:27 Freq: Status: Active Protocol: Document 01/04/21 16:27 RMA (Rec: 01/04/21 16:27 RMA [id number]) Nutrition Malnutrition Evidence of Malnutrition Exists Yes Malnutrition (severe): Acute Illness/Injury Evidenced By Suboptimal Energy Intake ( Severe),Weight Loss (Severe) Intake Problem Inadequate Oral Intake Etiology related to altered GI function Signs/Symptoms as evidenced by PO meeting less than 50% estimated nutrition needs; wt loss~6% x 2-3 weeks Status Active Problem Clinical Problem Acute Disease or Injury Related Malnutrition Etiology related to inadequate oral intake/altered GI function Signs/Symptoms as evidenced by ~6% unintended wt loss x past 2-3 weeks and oral intake meeting less than 50% estimated nutrition needs Status Active Problem Recommendation Dietitian Recommendations/Changes Will adjust diet to 1600 calorie/consistent carbohydrate/cardiac; decreased calories to account for ONS. Will d/c glucerna shake w/ medpass. Will offer 120ml manuel glucerna shake TID and 120ml apple ensure clear TID w/ meals for tolerance. D/C ONS as intake improves at meals. Lab / Micro Data Result Diagrams: 01/07/21 05:44 01/07/21 05:44 Labs: Laboratory Results - last 24 hr 01/06/21 11:23: POC Glucose 151 H 01/06/21 11:45: WBC 12.3 H, RBC 4.43 L, Hgb 12.9 L, Hct 39.4 L, MCV 88.9, MCH 29.1, MCHC 32.7, RDW Std Deviation 47.1 H, RDW Coeff of Sophy 14.6, Plt Count 541 H, MPV 8.8, Immature Gran % (Auto) 1.000 H, Neut % (Auto) 80.9 H, Lymph % (Auto) 11.7 L, [place] % (Auto) 5.5, Eos % (Auto) 0.7, Baso % (Auto) 0.2, Absolute Neuts (auto) 9.9 H, Absolute Lymphs (auto) 1.43, Nucleated RBC % 0 01/06/21 11:45: Sodium 135 L, Potassium 3.7, Chloride 102, Carbon Dioxide 26.0, Anion Gap 7, BUN 13, Creatinine 0.96, Estim Creat Clear Calc 81.29, Est GFR (MDRD) Af Amer 105, Est GFR (MDRD) Non-Af 87, BUN/Creatinine Ratio 13.6, Glucose 121 H, Calcium 9.3 01/06/21 11:45: Uric Acid 4.4, Rheumatoid Factor < 10.0 01/06/21 16:56: POC Glucose 132 H 01/06/21 21:35: POC Glucose 177 H 01/07/21 05:44: WBC 14.3 H, RBC 4.25 L, Hgb 12.1 L, Hct 37.4 L, MCV 88.0, MCH 28.5, MCHC 32.4, RDW Std Deviation 46.5 H, RDW Coeff of Sophy 14.6, Plt Count 553 H, MPV 8.7, Immature Gran % (Auto) 1.800 H, Neut % (Auto) 79.4 H, Lymph % (Auto) 12.7 L, [place] % (Auto) 5.3, Eos % (Auto) 0.4, Baso % (Auto) 0.4, Absolute Neuts (auto) 11.3 H, Absolute Lymphs (auto) 1.81, Nucleated RBC % 0 01/07/21 05:44: Sodium 134 L, Potassium 3.5, Chloride 100, Carbon Dioxide 26.0, Anion Gap 8, BUN 9, Creatinine 0.78, Estim Creat Clear Calc 100.04, Est GFR (MDRD) Af Amer 133, Est GFR (MDRD) Non-Af 110, BUN/Creatinine Ratio 11.6, Glucose 111 H, Calcium 9.0 01/07/21 06:16: POC Glucose 119 H Micro: Microbiology 01/03/21 22:57 Urine, Random Urine Culture - Final Culture exhibits no growth. 01/03/21 15:45 Blood Culture (Wb) - Anticubital Right Blood Culture - Preliminary No growth in 48 hours. 01/03/21 18:26 Fluid - Other Gram Stain - Final 01/03/21 18:26 Fluid - Other Body Fluid Culture - Preliminary No growth-Final to follow 01/03/21 18:26 Fluid - Other Anaerobic Culture - Preliminary No growth in 48 hours. 01/03/21 15:45 Blood Culture (Wb) - Anticubital Left Bacteria Detection (PCR) - Final Coag Negative Staph 01/03/21 15:45 Blood Culture (Wb) - Anticubital Left Blood Culture - Preliminary Coag Negative Staph 01/03/21 22:51 Stool Enteric Bacteriology - Final Campylobacter species 01/03/21 22:57 Stool C. difficile DNA Amplification - Final 01/03/21 21:14 Nasal Secretion SARS-CoV-2 Antigen (Rapid) - Final Physical Exam Const alert, oriented x3 and no apparent distress Orientation / Consciousness: awake HEENT head/scalp atraumatic Head and Scalp: normocephalic Eyes conjunctivae normal and no scleral icterus Neck full ROM and supple General: trachea midline Resp normal respiratory effort, normal air movement, no use of accessory muscles and clear to auscultation bilaterally Effort and Inspection: able to speak in complete sentences and symmetric chest movement Cardio regular rate, regular rhythm, S1 normal heart sound and S2 normal heart sound Peripheral Pulses: pulses 2+ throughout GI normal to inspection, nondistended, normoactive bowel sounds, soft to palpation and non-tender Extremity normal to inspection and no clubbing, cyanosis or edema Extremity Narrative: Bilateral upper extremities stiff and with decreased range of motion due to pain, stiffness Peripheral Pulses: Yes pulses 2+ throughout Skin no rashes or lesions noted, no wounds and skin turgor normal Lesions: no lesions Rashes: no rashes Trauma: no lacerations or abrasions Neuro oriented x3, moves all extremities, no focal motor deficits and no sensory deficits noted Sensorium / Orientation: awake and alert Speech: speech normal Psych affect normal Assessment & Plan Assessment/Plan (1) Polyarthralgia: (2) SIRS (systemic inflammatory response syndrome): PLAN: 1. Fever of unknown origin -Patient positive for Campylobacter in stool as well as Staphylococcus species in blood. Repeat blood culture negative -Continue azithromycin, Doxycycline -Chest CT and CT of abdomen pelvis negative for acute processes -ID following -Patient has been accepted at [facility] awaiting bed placement for further ongoing evaluation and treatment -Urine culture negative -Leukocytosis resolved -Lyme antibody test pending -Chlamydia, gonorrhea, malaria negative 2. Diarrhea -Negative C. difficile -Positive Campylobacter -Continue azithromycin and doxycycline 3. Obesity BMI 35.0-39.9 -Lifestyle modifications encourage Will continue all home medications related to chronic diseases. DVT prophylaxis-SCDs This patient was seen by ANGE Sandoval under the supervision of Dr. Busby. Documented by User: Dr. Smooth Busby DO 01/07/21 17:33 Objective Data Lab / Micro Data Result Diagrams: 01/07/21 05:44 01/07/21 05:44 Charges/Coding Addendum Addendum: Patient was seen and examined today, he continues to complain of severe joint discomfort, patient's white count is elevated today On examination he appeared in good health and spirits. Vital signs as documented. Skin warm and dry and without overt rashes. Neck without JVD, neck was supple, trachea midline, thyroid was normal. Lungs clear bilaterally, normal air movement was noted. Heart exam notable for regular rhythm, normal sounds and absence of murmurs, rubs or gallops. Abdomen unremarkable and without evidence of organomegaly, masses, or abdominal aortic enlargement. Bowel sounds are present, abdomen is not distended. Extremities nonedematous, no cyanosis was noted, no clubbing was noted. Neuro: Cranial nerves II through XII are grossly intact, no focal motor deficits were noted, sensation to light touch and pinprick intact, motor exam 5/5 throughout. Psych: Patient is alert and oriented x3, he does not appear anxious or depressed, he does not appear agitated. I have reviewed Richy Espinosa's progress note including her medical assessment and plan of care and endorse it. I have decided to administer corticosteroids for the next 24 hours to see if this affects the patient's joint pain. Visit Charges Inpatient E&M: 67089 Subs Hosp L2
--- NOTE | 2021-01-07 10:11 | NURSING ---
pt rechecked and pain better now after po meds given this am. pt reported that hr usually runs 140-150. no real answer on why but pt hr now 138 when nurse rechecked. pt sitting up at bedside finishing breakfast with no further needs
[2021-01-07 11:31] VITALS: BP 107/59; PULSE 102; RESP 16; TEMP 36.6; O2SAT 95
[2021-01-07 12:00] LABS: Bedside Glucose 148 mg/dL (70-110)
[2021-01-07 13:47] VITALS: O2SAT 92
[2021-01-07 14:55] LABS: Bedside Glucose 98 mg/dL (70-110)
[2021-01-07 14:59] VITALS: BP 134/68; PULSE 84; RESP 18; TEMP 36.7; O2SAT 95
[2021-01-07] MEDS: 0.9% Saline Lock 10 ML Syringe IV (18:27)
[2021-01-07] MEDS: Insulin Lispro 100 UNIT/ML INSULN.PEN SC (21:25)
[2021-01-07] MEDS: Pantoprazole Sodium 40 MG Tablet PO (21:25)
[2021-01-07 21:34] VITALS: BP 117/63; PULSE 109; RESP 18; TEMP 36.9; O2SAT 94
[2021-01-07 21:35] LABS: Bedside Glucose 252 mg/dL (70-110)
[2021-01-08] MEDS: oxyCODONE 5 MG Tablet PO ×3 (03:23→21:19)
[2021-01-08] MEDS: Acetaminophen 325 MG Tablet 650 MG PO ×3 (03:23→21:18)
--- NOTE | 2021-01-08 03:27 | NURSING ---
This RN walked into patients room, patient forhead was very sweaty, patient felt cold and clammy. Patient was awake, alert, and appropriate. This RN checked BG 168. VS obtained, WNL. NURSE ORTHOPAEDIC called for bed change. PRN pain medications given at this time. No other needs voiced.
[2021-01-08 03:30] VITALS: BP 126/90; PULSE 79; RESP 18; TEMP 36.9; O2SAT 93
[2021-01-08 03:30] LABS: Bedside Glucose 169 mg/dL (70-110)
[2021-01-08 05:32] LABS: Absolute Lymphocyte Count 1.14 X10^3/uL (0.83-4.51); Absolute Neutrophil Count 19.3 X10^3/uL (2.0-7.7); Basophil# 0.07 X10^3/uL; Basophil% 0.3 % (0-1); Eosinophil# 0.05 X10^3/uL; Eosinophils% 0.2 % (0-5); Hematocrit 37.3 % (40-54); Hemoglobin 12.4 g/dL (13.0-16.5); Lymphocyte # 1.14 X10^3/ul (0.83-4.51); Lymphocyte % 5.2 % (19-41); Mean Corp Hgb Conc 33.2 g/dL (32-36); Mean Corpuscular Hgb 29.2 pg (27.0-32.0); Mean Corpuscular Volume 87.8 fL (80-94); Mean Platelet Vol. 8.7 fl (6.2-12.0); Monocyte# 0.61 X10^3/uL; Monocyte% 2.8 % (0-10); NRBC Flagged by Analyzer 0 % (0-5); Neutrophil # 19.29 X10^3/uL (2.7-7.7); Neutrophil % 88.8 % (47-70); Platelet Count 574 K/mm3 (150-450); RBC Distribution Width CV 14.2 % (11.6-14.6); RBC Distribution Width SD 46.3 fl (35.1-43.9); Red Blood Count 4.25 M/mm3 (4.6-6.2); White Blood Count 21.8 K/mm3 (4.4-11.0)
[2021-01-08 05:57] LABS: Anion Gap 9 (5-15); BUN 13 mg/dL (7-18); BUN/Creat Ratio 15.4 RATIO (10-20); Calcium,Total 9.4 mg/dL (8.5-10.1); Chloride 101 mmol/L (98-107); Creatinine, Serum 0.84 mg/dL (0.70-1.30); EST Glomerular Filtration Rate 100 mL/min (>60); Est Glom Filt Rate - Afr Amer 121 mL/min (>60); Glucose 179 mg/dL (74-106); Potassium 4.3 mmol/L (3.5-5.1); Sodium Level 136 mmol/L (136-145)
[2021-01-08] MEDS: Insulin Lispro 100 UNIT/ML INSULN.PEN SC ×4 (06:20→21:11)
[2021-01-08] MEDS: 0.9% Saline Lock 10 ML Syringe IV ×3 (06:20→21:19)
[2021-01-08 06:45] LABS: Bedside Glucose 179 mg/dL (70-110)
[2021-01-08 08:45] VITALS: BP 168/102; PULSE 90; RESP 16; TEMP 36.6; O2SAT 95
[2021-01-08] MEDS: Aspirin E.C. 81 MG Tablet PO (08:52)
[2021-01-08] MEDS: Losartan Potassium 50 MG Tablet PO (08:53)
[2021-01-08] MEDS: Doxycycline 100 MG CAPSULE PO ×2 (08:53→21:10)
[2021-01-08] MEDS: Furosemide 40 MG Tablet PO (08:53)
[2021-01-08] MEDS: Clopidogrel Bisulfate 75 MG Tablet PO (08:53)
[2021-01-08] MEDS: Azithromycin 250 MG Tablet PO (08:54)
[2021-01-08] MEDS: dilTIAZem CD 180 MG Capsule PO (08:55)
--- NOTE | 2021-01-08 09:36 | PN.HOSP_ITS ---
Documented by User: Uzma Aguilar NP-C 01/08/21 09:42 Subjective Subjective Patient seen and examined. Patient states that he is feeling much better following the initiation of steroids yesterday. Patient is now able to move both hands and has full range of motion without pain. Patient denies any needs at this time. Objective Data Objective Data Vital Signs: Vital Signs Temp Pulse Resp BP Pulse Ox 97.8 F 90 16 168/102 H 95 01/08/21 08:45 01/08/21 08:45 01/08/21 08:45 01/08/21 08:45 01/08/21 08:45 Oxygen Delivery Method Room Air Weight: 255 lb 11.779 oz Body Mass Index (BMI) 39.4 Intake & Output: Intake and Output for Last 24 Hours 01/06/21 01/07/21 01/08/21 23:59 23:59 23:59 Intake Total 150 / 150 1450 / 1450 Balance 150 / 150 1450 / 1450 Medical Nutrition Assessment Dietitian: Malnutrition Criteria Met Start: 01/04/21 16:27 Freq: Status: Active Protocol: Document 01/04/21 16:27 RMA (Rec: 01/04/21 16:27 RMA [id number]) Nutrition Malnutrition Evidence of Malnutrition Exists Yes Malnutrition (severe): Acute Illness/Injury Evidenced By Suboptimal Energy Intake ( Severe),Weight Loss (Severe) Intake Problem Inadequate Oral Intake Etiology related to altered GI function Signs/Symptoms as evidenced by PO meeting less than 50% estimated nutrition needs; wt loss~6% x 2-3 weeks Status Active Problem Clinical Problem Acute Disease or Injury Related Malnutrition Etiology related to inadequate oral intake/altered GI function Signs/Symptoms as evidenced by ~6% unintended wt loss x past 2-3 weeks and oral intake meeting less than 50% estimated nutrition needs Status Active Problem Recommendation Dietitian Recommendations/Changes Will adjust diet to 1600 calorie/consistent carbohydrate/cardiac; decreased calories to account for ONS. Will d/c glucerna shake w/ medpass. Will offer 120ml manuel glucerna shake TID and 120ml apple ensure clear TID w/ meals for tolerance. D/C ONS as intake improves at meals. Lab / Micro Data Result Diagrams: 01/08/21 04:55 01/08/21 04:55 Labs: Laboratory Results - last 24 hr 01/07/21 11:22: POC Glucose 148 H 01/07/21 14:46: POC Glucose 98 01/07/21 21:21: POC Glucose 252 H 01/08/21 03:20: POC Glucose 169 H 01/08/21 04:55: WBC 21.8 H, RBC 4.25 L, Hgb 12.4 L, Hct 37.3 L, MCV 87.8, MCH 29.2, MCHC 33.2, RDW Std Deviation 46.3 H, RDW Coeff of Sophy 14.2, Plt Count 574 H, MPV 8.7, Immature Gran % (Auto) 2.700 H, Neut % (Auto) 88.8 H, Lymph % (Auto) 5.2 L, [place] % (Auto) 2.8, Eos % (Auto) 0.2, Baso % (Auto) 0.3, Absolute Neuts (auto) 19.3 H, Absolute Lymphs (auto) 1.14, Nucleated RBC % 0 01/08/21 04:55: Sodium 136, Potassium 4.3, Chloride 101, Carbon Dioxide 26.0, Anion Gap 9, BUN 13, Creatinine 0.84, Estim Creat Clear Calc 92.90, Est GFR (MDRD) Af Amer 121, Est GFR (MDRD) Non-Af 100, BUN/Creatinine Ratio 15.4, Glucose 179 H, Calcium 9.4 01/08/21 06:18: POC Glucose 179 H Micro: Microbiology 01/03/21 22:57 Urine, Random Urine Culture - Final Culture exhibits no growth. 01/03/21 15:45 Blood Culture (Wb) - Anticubital Right Blood Culture - Preliminary No growth in 48 hours. 01/03/21 18:26 Fluid - Other Gram Stain - Final 01/03/21 18:26 Fluid - Other Body Fluid Culture - Preliminary No growth-Final to follow 01/03/21 18:26 Fluid - Other Anaerobic Culture - Preliminary No growth in 48 hours. 01/03/21 15:45 Blood Culture (Wb) - Anticubital Left Bacteria Detection (PCR) - Final Coag Negative Staph 01/03/21 15:45 Blood Culture (Wb) - Anticubital Left Blood Culture - Preliminary Coag Negative Staph 01/03/21 22:51 Stool Enteric Bacteriology - Final Campylobacter species 01/03/21 22:57 Stool C. difficile DNA Amplification - Final 01/03/21 21:14 Nasal Secretion SARS-CoV-2 Antigen (Rapid) - Final Physical Exam Const alert, oriented x3 and no apparent distress Orientation / Consciousness: awake HEENT normocephalic, head/scalp atraumatic and moist oral mucous membranes Eyes conjunctivae normal and no scleral icterus Neck full ROM and supple General: trachea midline Resp normal respiratory effort, normal air movement, no use of accessory muscles and clear to auscultation bilaterally Effort and Inspection: able to speak in complete sentences and symmetric chest movement Cardio regular rate, regular rhythm, S1 normal heart sound, S2 normal heart sound and peripheral pulses 2+ throughout Peripheral Pulses: pulses 2+ throughout GI normal to inspection, nondistended, normoactive bowel sounds, soft to palpation, non-tender and non-distended Extremity normal to inspection, full ROM and no clubbing, cyanosis or edema Extremity Narrative: Bilateral upper extremities stiff and with decreased range of motion due to pain, stiffness Skin no rashes or lesions noted, no wounds and skin turgor normal Lesions: no lesions Rashes: no rashes Trauma: no lacerations or abrasions Neuro oriented x3, moves all extremities, no focal motor deficits, no sensory deficits noted and deep tendon reflexes 2+ bilaterally Sensorium / Orientation: awake and alert Speech: speech normal Psych mental status grossly normal and affect normal Assessment & Plan Assessment/Plan (1) Polyarthralgia: (2) SIRS (systemic inflammatory response syndrome): PLAN: 1. Fever of unknown origin -Continue azithromycin, Doxycycline -Chest CT and CT of abdomen pelvis negative for acute processes -ID following -Patient has been accepted at [facility] awaiting bed placement for further ongoing evaluation and treatment -Urine culture negative -Leukocytosis resolved -Lyme antibody test pending -Chlamydia, gonorrhea, malaria negative -Patient initiated on steroids evening of 01/07/2021, reports improvement in all symptoms this a.m. 2. Diarrhea -Negative C. difficile -Positive Campylobacter -Continue azithromycin and doxycycline 3. Obesity BMI 35.0-39.9 -Lifestyle modifications encourage Will continue all home medications related to chronic diseases. Discharge planning-plan to DC patient home tomorrow following ID reevaluation. DVT prophylaxis-SCDs This patient was seen by ANGE Sandoval under the supervision of Dr. Busby. Documented by User: Dr. Smooth Busby DO 01/08/21 14:01 Objective Data Lab / Micro Data Result Diagrams: 01/08/21 04:55 01/08/21 04:55 Charges/Coding Addendum Addendum: Patient was seen and examined today, his white blood cell count has risen today, he feels better he is able to move his hands without stiffness. On examination he appeared in good health and spirits. Vital signs as documented. Skin warm and dry and without overt rashes. Neck without JVD, neck was supple, trachea midline, thyroid was normal. Lungs clear bilaterally, normal air movement was noted. Heart exam notable for regular rhythm, normal sounds and absence of murmurs, rubs or gallops. Abdomen unremarkable and without evidence of organomegaly, masses, or abdominal aortic enlargement. Bowel sounds are present, abdomen is not distended. Extremities nonedematous, no cyanosis was noted, no clubbing was noted. Neuro: Cranial nerves II through XII are grossly intact, no focal motor deficits were noted, sensation to light touch and pinprick intact, motor exam 5/5 throughout. Psych: Patient is alert and oriented x3, he does not appear anxious or depressed, he does not appear agitated. Patient will remain on his current medications including IV corticosteroids for now, ID will reevaluate the patient tomorrow, I have not heard from the [facility] as to bed availability for the patient at this time. I have reviewed Ruth Aguilar's progress note including her medical assessment and plan of care and endorse it. Visit Charges Inpatient E&M: 29468 Subs Hosp L2
[2021-01-08 10:56] VITALS: BP 140/93; PULSE 100; RESP 16; TEMP 36.6; O2SAT 96
[2021-01-08 11:15] LABS: Bedside Glucose 202 mg/dL (70-110)
[2021-01-08 15:23] VITALS: BP 140/80; PULSE 92; RESP 16; TEMP 36.4; O2SAT 95
[2021-01-08 16:25] LABS: Bedside Glucose 304 mg/dL (70-110)
[2021-01-08 20:57] VITALS: BP 120/86; PULSE 95; RESP 18; TEMP 36.4; O2SAT 97
[2021-01-08 21:01] LABS: Bedside Glucose 288 mg/dL (70-110)
[2021-01-08] MEDS: Pantoprazole Sodium 40 MG Tablet PO (21:10)
[2021-01-09] MEDS: Acetaminophen 325 MG Tablet 650 MG PO ×2 (06:15→14:13)
[2021-01-09] MEDS: oxyCODONE 5 MG Tablet PO ×2 (06:15→14:13)
[2021-01-09 06:18] LABS: Absolute Lymphocyte Count 1.62 X10^3/uL (0.83-4.51); Absolute Neutrophil Count 21.8 X10^3/uL (2.0-7.7); Basophil% 0.4 % (0-1); Hematocrit 36.8 % (40-54); Lymphocyte # 1.62 X10^3/ul (0.83-4.51); Lymphocyte % 6.5 % (19-41); Mean Corp Hgb Conc 32.6 g/dL (32-36); Mean Corpuscular Hgb 29.1 pg (27.0-32.0); Mean Corpuscular Volume 89.1 fL (80-94); Mean Platelet Vol. 8.6 fl (6.2-12.0); Monocyte# 0.64 X10^3/uL; Monocyte% 2.6 % (0-10); NRBC Flagged by Analyzer 0 % (0-5); Neutrophil # 21.75 X10^3/uL (2.7-7.7); Neutrophil % 86.8 % (47-70); POSITIVE DIFFERENTIAL YES; Platelet Count 604 K/mm3 (150-450); RBC Distribution Width CV 14.2 % (11.6-14.6); RBC Distribution Width SD 46.1 fl (35.1-43.9); Red Blood Count 4.13 M/mm3 (4.6-6.2)
[2021-01-09] MEDS: 0.9% Saline Lock 10 ML Syringe IV (06:19)
[2021-01-09 06:20] VITALS: BP 145/82; PULSE 73; RESP 18; TEMP 36.6; O2SAT 95
[2021-01-09 06:25] LABS: Differential Indicated SCAN CRITERIA MET
[2021-01-09 06:54] LABS: Anion Gap 10 (5-15); BUN 15 mg/dL (7-18); BUN/Creat Ratio 19.1 RATIO (10-20); Calcium,Total 9.5 mg/dL (8.5-10.1); Chloride 100 mmol/L (98-107); Creatinine, Serum 0.79 mg/dL (0.70-1.30); EST Glomerular Filtration Rate 109 mL/min (>60); Est Glom Filt Rate - Afr Amer 131 mL/min (>60); Estimated Creatinine Clearance 98.78 ml/min; Glucose 245 mg/dL (74-106); Potassium 4.2 mmol/L (3.5-5.1); Sodium Level 134 mmol/L (136-145)
[2021-01-09 07:40] LABS: Bedside Glucose 237 mg/dL (70-110)
[2021-01-09] MEDS: Insulin Lispro 100 UNIT/ML INSULN.PEN SC ×2 (07:52→11:14)
[2021-01-09] MEDS: Aspirin E.C. 81 MG Tablet PO (07:52)
[2021-01-09] MEDS: dilTIAZem CD 180 MG Capsule PO (10:20)
[2021-01-09] MEDS: Losartan Potassium 50 MG Tablet PO (10:20)
[2021-01-09] MEDS: Doxycycline 100 MG CAPSULE PO (10:21)
[2021-01-09] MEDS: Clopidogrel Bisulfate 75 MG Tablet PO (10:27)
[2021-01-09 11:26] LABS: Bedside Glucose 240 mg/dL (70-110)
--- NOTE | 2021-01-09 12:44 | DS.PCM_ITS ---
Providers Date of Admission: 01/03/21 Primary Care Physician: Dr. Amor Bishop MD Consultations 01/03/21 23:55 Consult: Infectious Disease Routine Consulting Provider: Albert Carballo Reason for Consult: Polyarthralgia; fever of unknown origin EMERGENT Consult: No MD Notified: Yes Date Notified: 01/03/21 Time Notified: 23:12 Method of Notification: Answering Service Method of Consult:: In-Person Reason For Visit: FEVER OF UNKNOWN ORIGIN; POLYARTHRALGIA Diagnosis Discharge Diagnosis (1) Polyarthralgia: Status: Acute Code(s): M25.50 - Pain in unspecified joint (2) SIRS (systemic inflammatory response syndrome): Status: Acute Code(s): R65.10 - Systemic inflammatory response syndrome (SIRS) of non-infectious origin without acute organ dysfunction Medications at Discharge Home Medications aspirin 81 mg PO DAILY@0800 12/02/15 oxycodone-acetaminophen 5 mg-325 mg tablet 1 tab PO Q8H PRN 04/28/19 albuterol sulfate 1 puff INHALATION DAILY PRN 01/14/20 clopidogrel 75 mg tablet 75 mg PO DAILY #90 tab 09/09/20 diltiazem HCl 180 mg capsule,extended release 24 hr 180 mg PO QDAY #90 cap 09/09/20 fluticasone furoate 200 mcg-vilanterol 25 mcg/dose inhalation powder 1 inh INHALATION DAILY ea 09/09/20 furosemide 40 mg tablet 40 mg PO DAILY #90 tab 09/09/20 omeprazole 40 mg capsule,delayed release 40 mg PO QHS #90 cap 09/09/20 losartan 50 mg PO DAILY 12/19/20 cyclobenzaprine 5 mg PO TID PRN PRN 12/26/20 Lantus Solostar U-100 Insulin 15 unit SUBCUT BID #15 ml 12/28/20 doxycycline hyclate 100 mg PO BID #28 cap 01/09/21 prednisone 40 mg PO DAILY #10 tab 01/09/21 Hospital Course Operations None Procedures None Summary of Care Provided Minutes Spent on Discharge: 40 Hospital Course: Patient is a 55-year-old male with a past medical history as outlined was admitted through the ED on 03/05/2021 with complaint of weakness and inability to move in his bed on the day of presentation. For 3 weeks prior to admission, he had had a migratory arthralgia and myalgia also had intermittent paralysis of both hands and said both hands were stiff and he could not move it and also could not move his leg. He had reported being so weak he had to use a walker to ambulate. During previous admissions for similar symptoms, he had had a right foot infection and had multiple tests including ESR and CRP and Lyme test. Lyme test had initially come back negative. He had also been treated with steroids previously. On admission, he was found to have SIRS with no clear cause of infection. He had arthrocentesis of the left knee which was not significant for any evidence of infection. Covid test done was negative. ID was consulted. Initial plan was to transfer patient to [facility]. Patient also had diarrhea. ID was consulted and with patient seen he had a bull's-eye rash and tick exposure, Lyme antibody was rechecked and patient was started on p.o. doxycycline. He had 1 blood culture which was positive for gram-positive diplococci so antibiotics were subsequently switched to ceftria xone. Patient subsequently improved and felt much better. Diarrhea also improved. Stool PCR panel was positive for Campylobacter so he was started on azithromycin. OZIEL was also negative. Patient symptoms likely resolved and he felt much better. He was discharged home on 01/09/2021 after being managed for presumptive Lyme disease. He states the steroids also helped with his symptoms. He was discharged home on a 2-week course of p.o. doxycycline. He is to follow-up with his primary care doctor and is to follow-up with rheumatology and ID. Patient was seen and examined prior to discharge. He felt well and had no complaints. Review of systems otherwise negative. Labs and vitals reviewed. Home medication reviewed and reconciled. Physical Exam Const alert, oriented x3 and no apparent distress General Appearance: cooperative and comfortable Orientation / Consciousness: awake Exam Limitations: no limitations HEENT normocephalic, head/scalp atraumatic, hearing grossly normal bilaterally and moist oral mucous membranes Eyes PERRL, EOMs intact bilaterally and conjunctivae normal Neck no lymphadenopathy Resp normal respiratory effort, no retractions, no use of accessory muscles and clear to auscultation bilaterally Cardio regular rate, regular rhythm, S1 normal heart sound, S2 normal heart sound and no murmurs GI normal to inspection, nondistended, normoactive bowel sounds, soft to palpation, non-tender and non-distended Extremity normal to inspection, full ROM and no clubbing, cyanosis or edema Skin no rashes or lesions noted Neuro oriented x3, CN's II-XII intact bilaterally and moves all extremities Sensorium / Orientation: awake and alert Psych affect normal Medical Records Data Medical Nutrition Assessment Dietitian: Malnutrition Criteria Met Start: 01/04/21 16:27 Freq: Status: Active Protocol: Document 01/04/21 16:27 RMA (Rec: 01/04/21 16:27 RMA [id number]) Nutrition Malnutrition Evidence of Malnutrition Exists Yes Malnutrition (severe): Acute Illness/Injury Evidenced By Suboptimal Energy Intake ( Severe),Weight Loss (Severe) Intake Problem Inadequate Oral Intake Etiology related to altered GI function Signs/Symptoms as evidenced by PO meeting less than 50% estimated nutrition needs; wt loss~6% x 2-3 weeks Status Active Problem Clinical Problem Acute Disease or Injury Related Malnutrition Etiology related to inadequate oral intake/altered GI function Signs/Symptoms as evidenced by ~6% unintended wt loss x past 2-3 weeks and oral intake meeting less than 50% estimated nutrition needs Status Active Problem Recommendation Dietitian Recommendations/Changes Will adjust diet to 1600 calorie/consistent carbohydrate/cardiac; decreased calories to account for ONS. Will d/c glucerna shake w/ medpass. Will offer 120ml manuel glucerna shake TID and 120ml apple ensure clear TID w/ meals for tolerance. D/C ONS as intake improves at meals. Weight / BMI Weight Weight: 255 lb 11.779 oz Body Mass Index (BMI) 39.4 ABG / Lab / Microbiology Data Result Diagrams: 01/09/21 06:00 01/09/21 06:00 Laboratory: Laboratory Results - last 24 hr 01/08/21 16:07: POC Glucose 304 H 01/08/21 20:56: POC Glucose 288 H 01/09/21 06:00: WBC 25.0 H, RBC 4.13 L, Hgb 12.0 L, Hct 36.8 L, MCV 89.1, MCH 29.1, MCHC 32.6, RDW Std Deviation 46.1 H, RDW Coeff of Sophy 14.2, Plt Count 604 H, MPV 8.6, Immature Gran % (Auto) 3.700 H, Neut % (Auto) 86.8 H, Lymph % (Auto) 6.5 L, Ocean % (Auto) 2.6, Eos % (Auto) 0.0, Baso % (Auto) 0.4, Absolute Neuts (auto) 21.8 H, Absolute Lymphs (auto) 1.62, Nucleated RBC % 0 01/09/21 06:00: Sodium 134 L, Potassium 4.2, Chloride 100, Carbon Dioxide 24.0, Anion Gap 10, BUN 15, Creatinine 0.79, Estim Creat Clear Calc 98.78, Est GFR (MDRD) Af Amer 131, Est GFR (MDRD) Non-Af 109, BUN/Creatinine Ratio 19.1, Glucose 245 H, Calcium 9.5 01/09/21 07:35: POC Glucose 237 H 01/09/21 11:12: POC Glucose 240 H Microbiology: Microbiology 01/03/21 18:26 Fluid - Other Gram Stain - Final 01/03/21 18:26 Fluid - Other Body Fluid Culture - Preliminary No growth-Final to follow 01/03/21 18:26 Fluid - Other Anaerobic Culture - Final No growth in 5 days. 01/03/21 15:45 Blood Culture (Wb) - Anticubital Right Blood Culture - Final No growth in 5 days. 01/03/21 15:45 Blood Culture (Wb) - Anticubital Left Bacteria Detection (PCR) - Final Coag Negative Staph 01/03/21 15:45 Blood Culture (Wb) - Anticubital Left Blood Culture - Final Coag Negative Staph 01/03/21 22:57 Urine, Random Urine Culture - Final Culture exhibits no growth. 01/03/21 22:51 Stool Enteric Bacteriology - Final Campylobacter species 01/03/21 22:57 Stool C. difficile DNA Amplification - Final 01/03/21 21:14 Nasal Secretion SARS-CoV-2 Antigen (Rapid) - Final D/C Instructions Discharge Diet: Low fat / Low cholesterol Discharge Activity: Return to Normal Activity Weight Bearing Status: Weight bearing as tolerated Call your doctor if you observe: Fever of 101 or Higher, Shortness of breath, Dizziness, Swelling in the ankles and Chest pain Meaningful Use Info Meaningful Use Diagnoses (Choose all that apply): None applicable Discharge Plan Admission Admit Date/Time: 01/03/21 23:06 Primary Reason for Your Visit: fever of unknown origin Attending Provider: Veronica Stern Primary Care Provider: Amor Bishop Consulting Providers: Albert Carballo Discharge Orders/Prescriptions Prescriptions: New doxycycline hyclate 100 mg capsule 100 mg PO BID Qty: 28 RF: 0 prednisone 20 mg tablet 40 mg PO DAILY Qty: 10 RF: 0 Continued oxycodone-acetaminophen [Percocet] 5-325 mg tablet 1 tab PO Q8H PRN (Reason: Pain 1-10 Or Fever) RF: 0 fluticasone furoate-vilanterol 200-25 mcg/dose blister with device 1 inh inhalation DAILY RF: 0 clopidogrel 75 mg tablet 75 mg PO DAILY Qty: 90 RF: 3 diltiazem HCl 180 mg capsule,extended release 24hr 180 mg PO QDAY Qty: 90 RF: 3 furosemide 40 mg tablet 40 mg PO DAILY Qty: 90 RF: 3 omeprazole 40 mg capsule,delayed release(DR/EC) 40 mg PO QHS Qty: 90 RF: 3 aspirin 81 MG tablet 81 mg PO DAILY@0800 RF: 0 albuterol sulfate 1 PUFF inhaler 1 puff INHALATION DAILY PRN (Reason: Wheezing) RF: 0 losartan 50 mg Tablet 50 mg PO DAILY RF: 0 cyclobenzaprine 5 mg Tablet 5 mg PO TID PRN PRN (Reason: muscle spasms ) RF: 0 Lantus Solostar U-100 Insulin 100 unit/mL (3 mL) Insulin Pen 15 unit subcut BID Qty: 15 RF: 0 Referrals / Follow Up: Amor Bishop MD [Primary Care Provider] - Within 2 Weeks Albert Carballo MD [STAFF PHYSICIAN] - Within 2 Weeks Disposition Disposition (needs filled in before D/C Order can be placed): Home, Self Care Charges/Coding Visit Charges Inpatient E&M: 48417 Disch Hosp
[2021-01-09 14:46] VITALS: BP 146/88; PULSE 76; RESP 16; TEMP 36.4; O2SAT 98
--- NOTE | 2021-01-10 13:57 | CASEMGMT ---
MACKENZIE PATEL Discharge Follow-up Phone Call: JEANNIE: Nayan Strata: 4 Call Date: 01/10/21 Discharge Date: 01/09/21 Time of Call: 1400 Duration: 3 min Admitting Diagnosis: fever of unknown origin, polyarthralgia, suspected lyme disease MACKENZIE PATEL completed follow-up phone call after recent hospitalization. Patient states he is doing well. Patient had no questions regarding discharge instructions. Patient was able to fill prescriptions without any issues. Patient has follow-up appts scheduled. Patient had no further questions or concerns.
[2021-01-10 16:09] LABS: Anti-Centromere B Ab <0.2 AI (0.0-0.9); Anti-Chromatin <0.2 AI (0.0-0.9); Anti-Jo <0.2 AI (0.0-0.9); Anti-Scleroderma-70 AB <0.2 AI (0.0-0.9); Anti-ribosomal P Antibodies <0.2 AI (0.0-0.9); RNP Ab <0.2 AI (0.0-0.9); SJOGREN'S Anti-SS-A test < 0.2 AI (0.0-0.9); SJOGREN'S Anti-SS-B test < 0.2 AI (0.0-0.9); Smith Ab <0.2 AI (0.0-0.9); Smith/RNP Ab <0.2 AI (0.0-0.9)
[2021-01-10 17:08] LABS: Anti-dsDNA Ab <1 IU/mL (0-9)
[2021-01-11 22:06] LABS: Lyme IgG P18 Ab Absent (.); Lyme IgG P23 Ab Absent (.); Lyme IgG P28 Ab Absent (.); Lyme IgG P30 Ab Absent (.); Lyme IgG P39 Ab Absent (.); Lyme IgG P41 Ab Absent (.); Lyme IgG P45 Ab Absent (.); Lyme IgG P58 Ab Absent (.); Lyme IgG P66 Ab Absent (.); Lyme IgG P93 Ab Absent (.); Lyme IgM P23 Ab Absent (.); Lyme IgM P39 Ab Absent (.); Lyme IgM P41 Ab Absent (.)
[2021-01-11 22:58] LABS: Lyme IgG WB Interpretation Negative (.); Lyme IgM WB Interpretation Negative (.)
[2021-01-18 14:01] LABS: Malaria QC Review PASSED
== END 2021-01-09 15:33 | disposition home or self-care (01) | DRG 868 ==
LOC: ED 22:54 → MS2 01-04 01:49
PROVIDERS: Internal Medicine; Internal Medicine Infectious Disease; Nurse Practitioner Family; Admitting Provider Hospitalist; Emergency Provider Emergency Medicine; PCP Family Medicine; Visit Provider Student in an Organized Health Care Education/Training Program
DX: A69.20 Lyme disease, unspecified (principal); N17.9 Acute kidney failure, unspecified; E44.0 Moderate protein-calorie malnutrition; M25.562 Pain in left knee; M25.542 Pain in joints of left hand; M25.541 Pain in joints of right hand; M25.561 Pain in right knee; E66.9 Obesity, unspecified; Z68.39 Body mass index [BMI] 39.0-39.9, adult; E11.65 Type 2 diabetes mellitus with hyperglycemia; R19.7 Diarrhea, unspecified; B95.8 Unspecified staphylococcus as the cause of diseases classified elsewhere; B96.89 Other specified bacterial agents as the cause of diseases classified elsewhere; R60.0 Localized edema; E78.00 Pure hypercholesterolemia, unspecified; E78.5 Hyperlipidemia, unspecified; G47.30 Sleep apnea, unspecified; M54.50 Low back pain, unspecified; G89.29 Other chronic pain; I10 Essential (primary) hypertension; I25.2 Old myocardial infarction; I25.10 Atherosclerotic heart disease of native coronary artery without angina pectoris; J44.9 Chronic obstructive pulmonary disease, unspecified; K21.9 Gastro-esophageal reflux disease without esophagitis; Z95.5 Presence of coronary angioplasty implant and graft; Z79.4 Long term (current) use of insulin; Z79.02 Long term (current) use of antithrombotics/antiplatelets; Z79.82 Long term (current) use of aspirin; Z79.899 Other long term (current) drug therapy; Z87.891 Personal history of nicotine dependence
CPT/HCPCS: 36415; 71045; 71250; 80048; 80053; 81001; 82962; 83605; 84484; 84550; 85025; 85610; 85730; 86038; 86060; 86140; 86225; 86235; 86431; 86617; 87040; 87070; 87075; 87086; 87149; 87205; 87207; 87426; 87491; 87493; 87506; 87591; 87635; 89050; 89051; 89060; 93005; 97802; 99284; 99406; J7030; J7050; U0005; A4216; J0696; J2405; U0003

== ENCOUNTER → 2021-02-03 15:50 | Outpatient (CLI) | payer OTHER, SELFPAY ==
[2021-02-03 17:29] LABS: ALB/GLOB Ratio 0.8 RATIO (0.9-2.4); AST(SGOT) 18 U/L (15-37); Alanine Aminotransfer ALT/SGPT 22 U/L (16-61); Alkaline Phosphatase 101 U/L (45-117); Anion Gap 6 (5-15); BUN 12 mg/dL (7-18); BUN/Creat Ratio 12.2 RATIO (10-20); Calcium,Total 9.1 mg/dL (8.5-10.1); Chloride 108 mmol/L (98-107); Creatinine, Serum 0.98 mg/dL (0.70-1.30); EST Glomerular Filtration Rate 84 mL/min (>60); Est Glom Filt Rate - Afr Amer 101 mL/min (>60); Globulin 3.6 g/dL (2.2-4.2); Glucose 171 mg/dL (74-106); Potassium 4.2 mmol/L (3.5-5.1); Protein, Total 6.6 g/dL (6.4-8.2); Sodium Level 139 mmol/L (136-145)
[2021-02-10 01:07] LABS: Alternaria alternata <0.10 kU/L (Class 0); Bermuda Grass <0.10 kU/L (Class 0); Bluegrass, Kentucky <0.10 kU/L (Class 0); Cat Hair/Dander, Standard <0.10 kU/L (Class 0); Cladosporium herbarum <0.10 kU/L (Class 0); D farinae Mite <0.10 kU/L (Class 0); D pteronyssinus <0.10 kU/L (Class 0); Dog Epithelia <0.10 kU/L (Class 0); Ragweed, Short/Common <0.10 kU/L (Class 0)
== END ==
PROVIDERS: PCP Family Medicine; Referring Provider Family Medicine; Visit Provider Family Medicine
DX: L29.9 Pruritus, unspecified (principal)
CPT/HCPCS: 36415; 80053; 86003

== ENCOUNTER → 2021-02-22 08:15 | Outpatient (CLI) | payer OTHER, SELFPAY ==
[2021-02-22 10:32] LABS: Erythrocyte Sedimentation Rate 74 mm/hr (0-20)
[2021-02-22 10:33] LABS: Absolute Lymphocyte Count 2.97 X10^3/uL (0.83-4.51); Absolute Neutrophil Count 12.3 X10^3/uL (2.0-7.7); Basophil# 0.11 X10^3/uL; Basophil% 0.7 % (0-1); Eosinophil# 0.25 X10^3/uL; Eosinophils% 1.5 % (0-5); Hemoglobin 13.4 g/dL (13.0-16.5); Lymphocyte # 2.97 X10^3/ul (0.83-4.51); Lymphocyte % 17.7 % (19-41); Mean Corp Hgb Conc 31.9 g/dL (32-36); Mean Corpuscular Hgb 28.5 pg (27.0-32.0); Mean Corpuscular Volume 89.2 fL (80-94); Mean Platelet Vol. 9.3 fl (6.2-12.0); Monocyte# 0.92 X10^3/uL; Monocyte% 5.5 % (0-10); NRBC Flagged by Analyzer 0 % (0-5); Neutrophil # 12.29 X10^3/uL (2.7-7.7); Neutrophil % 73.3 % (47-70); Platelet Count 498 K/mm3 (150-450); RBC Distribution Width CV 15.7 % (11.6-14.6); RBC Distribution Width SD 51.8 fl (35.1-43.9); Red Blood Count 4.71 M/mm3 (4.6-6.2); White Blood Count 16.8 K/mm3 (4.4-11.0)
[2021-02-22 10:37] LABS: Vitamin B12 443 pg/mL (211-911)
[2021-02-22 10:54] LABS: ALB/GLOB Ratio 0.7 RATIO (0.9-2.4); AST(SGOT) 13 U/L (15-37); Alanine Aminotransfer ALT/SGPT 19 U/L (16-61); Alkaline Phosphatase 94 U/L (45-117); Anion Gap 9 (5-15); BUN 12 mg/dL (7-18); BUN/Creat Ratio 14.6 RATIO (10-20); Calcium,Total 9.1 mg/dL (8.5-10.1); Chloride 103 mmol/L (98-107); Cholesterol 132 mg/dL (200); Creatinine, Serum 0.82 mg/dL (0.70-1.30); EST Glomerular Filtration Rate 103 mL/min (>60); Est Glom Filt Rate - Afr Amer 125 mL/min (>60); Ferritin 493 ng/mL (26-388); Globulin 4.6 g/dL (2.2-4.2); Glucose 115 mg/dL (74-106); High Density Lipoprotein 40 mg/dL; Iron 47 ug/dL (65-175); Iron Binding Capacity,Total 330 ug/dL (250-450); Protein, Total 7.6 g/dL (6.4-8.2); Sodium Level 137 mmol/L (136-145); Triglycerides 177 mg/dL; Very Low Density Lipoprotein 35 mg/dL (5-40)
== END ==
PROVIDERS: PCP Family Medicine; Referring Provider Family Medicine; Visit Provider Family Medicine
DX: D64.9 Anemia, unspecified (principal); R70.0 Elevated erythrocyte sedimentation rate; E11.69 Type 2 diabetes mellitus with other specified complication; E11.59 Type 2 diabetes mellitus with other circulatory complications
CPT/HCPCS: 36415; 80053; 80061; 82607; 82728; 82746; 83036; 83540; 83550; 85025; 85652

== ENCOUNTER → 2021-03-20 09:49 | Outpatient (CLI) | payer OTHER, SELFPAY ==
[2021-03-20 10:53] LABS: Amphetamine Urine VISTA NEGATIVE (<1000 ng/mL); Barbiturate Urine VISTA NEGATIVE (< 200 ng/mL); Benzodiazepine Urine VISTA NEGATIVE (< 200 ng/mL); Cocaine Urine VISTA NEGATIVE (< 300 ng/mL); Ecstacy Urine VISTA NEGATIVE (< 500 ng/mL); Methadone Urine VISTA NEGATIVE (< 300 ng/mL); PCP Urine VISTA NEGATIVE (< 25 ng/mL); THC Urine VISTA POSITIVE (< 50 ng/mL); Vista UDS pH Range 5
== END ==
PROVIDERS: PCP Family Medicine; Referring Provider Anesthesiology Pain Medicine; Visit Provider Anesthesiology Pain Medicine
DX: F11.20 Opioid dependence, uncomplicated (principal)
CPT/HCPCS: 80307

== ENCOUNTER 2021-04-03 11:06 | Outpatient (CLI) | payer OTHER, SELFPAY ==
[2021-04-03 15:54] LABS: Erythrocyte Sedimentation Rate 35 mm/hr (0-20)
[2021-04-03 16:03] LABS: Rheumatoid Factor < 10.0 IU/mL (<15)
[2021-04-05 13:41] LABS: ANTINUCLEAR ANTIBODIES DIRECT Negative (Negative)
[2021-04-06 08:48] LABS: CCP IgG Antibodies 5 units (0-19)
== END 2021-04-03 23:59 | disposition short-term general hospital (02) ==
LOC: MFPLAB 11:14
PROVIDERS: PCP Family Medicine; Visit Provider Family Medicine
DX: M25.50 Pain in unspecified joint (principal)
CPT/HCPCS: 36415; 85652; 86038; 86200; 86431

== ENCOUNTER 2021-05-16 08:23 | Outpatient (CLI) | payer OTHER, SELFPAY ==
[2021-05-16 09:32] LABS: Absolute Lymphocyte Count 1.29 X10^3/uL (0.83-4.51); Absolute Neutrophil Count 10.4 X10^3/uL (2.0-7.7); Basophil# 0.06 X10^3/uL; Basophil% 0.5 % (0-1); Eosinophil# 0.07 X10^3/uL; Eosinophils% 0.6 % (0-5); Hematocrit 47.5 % (40-54); Hemoglobin 15.2 g/dL (13.0-16.5); Lymphocyte # 1.29 X10^3/ul (0.83-4.51); Lymphocyte % 10.4 % (19-41); Mean Corpuscular Hgb 28.4 pg (27.0-32.0); Mean Corpuscular Volume 88.8 fL (80-94); Monocyte# 0.54 X10^3/uL; Monocyte% 4.3 % (0-10); NRBC Flagged by Analyzer 0 % (0-5); Neutrophil % 83.6 % (47-70); Platelet Count 370 K/mm3 (150-450); RBC Distribution Width CV 15.7 % (11.6-14.6); Red Blood Count 5.35 M/mm3 (4.6-6.2); White Blood Count 12.4 K/mm3 (4.4-11.0)
[2021-05-16 10:05] LABS: ALB/GLOB Ratio 0.9 RATIO (0.9-2.4); AST(SGOT) 23 U/L (15-37); Alanine Aminotransfer ALT/SGPT 37 U/L (16-61); Albumin, Serum 3.8 g/dL (3.2-5.0); Alkaline Phosphatase 91 U/L (45-117); Anion Gap 8 (5-15); BUN 18 mg/dL (7-18); BUN/Creat Ratio 14.9 RATIO (10-20); Calcium,Total 9.2 mg/dL (8.5-10.1); Chloride 105 mmol/L (98-107); Creatinine, Serum 1.21 mg/dL (0.70-1.30); EST Glomerular Filtration Rate 66 mL/min (>60); Est Glom Filt Rate - Afr Amer 80 mL/min (>60); Globulin 4.3 g/dL (2.2-4.2); Glucose 145 mg/dL (74-106); Potassium 4.7 mmol/L (3.5-5.1); Protein, Total 8.1 g/dL (6.4-8.2); Rheumatoid Factor < 10.0 IU/mL (<15); Sodium Level 136 mmol/L (136-145)
[2021-05-16 10:40] LABS: Hepatitis B Surface Antibody Non-Reactive; Hepatitis B Surface Antigen Non-Reactive (Nonreactive); Hepatitis C Antibody Non-Reactive (Nonreactive)
[2021-05-19 09:09] LABS: PROEL- A/G Ratio 1.1 (0.7-1.7); PROEL- Albumin 3.8 g/dL (2.9-4.4); PROEL- Alpha-1 Globulin 0.2 g/dL (0.0-0.4); PROEL- Beta Globulin 1.5 g/dL (0.7-1.3); PROEL- Gamma Globulin 0.9 g/dL (0.4-1.8); PROEL- Globulin, Total 3.6 g/dL (2.2-3.9); PROEL- TOTAL PROTEIN 7.4 g/dL (6.0-8.5); QNTFERON TB Mitogen Value > 10.00 IU/mL (.); QNTFERON TB Nil Value 0.02 IU/mL (.); QNTFERON TB1+ Ag Value 0.01 IU/mL (.); QNTFERON TB2+ Ag Value 0.02 IU/mL (.)
[2021-05-19 10:13] LABS: CCP IgG Antibodies 7 units (0-19); QNTIFERON TB Positive Criteria Negative (Negative)
== END 2021-05-16 23:59 | disposition home or self-care (01) ==
PROVIDERS: PCP Family Medicine; Referring Provider Internal Medicine Rheumatology; Visit Provider Internal Medicine Rheumatology
DX: M06.4 Inflammatory polyarthropathy (principal); E11.9 Type 2 diabetes mellitus without complications; M79.7 Fibromyalgia; M48.061 Spinal stenosis, lumbar region without neurogenic claudication; I10 Essential (primary) hypertension; E78.5 Hyperlipidemia, unspecified; K21.9 Gastro-esophageal reflux disease without esophagitis
CPT/HCPCS: 36415; 80053; 84165; 85025; 86200; 86335; 86431; 86480; 86706; 86803; 87340

== ENCOUNTER → 2021-07-20 | Outpatient (CLI) | payer OTHER, SELFPAY ==
[2021-07-20 12:13] LABS: Absolute Lymphocyte Count 1.74 X10^3/uL (0.83-4.51); Absolute Neutrophil Count 11.4 X10^3/uL (2.0-7.7); Basophil# 0.07 X10^3/uL; Basophil% 0.5 % (0-1); Eosinophil# 0.05 X10^3/uL; Eosinophils% 0.4 % (0-5); Hemoglobin 14.9 g/dL (13.0-16.5); Lymphocyte # 1.74 X10^3/ul (0.83-4.51); Lymphocyte % 12.4 % (19-41); Mean Corp Hgb Conc 32.4 g/dL (32-36); Mean Corpuscular Hgb 29.3 pg (27.0-32.0); Mean Corpuscular Volume 90.4 fL (80-94); Mean Platelet Vol. 9.4 fl (6.2-12.0); NRBC Flagged by Analyzer 0 % (0-5); Neutrophil # 11.35 X10^3/uL (2.7-7.7); Neutrophil % 80.9 % (47-70); Platelet Count 382 K/mm3 (150-450); RBC Distribution Width CV 15.4 % (11.6-14.6); RBC Distribution Width SD 51.7 fl (35.1-43.9); Red Blood Count 5.09 M/mm3 (4.6-6.2)
[2021-07-20 13:00] LABS: ALB/GLOB Ratio 1.1 RATIO (0.9-2.4); AST(SGOT) 38 U/L (15-37); Alanine Aminotransfer ALT/SGPT 46 U/L (16-61); Albumin, Serum 3.9 g/dL (3.2-5.0); Alkaline Phosphatase 83 U/L (45-117); Anion Gap 4 (5-15); BUN 17 mg/dL (7-18); Calcium,Total 9.2 mg/dL (8.5-10.1); Chloride 104 mmol/L (98-107); Creatinine, Serum 1.06 mg/dL (0.70-1.30); EST Glomerular Filtration Rate 77 mL/min (>60); Est Glom Filt Rate - Afr Amer 93 mL/min (>60); Globulin 3.6 g/dL (2.2-4.2); Glucose 127 mg/dL (74-106); Potassium 4.4 mmol/L (3.5-5.1); Protein, Total 7.5 g/dL (6.4-8.2); Sodium Level 134 mmol/L (136-145)
== END | disposition home or self-care (01) ==
LOC: LAB.FUTURE 10:14
PROVIDERS: PCP Family Medicine; Referring Provider Internal Medicine Rheumatology; Visit Provider Internal Medicine Rheumatology
DX: M06.4 Inflammatory polyarthropathy (principal); J44.9 Chronic obstructive pulmonary disease, unspecified; E11.9 Type 2 diabetes mellitus without complications; M79.7 Fibromyalgia; M48.061 Spinal stenosis, lumbar region without neurogenic claudication; I10 Essential (primary) hypertension; E78.5 Hyperlipidemia, unspecified; K21.9 Gastro-esophageal reflux disease without esophagitis; I25.10 Atherosclerotic heart disease of native coronary artery without angina pectoris; G47.33 Obstructive sleep apnea (adult) (pediatric)
CPT/HCPCS: 36415; 80053; 85025

== ENCOUNTER → 2021-07-31 | Outpatient (CLI) | payer OTHER, SELFPAY ==
--- NOTE | 2021-07-31 08:30 | US_ITS ---
STUDY: ABDOMINAL ULTRASOUND - RIGHT UPPER QUADRANT REASON FOR VISIT: Male, 56 years old ELEVATED LIVER ENZYMES TECHNIQUE: Ultrasound evaluation of the right upper quadrant was performed with real-time and static rouse-scale imaging. TECHNICAL QUALITY: Adequate. COMPARISON: Comparison is made with prior CT scan of abdomen and pelvis dated 12/10/2020. FINDINGS: Liver: The liver is enlarged and measures 21.3 cm. There is increased echogenicity consistent with fatty infiltration. The bile ducts are within normal limits. There is hepatic color flow. The direction of portal flow is hepatopetal. There is no demonstrated mass lesion. Gallbladder: Normal distended gallbladder. The gallbladder wall measures 2.8 mm. There is a negative sonographic Brewer''s sign. There is no pericholecystic fluid. There are no gallstones. Common Bile Duct (C.B.D.): The common bile duct measures 4.5 mm. Pancreas: Normal size of the head, body and tail of the pancreas. There is increased echogenicity of the pancreas. There is no demonstrated pancreatic mass or cyst. Right Kidney: Normal size of the right kidney. The right kidney measures 10.9 cm x 5.2 cm x 6.7 cm. Normal renal cortex. The right cortex measures 1.7 cm. There is no demonstrated renal mass or cyst. There is no right hydronephrosis. US/Liver IMPRESSION: Hepatomegaly and diffuse fatty infiltration of the liver. Electronically Signed: Yasir Caceres MD at 10:35 EDT ,
== END | disposition home or self-care (01) ==
LOC: US 08:28
PROVIDERS: PCP Family Medicine; Referring Provider Internal Medicine Rheumatology; Visit Provider Internal Medicine Rheumatology
DX: M06.4 Inflammatory polyarthropathy (principal); J44.9 Chronic obstructive pulmonary disease, unspecified; E11.9 Type 2 diabetes mellitus without complications; Z79.899 Other long term (current) drug therapy; M79.7 Fibromyalgia; M48.061 Spinal stenosis, lumbar region without neurogenic claudication; I10 Essential (primary) hypertension; E78.5 Hyperlipidemia, unspecified; K21.9 Gastro-esophageal reflux disease without esophagitis; I25.10 Atherosclerotic heart disease of native coronary artery without angina pectoris; G47.33 Obstructive sleep apnea (adult) (pediatric)
CPT/HCPCS: 76705

== ENCOUNTER → 2021-08-16 | Outpatient (CLI) | payer OTHER, SELFPAY ==
[2021-08-17 11:59] LABS: ALB/GLOB Ratio 1.3 RATIO (0.9-2.4); AST(SGOT) 38 U/L (15-37); Alanine Aminotransfer ALT/SGPT 62 U/L (16-61); Albumin, Serum 3.9 g/dL (3.2-5.0); Alkaline Phosphatase 81 U/L (45-117); Anion Gap 8 (5-15); BUN 19 mg/dL (7-18); BUN/Creat Ratio 21.2 RATIO (10-20); Calcium,Total 8.9 mg/dL (8.5-10.1); Chloride 104 mmol/L (98-107); EST Glomerular Filtration Rate 93 mL/min (>60); Est Glom Filt Rate - Afr Amer 113 mL/min (>60); Glucose 81 mg/dL (74-106); Potassium 4.3 mmol/L (3.5-5.1); Protein, Total 6.9 g/dL (6.4-8.2); Sodium Level 139 mmol/L (136-145)
== END | disposition home or self-care (01) ==
LOC: MFPLAB 16:23
PROVIDERS: PCP Family Medicine; Referring Provider Family Medicine; Visit Provider Family Medicine
DX: M06.4 Inflammatory polyarthropathy (principal); J44.9 Chronic obstructive pulmonary disease, unspecified; E11.9 Type 2 diabetes mellitus without complications; Z79.899 Other long term (current) drug therapy; M79.7 Fibromyalgia; M48.061 Spinal stenosis, lumbar region without neurogenic claudication; I10 Essential (primary) hypertension; E78.5 Hyperlipidemia, unspecified; K21.9 Gastro-esophageal reflux disease without esophagitis; I25.10 Atherosclerotic heart disease of native coronary artery without angina pectoris; G47.33 Obstructive sleep apnea (adult) (pediatric)
CPT/HCPCS: 36415; 80053

== ENCOUNTER → 2021-09-12 | Outpatient (CLI) | payer OTHER, SELFPAY ==
[2021-09-12 08:58] LABS: Absolute Lymphocyte Count 3.12 X10^3/uL (0.83-4.51); Basophil# 0.08 X10^3/uL; Basophil% 0.7 % (0-1); Eosinophil# 0.13 X10^3/uL; Eosinophils% 1.1 % (0-5); Hematocrit 43.5 % (40-54); Hemoglobin 14.1 g/dL (13.0-16.5); Lymphocyte # 3.12 X10^3/ul (0.83-4.51); Lymphocyte % 26.9 % (19-41); Mean Corp Hgb Conc 32.4 g/dL (32-36); Mean Corpuscular Volume 92.6 fL (80-94); Monocyte# 1.18 X10^3/uL; Monocyte% 10.2 % (0-10); NRBC Flagged by Analyzer 0 % (0-5); Neutrophil # 7.01 X10^3/uL (2.7-7.7); Neutrophil % 60.6 % (47-70); Platelet Count 314 K/mm3 (150-450); RBC Distribution Width CV 14.7 % (11.6-14.6); RBC Distribution Width SD 50.6 fl (35.1-43.9); White Blood Count 11.6 K/mm3 (4.4-11.0)
[2021-09-12 09:21] LABS: Hemoglobin A1c 6.4 % (3.8-5.6)
[2021-09-12 09:28] LABS: AST(SGOT) 24 U/L (15-37); Alanine Aminotransfer ALT/SGPT 35 U/L (16-61); Albumin, Serum 3.5 g/dL (3.2-5.0); Alkaline Phosphatase 81 U/L (45-117); Anion Gap 7 (5-15); BUN 13 mg/dL (7-18); BUN/Creat Ratio 12.1 RATIO (10-20); Calcium,Total 9.2 mg/dL (8.5-10.1); Chloride 104 mmol/L (98-107); Cholesterol 163 mg/dL (200); Creatinine, Serum 1.07 mg/dL (0.70-1.30); EST Glomerular Filtration Rate 76 mL/min (>60); Est Glom Filt Rate - Afr Amer 92 mL/min (>60); Globulin 3.6 g/dL (2.2-4.2); Glucose 102 mg/dL (74-106); High Density Lipoprotein 59 mg/dL; Potassium 4.3 mmol/L (3.5-5.1); Protein, Total 7.1 g/dL (6.4-8.2); Sodium Level 137 mmol/L (136-145); Triglycerides 197 mg/dL; Very Low Density Lipoprotein 39 mg/dL (5-40)
[2021-09-12 11:05] LABS: Microalbumin:Creatinine Ratio 82.7 mg/g CRE (<30 mg/g CRE); Protein, Urine (Random) 55.4 mg/dL (<11.9); Protein:Creat Ratio 180 mg/g CRE (0-200)
== END | disposition home or self-care (01) ==
LOC: LAB 08:32
PROVIDERS: PCP Family Medicine; Referring Provider Internal Medicine Rheumatology; Visit Provider Internal Medicine Rheumatology
DX: M06.4 Inflammatory polyarthropathy (principal); J44.9 Chronic obstructive pulmonary disease, unspecified; E11.9 Type 2 diabetes mellitus without complications; M79.7 Fibromyalgia; M48.061 Spinal stenosis, lumbar region without neurogenic claudication; I10 Essential (primary) hypertension; E78.5 Hyperlipidemia, unspecified; K21.9 Gastro-esophageal reflux disease without esophagitis; I25.10 Atherosclerotic heart disease of native coronary artery without angina pectoris; G47.33 Obstructive sleep apnea (adult) (pediatric); K76.0 Fatty (change of) liver, not elsewhere classified; Z79.899 Other long term (current) drug therapy
CPT/HCPCS: 36415; 80053; 80061; 82043; 82570; 83036; 84156; 84443; 85025

== ENCOUNTER → 2021-12-01 | Outpatient (CLI) | payer OTHER, SELFPAY ==
--- NOTE | 2021-12-01 09:48 | CDU_ITS ---
Reason For Study: Stenosis Rt. Velocities/BP Lt. Velocities/BP Prox CCA 79.4/12.9 cm/sec. Prox CCA 132.6/24.8 cm/sec. Mid CCA 75.5/16.8 cm/sec. Mid CCA 112.5/21.2 cm/sec. Dist CCA 71.6/16.8 cm/sec. Dist CCA 96.1/21.2 cm/sec. Prox ICA 96.6/10.8 cm/sec. Prox ICA 68.3/16.7 cm/sec. Mid ICA 63.7/22 cm/sec. Mid ICA 57.7/18 cm/sec. Dist ICA 79.7/31.8 cm/sec. Dist ICA 75.4/21.1 cm/sec. Rt. ICA/CCA = 1.28. Lt. ICA/CCA = 0.67. Prox ECA 146.8/21.7 cm/sec. Prox ECA 128.9/17.5 cm/sec. Rt. Vert. 102.7/27.8 cm/sec. Lt. Vert. 76.9/15.5 cm/sec. Right Extracranial There is intimal thickening but no significant atherosclerotic plaque noted in the right common carotid artery. There is heterogeneous, irregular atherosclerotic plaque noted in the right internal carotid artery. There is intimal thickening but no significant atherosclerotic plaque noted in the right external carotid artery. Antegrade flow is noted in the right vertebral artery. Left Extracranial There is intimal thickening but no significant atherosclerotic plaque noted in the left common carotid artery. There is heterogeneous, irregular atherosclerotic plaque noted in the left internal carotid artery. There is intimal thickening but no significant atherosclerotic plaque noted in the left external carotid artery. Antegrade flow is noted in the left vertebral artery. Procedure Carotid Duplex [id number]. This is a Carotid Duplex examination using B-mode, color flow and specral Doppler. Exam performed in department. VL/Carotid Duplex Ultrasound Interpretation Summary Irregular minimal calcific plaque at the proximal right internal carotid artery with less than 50% stenosis Less than 50% stenosis right external carotid artery Minimal irregular plaque at the proximal left internal carotid artery with less than 50% stenosis. Less than 50% stenosis left external carotid artery Patent antegrade vertebral arteries bilaterally No hemodynamically significant change since the preexamination of October 28 1 Ordering Physician: Amor Bishop Referring Physician: Amor Bishop Performed By: Luly Cantu RVT
== END | disposition home or self-care (01) ==
LOC: CVS 09:45
PROVIDERS: PCP Family Medicine; Referring Provider Family Medicine; Visit Provider Family Medicine
DX: I65.23 Occlusion and stenosis of bilateral carotid arteries (principal)
CPT/HCPCS: 93880

== ENCOUNTER → 2021-12-05 | Outpatient (CLI) | payer OTHER, SELFPAY ==
[2021-12-05 09:51] LABS: Absolute Lymphocyte Count 2.78 X10^3/uL (0.83-4.51); Absolute Neutrophil Count 6.2 X10^3/uL (2.0-7.7); Basophil# 0.09 X10^3/uL; Basophil% 0.9 % (0-1); Eosinophil# 0.21 X10^3/uL; Eosinophils% 2.1 % (0-5); Hematocrit 46.1 % (40-54); Hemoglobin 15.1 g/dL (13.0-16.5); Lymphocyte # 2.78 X10^3/ul (0.83-4.51); Lymphocyte % 27.2 % (19-41); Mean Corp Hgb Conc 32.8 g/dL (32-36); Mean Corpuscular Hgb 30.7 pg (27.0-32.0); Mean Corpuscular Volume 93.7 fL (80-94); Mean Platelet Vol. 8.9 fl (6.2-12.0); Monocyte# 0.86 X10^3/uL; Monocyte% 8.4 % (0-10); NRBC Flagged by Analyzer 0 % (0-5); Neutrophil # 6.23 X10^3/uL (2.7-7.7); Neutrophil % 60.9 % (47-70); Platelet Count 411 K/mm3 (150-450); RBC Distribution Width CV 14.4 % (11.6-14.6); RBC Distribution Width SD 49.3 fl (35.1-43.9); Red Blood Count 4.92 M/mm3 (4.6-6.2); White Blood Count 10.2 K/mm3 (4.4-11.0)
[2021-12-05 10:21] LABS: AST(SGOT) 22 U/L (15-37); Alanine Aminotransfer ALT/SGPT 37 U/L (16-61); Albumin, Serum 3.7 g/dL (3.2-5.0); Alkaline Phosphatase 88 U/L (45-117); Anion Gap 5 (5-15); BUN 13 mg/dL (7-18); BUN/Creat Ratio 13.7 RATIO (10-20); Calcium,Total 9.7 mg/dL (8.5-10.1); Chloride 105 mmol/L (98-107); Creatinine, Serum 0.95 mg/dL (0.70-1.30); EST Glomerular Filtration Rate 87 mL/min (>60); Est Glom Filt Rate - Afr Amer 106 mL/min (>60); Globulin 3.8 g/dL (2.2-4.2); Glucose 108 mg/dL (74-106); Potassium 4.4 mmol/L (3.5-5.1); Protein, Total 7.5 g/dL (6.4-8.2); Sodium Level 137 mmol/L (136-145)
== END | disposition home or self-care (01) ==
LOC: LAB 12-04 09:06 → MTLAB 08:32
PROVIDERS: PCP Family Medicine; Referring Provider Internal Medicine Rheumatology; Visit Provider Internal Medicine Rheumatology
DX: M06.4 Inflammatory polyarthropathy (principal); J44.9 Chronic obstructive pulmonary disease, unspecified; E11.9 Type 2 diabetes mellitus without complications; Z79.899 Other long term (current) drug therapy; M79.7 Fibromyalgia; M48.061 Spinal stenosis, lumbar region without neurogenic claudication; I10 Essential (primary) hypertension; E78.5 Hyperlipidemia, unspecified; K21.9 Gastro-esophageal reflux disease without esophagitis; I25.10 Atherosclerotic heart disease of native coronary artery without angina pectoris; G47.33 Obstructive sleep apnea (adult) (pediatric); K76.0 Fatty (change of) liver, not elsewhere classified
CPT/HCPCS: 36415; 80053; 85025

== ENCOUNTER → 2021-12-07 | Outpatient (CLI) | payer OTHER, SELFPAY ==
--- NOTE | 2021-12-07 06:58 | CT_ITS ---
STUDY: LOW DOSE CT LUNG CANCER SCREENING REASON FOR EXAM: Male, 56 years old. HX TOBACCO USE, 30+ PACK YR HISTORY, QUIT 5 YRS AGO RADIATION DOSAGE (If Supplied By Facility): CTDIvol = ( 4.02 ) mGy, DLP = ( 139.94 ) mGycm TECHNIQUE: No contrast was administered. Low dose technique was utilized (average mAS-38 and kVp 120). 1.25 mm axial source images with a slice interval of 1.25-mm were reconstructed in lung windows. 2.5 mm axial source images with a slice interval of 2.5-mm were reconstructed in lung windows. 5.0 mm axial source images with a slice interval of 5.0-mm were reconstructed in soft tissue windows. COMPARISON: Comparison is made with prior study dated 01/03/2021. NODULES: No suspicious nodules are seen. Emphysema: The previously seen areas of linear opacities in the posterior aspect of the right upper lobe has cleared. Endobronchial lesion: None Aorta: Mild degree of atherosclerotic plaque formation of the aortic arch. CORONARY ARTERIES: Coronary artery calcification is seen. Heart: Unremarkable Pulmonary artery: Unremarkable Mediastinal nodes: Small benign-appearing mediastinal lymph nodes. Other chest and abdominal findings: CT/Low Dose CT Lung Screening IMPRESSION: Lung-RADS category 2 - Continue annual screening with LDCT in 12 months. IMPORTANT NOTES FOR USE: ACR Lung-RADS Version 1.1 Assessment Categories Release Date: 2018 Category: Coded 0-4 bases on nodule(s) with highest degree of suspicion. Negative screen is defined as categories 1 and 2; a positive screen is defined as categories 3 and 4. Category 3 and 4A nodules that are unchanged on interval CT should be coded as category 2, and individuals returned to screening in 12 months. Category 4X: Category 3 or 4 nodules with additional imaging findings that increase the suspicion of lung cancer, such as spiculation, GGN that doubles in size in 1 year, enlarged lymph notes, etc. Category Modifiers: S (significant finding unrelated to lung cancer) Electronically Signed: Yasir Caceres MD at 12:49 EDT ,
== END | disposition home or self-care (01) ==
PROVIDERS: PCP Family Medicine; Referring Provider Internal Medicine Critical Care Medicine; Visit Provider Internal Medicine Critical Care Medicine
DX: Z12.2 Encounter for screening for malignant neoplasm of respiratory organs (principal); Z87.891 Personal history of nicotine dependence
CPT/HCPCS: 71271

== ENCOUNTER → 2021-12-20 | Outpatient (CLI) | payer OTHER, SELFPAY ==
[2021-12-20 10:48] LABS: AST(SGOT) 31 U/L (15-37); Alanine Aminotransfer ALT/SGPT 39 U/L (16-61); Albumin, Serum 3.9 g/dL (3.2-5.0); Alkaline Phosphatase 79 U/L (45-117); Bilirubin, Direct 0.13 mg/dL (0.00-0.30); Cholesterol 166 mg/dL (200); Globulin 3.7 g/dL (2.2-4.2); High Density Lipoprotein 45 mg/dL; Protein, Total 7.6 g/dL (6.4-8.2); Triglycerides 307 mg/dL; Very Low Density Lipoprotein 61 mg/dL (5-40)
== END | disposition home or self-care (01) ==
LOC: LAB 10:03
PROVIDERS: PCP Family Medicine; Visit Provider Internal Medicine Cardiovascular Disease
DX: E78.00 Pure hypercholesterolemia, unspecified (principal)
CPT/HCPCS: 36415; 80061; 80076

== ENCOUNTER → 2022-01-24 | Outpatient (CLI) | payer OTHER, SELFPAY ==
--- NOTE | 2022-01-24 15:35 | RAD_ITS ---
INDICATION: pain EXAMINATION/TECHNIQUE: X-RAY - XR Spine Lumbar 2 or 3 Views COMPARISON: MRI lumbar spine May 26, 2018. FINDINGS: VERTEBRAE: Unchanged vertebral height loss at T11 and T12 compared with May 26, 2018 MRI with right and left lateral bridging osteophytes. 5 nonrib-bearing lumbar-type vertebra with mild diffuse endplate osteophyte formation. Lumbar dextrocurvature. Preserved lordosis without listhesis. No lumbar fracture. No spondylolisthesis. Mild L5-S1 facet arthropathy.. DISCS: Mild diffuse disc height loss most prominent at L4-5 INCLUDED ABDOMEN: Included bowel gas pattern is non-obstructive. Aortic atherosclerosis. Moderate right hip joint space loss. RAD/Lumbar Spine 2 or 3 Views IMPRESSION: Moderate lower thoracic and mild lumbar spondylosis with moderate lumbar dextrocurvature. No evidence of lumbar spinal fracture or spondylolisthesis. Right hip osteoarthritis. Aortic atherosclerosis. Electronically Signed: Vijay Bar MD at 16:29 EDT ,
[2022-02-01 15:08] LABS: Lyme IgG P18 Ab Absent (.); Lyme IgG P23 Ab Absent (.); Lyme IgG P28 Ab Absent (.); Lyme IgG P30 Ab Absent (.); Lyme IgG P39 Ab Absent (.); Lyme IgG P41 Ab Present (.); Lyme IgG P45 Ab Absent (.); Lyme IgG P58 Ab Absent (.); Lyme IgG P66 Ab Absent (.); Lyme IgG P93 Ab Absent (.); Lyme IgM P23 Ab Absent (.); Lyme IgM P39 Ab Absent (.); Lyme IgM P41 Ab Absent (.)
[2022-02-02 14:53] LABS: Lyme IgG WB Interpretation Negative (.); Lyme IgM WB Interpretation Negative (.)
== END | disposition home or self-care (01) ==
PROVIDERS: PCP Family Medicine; Visit Provider Internal Medicine Infectious Disease
DX: M25.50 Pain in unspecified joint (principal); M54.50 Low back pain, unspecified
CPT/HCPCS: 36415; 72100; 86617

== ENCOUNTER → 2022-01-29 | Outpatient (CLI) | payer OTHER, SELFPAY ==
--- NOTE | 2022-01-29 08:34 | RAD_ITS ---
STUDY: X-RAY - PELVIS AND RIGHT HIP REASON FOR EXAM: Male, 56 years old. pain TECHNIQUE: 3 views of the pelvis and hip. COMPARISON: None. FINDINGS: There is a non-specific bowel gas pattern. Normal visualized soft tissue structures. There is narrowing with cortical sclerosis and osteophyte formation of the sacroiliac joint consistent with degenerative osteoarthritic changes. Normal bilateral superior and inferior pubic rami. There are degenerative changes of the pubic symphysis with articular narrowing and sclerosis. Normal bilateral ischial tuberosities. There are osteoarthritic changes of the femoral head with marginal osteophyte formation. Normal acetabulum. is severe articular joint space narrowing of the hip. RAD/HIP, UNI W/ Pelvis 2-3 Views IMPRESSION: Severe degenerative arthrosis of the right hip. Electronically Signed: Sher Mckeon MD at 6:12 EST ,
== END | disposition home or self-care (01) ==
PROVIDERS: PCP Family Medicine; Visit Provider Orthopaedic Surgery
DX: M79.604 Pain in right leg (principal)
CPT/HCPCS: 73502

== ENCOUNTER → 2022-02-05 | Outpatient (CLI) | payer OTHER, SELFPAY ==
[2022-02-05 14:44] LABS: Absolute Lymphocyte Count 3.68 X10^3/uL (0.83-4.51); Absolute Neutrophil Count 10.2 X10^3/uL (2.0-7.7); Basophil# 0.09 X10^3/uL; Basophil% 0.6 % (0-1); Eosinophil# 0.19 X10^3/uL; Eosinophils% 1.2 % (0-5); Hematocrit 46.5 % (40-54); Lymphocyte # 3.68 X10^3/ul (0.83-4.51); Mean Corp Hgb Conc 32.3 g/dL (32-36); Mean Corpuscular Hgb 30.1 pg (27.0-32.0); Mean Corpuscular Volume 93.4 fL (80-94); Mean Platelet Vol. 9.1 fl (6.2-12.0); Monocyte# 1.71 X10^3/uL; Monocyte% 10.7 % (0-10); NRBC Flagged by Analyzer 0 % (0-5); Neutrophil % 63.8 % (47-70); POSITIVE DIFFERENTIAL YES; Platelet Count 393 K/mm3 (150-450); RBC Distribution Width CV 14.6 % (11.6-14.6); RBC Distribution Width SD 50.1 fl (35.1-43.9); Red Blood Count 4.98 M/mm3 (4.6-6.2)
[2022-02-05 14:51] LABS: Differential Indicated SCAN CRITERIA MET
[2022-02-05 15:45] LABS: ALB/GLOB Ratio 1.1 RATIO (0.9-2.4); AST(SGOT) 16 U/L (15-37); Alanine Aminotransfer ALT/SGPT 30 U/L (16-61); Albumin, Serum 3.9 g/dL (3.2-5.0); Alkaline Phosphatase 92 U/L (45-117); Anion Gap 6 (5-15); BUN 20 mg/dL (7-18); BUN/Creat Ratio 22.1 RATIO (10-20); Calcium,Total 9.5 mg/dL (8.5-10.1); Chloride 107 mmol/L (98-107); EST Glomerular Filtration Rate 92 mL/min (>60); Est Glom Filt Rate - Afr Amer 111 mL/min (>60); Globulin 3.7 g/dL (2.2-4.2); Glucose 99 mg/dL (74-106); Protein, Total 7.6 g/dL (6.4-8.2); Sodium Level 141 mmol/L (136-145)
[2022-02-05 15:52] LABS: Differential Comment SCANNED
[2022-02-06 15:06] LABS: Pathologist Review Reviewed
== END | disposition home or self-care (01) ==
LOC: LAB 13:29
PROVIDERS: PCP Family Medicine; Visit Provider Internal Medicine Rheumatology
DX: M06.4 Inflammatory polyarthropathy (principal); J44.9 Chronic obstructive pulmonary disease, unspecified; E11.9 Type 2 diabetes mellitus without complications; Z79.899 Other long term (current) drug therapy; M79.7 Fibromyalgia; M48.061 Spinal stenosis, lumbar region without neurogenic claudication; E78.5 Hyperlipidemia, unspecified; I10 Essential (primary) hypertension; K21.9 Gastro-esophageal reflux disease without esophagitis; I25.10 Atherosclerotic heart disease of native coronary artery without angina pectoris; G47.33 Obstructive sleep apnea (adult) (pediatric); K76.0 Fatty (change of) liver, not elsewhere classified
CPT/HCPCS: 36415; 80053; 85025

== ENCOUNTER 2022-02-07 10:07 | Outpatient (CLI) | payer OTHER, SELFPAY ==
[2022-02-07 11:25] LABS: Amphetamine Urine VISTA NEGATIVE (<1000 ng/mL); Barbiturate Urine VISTA NEGATIVE (< 200 ng/mL); Benzodiazepine Urine VISTA NEGATIVE (< 200 ng/mL); Cocaine Urine VISTA NEGATIVE (< 300 ng/mL); Ecstacy Urine VISTA NEGATIVE (< 500 ng/mL); Methadone Urine VISTA NEGATIVE (< 300 ng/mL); PCP Urine VISTA NEGATIVE (< 25 ng/mL); THC Urine VISTA NEGATIVE (< 50 ng/mL); Vista UDS pH Range 5
== END 2022-02-07 23:59 | disposition home or self-care (01) ==
LOC: LAB 10:09
PROVIDERS: PCP Family Medicine; Visit Provider Anesthesiology Pain Medicine
DX: F11.20 Opioid dependence, uncomplicated (principal)
CPT/HCPCS: 80307

== ENCOUNTER 2022-02-24 08:52 | Outpatient (CLI) | payer OTHER, SELFPAY ==
--- NOTE | 2022-02-24 08:53 | MRI_ITS ---
STUDY: MRI LUMBAR SPINE WITHOUT CONTRAST REASON FOR EXAM: Male, 56 years old. Lower back pain and hip area. TECHNIQUE: Standardized fat and water weighted pulse sequences were obtained in the sagittal and axial planes. COMPARISON: MRI lumbar spine without contrast 05/26/2018. FINDINGS: T10-T11: (Sagittal images). Normal barely included T10 inferior endplate. Mild anterior wedging of the upper T11 vertebral body is from remote injury and unchanged. Normal central canal and bilateral intervertebral neural foramina. T11-T12: (Sagittal only). Normal endplates. Normal normal T11 inferior endplate. Slight anterior wedging of T12 superior endplate is unchanged. Normal central canal and bilateral intervertebral neural foramina. T12-L1: (Sagittal only). Normal endplates. Normal disc height, hydration and morphology. Normal central canal and bilateral intervertebral neural foramina. Normal lumbar lordosis. There is no substantial scoliosis. Normal conus medullaris that terminates at the lower L1 vertebral body level. L1-2: Normal endplates. Normal disc height, hydration and morphology. Normal bilateral facet joints. Normal central canal and bilateral lateral recesses. Normal bilateral intervertebral neural foramina. L2-3: Normal endplates. Normal disc height, hydration and morphology. Normal bilateral facet joints. Prominent dorsal epidural lipomatosis. Mild central canal stenosis with an AP canal diameter of 10 mm. Normal bilateral lateral recesses. Normal bilateral intervertebral neural foramina. L3-4: Normal endplates. Minimal disc space height narrowing. No ventral extradural defect. Normal bilateral facet joints. Prominent dorsal epidural lipomatosis. Mild central canal stenosis with an AP canal diameter of 10 mm. Normal bilateral lateral recesses. Normal bilateral intervertebral neural foramina. L4-5: Normal endplates. Normal disc height and hydration and morphology. Mild left degenerative facet arthropathy. Normal right facet joint. Prominent dorsal epidural lipomatosis. Moderate central canal stenosis with AP canal diameter of 7.7 mm. Normal bilateral lateral recesses. Normal bilateral intervertebral neural foramina. L5-S1: Moderate type II degenerative vertebral marrow infiltration underneath the vertebral endplates. Moderate disc narrowing. Mild ventral extra dural defect due to small posterior bulging annulus. No significant facet arthropathy. No central canal and bilateral lateral recesses. Moderate stenosis of the right intervertebral neural foramen. Normal left intervertebral neural foramen. Normal visualized sacral ala. Normal visualized paraspinous soft tissue structures. MRI/Spine Lumbar (Routine) IMPRESSION: 1. No MRI evidence of lumbar extruded disc fragment. 2. Moderate central canal stenosis at L4-L5 disc space level with an AP canal diameter of 7.7 mm secondary to developmentally short pedicles and prominent dorsal epidural lipomatosis. 3. Mild central canal stenosis at L2-L3 disc space level with an AP canal diameter of 10 mm secondary to developmental short pedicles and prominent dorsal epidural lipomatosis. 4. Mild central canal stenosis at L3-L4 disc space level with an AP canal diameter of 10 mm secondary to developmental short pedicles and prominent dorsal epidural lipomatosis. 5. No significant interval change when compared to 05/26/2018. Electronically Signed: Amarjit Westfall MD at 11:00 EST ,
== END 2022-02-24 23:59 | disposition home or self-care (01) ==
PROVIDERS: PCP Family Medicine; Visit Provider Orthopaedic Surgery
DX: M54.16 Radiculopathy, lumbar region (principal)
CPT/HCPCS: 72148

== ENCOUNTER → 2022-03-21 | Outpatient (CLI) | payer OTHER, SELFPAY ==
[2022-03-21 10:32] LABS: Absolute Lymphocyte Count 3.64 X10^3/uL (0.83-4.51); Absolute Neutrophil Count 6.4 X10^3/uL (2.0-7.7); Basophil# 0.06 X10^3/uL; Basophil% 0.5 % (0-1); Eosinophils% 1.8 % (0-5); Hemoglobin 14.9 g/dL (13.0-16.5); Lymphocyte # 3.64 X10^3/ul (0.83-4.51); Lymphocyte % 32.4 % (19-41); Mean Corp Hgb Conc 33.1 g/dL (32-36); Mean Corpuscular Hgb 31.2 pg (27.0-32.0); Mean Corpuscular Volume 94.3 fL (80-94); Mean Platelet Vol. 9.3 fl (6.2-12.0); Monocyte# 0.89 X10^3/uL; Monocyte% 7.9 % (0-10); NRBC Flagged by Analyzer 0 % (0-5); Neutrophil # 6.36 X10^3/uL (2.7-7.7); Neutrophil % 56.6 % (47-70); Platelet Count 359 K/mm3 (150-450); RBC Distribution Width CV 14.5 % (11.6-14.6); Red Blood Count 4.77 M/mm3 (4.6-6.2); White Blood Count 11.2 K/mm3 (4.4-11.0)
[2022-03-21 10:50] LABS: ALB/GLOB Ratio 1.2 RATIO (0.9-2.4); AST(SGOT) 27 U/L (15-37); Alanine Aminotransfer ALT/SGPT 43 U/L (16-61); Albumin, Serum 3.7 g/dL (3.2-5.0); Alkaline Phosphatase 101 U/L (45-117); Anion Gap 6 (5-15); BUN 17 mg/dL (7-18); BUN/Creat Ratio 16.7 RATIO (10-20); Calcium,Total 9.1 mg/dL (8.5-10.1); Chloride 104 mmol/L (98-107); Cholesterol 165 mg/dL (200); Creatinine, Serum 1.02 mg/dL (0.70-1.30); EST Glomerular Filtration Rate 80 mL/min (>60); Est Glom Filt Rate - Afr Amer 97 mL/min (>60); Globulin 3.2 g/dL (2.2-4.2); Glucose 122 mg/dL (74-106); High Density Lipoprotein 45 mg/dL; Potassium 4.6 mmol/L (3.5-5.1); Protein, Total 6.9 g/dL (6.4-8.2); Sodium Level 138 mmol/L (136-145); Triglycerides 154 mg/dL; Very Low Density Lipoprotein 31 mg/dL (5-40)
[2022-03-21 10:51] LABS: Hemoglobin A1c 6.5 % (3.8-5.6)
== END | disposition home or self-care (01) ==
LOC: MFPLAB 08:35
PROVIDERS: PCP Family Medicine; Referring Provider Family Medicine; Visit Provider Family Medicine
DX: J30.9 Allergic rhinitis, unspecified (principal); E11.9 Type 2 diabetes mellitus without complications
CPT/HCPCS: 36415; 80053; 80061; 83036; 85025; 86003

== ENCOUNTER → 2022-04-04 | Outpatient (CLI) | payer OTHER, SELFPAY ==
[2022-04-04 12:42] LABS: Absolute Lymphocyte Count 2.49 X10^3/uL (0.83-4.51); Absolute Neutrophil Count 6.9 X10^3/uL (2.0-7.7); Basophil# 0.06 X10^3/uL; Basophil% 0.6 % (0-1); Eosinophil# 0.24 X10^3/uL; Eosinophils% 2.3 % (0-5); Hematocrit 45.5 % (40-54); Hemoglobin 14.6 g/dL (13.0-16.5); Lymphocyte # 2.49 X10^3/ul (0.83-4.51); Lymphocyte % 23.8 % (19-41); Mean Corp Hgb Conc 32.1 g/dL (32-36); Mean Corpuscular Hgb 30.2 pg (27.0-32.0); Mean Platelet Vol. 9.5 fl (6.2-12.0); Monocyte# 0.73 X10^3/uL; NRBC Flagged by Analyzer 0 % (0-5); Neutrophil % 65.7 % (47-70); Platelet Count 357 K/mm3 (150-450); RBC Distribution Width CV 14.3 % (11.6-14.6); RBC Distribution Width SD 49.1 fl (35.1-43.9); Red Blood Count 4.84 M/mm3 (4.6-6.2); White Blood Count 10.5 K/mm3 (4.4-11.0)
[2022-04-04 13:37] LABS: ALB/GLOB Ratio 1.1 RATIO (0.9-2.4); AST(SGOT) 19 U/L (15-37); Alanine Aminotransfer ALT/SGPT 40 U/L (16-61); Albumin, Serum 3.7 g/dL (3.2-5.0); Alkaline Phosphatase 95 U/L (45-117); Anion Gap 8 (5-15); BUN 17 mg/dL (7-18); BUN/Creat Ratio 17.9 RATIO (10-20); Calcium,Total 9.2 mg/dL (8.5-10.1); Chloride 103 mmol/L (98-107); Cholesterol 149 mg/dL (200); Creatinine, Serum 0.95 mg/dL (0.70-1.30); EST Glomerular Filtration Rate 87 mL/min (>60); Est Glom Filt Rate - Afr Amer 105 mL/min (>60); Globulin 3.3 g/dL (2.2-4.2); Glucose 150 mg/dL (74-106); High Density Lipoprotein 48 mg/dL; Potassium 4.3 mmol/L (3.5-5.1); Sodium Level 136 mmol/L (136-145); Thyroid Stim Hormone (TSH) 2.66 uIU/mL (0.358-3.74); Triglycerides 258 mg/dL; Very Low Density Lipoprotein 52 mg/dL (5-40)
[2022-04-04 13:46] LABS: Hemoglobin A1c 6.4 % (3.8-5.6)
[2022-04-04 13:47] LABS: Microalbumin:Creatinine Ratio 67.6 mg/g CRE (<30 mg/g CRE)
[2022-04-08 13:07] LABS: Alternaria alternata <0.10 kU/L (Class 0); Aspergillus fumigatus <0.10 kU/L (Class 0); Bahia Grass <0.10 kU/L (Class 0); Bermuda Grass <0.10 kU/L (Class 0); Bluegrass, Kentucky <0.10 kU/L (Class 0); Cat Hair/Dander, Standard <0.10 kU/L (Class 0); Cedar, Mountain <0.10 kU/L (Class 0); Cladosporium herbarum <0.10 kU/L (Class 0); Cockroach, American <0.10 kU/L (Class 0); D farinae Mite <0.10 kU/L (Class 0); D pteronyssinus <0.10 kU/L (Class 0); Dog Epithelia <0.10 kU/L (Class 0); Elm, American White <0.10 kU/L (Class 0); Hazelnut Tree <0.10 kU/L (Class 0); Hickory, White <0.10 kU/L (Class 0); Johnson Grass <0.10 kU/L (Class 0); Maple/Box Elder <0.10 kU/L (Class 0); Mucor racemosus <0.10 kU/L (Class 0); Mugwort <0.10 kU/L (Class 0); Mulberry, White <0.10 kU/L (Class 0); Oak, White <0.10 kU/L (Class 0); Penicillium chrysogen <0.10 kU/L (Class 0); Pigweed, Rough <0.10 kU/L (Class 0); Plantain, English <0.10 kU/L (Class 0); Ragweed, Short/Common <0.10 kU/L (Class 0); Sheep Sorrel(Dock) <0.10 kU/L (Class 0); Sweet Gum <0.10 kU/L (Class 0); Sycamore, American <0.10 kU/L (Class 0)
== END | disposition home or self-care (01) ==
LOC: MTLAB 10:49
PROVIDERS: PCP Family Medicine; Referring Provider Family Medicine; Visit Provider Family Medicine
DX: E11.9 Type 2 diabetes mellitus without complications (principal); J30.9 Allergic rhinitis, unspecified
CPT/HCPCS: 36415; 80053; 80061; 82043; 82570; 83036; 84443; 85025; 86003

== ENCOUNTER → 2022-04-27 | Outpatient (CLI) | payer OTHER, SELFPAY ==
[2022-04-27 13:08] LABS: Absolute Lymphocyte Count 2.96 X10^3/uL (0.83-4.51); Absolute Neutrophil Count 5.9 X10^3/uL (2.0-7.7); Basophil# 0.05 X10^3/uL; Basophil% 0.5 % (0-1); Hemoglobin 14.5 g/dL (13.0-16.5); Lymphocyte # 2.96 X10^3/ul (0.83-4.51); Lymphocyte % 29.1 % (19-41); Mean Corp Hgb Conc 32.2 g/dL (32-36); Mean Corpuscular Hgb 30.5 pg (27.0-32.0); Mean Corpuscular Volume 94.7 fL (80-94); Mean Platelet Vol. 9.2 fl (6.2-12.0); Monocyte% 9.8 % (0-10); NRBC Flagged by Analyzer 0 % (0-5); Neutrophil # 5.91 X10^3/uL (2.7-7.7); Platelet Count 354 K/mm3 (150-450); RBC Distribution Width CV 14.4 % (11.6-14.6); RBC Distribution Width SD 49.6 fl (35.1-43.9); Red Blood Count 4.75 M/mm3 (4.6-6.2); White Blood Count 10.2 K/mm3 (4.4-11.0)
[2022-04-27 13:36] LABS: AST(SGOT) 27 U/L (15-37); Alanine Aminotransfer ALT/SGPT 35 U/L (16-61); Albumin, Serum 3.6 g/dL (3.2-5.0); Alkaline Phosphatase 90 U/L (45-117); Anion Gap 5 (5-15); BUN 21 mg/dL (7-18); BUN/Creat Ratio 21.4 RATIO (10-20); Calcium,Total 8.9 mg/dL (8.5-10.1); Chloride 106 mmol/L (98-107); Creatinine, Serum 0.98 mg/dL (0.70-1.30); EST Glomerular Filtration Rate 84 mL/min (>60); Est Glom Filt Rate - Afr Amer 101 mL/min (>60); Globulin 3.7 g/dL (2.2-4.2); Glucose 161 mg/dL (74-106); Potassium 3.9 mmol/L (3.5-5.1); Protein, Total 7.3 g/dL (6.4-8.2); Sodium Level 139 mmol/L (136-145)
== END | disposition home or self-care (01) ==
LOC: LAB 11:25
PROVIDERS: PCP Family Medicine; Visit Provider Internal Medicine Rheumatology
DX: M06.4 Inflammatory polyarthropathy (principal); Z79.899 Other long term (current) drug therapy
CPT/HCPCS: 36415; 80053; 85025

== ENCOUNTER → 2022-06-07 | Outpatient (CLI) | payer OTHER, SELFPAY ==
[2022-06-07 10:36] LABS: Absolute Neutrophil Count 5.9 X10^3/uL (2.0-7.7); Basophil% 0.9 % (0-1); Eosinophil# 0.22 X10^3/uL; Hematocrit 46.2 % (40-54); Hemoglobin 14.9 g/dL (13.0-16.5); Lymphocyte % 31.1 % (19-41); Mean Corp Hgb Conc 32.3 g/dL (32-36); Mean Corpuscular Hgb 30.8 pg (27.0-32.0); Mean Corpuscular Volume 95.5 fL (80-94); Mean Platelet Vol. 9.3 fl (6.2-12.0); Monocyte# 1.25 X10^3/uL; Monocyte% 11.4 % (0-10); NRBC Flagged by Analyzer 0 % (0-5); Neutrophil # 5.87 X10^3/uL (2.7-7.7); Neutrophil % 53.8 % (47-70); Platelet Count 385 K/mm3 (150-450); RBC Distribution Width CV 14.6 % (11.6-14.6); RBC Distribution Width SD 51.1 fl (35.1-43.9); Red Blood Count 4.84 M/mm3 (4.6-6.2); White Blood Count 10.9 K/mm3 (4.4-11.0)
[2022-06-07 11:08] LABS: Hemoglobin A1c 6.3 % (3.8-5.6)
[2022-06-07 11:17] LABS: ALB/GLOB Ratio 1.1 RATIO (0.9-2.4); AST(SGOT) 32 U/L (15-37); Alanine Aminotransfer ALT/SGPT 39 U/L (16-61); Alkaline Phosphatase 91 U/L (45-117); Anion Gap 8 (5-15); BUN 16 mg/dL (7-18); BUN/Creat Ratio 17.3 RATIO (10-20); Calcium,Total 9.4 mg/dL (8.5-10.1); Chloride 105 mmol/L (98-107); Cholesterol 173 mg/dL (200); Creatinine, Serum 0.92 mg/dL (0.70-1.30); EST Glomerular Filtration Rate 90 mL/min (>60); Est Glom Filt Rate - Afr Amer 109 mL/min (>60); Globulin 3.6 g/dL (2.2-4.2); Glucose 123 mg/dL (74-106); High Density Lipoprotein 47 mg/dL; Potassium 4.2 mmol/L (3.5-5.1); Protein, Total 7.6 g/dL (6.4-8.2); Sodium Level 138 mmol/L (136-145); Thyroid Stim Hormone (TSH) 2.95 uIU/mL (0.358-3.74); Triglycerides 210 mg/dL; Very Low Density Lipoprotein 42 mg/dL (5-40)
[2022-06-07 11:36] LABS: Microalbumin:Creatinine Ratio 73.2 mg/g CRE (<30 mg/g CRE)
== END | disposition home or self-care (01) ==
PROVIDERS: Internal Medicine Cardiovascular Disease; PCP Family Medicine; Referring Provider Family Medicine; Visit Provider Family Medicine
DX: E11.9 Type 2 diabetes mellitus without complications (principal); E78.00 Pure hypercholesterolemia, unspecified
CPT/HCPCS: 36415; 80053; 80061; 82043; 82248; 82570; 83036; 84443; 85025

== ENCOUNTER → 2022-07-30 | Outpatient (CLI) | payer OTHER, SELFPAY ==
[2022-07-30 14:52] LABS: Absolute Lymphocyte Count 3.27 X10^3/uL (0.83-4.51); Absolute Neutrophil Count 8.6 X10^3/uL (2.0-7.7); Basophil# 0.07 X10^3/uL; Basophil% 0.5 % (0-1); Eosinophils% 0.8 % (0-5); Hematocrit 45.8 % (40-54); Hemoglobin 14.5 g/dL (13.0-16.5); Lymphocyte # 3.27 X10^3/ul (0.83-4.51); Lymphocyte % 24.6 % (19-41); Mean Corp Hgb Conc 31.7 g/dL (32-36); Mean Corpuscular Volume 94.6 fL (80-94); Mean Platelet Vol. 9.5 fl (6.2-12.0); Monocyte# 1.15 X10^3/uL; Monocyte% 8.7 % (0-10); NRBC Flagged by Analyzer 0 % (0-5); Neutrophil # 8.62 X10^3/uL (2.7-7.7); Neutrophil % 64.8 % (47-70); Platelet Count 372 K/mm3 (150-450); RBC Distribution Width CV 14.2 % (11.6-14.6); RBC Distribution Width SD 49.6 fl (35.1-43.9); Red Blood Count 4.84 M/mm3 (4.6-6.2); White Blood Count 13.3 K/mm3 (4.4-11.0)
[2022-07-30 15:45] LABS: ALB/GLOB Ratio 1.1 RATIO (0.9-2.4); AST(SGOT) 33 U/L (15-37); Alanine Aminotransfer ALT/SGPT 40 U/L (16-61); Albumin, Serum 4.1 g/dL (3.2-5.0); Alkaline Phosphatase 95 U/L (45-117); Anion Gap 6 (5-15); BUN 13 mg/dL (7-18); BUN/Creat Ratio 14.5 RATIO (10-20); Calcium,Total 9.3 mg/dL (8.5-10.1); Chloride 107 mmol/L (98-107); EST Glomerular Filtration Rate 93 mL/min (>60); Est Glom Filt Rate - Afr Amer 113 mL/min (>60); Globulin 3.6 g/dL (2.2-4.2); Glucose 100 mg/dL (74-106); Potassium 4.4 mmol/L (3.5-5.1); Protein, Total 7.7 g/dL (6.4-8.2); Sodium Level 139 mmol/L (136-145)
[2022-08-03 10:27] LABS: Magnesium 2.2 mg/dL (1.6-2.6)
== END | disposition home or self-care (01) ==
LOC: LAB 13:27
PROVIDERS: PCP Family Medicine; Referring Provider Internal Medicine Rheumatology; Visit Provider Internal Medicine Rheumatology
DX: M06.4 Inflammatory polyarthropathy (principal); J44.9 Chronic obstructive pulmonary disease, unspecified; E11.9 Type 2 diabetes mellitus without complications; Z79.899 Other long term (current) drug therapy; M79.7 Fibromyalgia; M48.061 Spinal stenosis, lumbar region without neurogenic claudication; I10 Essential (primary) hypertension; E78.5 Hyperlipidemia, unspecified; K21.9 Gastro-esophageal reflux disease without esophagitis; I25.10 Atherosclerotic heart disease of native coronary artery without angina pectoris; G47.33 Obstructive sleep apnea (adult) (pediatric); K76.0 Fatty (change of) liver, not elsewhere classified
CPT/HCPCS: 36415; 80053; 83735; 85025

== ENCOUNTER → 2022-08-02 | Outpatient (CLI) | payer OTHER, SELFPAY ==
--- NOTE | 2022-08-02 08:10 | RAD_ITS ---
EXAM: XR ABDOMEN, 1 VIEW CLINICAL INDICATION: ABDOMINAL PAIN TECHNIQUE: Frontal supine view of the abdomen/pelvis. COMPARISON: No relevant prior studies available. FINDINGS: LOWER THORAX: No acute pathology. GASTROINTESTINAL TRACT: Unremarkable. Non-obstructive. No bowel or stomach distention. ORGANS: Unremarkable as visualized. No organomegaly. No abnormal calcifications. BONES/JOINTS: No acute pathology. SOFT TISSUES: No acute pathology. RAD/Abdomen Single View IMPRESSION: Non-obstructive bowel gas pattern. Electronically Signed: Gregory Walden MD at 17:28 EDT ,
== END | disposition home or self-care (01) ==
LOC: MTRAD 08:08
PROVIDERS: PCP Family Medicine; Referring Provider Family Medicine; Visit Provider Family Medicine
DX: R10.9 Unspecified abdominal pain (principal)
CPT/HCPCS: 74018

== ENCOUNTER → 2022-08-03 | Outpatient (CLI) | payer OTHER, SELFPAY | END | disposition home or self-care (01) | LOC: LABSPEC 09:08 | PROVIDERS: PCP Family Medicine; Referring Provider Family Medicine; Visit Provider Family Medicine | DX: D72.829 Elevated white blood cell count, unspecified (principal); R19.7 Diarrhea, unspecified | CPT/HCPCS: 87493; 87506 ==

== ENCOUNTER → 2022-08-11 | Outpatient (CLI) | payer OTHER, SELFPAY ==
[2022-08-11 10:18] LABS: Absolute Lymphocyte Count 2.96 X10^3/uL (0.83-4.51); Absolute Neutrophil Count 6.3 X10^3/uL (2.0-7.7); Basophil# 0.09 X10^3/uL; Basophil% 0.8 % (0-1); Eosinophil# 0.22 X10^3/uL; Hematocrit 46.3 % (40-54); Hemoglobin 14.8 g/dL (13.0-16.5); Lymphocyte # 2.96 X10^3/ul (0.83-4.51); Lymphocyte % 27.4 % (19-41); Mean Corpuscular Hgb 30.2 pg (27.0-32.0); Mean Corpuscular Volume 94.5 fL (80-94); Mean Platelet Vol. 9.2 fl (6.2-12.0); Monocyte# 1.17 X10^3/uL; Monocyte% 10.8 % (0-10); NRBC Flagged by Analyzer 0 % (0-5); Neutrophil # 6.29 X10^3/uL (2.7-7.7); Neutrophil % 58.3 % (47-70); Platelet Count 360 K/mm3 (150-450); RBC Distribution Width CV 14.5 % (11.6-14.6); RBC Distribution Width SD 50.2 fl (35.1-43.9); White Blood Count 10.8 K/mm3 (4.4-11.0)
[2022-08-11 10:38] LABS: ALB/GLOB Ratio 1.1 RATIO (0.9-2.4); AST(SGOT) 26 U/L (15-37); Alanine Aminotransfer ALT/SGPT 32 U/L (16-61); Albumin, Serum 3.8 g/dL (3.2-5.0); Alkaline Phosphatase 92 U/L (45-117); Anion Gap 9 (5-15); BUN 18 mg/dL (7-18); BUN/Creat Ratio 18.6 RATIO (10-20); Calcium,Total 9.2 mg/dL (8.5-10.1); Chloride 105 mmol/L (98-107); Creatinine, Serum 0.97 mg/dL (0.70-1.30); EST Glomerular Filtration Rate 85 mL/min (>60); Est Glom Filt Rate - Afr Amer 103 mL/min (>60); Globulin 3.4 g/dL (2.2-4.2); Glucose 126 mg/dL (74-106); Potassium 4.3 mmol/L (3.5-5.1); Protein, Total 7.2 g/dL (6.4-8.2); Sodium Level 138 mmol/L (136-145)
== END | disposition home or self-care (01) ==
LOC: LAB 09:45
PROVIDERS: PCP Family Medicine; Visit Provider Family Medicine
DX: D72.829 Elevated white blood cell count, unspecified (principal); R19.7 Diarrhea, unspecified
CPT/HCPCS: 36415; 80053; 85025

== ENCOUNTER → 2022-09-20 | Outpatient (CLI) | payer OTHER, SELFPAY ==
[2022-09-20 12:23] LABS: Amphetamine Urine VISTA NEGATIVE (<1000 ng/mL); Barbiturate Urine VISTA NEGATIVE (< 200 ng/mL); Benzodiazepine Urine VISTA NEGATIVE (< 200 ng/mL); Cocaine Urine VISTA NEGATIVE (< 300 ng/mL); Ecstacy Urine VISTA NEGATIVE (< 500 ng/mL); Methadone Urine VISTA NEGATIVE (< 300 ng/mL); PCP Urine VISTA NEGATIVE (< 25 ng/mL); THC Urine VISTA NEGATIVE (< 50 ng/mL); Vista UDS pH Range 7
== END | disposition home or self-care (01) ==
LOC: LAB 11:07
PROVIDERS: PCP Family Medicine; Referring Provider Anesthesiology Pain Medicine; Visit Provider Anesthesiology Pain Medicine
DX: F11.20 Opioid dependence, uncomplicated (principal)
CPT/HCPCS: 80307

== ENCOUNTER → 2022-10-30 | Outpatient (CLI) | payer OTHER, SELFPAY ==
[2022-10-30 12:09] LABS: Absolute Lymphocyte Count 2.55 X10^3/uL (0.83-4.51); Absolute Neutrophil Count 7.3 X10^3/uL (2.0-7.7); Basophil# 0.06 X10^3/uL; Basophil% 0.5 % (0-1); Eosinophil# 0.12 X10^3/uL; Eosinophils% 1.1 % (0-5); Hematocrit 45.6 % (40-54); Hemoglobin 14.6 g/dL (13.0-16.5); Lymphocyte # 2.55 X10^3/ul (0.83-4.51); Lymphocyte % 22.9 % (19-41); Mean Corpuscular Hgb 30.4 pg (27.0-32.0); Mean Platelet Vol. 9.1 fl (6.2-12.0); Monocyte# 1.04 X10^3/uL; Monocyte% 9.4 % (0-10); NRBC Flagged by Analyzer 0 % (0-5); Neutrophil # 7.29 X10^3/uL (2.7-7.7); Neutrophil % 65.6 % (47-70); Platelet Count 372 K/mm3 (150-450); RBC Distribution Width CV 14.6 % (11.6-14.6); RBC Distribution Width SD 50.9 fl (35.1-43.9); White Blood Count 11.1 K/mm3 (4.4-11.0)
[2022-10-30 13:06] LABS: AST(SGOT) 39 U/L (15-37); Alanine Aminotransfer ALT/SGPT 51 U/L (16-61); Albumin, Serum 3.9 g/dL (3.2-5.0); Alkaline Phosphatase 83 U/L (45-117); Anion Gap 5 (5-15); BUN 14 mg/dL (7-18); BUN/Creat Ratio 12.5 RATIO (10-20); Calcium,Total 9.3 mg/dL (8.5-10.1); Chloride 104 mmol/L (98-107); Cholesterol 141 mg/dL (200); Creatinine, Serum 1.12 mg/dL (0.70-1.30); EST Glomerular Filtration Rate 72 mL/min (>60); Est Glom Filt Rate - Afr Amer 87 mL/min (>60); Globulin 3.8 g/dL (2.2-4.2); Glucose 105 mg/dL (74-106); High Density Lipoprotein 55 mg/dL; Potassium 4.2 mmol/L (3.5-5.1); Protein, Total 7.7 g/dL (6.4-8.2); Sodium Level 135 mmol/L (136-145); Triglycerides 222 mg/dL; Very Low Density Lipoprotein 44 mg/dL (5-40)
[2022-10-30 13:53] LABS: Hemoglobin A1c 6.1 % (3.8-5.6)
[2022-10-30 15:33] LABS: Microalbumin:Creatinine Ratio 57.1 mg/g CRE (<30 mg/g CRE)
== END | disposition home or self-care (01) ==
LOC: LAB 11:17
PROVIDERS: PCP Family Medicine; Referring Provider Internal Medicine Rheumatology; Visit Provider Internal Medicine Rheumatology
DX: M06.4 Inflammatory polyarthropathy (principal); Z79.899 Other long term (current) drug therapy
CPT/HCPCS: 36415; 80053; 80061; 82043; 82570; 83036; 85025

== ENCOUNTER → 2022-11-23 | Outpatient (CLI) | payer OTHER, SELFPAY ==
--- NOTE | 2022-11-23 10:13 | RAD_ITS ---
STUDY: X-RAY - RIGHT KNEE REASON FOR EXAM: Male, 57 years old. Pain and stiffness TECHNIQUE: 4 view(s) of the knee. COMPARISON: 12/10/2020 FINDINGS: Normal visualized distal femur. Normal visualized proximal tibia and fibula. Normal proximal tibiofibular articulation. There is no demonstrated fracture. There is mild degenerative arthrosis of the medial femorotibial compartment. Normal lateral femorotibial compartment. There is mild degenerative arthrosis of the patellofemoral articulation. The soft tissue structures are unremarkable. RAD/Knee 4 or More Views IMPRESSION: Mild arthrosis, no interval change Electronically Signed: Jono Evans MD at 11:29 EDT ,
--- NOTE | 2022-11-23 10:15 | RAD_ITS ---
STUDY: X-RAY - LEFT KNEE REASON FOR EXAM: Male, 57 years old. PAIN TECHNIQUE: 4 view(s) of the knee. COMPARISON: None. FINDINGS: Normal visualized distal femur. Normal visualized proximal tibia and fibula. Normal proximal tibiofibular articulation. There is mild degenerative arthrosis of the medial femorotibial compartment. There is mild degenerative arthrosis of the lateral femorotibial compartment. Normal patellofemoral articulation. The soft tissue structures are unremarkable. RAD/Knee 4 or More Views IMPRESSION: Degenerative arthrosis. Electronically Signed: Jono Evans MD at 10:35 EDT ,
== END | disposition home or self-care (01) ==
LOC: MTRAD 10:12
PROVIDERS: PCP Family Medicine; Referring Provider Family Medicine; Visit Provider Family Medicine
DX: M25.569 Pain in unspecified knee (principal)
CPT/HCPCS: 73564

== ENCOUNTER → 2022-12-19 | Outpatient (CLI) | payer OTHER, SELFPAY ==
--- NOTE | 2022-12-19 07:37 | CT_ITS ---
INDICATION: smoker EXAMINATION: - CT Low Dose CT Chest for Lung Cancer Screening A radiation dose optimization technique was used for this scan. Radiation CTDIvol 4.02 Radiation DLP 143.46 COMPARISON: Chest CT 12/07/2021 and 01/03/2021. FINDINGS: Noncontrast serial CT axial images through the chest with coronal and sagittal reformatted series. MEDIASTINUM: Moderate coronary artery atherosclerotic calcifications. Again is noted mediastinal adenopathy measuring up to 13 mm in the short axis in the right paratracheal region, unchanged from 2 years prior. LUNG PARENCHYMA: Scattered areas of air trapping as can be seen with small airways versus small vessel disease. Otherwise, no significant acute pulmonary parenchymal abnormality. PLEURA: No pleural effusion. No pneumothorax. BONES: Osseous structures are unremarkable for age. UPPER ABDOMEN: Unremarkable. CT/Low Dose CT Lung Screening IMPRESSION: Scattered areas of air trapping as can be seen with small airways versus small vessel disease. No nodules or focal significant airspace disease. Lung-RADS CATEGORY 1: Negative. No nodules. Continue annual screening with LDCT in 12 months. Electronically Signed: Cory Whitten MD at 21:09 EDT ,
== END | disposition home or self-care (01) ==
LOC: CT 07:31
PROVIDERS: PCP Family Medicine; Referring Provider Nurse Practitioner Acute Care; Visit Provider Nurse Practitioner Acute Care
DX: F17.210 Nicotine dependence, cigarettes, uncomplicated (principal)
CPT/HCPCS: 71271

== ENCOUNTER → 2022-12-27 | Outpatient (CLI) | payer OTHER, SELFPAY ==
[2022-12-27 09:32] LABS: Absolute Lymphocyte Count 4.01 X10^3/uL (0.83-4.51); Absolute Neutrophil Count 7.3 X10^3/uL (2.0-7.7); Basophil# 0.08 X10^3/uL; Basophil% 0.6 % (0-1); Eosinophil# 0.17 X10^3/uL; Eosinophils% 1.4 % (0-5); Hematocrit 44.3 % (40-54); Hemoglobin 14.1 g/dL (13.0-16.5); Lymphocyte # 4.01 X10^3/ul (0.83-4.51); Lymphocyte % 31.9 % (19-41); Mean Corp Hgb Conc 31.8 g/dL (32-36); Mean Corpuscular Hgb 31.2 pg (27.0-32.0); Mean Platelet Vol. 8.7 fl (6.2-12.0); Monocyte# 0.91 X10^3/uL; Monocyte% 7.2 % (0-10); NRBC Flagged by Analyzer 0 % (0-5); Neutrophil # 7.33 X10^3/uL (2.7-7.7); Neutrophil % 58.3 % (47-70); Platelet Count 329 K/mm3 (150-450); RBC Distribution Width CV 14.4 % (11.6-14.6); RBC Distribution Width SD 52.1 fl (35.1-43.9); Red Blood Count 4.52 M/mm3 (4.6-6.2); White Blood Count 12.6 K/mm3 (4.4-11.0)
[2022-12-27 09:49] LABS: ALB/GLOB Ratio 1.1 RATIO (0.9-2.4); AST(SGOT) 25 U/L (15-37); Alanine Aminotransfer ALT/SGPT 48 U/L (16-61); Albumin, Serum 3.9 g/dL (3.2-5.0); Alkaline Phosphatase 79 U/L (45-117); Anion Gap 3 (5-15); BUN 16 mg/dL (7-18); BUN/Creat Ratio 15.7 RATIO (10-20); Chloride 107 mmol/L (98-107); Creatinine, Serum 1.02 mg/dL (0.70-1.30); EST Glomerular Filtration Rate 80 mL/min (>60); Est Glom Filt Rate - Afr Amer 97 mL/min (>60); Globulin 3.6 g/dL (2.2-4.2); Glucose 119 mg/dL (74-106); Potassium 4.2 mmol/L (3.5-5.1); Protein, Total 7.5 g/dL (6.4-8.2); Sodium Level 136 mmol/L (136-145)
== END | disposition home or self-care (01) ==
LOC: LAB 08:48
PROVIDERS: PCP Family Medicine; Referring Provider Internal Medicine Rheumatology; Visit Provider Internal Medicine Rheumatology
DX: M06.4 Inflammatory polyarthropathy (principal); Z79.899 Other long term (current) drug therapy; M79.7 Fibromyalgia
CPT/HCPCS: 36415; 80053; 85025

== ENCOUNTER → 2023-01-02 | Outpatient (CLI) | payer OTHER, SELFPAY ==
--- NOTE | 2023-01-03 07:44 | PFT ---
INTRODUCTION: The patient is a 57-year-old male who presents for pulmonary function studies secondary to a diagnosis of COPD. Respiratory therapy reported good patient effort. Bronchodilators were used during testing. INTERPRETATION: Forced expiration spirometry demonstrates the presence of a moderate large airways obstructive ventilatory defect. There was a significant response to aerosolized bronchodilators. Body plethysmography was performed and revealed lung volumes to be within normal limits. Diffusing capacity by single breath CO was also within normal limits. IMPRESSION: Moderate large airways obstructive ventilatory defect with preserved lung volumes and diffusing capacity. Significant bronchodilator response was noted.
== END | disposition home or self-care (01) ==
LOC: PSN 07:06
PROVIDERS: PCP Family Medicine; Referring Provider Nurse Practitioner Acute Care; Visit Provider Nurse Practitioner Acute Care
DX: J44.9 Chronic obstructive pulmonary disease, unspecified (principal)
CPT/HCPCS: 94060; 94726; 94729

== ENCOUNTER → 2023-01-17 | Outpatient (CLI) | payer OTHER, SELFPAY ==
[2023-01-17 17:35] LABS: Absolute Lymphocyte Count 2.52 X10^3/uL (0.83-4.51); Absolute Neutrophil Count 10.3 X10^3/uL (2.0-7.7); Basophil# 0.06 X10^3/uL; Basophil% 0.4 % (0-1); Eosinophil# 0.04 X10^3/uL; Eosinophils% 0.3 % (0-5); Hematocrit 44.2 % (40-54); Hemoglobin 14.1 g/dL (13.0-16.5); Lymphocyte # 2.52 X10^3/ul (0.83-4.51); Lymphocyte % 17.6 % (19-41); Mean Corp Hgb Conc 31.9 g/dL (32-36); Mean Corpuscular Volume 97.1 fL (80-94); Monocyte# 1.33 X10^3/uL; Monocyte% 9.3 % (0-10); NRBC Flagged by Analyzer 0 % (0-5); Neutrophil # 10.31 X10^3/uL (2.7-7.7); Neutrophil % 71.8 % (47-70); Platelet Count 371 K/mm3 (150-450); RBC Distribution Width CV 14.3 % (11.6-14.6); RBC Distribution Width SD 51.3 fl (35.1-43.9); Red Blood Count 4.55 M/mm3 (4.6-6.2); White Blood Count 14.4 K/mm3 (4.4-11.0)
[2023-01-17 18:13] LABS: AST(SGOT) 23 U/L (15-37); Alanine Aminotransfer ALT/SGPT 44 U/L (16-61); Albumin, Serum 3.9 g/dL (3.2-5.0); Alkaline Phosphatase 83 U/L (45-117); Anion Gap 5 (5-15); BUN 19 mg/dL (7-18); BUN/Creat Ratio 18.1 RATIO (10-20); Calcium,Total 9.3 mg/dL (8.5-10.1); Chloride 106 mmol/L (98-107); Creatinine, Serum 1.05 mg/dL (0.70-1.30); EST Glomerular Filtration Rate 77 mL/min (>60); Est Glom Filt Rate - Afr Amer 93 mL/min (>60); Globulin 3.8 g/dL (2.2-4.2); Glucose 101 mg/dL (74-106); PSA,Total - Annual Screen 0.76 ng/mL (0.00-4.00); Potassium 4.4 mmol/L (3.5-5.1); Protein, Total 7.7 g/dL (6.4-8.2); Sodium Level 137 mmol/L (136-145)
== END | disposition home or self-care (01) ==
LOC: MFPLAB 15:39
PROVIDERS: PCP Family Medicine; Visit Provider Family Medicine
DX: Z12.5 Encounter for screening for malignant neoplasm of prostate (principal); I10 Essential (primary) hypertension
CPT/HCPCS: 80053; 84153; 85025; G0103

== ENCOUNTER → 2023-03-11 | Outpatient (CLI) | payer OTHER, SELFPAY ==
[2023-03-11 11:17] LABS: Absolute Lymphocyte Count 2.22 X10^3/uL (0.83-4.51); Absolute Neutrophil Count 7.4 X10^3/uL (2.0-7.7); Basophil# 0.08 X10^3/uL; Basophil% 0.7 % (0-1); Eosinophil# 0.31 X10^3/uL; Eosinophils% 2.7 % (0-5); Hematocrit 45.6 % (40-54); Hemoglobin 14.6 g/dL (13.0-16.5); Lymphocyte # 2.22 X10^3/ul (0.83-4.51); Lymphocyte % 19.3 % (19-41); Mean Corpuscular Volume 93.8 fL (80-94); Mean Platelet Vol. 9.3 fl (6.2-12.0); Monocyte# 1.38 X10^3/uL; NRBC Flagged by Analyzer 0 % (0-5); Neutrophil # 7.44 X10^3/uL (2.7-7.7); Neutrophil % 64.5 % (47-70); Platelet Count 380 K/mm3 (150-450); RBC Distribution Width CV 13.5 % (11.6-14.6); Red Blood Count 4.86 M/mm3 (4.6-6.2); White Blood Count 11.5 K/mm3 (4.4-11.0)
[2023-03-11 12:07] LABS: AST(SGOT) 25 U/L (15-37); Alanine Aminotransfer ALT/SGPT 37 U/L (16-61); Alkaline Phosphatase 78 U/L (45-117); Anion Gap 7 (5-15); BUN 17 mg/dL (7-18); Calcium,Total 9.3 mg/dL (8.5-10.1); Chloride 105 mmol/L (98-107); Cholesterol 122 mg/dL (200); Creatinine, Serum 1.06 mg/dL (0.70-1.30); EST Glomerular Filtration Rate 76 mL/min (>60); Est Glom Filt Rate - Afr Amer 92 mL/min (>60); Glucose 95 mg/dL (74-106); High Density Lipoprotein 50 mg/dL; Potassium 4.2 mmol/L (3.5-5.1); Sodium Level 137 mmol/L (136-145); Triglycerides 176 mg/dL; Very Low Density Lipoprotein 35 mg/dL (5-40)
[2023-03-11 13:12] LABS: Microalbumin:Creatinine Ratio 67.2 mg/g CRE (<30 mg/g CRE)
[2023-03-11 14:17] LABS: Hemoglobin A1c 5.8 % (3.8-5.6)
== END | disposition home or self-care (01) ==
LOC: LAB 10:11
PROVIDERS: PCP Family Medicine; Referring Provider Family Medicine; Visit Provider Family Medicine
DX: E11.8 Type 2 diabetes mellitus with unspecified complications (principal)
CPT/HCPCS: 36415; 80053; 80061; 82043; 82570; 83036; 85025

== ENCOUNTER → 2023-03-26 | Outpatient (CLI) | payer OTHER, SELFPAY ==
--- OUTSIDE RECORDS SUMMARY | 2023-03-26 11:09 | XMS RPT_ITS | CCD ---
Author Name Unknown Address [address] [place] [address] Organization [facility] Care Team Providers Care Oyster Grower Name Role Phone SANG WEBB, DR BEATRIZ Canseco Primary Care Physician [phone] Results Test Name Value Interpretation Reference Range Facil ity Encounters Encounter Date Encounter Type Care Provider Facility Start: 01-04-2021 End: 01-08-2021 Outreach [facility] ALFIE SANTOS [facility] Evaluation + Plan note Note Date & Type Note Facility Evaluation + Plan note No data available for this section [facility] Hospital Discharge instructions Note Date & Type Note Facility Hospital Discharge instructions No data available for this section [facility] Summary Purpose Family History No Family History Records Found Advance Directives No Advanced Directives Records Found Additional Source Comments (unrecognized sect ion and content) No Status Records Found INFORMATION SOURCE (unrecogn ized section and content) FOR RECORDS PERTAINING TO PATIENTS WHO ARE OR HAVE BEEN ENROLLED IN A CHEMICAL DEPENDENCY/SUBSTANCEABUSE PROGRAM, SOME INFORMATION MAY BE OMITTED. This clinical summary was aggregated from multiple sources. Caution should be exercised in using it in the provision of clinical care. This summary normalizes information from multiple sources, and as a consequence, information in this document may materially change the coding, format and clinical context of patient data. In addition, data may be omitted in some cases. CLINICAL DECISIONS SHOULD BE BASED ON THE PRIMARY CLINICAL RECORDS. [facility] [employer] [facility]. provides no warranty or guarantee of the accuracy or completeness of information in this document.
[2023-03-26 11:22] LABS: Absolute Neutrophil Count 7.9 X10^3/uL (2.0-7.7); Basophil% 0.8 % (0-1); Eosinophil# 0.24 X10^3/uL; Eosinophils% 1.9 % (0-5); Hematocrit 46.8 % (40-54); Lymphocyte % 25.5 % (19-41); Mean Corp Hgb Conc 32.1 g/dL (32-36); Mean Corpuscular Hgb 30.6 pg (27.0-32.0); Mean Corpuscular Volume 95.5 fL (80-94); Mean Platelet Vol. 9.3 fl (6.2-12.0); Monocyte# 1.28 X10^3/uL; Monocyte% 9.9 % (0-10); NRBC Flagged by Analyzer 0 % (0-5); Neutrophil # 7.92 X10^3/uL (2.7-7.7); Neutrophil % 61.2 % (47-70); Platelet Count 422 K/mm3 (150-450); RBC Distribution Width CV 13.8 % (11.6-14.6); RBC Distribution Width SD 48.7 fl (35.1-43.9); White Blood Count 12.9 K/mm3 (4.4-11.0)
[2023-03-26 11:58] LABS: ALB/GLOB Ratio 0.9 RATIO (0.9-2.4); AST(SGOT) 31 U/L (15-37); Alanine Aminotransfer ALT/SGPT 36 U/L (16-61); Albumin, Serum 3.7 g/dL (3.2-5.0); Alkaline Phosphatase 92 U/L (45-117); Anion Gap 7 (5-15); BUN 16 mg/dL (7-18); BUN/Creat Ratio 15.1 RATIO (10-20); Calcium,Total 8.8 mg/dL (8.5-10.1); Chloride 106 mmol/L (98-107); Creatinine, Serum 1.06 mg/dL (0.70-1.30); EST Glomerular Filtration Rate 76 mL/min (>60); Est Glom Filt Rate - Afr Amer 92 mL/min (>60); Globulin 3.9 g/dL (2.2-4.2); Glucose 113 mg/dL (74-106); Potassium 4.2 mmol/L (3.5-5.1); Protein, Total 7.6 g/dL (6.4-8.2); Sodium Level 139 mmol/L (136-145)
== END | disposition home or self-care (01) ==
PROVIDERS: PCP Family Medicine; Referring Provider Internal Medicine Rheumatology; Visit Provider Internal Medicine Rheumatology
DX: M06.4 Inflammatory polyarthropathy (principal); Z79.899 Other long term (current) drug therapy; M79.7 Fibromyalgia
CPT/HCPCS: 36415; 80053; 85025

== ENCOUNTER → 2023-04-03 | Outpatient (CLI) | payer OTHER, SELFPAY ==
--- NOTE | 2023-04-03 12:41 | RAD_ITS ---
STUDY: X-RAY - SACRUM/COCCYX REASON FOR EXAM: Male, 57 years old. Pain. TECHNIQUE: 4 view(s) of the sacrum and coccyx were obtained. COMPARISON: None. FINDINGS: Normal bilateral sacroiliac joints. Normal visualized sacral ala and fused sacral bodies. Normal sacrococcygeal junction with a normal angulation. Normal coccygeal segments. Moderate arthrosis of both hips. The presacral soft tissue structures are normal. RAD/Sacrum-Coccyx min 2 Views IMPRESSION: Moderate arthrosis of both hips. No other abnormality. Electronically Signed: Rigo Galvan MD at 13:05 EST ,
--- OUTSIDE RECORDS SUMMARY | 2023-04-03 12:44 | XMS RPT_ITS | CCD ---
Author Name Unknown Address [address] [place] [address] Organization [facility] Care Team Providers Care Assembler Dielectric Heater Name Role Phone SANG WEBB, DR BEATRIZ Canseco Primary Care Physician [phone] Results Test Name Value Interpretation Reference Range Facil ity Encounters Encounter Date Encounter Type Care Provider Facility Start: 01-04-2021 End: 01-08-2021 Outreach Lab ALFIE SANTOS [facility] Evaluation + Plan note Note Date & Type Note Facility Evaluation + Plan note No data available for this section [facility] Hospital Discharge instructions Note Date & Type Note Facility Hospital Discharge instructions No data available for this section [facility] Summary Purpose Family History No Family History [...] BE BASED ON THE PRIMARY CLINICAL RECORDS. [facility] [employer] [facility]. provides no warranty or guarantee of the accuracy or completeness of information in this document.
== END | disposition home or self-care (01) ==
PROVIDERS: PCP Family Medicine; Referring Provider Family Medicine; Visit Provider Family Medicine
DX: M53.3 Sacrococcygeal disorders, not elsewhere classified (principal)
CPT/HCPCS: 72220

== ENCOUNTER → 2023-06-14 | Outpatient (CLI) | payer OTHER, SELFPAY ==
[2023-06-14 10:45] LABS: Color, Urine Yellow (Yellow); Glucose, Dipstick Normal (Normal); Ketone-Dipstick 5 mg/dl (Negative); Leukocyte Esterase-Dipstick 25 /ul (Negative); Nitrite-Dipstick Negative (Negative); Occult Blood-Urine Negative /ul (Negative); Protein-Dipstick 30 mg/dl (Negative); Specific Gravity, Urine 1.025 (1.002-1.030); Urine Clarity Clear (Clear); Urine Urobilinogen 1 mg/dl (Normal)
[2023-06-14 10:46] LABS: Absolute Lymphocyte Count 3.03 X10^3/uL (0.83-4.51); Absolute Neutrophil Count 7.7 X10^3/uL (2.0-7.7); Basophil# 0.07 X10^3/uL; Basophil% 0.6 % (0-1); Eosinophil# 0.13 X10^3/uL; Eosinophils% 1.1 % (0-5); Hematocrit 45.9 % (40-54); Hemoglobin 14.8 g/dL (13.0-16.5); Lymphocyte # 3.03 X10^3/ul (0.83-4.51); Lymphocyte % 25.8 % (19-41); Mean Corp Hgb Conc 32.2 g/dL (32-36); Mean Corpuscular Hgb 30.1 pg (27.0-32.0); Mean Corpuscular Volume 93.3 fL (80-94); Mean Platelet Vol. 9.1 fl (6.2-12.0); Monocyte# 0.77 X10^3/uL; Monocyte% 6.6 % (0-10); NRBC Flagged by Analyzer 0 % (0-5); Neutrophil # 7.68 X10^3/uL (2.7-7.7); Neutrophil % 65.3 % (47-70); Platelet Count 398 K/mm3 (150-450); RBC Distribution Width SD 47.4 fl (35.1-43.9); Red Blood Count 4.92 M/mm3 (4.6-6.2); Urine Bilirubin Dipstick 1 mg/dL (Negative); White Blood Count 11.8 K/mm3 (4.4-11.0)
[2023-06-14 11:13] LABS: Microalbumin:Creatinine Ratio 47.1 mg/g CRE (<30 mg/g CRE)
[2023-06-14 11:27] LABS: AST(SGOT) 25 U/L (15-37); Alanine Aminotransfer ALT/SGPT 35 U/L (16-61); Albumin, Serum 3.7 g/dL (3.2-5.0); Alkaline Phosphatase 85 U/L (45-117); Anion Gap 9 (5-15); BUN 18 mg/dL (7-18); BUN/Creat Ratio 18.5 RATIO (10-20); Calcium,Total 9.2 mg/dL (8.5-10.1); Chloride 106 mmol/L (98-107); Cholesterol 153 mg/dL (200); Creatinine, Serum 0.97 mg/dL (0.70-1.30); EST Glomerular Filtration Rate 84 mL/min (>60); Est Glom Filt Rate - Afr Amer 102 mL/min (>60); Globulin 3.8 g/dL (2.2-4.2); Glucose 146 mg/dL (74-106); High Density Lipoprotein 52 mg/dL; Potassium 3.7 mmol/L (3.5-5.1); Protein, Total 7.5 g/dL (6.4-8.2); Sodium Level 137 mmol/L (136-145); Triglycerides 349 mg/dL; Very Low Density Lipoprotein 70 mg/dL (5-40)
[2023-06-14 17:54] LABS: Hemoglobin A1c 5.9 % (3.8-5.6)
== END | disposition home or self-care (01) ==
LOC: LAB 10:10
PROVIDERS: PCP Family Medicine; Referring Provider Internal Medicine Rheumatology; Visit Provider Internal Medicine Rheumatology
DX: M06.4 Inflammatory polyarthropathy (principal); Z79.899 Other long term (current) drug therapy; M79.7 Fibromyalgia
CPT/HCPCS: 36415; 80053; 80061; 81002; 82043; 82570; 83036; 85025

== ENCOUNTER → 2023-08-01 | Outpatient (CLI) | payer OTHER, SELFPAY ==
[2023-08-01 09:27] LABS: Bacteria 0 SEEN /hpf (None Seen); Red Blood Cells-Urine 0 SEEN /hpf (0-5); Squamous Epithelial Cells - UA 0 SEEN /hpf (0-5)
[2023-08-01 16:13] LABS: Absolute Neutrophil Count 6.4 X10^3/uL (2.0-7.7); Basophil# 0.07 X10^3/uL; Basophil% 0.6 % (0-1); Eosinophil# 0.13 X10^3/uL; Eosinophils% 1.1 % (0-5); Hematocrit 40.4 % (40-54); Hemoglobin 12.6 g/dL (13.0-16.5); Lymphocyte % 33.1 % (19-41); Mean Corp Hgb Conc 31.2 g/dL (32-36); Mean Corpuscular Hgb 30.4 pg (27.0-32.0); Mean Corpuscular Volume 97.6 fL (80-94); Mean Platelet Vol. 9.3 fl (6.2-12.0); Monocyte# 1.04 X10^3/uL; Monocyte% 9.1 % (0-10); NRBC Flagged by Analyzer 0 % (0-5); Neutrophil # 6.39 X10^3/uL (2.7-7.7); Neutrophil % 55.6 % (47-70); Platelet Count 324 K/mm3 (150-450); RBC Distribution Width CV 14.9 % (11.6-14.6); RBC Distribution Width SD 53.6 fl (35.1-43.9); Red Blood Count 4.14 M/mm3 (4.6-6.2); White Blood Count 11.5 K/mm3 (4.4-11.0)
[2023-08-01 16:18] LABS: Color, Urine Yellow (Yellow); Glucose, Dipstick Normal (Normal); Ketone-Dipstick Negative (Negative); Leukocyte Esterase-Dipstick 25 /ul (Negative); Nitrite-Dipstick Negative (Negative); Occult Blood-Urine Negative /ul (Negative); Protein-Dipstick 30 mg/dl (Negative); Urine Bilirubin Dipstick Negative (Negative); Urine Clarity Clear (Clear); Urine Urobilinogen 1 mg/dl (Normal)
[2023-08-01 16:34] LABS: Hemoglobin A1c 5.7 % (3.8-5.6)
[2023-08-01 16:36] LABS: Hyaline Cast 0-5 SEEN /lpf (0-5); Mucous, Urine 2+ /hpf (<or=2+); White Blood Cells 0-5 SEEN /hpf (0-5)
[2023-08-01 16:46] LABS: Microalbumin:Creatinine Ratio 53.4 mg/g CRE (<30 mg/g CRE)
[2023-08-01 17:18] LABS: ALB/GLOB Ratio 1.1 RATIO (0.9-2.4); AST(SGOT) 28 U/L (15-37); Alanine Aminotransfer ALT/SGPT 41 U/L (16-61); Albumin, Serum 3.7 g/dL (3.2-5.0); Alkaline Phosphatase 68 U/L (45-117); Anion Gap 7 (5-15); BUN 13 mg/dL (7-18); BUN/Creat Ratio 12.9 RATIO (10-20); Calcium,Total 9.1 mg/dL (8.5-10.1); Chloride 104 mmol/L (98-107); Cholesterol 133 mg/dL (200); Creatinine, Serum 1.01 mg/dL (0.70-1.30); EST Glomerular Filtration Rate 81 mL/min (>60); Est Glom Filt Rate - Afr Amer 98 mL/min (>60); Globulin 3.3 g/dL (2.2-4.2); Glucose 90 mg/dL (74-106); High Density Lipoprotein 63 mg/dL; Potassium 4.2 mmol/L (3.5-5.1); Sodium Level 138 mmol/L (136-145); Thyroid Stim Hormone (TSH) 2.65 uIU/mL (0.358-3.74); Triglycerides 113 mg/dL; Very Low Density Lipoprotein 23 mg/dL (5-40)
[2023-08-05 11:05] LABS: Bacteria 0 SEEN /hpf (None Seen); Mucous, Urine 0 SEEN /hpf (<or=2+); Red Blood Cells-Urine 0 SEEN /hpf (0-5); Squamous Epithelial Cells - UA 0 SEEN /hpf (0-5); White Blood Cells 0 SEEN /hpf (0-5)
[2023-08-05 12:05] LABS: Color, Urine Yellow (Yellow); Glucose, Dipstick Normal (Normal); Ketone-Dipstick Negative (Negative); Leukocyte Esterase-Dipstick Negative /ul (Negative); Nitrite-Dipstick Negative (Negative); Occult Blood-Urine Negative /ul (Negative); Protein-Dipstick 15 mg/dl (Negative); Urine Bilirubin Dipstick Negative (Negative); Urine Clarity Clear (Clear); Urine Urobilinogen Normal (Normal)
[2023-08-05 12:28] LABS: Microalbumin,Random Urine 49.8 mg/L (NO RANGE EST.); Microalbumin:Creatinine Ratio 62.3 mg/g CRE (<30 mg/g CRE)
== END | disposition home or self-care (01) ==
LOC: MFPLAB 09:19
PROVIDERS: PCP Family Medicine; Visit Provider Family Medicine
DX: E11.59 Type 2 diabetes mellitus with other circulatory complications (principal); E11.29 Type 2 diabetes mellitus with other diabetic kidney complication
CPT/HCPCS: 36415; 80053; 80061; 81001; 82043; 82570; 83036; 84443; 85025

== ENCOUNTER → 2023-08-03 | Outpatient (CLI) | payer OTHER, SELFPAY ==
[2023-08-03 10:34] LABS: Absolute Lymphocyte Count 2.56 X10^3/uL (0.83-4.51); Absolute Neutrophil Count 6.9 X10^3/uL (2.0-7.7); Basophil# 0.06 X10^3/uL; Basophil% 0.6 % (0-1); Eosinophil# 0.15 X10^3/uL; Eosinophils% 1.4 % (0-5); Hemoglobin 13.5 g/dL (13.0-16.5); Lymphocyte # 2.56 X10^3/ul (0.83-4.51); Lymphocyte % 24.1 % (19-41); Mean Corp Hgb Conc 32.9 g/dL (32-36); Mean Corpuscular Hgb 31.4 pg (27.0-32.0); Mean Corpuscular Volume 95.3 fL (80-94); Monocyte# 0.96 X10^3/uL; NRBC Flagged by Analyzer 0 % (0-5); Neutrophil # 6.86 X10^3/uL (2.7-7.7); Neutrophil % 64.4 % (47-70); Platelet Count 320 K/mm3 (150-450); RBC Distribution Width CV 14.5 % (11.6-14.6); RBC Distribution Width SD 50.5 fl (35.1-43.9); White Blood Count 10.6 K/mm3 (4.4-11.0)
[2023-08-03 11:04] LABS: Hemoglobin A1c 5.7 % (3.8-5.6)
[2023-08-03 11:28] LABS: ALB/GLOB Ratio 1.1 RATIO (0.9-2.4); AST(SGOT) 22 U/L (15-37); Alanine Aminotransfer ALT/SGPT 45 U/L (16-61); Alkaline Phosphatase 77 U/L (45-117); Anion Gap 4 (5-15); BUN 12 mg/dL (7-18); Calcium,Total 9.3 mg/dL (8.5-10.1); Chloride 103 mmol/L (98-107); Cholesterol 150 mg/dL (200); Creatinine, Serum 0.92 mg/dL (0.70-1.30); EST Glomerular Filtration Rate 90 mL/min (>60); Est Glom Filt Rate - Afr Amer 109 mL/min (>60); Globulin 3.5 g/dL (2.2-4.2); Glucose 115 mg/dL (74-106); High Density Lipoprotein 65 mg/dL; Protein, Total 7.5 g/dL (6.4-8.2); Sodium Level 135 mmol/L (136-145); Triglycerides 217 mg/dL; Very Low Density Lipoprotein 43 mg/dL (5-40)
[2023-08-05 09:05] LABS: Ferritin 369 ng/mL (26-388); Iron 83 ug/dL (65-175); Iron Binding Capacity,Total 379 ug/dL (250-450)
[2023-08-05 19:22] LABS: Vitamin B12 501 pg/mL (211-911)
== END | disposition home or self-care (01) ==
PROVIDERS: PCP Family Medicine; Referring Provider Family Medicine; Visit Provider Family Medicine
DX: D64.9 Anemia, unspecified (principal); E11.59 Type 2 diabetes mellitus with other circulatory complications
CPT/HCPCS: 36415; 80053; 80061; 82607; 82728; 83036; 83540; 83550; 85025

== ENCOUNTER → 2023-09-10 | Outpatient (CLI) | payer OTHER, SELFPAY ==
[2023-09-10 10:58] LABS: Absolute Lymphocyte Count 2.31 X10^3/uL (0.83-4.51); Absolute Neutrophil Count 7.4 X10^3/uL (2.0-7.7); Basophil# 0.04 X10^3/uL; Basophil% 0.4 % (0-1); Eosinophil# 0.14 X10^3/uL; Eosinophils% 1.3 % (0-5); Hemoglobin 14.3 g/dL (13.0-16.5); Lymphocyte # 2.31 X10^3/ul (0.83-4.51); Lymphocyte % 21.5 % (19-41); Mean Corp Hgb Conc 31.8 g/dL (32-36); Mean Corpuscular Hgb 30.3 pg (27.0-32.0); Mean Corpuscular Volume 95.3 fL (80-94); Mean Platelet Vol. 8.9 fl (6.2-12.0); Monocyte# 0.83 X10^3/uL; Monocyte% 7.7 % (0-10); NRBC Flagged by Analyzer 0 % (0-5); Neutrophil # 7.35 X10^3/uL (2.7-7.7); Neutrophil % 68.6 % (47-70); Platelet Count 340 K/mm3 (150-450); RBC Distribution Width CV 14.2 % (11.6-14.6); RBC Distribution Width SD 49.8 fl (35.1-43.9); Red Blood Count 4.72 M/mm3 (4.6-6.2); White Blood Count 10.7 K/mm3 (4.4-11.0)
[2023-09-10 11:23] LABS: ALB/GLOB Ratio 1.1 RATIO (0.9-2.4); AST(SGOT) 16 U/L (15-37); Alanine Aminotransfer ALT/SGPT 27 U/L (16-61); Alkaline Phosphatase 80 U/L (45-117); Anion Gap 7 (5-15); BUN 17 mg/dL (7-18); Calcium,Total 9.8 mg/dL (8.5-10.1); Chloride 106 mmol/L (98-107); EST Glomerular Filtration Rate 82 mL/min (>60); Est Glom Filt Rate - Afr Amer 99 mL/min (>60); Globulin 3.8 g/dL (2.2-4.2); Glucose 147 mg/dL (74-106); Potassium 3.8 mmol/L (3.5-5.1); Protein, Total 7.8 g/dL (6.4-8.2); Sodium Level 137 mmol/L (136-145)
== END | disposition home or self-care (01) ==
LOC: LAB 10:26
PROVIDERS: PCP Family Medicine; Referring Provider Internal Medicine Rheumatology; Visit Provider Internal Medicine Rheumatology
DX: M06.4 Inflammatory polyarthropathy (principal); M79.7 Fibromyalgia; Z79.899 Other long term (current) drug therapy
CPT/HCPCS: 36415; 80053; 85025

== ENCOUNTER → 2023-09-18 | Outpatient (CLI) | payer OTHER, SELFPAY ==
--- NOTE | 2023-09-18 09:01 | CDU_ITS ---
Reason For Study: Carotid Stenosis Rt. Velocities/BP Lt. Velocities/BP Prox CCA 55.1/10.7 cm/sec. Prox CCA 121.6/21.2 cm/sec. Mid CCA 56.7/16.0 cm/sec. Mid CCA 99.7/21.2 cm/sec. Dist CCA 67.7/17.1 cm/sec. Dist CCA 78.7/21.5 cm/sec. Prox ICA 63.9/16.6 cm/sec. Prox ICA 71.0/18.2 cm/sec. Mid ICA 65.8/25.1 cm/sec. Mid ICA 62.9/16.8 cm/sec. Dist ICA 73.3/28.0 cm/sec. Dist ICA 62.8/23.3 cm/sec. Rt. ICA/CCA = 1.3. Lt. ICA/CCA = 0.7. Prox ECA 141.7/19.4 cm/sec. Prox ECA 97.9/12.3 cm/sec. Rt. Vert. 49.7/19.5 cm/sec. Lt. Vert. 46.9/15.7 cm/sec. Right Extracranial There is intimal thickening but no significant atherosclerotic plaque noted in the right common carotid artery. There is heterogeneous, irregular atherosclerotic plaque noted in the right internal carotid artery. There is intimal thickening but no significant atherosclerotic plaque noted in the right external carotid artery. Antegrade flow is noted in the right vertebral artery. Left Extracranial There is homogeneous, smooth atherosclerotic plaque noted in the left common carotid artery. There is heterogeneous, irregular atherosclerotic plaque noted in the left internal carotid artery. There is heterogeneous, irregular atherosclerotic plaque noted in the left external carotid artery. Antegrade flow is noted in the left vertebral artery. Procedure Carotid Duplex 27267. This is a Carotid Duplex examination using B-mode, color flow and specral Doppler. The exam was diagnostic. Exam performed in department. VL/Carotid Duplex Ultrasound Interpretation Summary Minimal irregular plaque at the proximal right internal carotid artery with les s than 50% stenosis Less than 50% stenosis right external carotid artery Minimal irregular plaque at the proximal left internal carotid artery with less than 50% stenosis Less than 50% stenosis left external carotid artery Patent antegrade vertebral arteries bilaterally No change from December 01, 2021 Ordering Physician: Amor Bishop Referring Physician: Amor Bishop Performed By: Abdiel Diaz RVT
== END | disposition home or self-care (01) ==
LOC: CVS 09:00
PROVIDERS: PCP Family Medicine; Referring Provider Family Medicine; Visit Provider Family Medicine
DX: I65.29 Occlusion and stenosis of unspecified carotid artery (principal)
CPT/HCPCS: 93880

== ENCOUNTER → 2023-11-13 | Outpatient (CLI) | payer OTHER, SELFPAY ==
[2023-11-13 11:21] LABS: Microalbumin:Creatinine Ratio 64.6 mg/g CRE (<30 mg/g CRE)
[2023-11-13 12:22] LABS: Absolute Lymphocyte Count 2.42 X10^3/uL (0.83-4.51); Absolute Neutrophil Count 7.2 X10^3/uL (2.0-7.7); Basophil# 0.06 X10^3/uL; Basophil% 0.5 % (0-1); Eosinophil# 0.19 X10^3/uL; Eosinophils% 1.7 % (0-5); Hematocrit 44.3 % (40-54); Hemoglobin 14.3 g/dL (13.0-16.5); Lymphocyte # 2.42 X10^3/ul (0.83-4.51); Lymphocyte % 22.1 % (19-41); Mean Corp Hgb Conc 32.3 g/dL (32-36); Mean Corpuscular Hgb 30.2 pg (27.0-32.0); Mean Corpuscular Volume 93.7 fL (80-94); Mean Platelet Vol. 9.1 fl (6.2-12.0); Monocyte# 1.09 X10^3/uL; Monocyte% 9.9 % (0-10); NRBC Flagged by Analyzer 0 % (0-5); Neutrophil # 7.16 X10^3/uL (2.7-7.7); Neutrophil % 65.3 % (47-70); Platelet Count 374 K/mm3 (150-450); RBC Distribution Width CV 13.8 % (11.6-14.6); RBC Distribution Width SD 47.3 fl (35.1-43.9); Red Blood Count 4.73 M/mm3 (4.6-6.2)
[2023-11-13 12:51] LABS: ALB/GLOB Ratio 1.1 RATIO (0.9-2.4); AST(SGOT) 22 U/L (15-37); Alanine Aminotransfer ALT/SGPT 34 U/L (16-61); Albumin, Serum 3.9 g/dL (3.2-5.0); Alkaline Phosphatase 80 U/L (45-117); Anion Gap 7 (5-15); BUN 13 mg/dL (7-18); BUN/Creat Ratio 12.7 RATIO (10-20); Calcium,Total 9.4 mg/dL (8.5-10.1); Chloride 103 mmol/L (98-107); Cholesterol 141 mg/dL (200); Creatinine, Serum 1.02 mg/dL (0.70-1.30); EST Glomerular Filtration Rate 80 mL/min (>60); Est Glom Filt Rate - Afr Amer 96 mL/min (>60); Globulin 3.7 g/dL (2.2-4.2); Glucose 105 mg/dL (74-106); High Density Lipoprotein 51 mg/dL; Protein, Total 7.6 g/dL (6.4-8.2); Sodium Level 136 mmol/L (136-145); Triglycerides 227 mg/dL; Very Low Density Lipoprotein 45 mg/dL (5-40)
== END | disposition home or self-care (01) ==
LOC: MTLAB 09:28
PROVIDERS: PCP Family Medicine; Referring Provider Family Medicine; Visit Provider Family Medicine
DX: E11.29 Type 2 diabetes mellitus with other diabetic kidney complication (principal); E11.69 Type 2 diabetes mellitus with other specified complication
CPT/HCPCS: 36415; 80053; 80061; 82043; 82570; 83036; 85025

== ENCOUNTER → 2023-12-09 | Outpatient (CLI) | payer OTHER, SELFPAY ==
[2023-12-09 07:48] LABS: Absolute Neutrophil Count 7.9 X10^3/uL (2.0-7.7); Basophil# 0.04 X10^3/uL; Basophil% 0.3 % (0-1); Eosinophil# 0.17 X10^3/uL; Eosinophils% 1.4 % (0-5); Hematocrit 43.4 % (40-54); Hemoglobin 14.2 g/dL (13.0-16.5); Mean Corp Hgb Conc 32.7 g/dL (32-36); Mean Corpuscular Hgb 30.3 pg (27.0-32.0); Mean Corpuscular Volume 92.7 fL (80-94); Mean Platelet Vol. 8.7 fl (6.2-12.0); Monocyte# 1.02 X10^3/uL; Monocyte% 8.4 % (0-10); NRBC Flagged by Analyzer 0 % (0-5); Neutrophil % 65.4 % (47-70); Platelet Count 375 K/mm3 (150-450); RBC Distribution Width CV 14.6 % (11.6-14.6); RBC Distribution Width SD 49.1 fl (35.1-43.9); Red Blood Count 4.68 M/mm3 (4.6-6.2); White Blood Count 12.1 K/mm3 (4.4-11.0)
[2023-12-09 08:11] LABS: AST(SGOT) 21 U/L (15-37); Alanine Aminotransfer ALT/SGPT 32 U/L (16-61); Albumin, Serum 3.6 g/dL (3.2-5.0); Alkaline Phosphatase 80 U/L (45-117); Anion Gap 7 (5-15); BUN 18 mg/dL (7-18); BUN/Creat Ratio 18.5 RATIO (10-20); Calcium,Total 9.2 mg/dL (8.5-10.1); Chloride 105 mmol/L (98-107); Creatinine, Serum 0.97 mg/dL (0.70-1.30); EST Glomerular Filtration Rate 84 mL/min (>60); Est Glom Filt Rate - Afr Amer 102 mL/min (>60); Globulin 3.7 g/dL (2.2-4.2); Glucose 122 mg/dL (74-106); Protein, Total 7.3 g/dL (6.4-8.2); Sodium Level 137 mmol/L (136-145)
== END | disposition home or self-care (01) ==
LOC: LAB 07:03
PROVIDERS: PCP Family Medicine; Referring Provider Internal Medicine Rheumatology; Visit Provider Internal Medicine Rheumatology
DX: M06.4 Inflammatory polyarthropathy (principal); Z79.899 Other long term (current) drug therapy; M79.7 Fibromyalgia
CPT/HCPCS: 36415; 80053; 85025

== ENCOUNTER → 2024-01-06 | Outpatient (CLI) | payer OTHER, SELFPAY ==
--- NOTE | 2024-01-06 07:30 | CT_ITS ---
STUDY: LOW DOSE CT LUNG CANCER SCREENING REASON FOR EXAM: Male, 58 years old. smoker RADIATION DOSAGE (If Supplied By Facility): CTDIvol = ( 4.02 ) mGy, DLP = ( 142.95 ) mGycm TECHNIQUE: No contrast was administered. Low dose technique was utilized (average mAS-38 and kVp 120). 1.25 mm axial source images with a slice interval of 1.25-mm were reconstructed in lung windows. 2.5 mm axial source images with a slice interval of 2.5-mm were reconstructed in lung windows. 5.0 mm axial source images with a slice interval of 5.0-mm were reconstructed in soft tissue windows. COMPARISON: 12/19/2022 Emphysema: Mild emphysema. No noncalcified nodule or mass. Endobronchial lesion: None Aorta: No thoracic aortic aneurysm. CORONARY ARTERIES: Coronary artery calcification is seen. Heart: No cardiomegaly. Pulmonary artery: Normal Mediastinal nodes: Normal Other chest and abdominal findings: None CT/Low Dose CT Lung Screening IMPRESSION: Lung-RADS category 1 - Continue annual screening with LDCT in 12 months. IMPORTANT NOTES FOR USE: ACR Lung-RADS Version 1.1 Assessment Categories Release Date: 2018 Category: Coded 0-4 bases on nodule(s) with highest degree of suspicion. Negative screen is defined as categories 1 and 2; a positive screen is defined as categories 3 and 4. Category 3 and 4A nodules that are unchanged on interval CT should be coded as category 2, and individuals returned to screening in 12 months. Category 4X: Category 3 or 4 nodules with additional imaging findings that increase the suspicion of lung cancer, such as spiculation, GGN that doubles in size in 1 year, enlarged lymph notes, etc. Category Modifiers: S (significant finding unrelated to lung cancer) Electronically Signed: Bin Guallpa MD at 8:36 EDT ,
== END | disposition home or self-care (01) ==
LOC: CT 07:30
PROVIDERS: PCP Family Medicine; Referring Provider Nurse Practitioner Acute Care; Visit Provider Nurse Practitioner Acute Care
DX: F17.210 Nicotine dependence, cigarettes, uncomplicated (principal)
CPT/HCPCS: 71271

== ENCOUNTER → 2024-02-12 | Outpatient (CLI) | payer OTHER, SELFPAY ==
[2024-02-12 14:14] LABS: Amphetamine Urine VISTA NEGATIVE (<1000 ng/mL); Barbiturate Urine VISTA NEGATIVE (< 200 ng/mL); Benzodiazepine Urine VISTA NEGATIVE (< 200 ng/mL); Cocaine Urine VISTA NEGATIVE (< 300 ng/mL); Ecstacy Urine VISTA NEGATIVE (< 500 ng/mL); Methadone Urine VISTA NEGATIVE (< 300 ng/mL); PCP Urine VISTA NEGATIVE (< 25 ng/mL); THC Urine VISTA NEGATIVE (< 50 ng/mL); Vista UDS pH Range 5
--- NOTE | 2024-02-12 18:24 | STRESSREP ---
Stress Test Report Pharmacologic myocardial perfusion stress test. 58-year-old man with a history of chest pain Resting EKG demonstrates sinus rhythm with a rate of 70 bpm. Resting blood pressure is 128/70 mmHg. 0.4 mg of regadenoson was infused per usual protocol followed by rapid intravenous saline flush injection. Continuous EKG monitoring was performed. The maximum heart rate was 97 bpm which was 59% of max impacted heart rate the maximum workload was 1 metabolic equivalent. At rest there were no ST or T wave changes noted to suggest ischemia and at peak infusion nonspecific ST changes were noted which did not meet the criteria for ischemia. No clinical angina is noted. The final blood pressure was 148/88 mmHg. Myocardial perfusion protocol. 14.6 mCi of technetium 99m sestamibi was injected at rest. 0.4 mg of regadenoson was infused per usual protocol. At peak infusion 44.8 mCi of technetium 99m sestamibi was injected stress images were obtained stress and rest images were reconstructed and compared in the short axis vertical long and horizontal long axis. Gated images were also obtained. Perfusion SPECT analysis: Review of the stress images demonstrate normal uptake of tracer noted in all areas of the myocardium. The resting images similar demonstrated normal uptake of tracer noted in all areas of the myocardium. No areas of reversibility are noted to suggest ischemia and no previous infarct is noted. Gated SPECT analysis: The gated ejection fraction is 53%. Conclusion: Normal pharmacologic myocardial perfusion stress test. Preserved ejection fraction.
== END | disposition home or self-care (01) ==
PROVIDERS: PCP Family Medicine; Referring Provider Physician Assistant Medical; Visit Provider Physician Assistant Medical
DX: F11.20 Opioid dependence, uncomplicated (principal); R07.9 Chest pain, unspecified; I25.118 Atherosclerotic heart disease of native coronary artery with other forms of angina pectoris
CPT/HCPCS: 78452; 80307; 93017; A9500; A4216; J2785

== ENCOUNTER → 2024-02-28 | Outpatient (CLI) | payer OTHER, SELFPAY ==
[2024-02-28 15:13] LABS: Absolute Lymphocyte Count 2.76 X10^3/uL (0.83-4.51); Absolute Neutrophil Count 8.7 X10^3/uL (2.0-7.7); Basophil# 0.09 X10^3/uL; Basophil% 0.7 % (0-1); Eosinophil# 0.28 X10^3/uL; Eosinophils% 2.1 % (0-5); Hematocrit 45.1 % (40-54); Hemoglobin 14.4 g/dL (13.0-16.5); Lymphocyte # 2.76 X10^3/ul (0.83-4.51); Lymphocyte % 20.7 % (19-41); Mean Corp Hgb Conc 31.9 g/dL (32-36); Mean Corpuscular Hgb 30.9 pg (27.0-32.0); Mean Corpuscular Volume 96.8 fL (80-94); Mean Platelet Vol. 9.2 fl (6.2-12.0); Monocyte# 1.44 X10^3/uL; Monocyte% 10.8 % (0-10); NRBC Flagged by Analyzer 0 % (0-5); Neutrophil # 8.68 X10^3/uL (2.7-7.7); Neutrophil % 65.2 % (47-70); Platelet Count 387 K/mm3 (150-450); RBC Distribution Width CV 14.7 % (11.6-14.6); RBC Distribution Width SD 52.2 fl (35.1-43.9); Red Blood Count 4.66 M/mm3 (4.6-6.2); White Blood Count 13.3 K/mm3 (4.4-11.0)
[2024-02-28 15:46] LABS: ALB/GLOB Ratio 1.1 RATIO (0.9-2.4); AST(SGOT) 23 U/L (15-37); Alanine Aminotransfer ALT/SGPT 34 U/L (16-61); Albumin, Serum 3.9 g/dL (3.2-5.0); Alkaline Phosphatase 81 U/L (45-117); Anion Gap 7 (5-15); BUN 17 mg/dL (7-18); BUN/Creat Ratio 16.7 RATIO (10-20); Calcium,Total 9.5 mg/dL (8.5-10.1); Chloride 106 mmol/L (98-107); Creatinine, Serum 1.02 mg/dL (0.70-1.30); EST Glomerular Filtration Rate 80 mL/min (>60); Est Glom Filt Rate - Afr Amer 96 mL/min (>60); Globulin 3.5 g/dL (2.2-4.2); Glucose 110 mg/dL (74-106); Potassium 3.8 mmol/L (3.5-5.1); Protein, Total 7.4 g/dL (6.4-8.2); Sodium Level 138 mmol/L (136-145)
[2024-02-28 22:49] LABS: Microalbumin:Creatinine Ratio 60.4 mg/g CRE (<30 mg/g CRE)
[2024-02-28 23:04] LABS: Cholesterol 144 mg/dL (200); High Density Lipoprotein 49 mg/dL; Triglycerides 242 mg/dL; Very Low Density Lipoprotein 48 mg/dL (5-40)
== END | disposition home or self-care (01) ==
LOC: MFPLAB 11:12
PROVIDERS: PCP Family Medicine; Visit Provider Internal Medicine Rheumatology
DX: M06.4 Inflammatory polyarthropathy (principal); Z79.899 Other long term (current) drug therapy; M79.7 Fibromyalgia; G56.02 Carpal tunnel syndrome, left upper limb
CPT/HCPCS: 36415; 80053; 80061; 82043; 82570; 83036; 85025

== ENCOUNTER → 2024-04-20 | Outpatient (CLI) | payer OTHER, SELFPAY ==
--- NOTE | 2024-04-20 11:25 | MRI_ITS ---
EXAM: MR LEFT UPPER EXTREMITY WITHOUT INTRAVENOUS CONTRAST, SHOULDER CLINICAL INDICATION: sprain of shoulder TECHNIQUE: Multiplanar and multisequence MR images of the left shoulder without intravenous contrast. COMPARISON: October 04, 2016 FINDINGS: TENDONS: SUPRASPINATUS: No obvious full-thickness defects. INFRASPINATUS: No obvious full-thickness defects. SUBSCAPULARIS: Intact. TERES MINOR: Unremarkable. Intact. BICEPS BRACHII, LONG HEAD: Intact long biceps tendon which is normal in position. The extra-articular biceps tendon is in the bicipital groove. LIGAMENTS: GLENOHUMERAL: Unremarkable. Intact. MUSCLES: Unremarkable. No rotator cuff muscle atrophy. FLUID: Small of fluid in the subacromial/subdeltoid bursa. No significant glenohumeral joint effusion. CARTILAGE: Unremarkable. Articular cartilage intact. GLENOID LABRUM: No definite labral tear within the limits of this examination. BONES/JOINTS: Surgical artifact at the posterior superior humeral head probably from previous rotator cuff repair. Small cyst at the anterior superior humeral head. Small amount of fluid in the acromioclavicular joint. Chme-ip-vuqjanii degenerative changes of the acromioclavicular joint. Type II acromion with curved undersurface and with presence of a prominent subacromial enthesophyte. OTHER SOFT TISSUES: Unremarkable. No rotator interval edema. MRI/Upper Ext Joint Only(Routine) IMPRESSION: 1. Subacromial/subdeltoid bursitis. 2. No definite rotator cuff full thickness tear; MR arthrography would be more sensitive for detecting partial-thickness rotator cuff tears in this postsurgical setting. 3. Subacromial enthesophyte identified. 4. Up to moderate degenerative changes of the acromioclavicular joint. Electronically Signed: Des Jones MD at 20:50 EST ,
== END | disposition home or self-care (01) ==
LOC: MRI 14:15
PROVIDERS: PCP Family Medicine; Referring Provider Family Medicine; Visit Provider Family Medicine
DX: S46.219A Strain of muscle, fascia and tendon of other parts of biceps, unspecified arm, initial encounter (principal); X58.XXXA Exposure to other specified factors, initial encounter
CPT/HCPCS: 73221

== ENCOUNTER → 2024-04-29 | Outpatient (CLI) | payer OTHER, SELFPAY ==
--- NOTE | 2024-04-29 09:26 | MRI_ITS ---
PROCEDURE: UPPER EXT JOINT ONLY(ROUTINE) REASON FOR EXAM: Biceps pain. Ripped feeling and arm. TECHNIQUE: MRI of the left elbow without contrast. CONTRAST: None. COMPARISON: None. FINDINGS Rupture of the distal biceps tendon from the radial tuberosity, retracted by approximately 4 cm. Brachialis is intact. The triceps is intact. The collateral ligaments are intact. No joint effusion. Marrow signal is normal with no bone bruise or occult fracture evident. Mild soft tissue swelling at the medial joint without fluid collection. Mild increased signal at the common flexor origin consistent with medial epicondylitis. There is low-grade interstitial tearing but no complete tear identified. The common extensor origin is unremarkable. MRI/Upper Ext Joint Only(Routine) IMPRESSION: 1. Acute/subacute distal biceps tear and retracted by approximately 4 cm from the radial tuberosity. 2. Medial epicondylitis with low-grade interstitial tearing but no complete te ar. 3. No marrow contusion or occult fracture. Reading Location: [facility]
== END | disposition home or self-care (01) ==
LOC: MRI 09:19
PROVIDERS: PCP Family Medicine; Referring Provider Family Medicine; Visit Provider Family Medicine
DX: S46.219A Strain of muscle, fascia and tendon of other parts of biceps, unspecified arm, initial encounter (principal)
CPT/HCPCS: 73221

== ENCOUNTER → 2024-05-25 | Outpatient (CLI) | payer OTHER, SELFPAY ==
[2024-05-25 13:31] LABS: Absolute Lymphocyte Count 1.15 X10^3/uL (0.83-4.51); Absolute Neutrophil Count 7.2 X10^3/uL (2.0-7.7); Basophil# 0.04 X10^3/uL; Basophil% 0.4 % (0-1); Eosinophil# 0.04 X10^3/uL; Eosinophils% 0.4 % (0-5); Hematocrit 45.7 % (40-54); Hemoglobin 15.3 g/dL (13.0-16.5); Lymphocyte # 1.15 X10^3/ul (0.83-4.51); Lymphocyte % 12.9 % (19-41); Mean Corp Hgb Conc 33.5 g/dL (32-36); Mean Corpuscular Hgb 31.1 pg (27.0-32.0); Mean Corpuscular Volume 92.9 fL (80-94); Mean Platelet Vol. 9.7 fl (6.2-12.0); Monocyte# 0.49 X10^3/uL; Monocyte% 5.5 % (0-10); NRBC Flagged by Analyzer 0 % (0-5); Neutrophil # 7.17 X10^3/uL (2.7-7.7); Neutrophil % 80.4 % (47-70); Platelet Count 409 K/mm3 (150-450); RBC Distribution Width SD 47.8 fl (35.1-43.9); Red Blood Count 4.92 M/mm3 (4.6-6.2); White Blood Count 8.9 K/mm3 (4.4-11.0)
[2024-05-25 15:49] LABS: ALB/GLOB Ratio 1.6 RATIO (0.9-2.4); AST(SGOT) 27 U/L (<=37); Alanine Aminotransfer ALT/SGPT 22 U/L (<=46); Albumin, Serum 4.6 g/dL (3.5-5.0); Alkaline Phosphatase 91 U/L (40-129); Anion Gap 14 (5-15); BUN 16 mg/dL (4-19); BUN/Creat Ratio 18.8 RATIO (10-20); Calcium 10.1 mg/dL (7.6-11.0); Carbon Dioxide 20.2 mmol/L (22.0-29.0); Chloride 103 mmol/L (96-108); Creatinine, Serum 0.86 mg/dL (0.70-1.20); EST Glomerular Filtration Rate 100 (>60); Glucose 104 mg/dL (70-99); Potassium 4.5 mmol/L (3.3-5.1); Protein, Total 7.6 g/dL (5.9-8.4); Sodium Level 137 mmol/L (133-145); Total Bilirubin 0.31 mg/dL (0.00-1.30)
== END | disposition home or self-care (01) ==
LOC: MTLAB 10:04
PROVIDERS: PCP Family Medicine; Referring Provider Internal Medicine Rheumatology; Visit Provider Internal Medicine Rheumatology
DX: M06.4 Inflammatory polyarthropathy (principal); Z79.899 Other long term (current) drug therapy; M79.7 Fibromyalgia; K76.0 Fatty (change of) liver, not elsewhere classified
CPT/HCPCS: 36415; 80053; 83036; 85025

== ENCOUNTER → 2024-05-29 | Outpatient (CLI) | payer OTHER, SELFPAY ==
--- NOTE | 2024-05-29 10:53 | RAD_ITS ---
PROCEDURE: HIP, UNI W/ PELVIS 2-3 VIEWS REASON FOR EXAM: Right hip pain. Polyarthritis. TECHNIQUE: Three views of the right hip were obtained. COMPARISON: Comparison is made with prior study dated January 29, 2022. FINDINGS: Marked degree of joint space narrowing of the right hip joint. There is deformity of the right femoral neck with expansion. This is in keeping with the femoral acetabular impingement. Normal alignment. Soft tissues are unremarkable. RAD/HIP, UNI W/ Pelvis 2-3 Views IMPRESSION: Marked degree of joint space narrowing of the right hip joint with evidence of right femoral acetabular impingement. Reading Location: [facility]
--- NOTE | 2024-05-29 10:53 | RAD_ITS ---
PROCEDURE: KNEE 4 OR MORE VIEWS REASON FOR EXAM: Right knee pain. Polyarthropathy. TECHNIQUE: 4 view(s) of the right knee COMPARISON: Comparison is made with prior study dated December 10, 2020. FINDINGS: No fracture. No suspicious bone lesion. Normal alignment. No effusion. Soft tissues are unremarkable. RAD/Knee 4 or More Views IMPRESSION: NEGATIVE KNEE SERIES Reading Location: [id number]
== END | disposition home or self-care (01) ==
LOC: MTRAD 10:52
PROVIDERS: PCP Family Medicine; Referring Provider Internal Medicine Rheumatology; Visit Provider Internal Medicine Rheumatology
DX: M06.4 Inflammatory polyarthropathy (principal)
CPT/HCPCS: 73502; 73564

== ENCOUNTER 2024-06-09 08:00 | Outpatient (RCR) | payer OTHER, SELFPAY ==
--- NOTE | 2024-05-05 09:45 | HP.PTEVAL_ITS ---
Patient's Visit Information Visit Information Visit Information: DINORAH SANTOS is a 58 year old M referred to Physical Therapy by Dr. Neel Christy DO with a diagnosis of L shoulder biceps strain. Date of Evaluation: 05/05/24 Physical Therapist: Juan Nash, PT, ATC Visit Plan Frequency: 1x/Week Plan: Issue and instruct pt on HEP of L biceps stretching and strengthening. CP for pain. Subjective Subjective: DOI: 04/03/24. 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 Pt reports after going tot he doctor, he had an MRI which revealed a distal biceps rupture. Pt notes he was told that surgery really wasn't and option secondary to his cardiac issues and diabetes concerns. Pt also notes he is much weakened secondary to having lymes disease 2 years ago. Pt reports he is in moderate pain in his L biceps region today. Pt reports he is here today so that he can get a program to perform at home to help strengthen his L UE. Pt reports L UE paresthesia's from carpal tunnel syndrome. 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 Pt reports he is still able to perform most of his duties but with the help of a coworker. 3/10 pain at rest, 10/10 pain at worst. Pt is R hand dominant Pain L biceps pain: Pain Intensity (Out of 10): 3 Pain Intensity Range: 10 Objective Objective: Neuro: L UE sensation is WNL to light touch Palpation: Pt is very sore on the distal and superior aspect of L biceps muscle and tendons. ROM: L elbow 0-2-128 degrees : R elbow 0-5-135 degrees MMT: R elbow flex= 39 #F, L elbow flex= 13 #F Balance/Special Test Scores Quick DASH Score: 54.5450 Goals Goal 1:: I with HEP in 1-2 visits Goal Time Frame: 1 Week Rehabilitation Potential Physical Therapy Diagnosis: Pt has L UE weakness and pain secondary to L biceps strain Rehabilitation Potential: Good Anticipated Interventions Patient/Client Instruction: Educate patient on: Condition and Plan of Care For the Purpose of:: To improve self management Therapeutic Exercise to Include: Strength training, Flexibilty training and Active ROM For the Purpose of:: To decrease pain, To improve muscle performance and motor function and To improve ability of physical actions for home/community/work/leisure Cryotherapy (ice pack, ice massage): Yes For the Purpose of:: To decrease pain Text: Thank you for the opportunity to evaluate your patient. For Medicare and Medicare HMO plans, please review the plan of care and approve it. It will need to be FAXED BACK to us at [phone] for Medicare purposes. For Medicare only, by signing this I certify the plan of care. Please let me know if there are questions or concerns regarding this plan of care. Physician Signature: Date:
--- NOTE | 2024-06-09 08:36 | HP.PTDCSUM ---
Discharge Summary D/C summary: It has been my pleasure to treat DINORAH SANTOS referred by Dr. Neel Christy DO, with the diagnosis of L shoulder biceps strain for a total of 3 visit(s). Discharge Date: Please see the following information for a summary of their discharge status. Subjective Subjective: I am still very limited with my L arm. But I still use it all the time. Pain L biceps pain: Pain Intensity (Out of 10): 1 Overall Improvement % Improvement: 10 Objective Objective/Function: L elbow ROM: 0-15-130 degrees L bicep pain ranges from 1-10/10 L elbow flexion MMT: 19 #F Pt has improved strength and decreased pain overall. ROM remained unchanged. Goals Goal 1:: I with HEP in 1-2 visits Plan Plan: Discharge to [facility] D/C Information d/c sentence: If there are questions or concerns regarding this patient's physical therapy, please feel free to call me at [phone]. Thank you for the referral of this patient. Sincerely, Juan Nash, PT, ATC Balance/Gait/Functional tests Balance/Special Test Scores Quick DASH Score: 54.5450 Improvement % Improvement: 10
== END 2024-06-09 13:22 | disposition home or self-care (01) ==
LOC: PT 08:00
PROVIDERS: PCP Family Medicine; Referring Provider Student in an Organized Health Care Education/Training Program; Visit Provider Student in an Organized Health Care Education/Training Program
DX: S46.112D Strain of muscle, fascia and tendon of long head of biceps, left arm, subsequent encounter (principal)
CPT/HCPCS: 97110; 97161; 97530

== ENCOUNTER → 2024-07-02 | Outpatient (CLI) | payer OTHER, SELFPAY ==
[2024-07-02 10:50] LABS: Absolute Neutrophil Count 11.8 X10^3/uL (2.0-7.7); Basophil# 0.07 X10^3/uL; Basophil% 0.5 % (0-1); Eosinophil# 0.06 X10^3/uL; Eosinophils% 0.4 % (0-5); Hematocrit 44.1 % (40-54); Hemoglobin 14.8 g/dL (13.0-16.5); Lymphocyte % 9.8 % (19-41); Mean Corp Hgb Conc 33.6 g/dL (32-36); Mean Corpuscular Hgb 31.3 pg (27.0-32.0); Mean Corpuscular Volume 93.2 fL (80-94); Mean Platelet Vol. 8.7 fl (6.2-12.0); Monocyte# 0.84 X10^3/uL; Monocyte% 5.9 % (0-10); NRBC Flagged by Analyzer 0 % (0-5); Platelet Count 317 K/mm3 (150-450); RBC Distribution Width CV 14.1 % (11.6-14.6); RBC Distribution Width SD 48.5 fl (35.1-43.9); Red Blood Count 4.73 M/mm3 (4.6-6.2); White Blood Count 14.2 K/mm3 (4.4-11.0)
[2024-07-02 11:02] LABS: Hemoglobin A1c 6.1 % (<=5.6)
[2024-07-02 11:30] LABS: ALB/GLOB Ratio 1.5 RATIO (0.9-2.4); AST(SGOT) 21 U/L (<=37); Alanine Aminotransfer ALT/SGPT 21 U/L (<=46); Albumin, Serum 4.5 g/dL (3.5-5.0); Alkaline Phosphatase 81 U/L (40-129); Anion Gap 14 (5-15); BUN 28 mg/dL (4-19); Calcium,Total 9.6 mg/dL (7.6-11.0); Carbon Dioxide 21.7 mmol/L (21.0-32.0); Chloride 102 mmol/L (98-108); Cholesterol 146 mg/dL (<=200); Creatinine, Serum 1.03 mg/dL (0.70-1.20); EST Glomerular Filtration Rate 84 (>60); Globulin 2.9 g/dL (2.2-4.2); Glucose 123 mg/dL (70-99); High Density Lipoprotein 55 mg/dL; Low Density Lipoprotein Calc. 65 mg/dL; Potassium 4.1 mmol/L (3.3-5.1); Protein, Total 7.5 g/dL (5.9-8.4); Sodium Level 138 mmol/L (133-145); Total Bilirubin 0.23 mg/dL (0.00-1.30); Triglycerides 131 mg/dL; Very Low Density Lipoprotein 26 mg/dL (5-40); cholesterol:hdl ratio screen 2.65
== END | disposition home or self-care (01) ==
LOC: MTLAB 08:31
PROVIDERS: PCP Family Medicine; Referring Provider Family Medicine; Visit Provider Family Medicine
DX: E11.69 Type 2 diabetes mellitus with other specified complication (principal)
CPT/HCPCS: 36415; 80053; 80061; 82043; 83036; 85025

== ENCOUNTER → 2024-08-24 | Outpatient (CLI) | payer OTHER, SELFPAY ==
[2024-08-24 15:34] LABS: ALB/GLOB Ratio 1.8 RATIO (0.9-2.4); AST(SGOT) 33 U/L (<=37); Alanine Aminotransfer ALT/SGPT 31 U/L (<=46); Albumin, Serum 4.8 g/dL (3.5-5.0); Alkaline Phosphatase 81 U/L (40-129); Anion Gap 14 (5-15); BUN 20 mg/dL (4-19); BUN/Creat Ratio 19.7 RATIO (10-20); Calcium,Total 9.8 mg/dL (7.6-11.0); Carbon Dioxide 23.1 mmol/L (21.0-32.0); Chloride 102 mmol/L (98-108); Creatinine, Serum 0.99 mg/dL (0.70-1.20); EST Glomerular Filtration Rate 88 (>60); Globulin 2.7 g/dL (2.2-4.2); Glucose 101 mg/dL (70-99); Potassium 3.9 mmol/L (3.3-5.1); Protein, Total 7.5 g/dL (5.9-8.4); Sodium Level 139 mmol/L (133-145); Total Bilirubin 0.35 mg/dL (0.00-1.30)
[2024-08-24 15:35] LABS: Absolute Lymphocyte Count 3.25 X10^3/uL (0.83-4.51); Absolute Neutrophil Count 8.6 X10^3/uL (2.0-7.7); Basophil% 0.8 % (0-1); Eosinophils% 0.8 % (0-5); Hematocrit 44.8 % (40-54); Hemoglobin 14.9 g/dL (13.0-16.5); Lymphocyte # 3.25 X10^3/ul (0.83-4.51); Lymphocyte % 24.5 % (19-41); Mean Corp Hgb Conc 33.3 g/dL (32-36); Mean Corpuscular Hgb 31.5 pg (27.0-32.0); Mean Corpuscular Volume 94.7 fL (80-94); Mean Platelet Vol. 9.2 fl (6.2-12.0); Monocyte# 1.11 X10^3/uL; Monocyte% 8.4 % (0-10); NRBC Flagged by Analyzer 0 % (0-5); Neutrophil # 8.62 X10^3/uL (2.7-7.7); Neutrophil % 64.8 % (47-70); Platelet Count 371 K/mm3 (150-450); RBC Distribution Width CV 14.1 % (11.6-14.6); Red Blood Count 4.73 M/mm3 (4.6-6.2); White Blood Count 13.3 K/mm3 (4.4-11.0)
== END | disposition home or self-care (01) ==
LOC: MTLAB 13:02
PROVIDERS: PCP Family Medicine; Referring Provider Internal Medicine Rheumatology; Visit Provider Internal Medicine Rheumatology
DX: M06.4 Inflammatory polyarthropathy (principal); Z79.899 Other long term (current) drug therapy; M79.7 Fibromyalgia
CPT/HCPCS: 36415; 80053; 85025

== ENCOUNTER → 2024-10-20 | Outpatient (CLI) | payer OTHER, SELFPAY ==
[2024-10-20 12:04] LABS: Barbiturate Urine NEGATIVE (< 200 ng/mL); Benzodiazepine Urine NEGATIVE (< 200 ng/mL); PCP Urine NEGATIVE (< 25 ng/mL); THC Urine NEGATIVE (< 50 ng/mL)
== END | disposition home or self-care (01) ==
LOC: LAB 11:03
PROVIDERS: PCP Family Medicine; Referring Provider Anesthesiology Pain Medicine; Visit Provider Anesthesiology Pain Medicine
DX: F11.20 Opioid dependence, uncomplicated (principal)
CPT/HCPCS: 80307

== ENCOUNTER → 2024-11-16 | Outpatient (CLI) | payer OTHER, SELFPAY ==
[2024-11-16 15:25] LABS: Hematocrit 41.2 % (40-54); Hemoglobin 13.4 g/dL (13.0-16.5); Immature Granulocytes Count 0.050 X10^3/uL (0.0-0.0); Mean Corp Hgb Conc 32.5 g/dL (32-36); Mean Corpuscular Volume 95.8 fL (80-94); Mean Platelet Vol. 9.3 fl (6.2-12.0); NRBC Flagged by Analyzer 0 % (0-5); Platelet Count 344 K/mm3 (150-450); RBC Distribution Width CV 14.2 % (11.6-14.6); RBC Distribution Width SD 49.7 fl (35.1-43.9); Red Blood Count 4.30 M/mm3 (4.6-6.2); White Blood Count 9.7 K/mm3 (4.4-11.0)
[2024-11-16 16:10] LABS: AST(SGOT) 30 U/L (<=37); Alanine Aminotransfer ALT/SGPT 29 U/L (<=46); Albumin, Serum 4.4 g/dL (3.5-5.0); Alkaline Phosphatase 69 U/L (40-129); Anion Gap 14 (5-15); BUN 14 mg/dL (4-19); BUN/Creat Ratio 15.3 RATIO (10-20); Calcium,Total 9.6 mg/dL (7.6-11.0); Carbon Dioxide 22.6 mmol/L (21.0-32.0); Chloride 102 mmol/L (98-108); Globulin 2.7 g/dL (2.2-4.2); Glucose 83 mg/dL (70-99); Potassium 4.2 mmol/L (3.3-5.1)
== END | disposition home or self-care (01) ==
PROVIDERS: PCP Family Medicine; Visit Provider Internal Medicine Rheumatology
DX: M06.4 Inflammatory polyarthropathy (principal); Z79.899 Other long term (current) drug therapy; M79.7 Fibromyalgia; K76.0 Fatty (change of) liver, not elsewhere classified
CPT/HCPCS: 36415; 80053; 85025

== ENCOUNTER → 2025-01-20 | Outpatient (CLI) | payer OTHER, SELFPAY ==
--- NOTE | 2025-01-20 08:00 | CT_ITS ---
PROCEDURE: LOW DOSE CT LUNG SCREENING 01/20/2025 REASON FOR EXAM: SMOKER COPD. Chronic shortness of breath. TECHNIQUE: Procedure Code: [id number] Modality: CT Procedure: LOW DOSE CT LUNG SCREENING Coronal and Sagittal reconstruction series were provided. One or more dose reduction techniques were used (e.g., Automated exposure control, adjustment of the mA and/or kV according to patient size, use of iterative reconstruction technique). REFERENCE LINK: [employer] Lung-RADS RADIATION DOSE SUMMARY: CTDlvol: 4.02 mGy DLP: 146.47 mGycm COMPARISON: Prior study dated January 06, 2024. FINDINGS: PULMONARY NODULES: (Only nodules >3mm are reported) Nodules described below are on series 1 unless otherwise specified. Pulmonary Nodules: No suspicious nodules are seen. Hardware:None Lymph Nodes:No significant lymph nodes are present. Heart and Vasculature:The heart is nonenlarged. Coronary Artery Calcifications: Present Lungs and Airways: Focal scarring in the medial aspect of the right minor fissure. Pleura:No pleural effusion Upper Abdomen:Unremarkable Bones:Degenerative changes of the thoracic spine. CT/Low Dose CT Lung Screening IMPRESSION: No suspicious nodule seen. Coronary artery calcification (CAC) is is present Lung-RADS Category: 2 BENIGN (BASED ON IMAGING FEATURES OR INDOLENT BEHAVIOR). RECOMMEND 12-MONTH SCREENING LDCT. Other Significant Findings: Reading Location: [id number]
== END | disposition home or self-care (01) ==
LOC: CT 07:54
PROVIDERS: PCP Family Medicine; Referring Provider Nurse Practitioner Acute Care; Visit Provider Nurse Practitioner Acute Care
DX: F17.210 Nicotine dependence, cigarettes, uncomplicated (principal)
CPT/HCPCS: 71271

== ENCOUNTER → 2025-02-15 | Outpatient (CLI) | payer OTHER, SELFPAY ==
[2025-02-15 10:49] LABS: Hematocrit 41.0 % (40-54); Hemoglobin 13.9 g/dL (13.0-16.5); Immature Granulocytes Count 0.110 X10^3/uL (0.0-0.0); Mean Corp Hgb Conc 33.9 g/dL (32-36); Mean Corpuscular Volume 94.5 fL (80-94); Mean Platelet Vol. 9.2 fl (6.2-12.0); NRBC Flagged by Analyzer 0 % (0-5); Platelet Count 344 K/mm3 (150-450); RBC Distribution Width CV 13.6 % (11.6-14.6); RBC Distribution Width SD 46.8 fl (35.1-43.9); Red Blood Count 4.34 M/mm3 (4.6-6.2); White Blood Count 14.2 K/mm3 (4.4-11.0)
[2025-02-15 11:34] LABS: AST(SGOT) 17 U/L (<=37); Alanine Aminotransfer ALT/SGPT 20 U/L (<=46); Albumin, Serum 4.5 g/dL (3.5-5.0); Alkaline Phosphatase 82 U/L (40-129); Anion Gap 14 (5-15); BUN 22 mg/dL (4-19); BUN/Creat Ratio 24.9 RATIO (10-20); Calcium,Total 9.5 mg/dL (7.6-11.0); Carbon Dioxide 22.0 mmol/L (21.0-32.0); Chloride 101 mmol/L (98-108); Globulin 2.7 g/dL (2.2-4.2); Glucose 130 mg/dL (70-99); Potassium 3.9 mmol/L (3.3-5.1)
== END | disposition home or self-care (01) ==
LOC: MFPLAB 09:35
PROVIDERS: PCP Family Medicine; Referring Provider Internal Medicine Rheumatology; Visit Provider Internal Medicine Rheumatology
DX: M06.4 Inflammatory polyarthropathy (principal); Z79.899 Other long term (current) drug therapy; M79.7 Fibromyalgia
CPT/HCPCS: 36415; 80053; 85025